=== PATIENT | male | born 1990 | race African-American/Black ===

== ENCOUNTER 2016-09-05 18:00 | Emergency (ER) | payer OTHER ==
[2016-09-05] MEDS ORDERED: ONDANSETRON 4 MG/2 ML VIAL IVP STA (18:19)
[2016-09-05] MEDS ORDERED: SODIUM CHLORIDE 0.9% 1,000 ML IV ONE (18:19)
[2016-09-05] MEDS ORDERED: ACETAMINOPHEN 1,000 MG/100 ML 100 ML IV STA (18:19)
[2016-09-05] MEDS ORDERED: ACETAMINOPHEN 1,000 MG/100 ML 100 ML IV ONE (18:29)
[2016-09-05] MEDS ORDERED: ONDANSETRON 4 MG/2 ML VIAL ONE (18:35)
[2016-09-05] MEDS ORDERED: LACTATED RINGERS 1,000 ML IV STA (19:33)
[2016-09-05] MEDS ORDERED: cefTRIAXone 2 GM in SODIUM CHLORIDE 0.9% MINIBAG 100 ML IV STA (20:16)
[2016-09-05] MEDS ORDERED: HYDROcod/ACET 5/325 Prepack 6 PO STA (20:17)
[2016-09-05] MEDS ORDERED: ONDANSETRON ODT 4 MG Prepack 2 TL STA (20:17)
[2016-09-05] MEDS ORDERED: cefTRIAXone 2 GM VIAL ONE (20:23)
[2016-09-05] MEDS ORDERED: HYDROcod/ACET 5/325 Prepack 6 PO ONE (20:33)
[2016-09-05] MEDS ORDERED: ONDANSETRON ODT 4 MG Prepack 2 TL ONE (20:33)
== END 2016-09-05 21:37 | disposition home or self-care (01) ==
DX: R05 Cough (principal); R50.9 Fever, unspecified; Z79.899 Other long term (current) drug therapy
CPT/HCPCS: 36415; 71020; 80053; 83605; 83690; 85025; 86308; 87040; 87070; 87275; 87276; 87430; 96361; 96365; 96367; 96375; 99284; J0131

== ENCOUNTER 2018-01-15 20:21 | Emergency (ER) | payer OTHER ==
--- NOTE | 2018-01-15 21:00 | XRAY Report ---
Procedure Date: 01/15/2018 Accession Number: [id number] / [id number] Procedure: XR - Chest 2 View X-Ray CPT Code: 51737 FULL RESULT: EXAM: CHEST RADIOGRAPHY EXAM DATE: 01/15/2018 08:54 PM. CLINICAL HISTORY: COUGH, SHORT OF BREATH. COMPARISON: Chest radiograph 09/05/2016. TECHNIQUE: 2 views. FINDINGS: Lungs/Pleura: No focal opacities evident. No pleural effusion. No pneumothorax. Normal volumes. Mediastinum: Heart and mediastinal contours are unremarkable. Other: None. IMPRESSION: No acute cardiopulmonary abnormality. [facility]
[2018-01-15] MEDS ORDERED: ALBUTEROL NEB 2.5 MG/3 ML INH STA (21:23)
[2018-01-15] MEDS ORDERED: predniSONE 20 MG TABLET PO STA (21:23)
--- NOTE | 2018-01-15 22:26 | ED Physician Documentation ---
PD HPI DYSPNEA - Stated complaint Stated Complaint: SOA/WEAZING/COUGH - Chief complaint Chief Complaint: Resp - History obtained from History obtained from: Patient - History of Present Illness Timing - onset: How many weeks ago Timing - onset during: Rest Timing - details: Gradual onset, Still present Worsened by: Exertion Similar symptoms before: No diagnosis Recently seen: Not recently seen - Additional information Additional information: Patient is an 27 year male with a distant history of asthma who is presenting to the emergency department for shortness of breath. Patient states that he went to see his pmd and he was working to breath so he was sent to the ER for evaluation. Review of Systems Constitutional: denies: Fever, Chills Respiratory: reports: Dyspnea, Wheezing PD PAST MEDICAL HISTORY - Past Medical History Past Medical History: Yes Cardiovascular: None Respiratory: Asthma Endocrine/Autoimmune: None GI: GERD, Other : None HEENT: None Psych: Depression Musculoskeletal: Other Derm: None Other Past Medical History: childhood asthma - Past Surgical History Past Surgical History: Yes General: Colonoscopy, EGD Ortho: Other - Present Medications Home Medications: Ambulatory Orders Medication Instructions Recorded Confirmed Omeprazole [PriLOSEC] 20 mg PO TID 05/01/17 05/11/17 buPROPion [Wellbutrin Sr] 100 mg PO DAILY 05/01/17 05/11/17 Albuterol Sulfate [Proventil Hfa 1 - 2 puffs INH Q4H PRN #1 inhaler 01/15/18 Inhaler] predniSONE [Prednisone] 40 mg PO DAILY 5 Days tablet 01/15/18 - Allergies Allergies/Adverse Reactions: Allergies Allergy/AdvReac Type Severity Reaction Status Date / Time No Known Drug Allergies Allergy Verified 01/15/18 20:36 - Social History Does the pt smoke?: Yes Smoking Status: Current every day smoker Does the pt drink ETOH?: Yes Does the pt have substance abuse?: No - Immunizations Immunizations are current?: Yes PD ED PE NORMAL - General General: Alert and oriented X 3, No acute distress - HEENT HEENT: Atraumatic - Neck Neck: Supple, no meningeal sign - Cardiac Cardiac: RRR, No murmur - Respiratory Respiratory: No respiratory distress - Abdomen Abdomen: Non distended - Derm Derm: Normal color, Warm and dry - Extremities Extremities: No deformity - Neuro Neuro: Alert and oriented X 3, No motor deficit, Normal speech Eye Opening: Spontaneous Results - Vitals Vitals: Vital Signs - 24 hr 01/15/18 20:33 Temperature 37.2 C Heart Rate 96 Respiratory 24 Rate Blood Pressure 124/94 H O2 Saturation 98 Oxygen O2 Source Room air - Rads (name of study) chest x-ray Radiology: Final report received (no acute abnormality) PD MEDICAL DECISION MAKING - ED course Complexity details: reviewed old records, reviewed results, re-evaluated patient , considered differential, d/w patient ED course: Patient was seen and examined at bedside. imaging had been performed. when patient returned the results were reviewed. there was no acute abnormalities. patient was treated with prednisone and breathing treatments were ordered. While waiting for the treatments patient stated that he would rather leave and ollow up with his doctor. patient was well appearing, and not hypoxic. patient required no further inpatient work up and was stable for discharge with outpatient follow up. - Sepsis Event Vital Signs: Vital Signs - 24 hr 01/15/18 20:33 Temperature 37.2 C Heart Rate 96 Respiratory 24 Rate Blood Pressure 124/94 H O2 Saturation 98 Oxygen O2 Source Room air Departure - Departure Disposition: 01 Home, Self Care Clinical Impression: Bronchitis Condition: Good Instructions: ED Bronchitis Asthmatic Follow-Up: PRAVEEN HARPER MD [Primary Care Provider] - Prescriptions: Albuterol Sulfate [Proventil Hfa Inhaler] 1 - 2 puffs INH Q4H PRN #1 inhaler PRN Reason: Shortness Of Air/Wheezing predniSONE [Prednisone] 40 mg PO DAILY 5 Days tablet Comments: Your symptoms today are likely being caused by by bronchitis. you will be on a short dose of steriods and are being prescribed an inhaler. you should follow up with doctor this week for further evaluation and care. You may return to the emergency department at any time for new worsening or uncontrollable symptoms.
[2018-01-15 22:59] VITALS: BP 158/95
== END 2018-01-15 23:32 | disposition home or self-care (01) ==
LOC: ED 20:21
DX: J40 Bronchitis, not specified as acute or chronic (principal); F17.200 Nicotine dependence, unspecified, uncomplicated
CPT/HCPCS: 71046; 94640; 94664; 99283; J7512

== ENCOUNTER 2018-01-23 08:54 | Outpatient (CLI) | payer OTHER ==
--- NOTE | 2018-01-24 10:33 | Nuclear Medicine Report ---
Procedure Date: 01/23/2018 Accession Number: [id number] / [id number] Procedure: NM - Gastric Empty Small Bowel CPT Code: FULL RESULT: EXAM: GASTRIC EMPTYING STUDY EXAM DATE: 01/23/2018 02:53 PM. CLINICAL HISTORY: NAUSEA AND VOMITING,ABDOMINAL PAIN PERIUMBILICAL. COMPARISON: None. TECHNIQUE: A standard meal was radiolabeled with 1 mCi Tc-99m sulfur colloid according to protocol. Following the p.o. administration of this meal, the patient underwent multiple static images over the abdomen from the anterior and posterior NARDA projections, at approximately 0, 1, 2, and 4 hours following the ingestion of the meal. Region of interest analysis was employed, and percent emptied/percent remaining of the meal was calculated using both the geometric mean and decay corrections. FINDINGS: Calculations demonstrate: TIME (hours) Percent remaining. Normal values for percent remaining. 1 hour: 18% (30-90%) 2 hours: 7% (0-60%) 4 hours: 2% (0-10%) IMPRESSION: Findings suggest abnormally rapid gastric emptying. [facility]
== END 2018-01-23 08:55 | disposition home or self-care (01) ==
LOC: DI 08:54
PROVIDERS: ATTEND Internal Medicine
DX: R11.2 Nausea with vomiting, unspecified (principal); R10.33 Periumbilical pain; R19.7 Diarrhea, unspecified
CPT/HCPCS: 78265

== ENCOUNTER 2018-04-06 20:25 | Outpatient (CLI) | payer OTHER | END 2018-04-06 20:26 | disposition critical access hospital (66) | LOC: EMS 20:25 | PROVIDERS: ATTEND Surgery | DX: T50.992A Poisoning by other drugs, medicaments and biological substances, intentional self-harm, initial encounter (principal); R53.83 Other fatigue | CPT/HCPCS: A0425; A0427 ==

== ENCOUNTER 2018-04-06 20:36 | Emergency (ER) | payer OTHER ==
[2018-04-06] MEDS ORDERED: SODIUM CHLORIDE 0.9% 1,000 ML IV ONE (20:56)
[2018-04-06 21:09] LABS: BASOPHILS # (AUTO) 0.1 10^3/uL (0.0-0.1); BASOPHILS % (AUTO) 0.9 %; EOSINOPHILS # (AUTO) 0.2 10^3/uL (0.0-0.7); EOSINOPHILS % (AUTO) 2.5 %; HGB - HEMOGLOBIN 15.2 g/dL (14.0-18.0); LYMPHOCYTES # (AUTO) 3.3 10^3/uL (1.5-3.5); LYMPHOCYTES % (AUTO) 40.2 %; MEAN CORPUSCULAR HEMOGLOBIN 27.3 pg (27.0-31.0); MEAN CORPUSCULAR HGB CONC 33.7 g/dL (32.0-36.0); MEAN CORPUSCULAR VOLUME 80.9 fL (80.0-94.0); MEAN PLATELET VOLUME 7.1 fL (7.4-11.4); MONOCYTES # (AUTO) 0.6 10^3/uL (0.0-1.0); MONOCYTES % (AUTO) 7.8 %; NEUTROPHILS % (AUTO) 48.6 %; PLT - PLATELET COUNT 353 10^3/uL (130-450); RED BLOOD COUNT 5.56 10^6/uL (4.70-6.10); WHITE BLOOD COUNT 8.2 x10^3/uL (4.8-10.8)
--- NOTE | 2018-04-06 21:13 | ED Physician Documentation ---
PD HPI OVERDOSE - Stated complaint Stated Complaint: OD - Chief complaint Chief Complaint: MHE - History obtained from History obtained from: Patient, EMS - History of Present Illness Timing - onset: Enter time (19:30) Subtance(s) ingested: Multiple Associated symptoms: Altered mental status Contributing factors: Depresssed, Suicidal Pain level now: 0 Recently seen: Not recently seen - Additional information Additional information: approximately 7:30 PM, patient intentionally overdosed on several of his prescribed medications (buspar, ativan, trazadone, zofran, valium). He tells me he did this because "I tried to punch my ticket"; when I ask him what he means by this, he says he was trying to kill himself. After taking these medications, he told his grandmother and she called 911. Review of Systems Eyes: denies: Loss of vision, Decreased vision Cardiac: reports: Reviewed and negative Respiratory: reports: Reviewed and negative GI: reports: Reviewed and negative : denies: Incontinent Neurologic: reports: Altered mental status. denies: Headache Psychiatric: reports: Depressed, Suicidal. denies: Hallucinations PD PAST MEDICAL HISTORY - Past Medical History Past Medical History: Yes Cardiovascular: None Respiratory: Asthma Endocrine/Autoimmune: None GI: GERD, Other : None HEENT: None Psych: Depression, Anxiety, Panic attacks Musculoskeletal: Other Derm: None Other Past Medical History: Perssisive-Depressive Disorder; Personality Disoder - Past Surgical History Past Surgical History: Yes General: Colonoscopy, EGD Ortho: Other - Present Medications Home Medications: Ambulatory Orders Medication Instructions Recorded Confirmed Omeprazole [PriLOSEC] 20 mg PO TID 05/01/17 05/11/17 buPROPion [Wellbutrin Sr] 100 mg PO DAILY 05/01/17 05/11/17 Albuterol Sulfate [Proventil Hfa 1 - 2 puffs INH Q4H PRN #1 inhaler 01/15/18 Inhaler] predniSONE [Prednisone] 40 mg PO DAILY 5 Days tablet 01/15/18 - Allergies Allergies/Adverse Reactions: Allergies Allergy/AdvReac Type Severity Reaction Status Date / Time No Known Drug Allergies Allergy Verified 01/15/18 20:36 - Social History Does the pt smoke?: Yes Smoking Status: Current every day smoker Does the pt drink ETOH?: Yes Does the pt have substance abuse?: No - Immunizations Immunizations are current?: Yes - POLST Patient has POLST: No PD ED PE NORMAL - Vitals Vital signs reviewed: Yes - General General: No acute distress, Well developed/nourished, Other (drowsy, falls asleep quickly / only awakens briefly and only with both verbal and tactile stimuli simultaneously. His answers are intelligible and appropriate. He is cooperative and polite.) - HEENT HEENT: PERRL, EOMI, Moist mucous membranes - Neck Neck: Supple, no meningeal sign - Cardiac Cardiac: RRR, No murmur - Respiratory Respiratory: No respiratory distress, Clear bilaterally - Abdomen Abdomen: Normal bowel sounds, Soft, Non tender - Derm Derm: Normal color, Warm and dry - Neuro Eye Opening: To Voice (with tactile (but does not require painful stimulus)) Motor: Obeys Commands Verbal: Oriented GCS Score: 14 Results - Vitals Vitals: Vital Signs - 24 hr 04/06/18 04/06/18 04/06/18 20:37 21:40 23:06 Temperature 36.1 C L 36.5 C 36.4 C L Heart Rate 85 66 64 Respiratory 15 12 12 Rate Blood Pressure 132/83 H 103/58 L 104/78 O2 Saturation 100 98 96 04/07/18 04/07/18 01:00 07:44 Temperature 36.3 C L Heart Rate 75 67 Respiratory 14 16 Rate Blood Pressure 110/80 123/76 O2 Saturation 96 100 Oxygen O2 Source Room air - EKG (time done) No standard instances Rate: Rate (enter#) (68) Rhythm: NSR [place]: Normal Intervals: Normal [place] QRS: Normal Ischemia: ST elevation c/w repol - Labs Labs: Laboratory Tests 04/06/18 04/06/18 04/07/18 21:00 21:00 07:35 WBC 8.2 RBC 5.56 Hgb 15.2 Hct 45.0 MCV 80.9 MCH 27.3 MCHC 33.7 RDW 15.0 Plt Count 353 MPV 7.1 L Neut # (Auto) 4.0 Lymph # (Auto) 3.3 [place] # (Auto) 0.6 Eos # (Auto) 0.2 Baso # (Auto) 0.1 Absolute Nucleated RBC 0.01 Nucleated RBC % 0.1 Sodium 136 Potassium 3.6 Chloride 105 Carbon Dioxide 21 Anion Gap 10.0 BUN 11 Creatinine 1.1 Estimated GFR (MDRD) 98 Glucose 92 Calcium 8.8 Total Bilirubin 2.2 H AST 24 ALT 27 Alkaline Phosphatase 78 Total Protein 7.4 Albumin 3.9 Globulin 3.5 Albumin/Globulin Ratio 1.1 Lipase 33 Urine Color YELLOW Urine Clarity CLEAR Urine pH 6.0 Ur Specific [place] 1.010 Urine Protein NEGATIVE Urine Glucose (UA) NEGATIVE Urine Ketones NEGATIVE Urine Occult Blood NEGATIVE Urine Nitrite NEGATIVE Urine Bilirubin NEGATIVE Urine Urobilinogen 0.2 (NORMAL) Ur Leukocyte Esterase NEGATIVE Ur Microscopic Review NOT INDICATED Urine Culture Comments NOT INDICATED Salicylates < 6.0 Acetaminophen < 10 L Ethyl Alcohol < 5.0 PD MEDICAL DECISION MAKING - ED course Complexity details: reviewed results, re-evaluated patient, considered differential, d/w patient ED course: Patient kept in ED overnight awaiting improved mental status and for observation for potential side effects of overdose. Signed out to oncoming ED physician (Dr. Recinos) at the end of my shift (7 AM) pending disposition. - Sepsis Event Vital Signs: Vital Signs - 24 hr 04/06/18 04/06/18 04/06/18 20:37 21:40 23:06 Temperature 36.1 C L 36.5 C 36.4 C L Heart Rate 85 66 64 Respiratory 15 12 12 Rate Blood Pressure 132/83 H 103/58 L 104/78 O2 Saturation 100 98 96 04/07/18 04/07/18 01:00 07:44 Temperature 36.3 C L Heart Rate 75 67 Respiratory 14 16 Rate Blood Pressure 110/80 123/76 O2 Saturation 96 100 Oxygen O2 Source Room air Departure - Departure Disposition: 65 Psych Hosp/Unit DC/Xfer Clinical Impression: Medication overdose Qualifiers: Encounter type: initial encounter Injury intent: intentional self-harm Qualified Code(s): T50.902A - Poisoning by unspecified drugs, medicaments and biological substances, intentional self-harm, initial encounter
[2018-04-06 21:21] LABS: ACETAMINOPHEN < 10 ug/mL (10-30); ALBUMIN 3.9 g/dL (3.2-5.5); ALBUMIN/GLOBULIN RATIO 1.1 (1.0-2.2); ALKALINE PHOSPHATASE 78 IU/L (42-121); ALT ALANINE AMINOTRANSFERASE 27 IU/L (10-60); AST ASPARTATE AMINOTRANSFERASE 24 IU/L (10-42); BILIRUBIN,TOTAL 2.2 mg/dL (0.2-1.0); BUN - BLOOD UREA NITROGEN 11 mg/dL (6-20); CALCIUM 8.8 mg/dL (8.5-10.3); CARBON DIOXIDE - CO2 21 mmol/L (21-32); CHLORIDE 105 mmol/L (101-111); CREATININE 1.1 mg/dL (0.6-1.2); GFR - MDRD 98 (>89); GLUCOSE 92 mg/dL (70-100); LIPASE 33 U/L (22-51); SALICYLATE < 6.0 mg/dL; SODIUM 136 mmol/L (135-145); TOTAL PROTEIN 7.4 g/dL (6.7-8.2)
[2018-04-07 07:46] LABS: BILIRUBIN,URINE NEGATIVE (NEGATIVE); GLUCOSE, URINE (UA) NEGATIVE (NEGATIVE); KETONES,URINE (UA) NEGATIVE (NEGATIVE); LEUKOCYTE ESTERASE, URINE NEGATIVE (NEGATIVE); NITRITE,URINE NEGATIVE (NEGATIVE); OCCULT BLOOD,URINE NEGATIVE (NEGATIVE); PROTEIN,URINE NEGATIVE (NEGATIVE); UROBILINOGEN,URINE 0.2 (NORMAL) E.U./dL (NORMAL)
[2018-04-07 07:48] LABS: CLARITY,URINE CLEAR (CLEAR)
--- NOTE | 2018-04-07 07:54 | ED Physician Documentation ---
History of Present Illness - Stated complaint Stated Complaint: OD - Chief complaint Chief Complaint: MHE PD PAST MEDICAL HISTORY - Past Medical History Past Medical History: Yes Cardiovascular: None Respiratory: Asthma Endocrine/Autoimmune: None GI: GERD, Other : None HEENT: None Psych: Depression, Anxiety, Panic attacks Musculoskeletal: Other Derm: None Other Past Medical History: Perssisive-Depressive Disorder; Personality Disoder - Past Surgical History Past Surgical History: Yes General: Colonoscopy, EGD Ortho: Other - Present Medications Home Medications: Ambulatory Orders Medication Instructions Recorded Confirmed Omeprazole [PriLOSEC] 20 mg PO TID 05/01/17 05/11/17 buPROPion [Wellbutrin Sr] 100 mg PO DAILY 05/01/17 05/11/17 Albuterol Sulfate [Proventil Hfa 1 - 2 puffs INH Q4H PRN #1 inhaler 01/15/18 Inhaler] predniSONE [Prednisone] 40 mg PO DAILY 5 Days tablet 01/15/18 - Allergies Allergies/Adverse Reactions: Allergies Allergy/AdvReac Type Severity Reaction Status Date / Time No Known Drug Allergies Allergy Verified 01/15/18 20:36 - Social History Does the pt smoke?: Yes Smoking Status: Current every day smoker Does the pt drink ETOH?: Yes Does the pt have substance abuse?: No - Immunizations Immunizations are current?: Yes - POLST Patient has POLST: No Results - Vitals Vitals: Vital Signs - 24 hr 04/06/18 04/06/18 04/06/18 20:37 21:40 23:06 Temperature 36.1 C L 36.5 C 36.4 C L Heart Rate 85 66 64 Respiratory 15 12 12 Rate Blood Pressure 132/83 H 103/58 L 104/78 O2 Saturation 100 98 96 04/07/18 04/07/18 04/07/18 01:00 07:44 10:05 Temperature 36.3 C L Heart Rate 75 67 62 Respiratory 14 16 11 L Rate Blood Pressure 110/80 123/76 99/54 L O2 Saturation 96 100 96 Oxygen O2 Source Room air - Labs Labs: Laboratory Tests 04/06/18 04/06/18 04/07/18 21:00 21:00 07:35 WBC 8.2 RBC 5.56 Hgb 15.2 Hct 45.0 MCV 80.9 MCH 27.3 MCHC 33.7 RDW 15.0 Plt Count 353 MPV 7.1 L Neut # (Auto) 4.0 Lymph # (Auto) 3.3 [place] # (Auto) 0.6 Eos # (Auto) 0.2 Baso # (Auto) 0.1 Absolute Nucleated RBC 0.01 Nucleated RBC % 0.1 Sodium 136 Potassium 3.6 Chloride 105 Carbon Dioxide 21 Anion Gap 10.0 BUN 11 Creatinine 1.1 Estimated GFR (MDRD) 98 Glucose 92 Calcium 8.8 Total Bilirubin 2.2 H AST 24 ALT 27 Alkaline Phosphatase 78 Total Protein 7.4 Albumin 3.9 Globulin 3.5 Albumin/Globulin Ratio 1.1 Lipase 33 Urine Color YELLOW Urine Clarity CLEAR Urine pH 6.0 Ur Specific [place] 1.010 Urine Protein NEGATIVE Urine Glucose (UA) NEGATIVE Urine Ketones NEGATIVE Urine Occult Blood NEGATIVE Urine Nitrite NEGATIVE Urine Bilirubin NEGATIVE Urine Urobilinogen 0.2 (NORMAL) Ur Leukocyte Esterase NEGATIVE Ur Microscopic Review NOT INDICATED Urine Culture Comments NOT INDICATED Salicylates < 6.0 Urine Opiates Screen Ur Oxycodone Screen Urine Methadone Screen Ur Propoxyphene Screen Acetaminophen < 10 L Ur Barbiturates Screen Ur Tricyclics Screen Ur Phencyclidine Scrn Ur Amphetamine Screen U Methamphetamines Scrn U Benzodiazepines Scrn Urine Cocaine Screen U Cannabinoids Screen Ethyl Alcohol < 5.0 04/07/18 07:35 WBC RBC Hgb Hct MCV MCH MCHC RDW Plt Count MPV Neut # (Auto) Lymph # (Auto) [place] # (Auto) Eos # (Auto) Baso # (Auto) Absolute Nucleated RBC Nucleated RBC % Sodium Potassium Chloride Carbon Dioxide Anion Gap BUN Creatinine Estimated GFR (MDRD) Glucose Calcium Total Bilirubin AST ALT Alkaline Phosphatase Total Protein Albumin Globulin Albumin/Globulin Ratio Lipase Urine Color Urine Clarity Urine pH Ur Specific [place] Urine Protein Urine Glucose (UA) Urine Ketones Urine Occult Blood Urine Nitrite Urine Bilirubin Urine Urobilinogen Ur Leukocyte Esterase Ur Microscopic Review Urine Culture Comments Salicylates Urine Opiates Screen NEGATIVE Ur Oxycodone Screen NEGATIVE Urine Methadone Screen NEGATIVE Ur Propoxyphene Screen NEGATIVE Acetaminophen Ur Barbiturates Screen NEGATIVE Ur Tricyclics Screen NEGATIVE Ur Phencyclidine Scrn NEGATIVE Ur Amphetamine Screen NEGATIVE U Methamphetamines Scrn NEGATIVE U Benzodiazepines Scrn POSITIVE H Urine Cocaine Screen NEGATIVE U Cannabinoids Screen NEGATIVE Ethyl Alcohol PD MEDICAL DECISION MAKING - ED course ED course: assumed care 7 AM 28 y/o AD [place] male intentional OD with intent to kill self last night he called his grandma afterwards and she called 911 OD was ativan valium trazodone buspar and zofran (see NN) pt has been observed on tele > 10 hr s QRS QT abn he is now awake ambulatory denies fall injury denies recent illness such as fever cough NVD will need in pt mental health - AD - will call [facility] pt gives me permission to call his command he is voluntary at this time ROS Neg fever cough CP SOA abd pain diarrhea Pos NV after OD and suicidal intent Exam VS noted awake alert head atraumatic PERRL slight dysconjugate gaze but pt states that is baseline spine NT RRR CTAB alert cooperative no motor deficit states suicidal discussed care with poison control - no further rec called [facility] center at 0810 - Sepsis Event Vital Signs: Vital Signs - 24 hr 04/06/18 04/06/18 04/06/18 20:37 21:40 23:06 Temperature 36.1 C L 36.5 C 36.4 C L Heart Rate 85 66 64 Respiratory 15 12 12 Rate Blood Pressure 132/83 H 103/58 L 104/78 O2 Saturation 100 98 96 04/07/18 04/07/18 04/07/18 01:00 07:44 10:05 Temperature 36.3 C L Heart Rate 75 67 62 Respiratory 14 16 11 L Rate Blood Pressure 110/80 123/76 99/54 L O2 Saturation 96 100 96 Oxygen O2 Source Room air Departure - Departure Disposition: 65 Psych Hosp/Unit DC/Xfer Clinical Impression: Medication overdose Qualifiers: Encounter type: initial encounter Injury intent: intentional self-harm Qualified Code(s): T50.902A - Poisoning by unspecified drugs, medicaments and biological substances, intentional self-harm, initial encounter
[2018-04-07 08:24] LABS: MUDS CUTOFF CONCENTRATIONS CUTOFF CONC BELOW:
[2018-04-07 08:34] LABS: AMPHETAMINE SCREEN,URINE NEGATIVE (NEGATIVE); BENZODIAZEPINES SCREEN, URINE POSITIVE (NEGATIVE); COCAINE SCREEN URINE NEGATIVE (NEGATIVE); METHADONE SCREEN, URINE NEGATIVE (NEGATIVE); METHAMPHETAMINES SCREEN, URINE NEGATIVE (NEGATIVE); OPIATE SCREEN, URINE NEGATIVE (NEGATIVE); OXYCODONE SCREEN, URINE NEGATIVE (NEGATIVE); PROPOXYPHENE SCREEN, URINE NEGATIVE (NEGATIVE); TRICYCLIC ANTIDEPRESSANT,URINE NEGATIVE (NEGATIVE)
[2018-04-07 11:28] VITALS: BP 120/78
== END 2018-04-07 11:10 ==
LOC: EDUNIT# → ED 20:36
DX: T43.212A Poisoning by selective serotonin and norepinephrine reuptake inhibitors, intentional self-harm, initial encounter (principal); T43.592A Poisoning by other antipsychotics and neuroleptics, intentional self-harm, initial encounter; T45.0X2A Poisoning by antiallergic and antiemetic drugs, intentional self-harm, initial encounter; F17.200 Nicotine dependence, unspecified, uncomplicated
CPT/HCPCS: 36415; 80053; 80306; 80307; 80320; 80329; 81001; 81003; 83690; 85025; 87086; 93005; 96360; 99284

== ENCOUNTER 2018-05-06 08:03 | Outpatient (CLI) | payer OTHER ==
--- NOTE | 2018-05-06 11:02 | MRI Report ---
Reason: PAIN IN RIGHT KNEE Procedure Date: 05/06/2018 Accession Number: [id number] / [id number] Procedure: MRI - Knee RT W/O CPT Code: FULL RESULT: EXAM: RIGHT KNEE MRI WITHOUT CONTRAST EXAM DATE: 05/06/2018 08:38 AM. CLINICAL HISTORY: Pain in right knee. COMPARISON: None. TECHNIQUE: Multiplanar, multisequence T1-weighted and fluid-sensitive sequences of the knee without contrast. Other: None. FINDINGS: Bones: No fractures or subluxations. No marrow edema. No bone lesions. 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 The remainder of the hyaline cartilage appears normal. Medial Meniscus: The medial meniscus is intact. Lateral Meniscus: The lateral meniscus is intact. Cruciate Ligaments: The anterior and posterior cruciate ligaments are intact. Collateral Ligaments: The medial collateral and lateral collateral ligamentous structures are intact. Tendons: The quadriceps, patellar, semimembranosus, and popliteus tendons are unremarkable. Musculature: No edema or fatty atrophy. Other: No effusion. No popliteal cyst. No loose bodies. The medial and lateral retinacula are intact. The subcutaneous tissues and fat pads are unremarkable. IMPRESSION: 1. Minimal surface fissuring of the hyaline cartilage of the patella. 2. No other significant abnormality. [facility] MUSCULOSKELETAL RADIOLOGY SECTION
== END 2018-05-06 08:04 | disposition home or self-care (01) ==
LOC: DI 08:03
PROVIDERS: ATTEND Internal Medicine
DX: M25.561 Pain in right knee (principal)

== ENCOUNTER 2018-07-24 10:10 | Outpatient (CLI) | payer SELFPAY | END 2018-07-24 10:11 | disposition EMS.NT | LOC: EMS 10:10 | PROVIDERS: ATTEND Surgery | DX: F41.9 Anxiety disorder, unspecified (principal) ==

== ENCOUNTER 2018-07-24 15:48 | Emergency (ER) | payer SELFPAY ==
[2018-07-24 16:56] LABS: BASOPHILS # (AUTO) 0.1 10^3/uL (0.0-0.1); BASOPHILS % (AUTO) 0.3 %; HGB - HEMOGLOBIN 16.8 g/dL (14.0-18.0); LYMPHOCYTES # (AUTO) 1.7 10^3/uL (1.5-3.5); LYMPHOCYTES % (AUTO) 10.6 %; MEAN CORPUSCULAR HGB CONC 32.9 g/dL (32.0-36.0); MEAN CORPUSCULAR VOLUME 78.9 fL (80.0-94.0); MEAN PLATELET VOLUME 7.9 fL (7.4-11.4); MONOCYTES # (AUTO) 0.8 10^3/uL (0.0-1.0); MONOCYTES % (AUTO) 4.9 %; NEUTROPHILS # (AUTO) 13.5 10^3/uL (1.5-6.6); NEUTROPHILS % (AUTO) 84.2 %; PLT - PLATELET COUNT 430 10^3/uL (130-450); RED BLOOD COUNT 6.47 10^6/uL (4.70-6.10); RED CELL DISTRIBUTION WIDTH 14.8 % (12.0-15.0); WHITE BLOOD COUNT 16.1 x10^3/uL (4.8-10.8)
[2018-07-24 17:06] LABS: ALBUMIN 5.2 g/dL (3.2-5.5); ALBUMIN/GLOBULIN RATIO 1.4 (1.0-2.2); BILIRUBIN,TOTAL 2.6 mg/dL (0.2-1.0); CALCIUM 10.2 mg/dL (8.5-10.3); CREATININE 1.3 mg/dL (0.6-1.2)
[2018-07-24] MEDS ORDERED: SODIUM CHLORIDE 0.9% 1,000 ML IV ONE ×2 (18:05→18:53)
--- NOTE | 2018-07-24 18:33 | ED Physician Documentation ---
PD HPI NVD - Stated complaint Stated Complaint: VOMITING - Chief complaint Chief Complaint: Abd Pain - History obtained from History obtained from: Patient, Family (spouse) - History of Present Illness Timing - onset: Other Timing - duration: Weeks (4) Timing - details: Gradual onset, Waxing and waning Associated symptoms: Abdominal pain. No: Fever Contributing factors: No: Sick contact Improved by: Eating Similar symptoms before: Has not had sx before Recently seen: Not recently seen Review of Systems Constitutional: denies: Fever, Chills Eyes: denies: Loss of vision Nose: denies: Rhinorrhea / runny nose, Congestion Throat: denies: Sore throat Cardiac: denies: Chest pain / pressure PD PAST MEDICAL HISTORY - Past Medical History Cardiovascular: None Respiratory: Asthma Endocrine/Autoimmune: None GI: GERD, Other : None HEENT: None Psych: Depression, Anxiety, Panic attacks Musculoskeletal: Other Derm: None - Past Surgical History Past Surgical History: Yes General: Colonoscopy, EGD Ortho: Other - Present Medications Home Medications: Ambulatory Orders Medication Instructions Recorded Confirmed Omeprazole [PriLOSEC] 20 mg PO TID 05/01/17 07/24/18 Albuterol Sulfate [Proventil Hfa 1 - 2 puffs INH Q4H PRN #1 inhaler 01/15/18 07/24/18 Inhaler] DULoxetine [Cymbalta] 30 mg PO DAILY 07/24/18 07/24/18 Diphenoxylate/Atropine [Lomotil] 1 each PO QID PRN #12 tablet 07/24/18 Ondansetron Odt [Zofran Odt] 4 mg PO PRN PRN 07/24/18 07/24/18 Ondansetron Odt [Zofran] 4 mg TL Q6H PRN #10 tablet 07/24/18 busPIRone [Buspar] 30 mg PO DAILY 07/24/18 07/24/18 traZODone [Desyrel] 50 mg PO DAILY PM 07/24/18 07/24/18 - Allergies Allergies/Adverse Reactions: Allergies Allergy/AdvReac Type Severity Reaction Status Date / Time No Known Drug Allergies Allergy Verified 07/24/18 16:36 - Social History Does the pt smoke?: Yes Smoking Status: Current every day smoker Does the pt drink ETOH?: Yes Does the pt have substance abuse?: No - Immunizations Immunizations are current?: Yes - POLST Patient has POLST: No PD ED PE NORMAL - Vitals Vital signs reviewed: Yes - General General: Alert and oriented X 3, No acute distress, Well developed/nourished - HEENT HEENT: Ears normal, Pharynx benign - Neck Neck: Supple, no meningeal sign, No adenopathy - Cardiac Cardiac: RRR, No murmur - Respiratory Respiratory: No respiratory distress, Clear bilaterally - Abdomen Abdomen: Normal bowel sounds, Soft, Non tender, Non distended - Male Male : Deferred - Rectal Rectal: Deferred - Back Back: No CVA TTP, No spinal TTP - Derm Derm: Normal color, Warm and dry - Extremities Extremities: No deformity, No tenderness to palpate, Normal ROM s pain - Neuro Neuro: Alert and oriented X 3, No motor deficit, Normal speech Results - Vitals Vitals: Oxygen O2 Source Room air - Labs Labs: Laboratory Tests 07/24/18 07/24/18 07/24/18 16:49 16:49 20:20 WBC 16.1 H RBC 6.47 H Hgb 16.8 Hct 51.1 MCV 78.9 L MCH 26.0 L MCHC 32.9 RDW 14.8 Plt Count 430 MPV 7.9 Neut # (Auto) 13.5 H Lymph # (Auto) 1.7 [place] # (Auto) 0.8 Eos # (Auto) 0.0 Baso # (Auto) 0.1 Absolute Nucleated RBC 0.01 Nucleated RBC % 0.1 Sodium 134 L Potassium 3.7 Chloride 102 Carbon Dioxide 19 L Anion Gap 13.0 BUN 13 Creatinine 1.3 H Estimated GFR (MDRD) 81 L Glucose 117 H Calcium 10.2 Total Bilirubin 2.6 H AST 38 ALT 35 Alkaline Phosphatase 77 Total Protein 9.0 H Albumin 5.2 Globulin 3.8 Albumin/Globulin Ratio 1.4 Lipase 45 Urine Color YELLOW Urine Clarity CLEAR Urine pH >=9.0 H Ur Specific [place] 1.010 Urine Protein NEGATIVE Urine Glucose (UA) NEGATIVE Urine Ketones 15 H Urine Occult Blood NEGATIVE Urine Nitrite NEGATIVE Urine Bilirubin NEGATIVE Urine Urobilinogen 0.2 (NORMAL) Ur Leukocyte Esterase NEGATIVE Ur Microscopic Review NOT INDICATED Urine Culture Comments NOT INDICATED PD MEDICAL DECISION MAKING - ED course Complexity details: reviewed results, considered differential, d/w patient ED course: He is given IV fluids. No signs of infectious. Departure - Departure Disposition: 01 Home, Self Care Clinical Impression: Nausea vomiting and diarrhea Abdominal pain Qualifiers: Abdominal location: generalized Qualified Code(s): R10.84 - Generalized abdominal pain Condition: Stable Record reviewed to determine appropriate education?: Yes Instructions: ED Abdominal Pain Unkn Cause, ED Nausea Vomiting Prescriptions: Diphenoxylate/Atropine [Lomotil] 1 each PO QID PRN #12 tablet PRN Reason: Diarrhea Ondansetron Odt [Zofran] 4 mg TL Q6H PRN #10 tablet PRN Reason: Nausea / Vomiting Comments: Small frequent fluids. Rest for a day or 2. The skin and chemistry panel are normal. I presume this may be a viral stomach flu or such and should last for a day or 2 and then improve. Use ondansetron if needed for nausea and Lomotil for diarrhea. Tylenol or ibuprofen if needed for pains. Recheck if not improved over the next few days. Discharge Date/Time: 07/24/18 21:21
[2018-07-24] MEDS ORDERED: ONDANSETRON 4 MG/2 ML VIAL IVP STA (18:53)
[2018-07-24] MEDS ORDERED: KETOROLAC 30 MG/ML VIAL IVP STA (18:54)
[2018-07-24] MEDS ORDERED: HYDROmorphone 2 MG/ML VIAL IVP STA (18:54)
[2018-07-24] MEDS ORDERED: METOCLOPRAMIDE 10 MG/2 ML VIAL IVP STA (18:56)
[2018-07-24] MEDS ORDERED: IOVERSOL 320 100 ML VIAL IVP ONE ×2 (19:02→20:04)
--- NOTE | 2018-07-24 20:10 | CT Report ---
Reason: abd pain and vomiting Procedure Date: 07/24/2018 Accession Number: [id number] / [id number] Procedure: CT - Abdomen/Pelvis W/ CPT Code: FULL RESULT: EXAM: CT ABDOMEN AND PELVIS EXAM DATE: 07/24/2018 07:25 PM. CLINICAL HISTORY: Abdomen pain and vomiting. COMPARISONS: None. TECHNIQUE: Routine helical CT imaging was performed through the abdomen and pelvis. IV contrast: 90 ML OPTIRAY 320. Enteric contrast: No. Reconstructions: Coronal and sagittal. In accordance with CT protocol optimization, one or more of the following dose reduction techniques were utilized for this exam: automated exposure control, adjustment of mA and/or KV based on patient size, or use of iterative reconstructive technique. FINDINGS: Lung Bases: Unremarkable. Liver: Normal. No masses. Gallbladder/Bile Ducts: Unremarkable. Spleen: Normal. Pancreas: Normal. Adrenal Glands: Normal. Kidneys: Normal. No masses or hydronephrosis. Peritoneal Cavity/Bowel: Normal. No free fluid, free air or adenopathy. No masses or acute inflammatory process. The appendix is well visualized and normal. Pelvic Organs: Normal. The bladder and visualized pelvic organs are within normal limits. Vasculature: No aneurysms or other significant abnormality. Bones: No significant abnormality. Other: None. IMPRESSION: Normal abdomen and pelvis CT. RADIA
[2018-07-24 20:26] LABS: BILIRUBIN,URINE NEGATIVE (NEGATIVE); GLUCOSE, URINE (UA) NEGATIVE (NEGATIVE); KETONES,URINE (UA) 15 mg/dL (NEGATIVE); LEUKOCYTE ESTERASE, URINE NEGATIVE (NEGATIVE); NITRITE,URINE NEGATIVE (NEGATIVE); OCCULT BLOOD,URINE NEGATIVE (NEGATIVE); PH,URINE >=9.0 PH (5.0-7.5); PROTEIN,URINE NEGATIVE (NEGATIVE); UROBILINOGEN,URINE 0.2 (NORMAL) E.U./dL (NORMAL)
[2018-07-24 20:30] LABS: CLARITY,URINE CLEAR (CLEAR)
[2018-07-24] MEDS ORDERED: ONDANSETRON ODT 4 MG Prepack 2 TL PRN (20:51)
[2018-07-24] MEDS ORDERED: DIPHENOX/ATROPINE 2.5/0.025 MG TABLET PO STA (20:51)
[2018-07-24 20:59] VITALS: BP 134/65
== END 2018-07-24 21:21 | disposition home or self-care (01) ==
LOC: ED 15:48
DX: R11.2 Nausea with vomiting, unspecified (principal); R19.7 Diarrhea, unspecified; R10.84 Generalized abdominal pain; F17.200 Nicotine dependence, unspecified, uncomplicated
CPT/HCPCS: 36415; 74177; 80053; 81003; 83690; 85025; 96361; 96374; 96375; 99283; A9270; J1170; J2765; Q9967; 81001; 87086

== ENCOUNTER 2018-07-28 10:13 | Emergency (ER) | payer SELFPAY ==
--- NOTE | 2018-07-28 11:27 | ED Physician Documentation ---
PD HPI NVD - Stated complaint Stated Complaint: N/V/D - Chief complaint Chief Complaint: Abd Pain - History obtained from History obtained from: Patient - History of Present Illness Timing - onset: How many days ago (about a week with worse the past few days.) Timing - duration: Weeks (1) Timing - details: Abrupt onset, Still present, Waxing and waning Associated symptoms: Abdominal pain, Loss of appetite. No: Fever, Hematemesis, Melena, Near syncope / syncope Contributing factors: No: Sick contact, Bad food Improved by: No: Vomiting Worsened by: Eating Recently seen: Emergency Dept, Admitted (was at our ED last week with similar and thought to be viral GE, without history of this. Then was at [facility] - with similar and admitted with CT scan and labs, meds until improved. Hisotry of anxiety and depression and also reported occasional cannibis use. Presumed stress or cannibis related hyperememsis (though utox negative). No other cause found. Elevated bilirubin incidental. Discharged yesterday evening but did not get to pharmacy to get Rx filled for antiemetics and antispasmodics. Symptoms back again today.) Review of Systems Constitutional: denies: Fever, Chills, Myalgias Nose: denies: Rhinorrhea / runny nose, Congestion Throat: denies: Sore throat Cardiac: denies: Chest pain / pressure Respiratory: denies: Cough GI: reports: Abdominal Pain, Nausea, Vomiting, Diarrhea (soft to watery). denies: Constipation, Hematemesis, Bloody / black stool : denies: Dysuria, Frequency PD PAST MEDICAL HISTORY - Past Medical History Past Medical History: Yes Cardiovascular: None Respiratory: Asthma Neuro: None Endocrine/Autoimmune: None GI: GERD, Other : None HEENT: None Psych: Depression, Anxiety, Panic attacks Musculoskeletal: Other Derm: None - Past Surgical History Past Surgical History: Yes General: Colonoscopy, EGD Ortho: Shoulder arthroplasty, Other - Present Medications Home Medications: Ambulatory Orders Medication Instructions Recorded Confirmed Omeprazole [PriLOSEC] 20 mg PO TID 05/01/17 07/28/18 Albuterol Sulfate [Proventil Hfa 1 - 2 puffs INH Q4H PRN #1 inhaler 01/15/18 07/24/18 Inhaler] DULoxetine [Cymbalta] 30 mg PO DAILY 07/24/18 07/28/18 Diphenoxylate/Atropine [Lomotil] 1 each PO QID PRN #12 tablet 07/24/18 07/28/18 Ondansetron Odt [Zofran Odt] 4 mg PO PRN PRN 07/24/18 07/28/18 Ondansetron Odt [Zofran] 4 mg TL Q6H PRN #10 tablet 07/24/18 07/28/18 busPIRone [Buspar] 30 mg PO DAILY 07/24/18 07/28/18 traZODone [Desyrel] 50 mg PO DAILY PM 07/24/18 07/28/18 - Allergies Allergies/Adverse Reactions: Allergies Allergy/AdvReac Type Severity Reaction Status Date / Time No Known Drug Allergies Allergy Verified 07/28/18 10:20 - Social History Does the pt smoke?: Yes Smoking Status: Current every day smoker Does the pt drink ETOH?: Yes ETOH Use: Beer Does the pt have substance abuse?: No Substance Use and Type: Marijuana - Immunizations Immunizations are current?: Yes - POLST Patient has POLST: No PD ED PE NORMAL - Vitals Vital signs reviewed: Yes - General General: Alert and oriented X 3, Well developed/nourished, Other (appears uncomfortable with knees drawn up. ) - HEENT HEENT: Moist mucous membranes, Pharynx benign - Neck Neck: Supple, no meningeal sign, No adenopathy - Cardiac Cardiac: RRR, No murmur - Respiratory Respiratory: Clear bilaterally - Abdomen Abdomen: Normal bowel sounds, Soft, Non distended, No organomegaly, Other (tender diffusely, mostly epigastric, with guarding. ) - Male Male : Deferred - Rectal Rectal: Deferred - Back Back: No CVA TTP - Derm Derm: Normal color - Neuro Neuro: Alert and oriented X 3, No motor deficit, Normal speech Results - Vitals Vitals: Vital Signs - 24 hr 07/28/18 07/28/18 07/28/18 10:16 13:41 15:38 Temperature 36.5 C Heart Rate 71 45 L 53 L Respiratory 22 16 16 Rate Blood Pressure 141/108 H 132/71 H 120/75 O2 Saturation 100 96 98 Oxygen O2 Source Room air - Labs Labs: Laboratory Tests 07/28/18 07/28/18 07/28/18 11:47 11:47 13:30 WBC 16.5 H RBC 5.94 Hgb 15.8 Hct 46.3 MCV 78.0 L MCH 26.5 L MCHC 34.0 RDW 14.4 Plt Count 371 MPV 8.4 Neut # (Auto) 14.3 H Lymph # (Auto) 1.5 [place] # (Auto) 0.6 Eos # (Auto) 0.1 Baso # (Auto) 0.0 Absolute Nucleated RBC 0.01 Nucleated RBC % 0.0 Sodium 138 Potassium 3.2 L Chloride 103 Carbon Dioxide 21 Anion Gap 14.0 H BUN 10 Creatinine 1.3 H Estimated GFR (MDRD) 81 L Glucose 104 H Calcium 9.9 Total Bilirubin 1.7 H AST 34 ALT 26 Alkaline Phosphatase 65 Total Protein 8.1 Albumin 4.6 Globulin 3.5 Albumin/Globulin Ratio 1.3 Lipase 48 Urine Color YELLOW Urine Clarity CLEAR Urine pH 8.5 H Ur Specific [place] 1.010 Urine Protein NEGATIVE Urine Glucose (UA) NEGATIVE Urine Ketones NEGATIVE Urine Occult Blood NEGATIVE Urine Nitrite NEGATIVE Urine Bilirubin NEGATIVE Urine Urobilinogen 0.2 (NORMAL) Ur Leukocyte Esterase NEGATIVE Ur Microscopic Review NOT INDICATED Urine Culture Comments NOT INDICATED Urine Opiates Screen NEGATIVE Ur Oxycodone Screen NEGATIVE Urine Methadone Screen NEGATIVE Ur Propoxyphene Screen NEGATIVE Ur Barbiturates Screen NEGATIVE Ur Tricyclics Screen NEGATIVE Ur Phencyclidine Scrn NEGATIVE Ur Amphetamine Screen NEGATIVE U Methamphetamines Scrn NEGATIVE U Benzodiazepines Scrn NEGATIVE Urine Cocaine Screen NEGATIVE U Cannabinoids Screen NEGATIVE PD MEDICAL DECISION MAKING - ED course Complexity details: reviewed old records (prior ED visit here and the discharge summary from [facility]), reviewed results (labs not significantly off. WBC elevated but I did not feel a third CT in a week would be productive. Presume gastritis. He has several Rx from [place] that he can fill.), considered differential (had been here last week for similar and then was at for 3 days with episode, and we got d/c summary from them. Had CT scan and labs. Dx with likely stress/anxiety induced symptoms. history of some cannibis use so ? hyperemesis from that, though his urine tox was negative. had elevated bilirubin on their labs. Else negative. Improved over 2-3 days. He was discharged yesterday, but had not gotten Rx filled as yet, so did not have antiemetic or antispasmodic to use at home. Symptoms back again today. ), d/w patient Departure - Departure Disposition: 01 Home, Self Care Clinical Impression: Nausea vomiting and diarrhea Condition: Stable Record reviewed to determine appropriate education?: Yes Instructions: ED Diet Vomiting Diarrhea Follow-Up: [facility] [address] [Provider Group] Comments: With the prescription from us from the other day along with the prescriptions available written by the , you should have medicines available for nausea, diarrhea, anxiety and then to start on medicines for your anxiety and PTSD. Try those medicines along with small frequent fluids and bland food and see how you do. Return as needed. Discharge Date/Time: 07/28/18 16:08
[2018-07-28] MEDS ORDERED: KETOROLAC 15 MG/ML VIAL IVP STA (11:46)
[2018-07-28] MEDS ORDERED: HALOPERIDOL 5 MG/ML VIAL IVP ONE (11:46)
[2018-07-28] MEDS ORDERED: ONDANSETRON 4 MG/2 ML VIAL IVP STA (11:46)
[2018-07-28] MEDS ORDERED: SODIUM CHLORIDE 0.9% 1,000 ML IV ONE ×2 (11:46→14:08)
[2018-07-28] MEDS ORDERED: HYDROmorphone 2 MG/ML VIAL IVP STA (11:46)
[2018-07-28 12:51] LABS: BASOPHILS % (AUTO) 0.3 %; EOSINOPHILS # (AUTO) 0.1 10^3/uL (0.0-0.7); EOSINOPHILS % (AUTO) 0.3 %; HGB - HEMOGLOBIN 15.8 g/dL (14.0-18.0); LYMPHOCYTES # (AUTO) 1.5 10^3/uL (1.5-3.5); LYMPHOCYTES % (AUTO) 9.1 %; MEAN CORPUSCULAR HEMOGLOBIN 26.5 pg (27.0-31.0); MEAN PLATELET VOLUME 8.4 fL (7.4-11.4); MONOCYTES # (AUTO) 0.6 10^3/uL (0.0-1.0); MONOCYTES % (AUTO) 3.5 %; NEUTROPHILS # (AUTO) 14.3 10^3/uL (1.5-6.6); NEUTROPHILS % (AUTO) 86.8 %; PLT - PLATELET COUNT 371 10^3/uL (130-450); RED BLOOD COUNT 5.94 10^6/uL (4.70-6.10); RED CELL DISTRIBUTION WIDTH 14.4 % (12.0-15.0); WHITE BLOOD COUNT 16.5 x10^3/uL (4.8-10.8)
[2018-07-28 13:05] LABS: ALBUMIN 4.6 g/dL (3.2-5.5); ALBUMIN/GLOBULIN RATIO 1.3 (1.0-2.2); BILIRUBIN,TOTAL 1.7 mg/dL (0.2-1.0); CALCIUM 9.9 mg/dL (8.5-10.3); CREATININE 1.3 mg/dL (0.6-1.2); TOTAL PROTEIN 8.1 g/dL (6.7-8.2)
[2018-07-28 13:45] LABS: MUDS CUTOFF CONCENTRATIONS CUTOFF CONC BELOW:
[2018-07-28 13:48] LABS: BILIRUBIN,URINE NEGATIVE (NEGATIVE); GLUCOSE, URINE (UA) NEGATIVE (NEGATIVE); KETONES,URINE (UA) NEGATIVE (NEGATIVE); LEUKOCYTE ESTERASE, URINE NEGATIVE (NEGATIVE); NITRITE,URINE NEGATIVE (NEGATIVE); OCCULT BLOOD,URINE NEGATIVE (NEGATIVE); PH,URINE 8.5 PH (5.0-7.5); PROTEIN,URINE NEGATIVE (NEGATIVE); UROBILINOGEN,URINE 0.2 (NORMAL) E.U./dL (NORMAL)
[2018-07-28 13:50] LABS: CLARITY,URINE CLEAR (CLEAR)
[2018-07-28 14:00] LABS: AMPHETAMINE SCREEN,URINE NEGATIVE (NEGATIVE); BENZODIAZEPINES SCREEN, URINE NEGATIVE (NEGATIVE); COCAINE SCREEN URINE NEGATIVE (NEGATIVE); METHADONE SCREEN, URINE NEGATIVE (NEGATIVE); METHAMPHETAMINES SCREEN, URINE NEGATIVE (NEGATIVE); OPIATE SCREEN, URINE NEGATIVE (NEGATIVE); OXYCODONE SCREEN, URINE NEGATIVE (NEGATIVE); PROPOXYPHENE SCREEN, URINE NEGATIVE (NEGATIVE); TRICYCLIC ANTIDEPRESSANT,URINE NEGATIVE (NEGATIVE)
[2018-07-28] MEDS ORDERED: LORazepam 2 MG/ML VIAL IVP STA (14:34)
[2018-07-28 15:39] VITALS: BP 120/75
== END 2018-07-28 16:08 | disposition home or self-care (01) ==
LOC: ED 10:13
DX: R11.2 Nausea with vomiting, unspecified (principal); R19.7 Diarrhea, unspecified; R10.13 Epigastric pain; F12.90 Cannabis use, unspecified, uncomplicated; F17.200 Nicotine dependence, unspecified, uncomplicated
CPT/HCPCS: 36415; 80053; 80306; 81003; 83690; 85025; 96361; 96374; 96375; 99283; 99284; J1170; J2060; 81001; 87086

== ENCOUNTER 2018-07-31 12:38 | Emergency (ER) | payer SELFPAY ==
[2018-07-31 14:04] LABS: BASOPHILS # (AUTO) 0.3 10^3/uL (0.0-0.1); BASOPHILS % (AUTO) 1.9 %; EOSINOPHILS # (AUTO) 0.1 10^3/uL (0.0-0.7); EOSINOPHILS % (AUTO) 0.5 %; HGB - HEMOGLOBIN 17.2 g/dL (14.0-18.0); LYMPHOCYTES # (AUTO) 1.9 10^3/uL (1.5-3.5); LYMPHOCYTES % (AUTO) 10.4 %; MEAN CORPUSCULAR HEMOGLOBIN 26.6 pg (27.0-31.0); MEAN CORPUSCULAR HGB CONC 34.2 g/dL (32.0-36.0); MEAN CORPUSCULAR VOLUME 77.7 fL (80.0-94.0); MEAN PLATELET VOLUME 7.9 fL (7.4-11.4); MONOCYTES # (AUTO) 0.7 10^3/uL (0.0-1.0); MONOCYTES % (AUTO) 3.8 %; NEUTROPHILS # (AUTO) 15.2 10^3/uL (1.5-6.6); NEUTROPHILS % (AUTO) 83.4 %; PLT - PLATELET COUNT 377 10^3/uL (130-450); RED BLOOD COUNT 6.49 10^6/uL (4.70-6.10); RED CELL DISTRIBUTION WIDTH 15.3 % (12.0-15.0); WHITE BLOOD COUNT 18.2 x10^3/uL (4.8-10.8)
[2018-07-31] MEDS ORDERED: HYDROmorphone 1 MG/ML CARPUJECT IVP STA (14:04)
[2018-07-31] MEDS ORDERED: HALOPERIDOL 5 MG/ML VIAL IVP ONE (14:04)
--- NOTE | 2018-07-31 14:06 | ED Physician Documentation ---
PD HPI ABD PAIN - Stated complaint Stated Complaint: NAUSEA/VOMITING - Chief complaint Chief Complaint: Abd Pain - History obtained from History obtained from: Patient - History of Present Illness Timing - onset: Other (This is a 28-year-old gentleman who has been having trouble with upper abdominal pain recently. He relates that he had been having long-standing issues with upper abdominal pain and had an upper GI/EGD done at [facility]. He was diagnosed with eosinophilic esophagitis and gastritis. He was on steroids but they were ineffective. This month the pain has been a lot worse and he has been to the emergency department several times. Twice here in 1 to [facility]. He has had 2 CAT scans that were reportedly normal. At this point he is unable to keep down the medications. His anxiety is really getting to him to. When asked him which is worse right now the pain or the anxiety he vacillates.) Review of Systems Constitutional: reports: Sweats. denies: Fever, Chills Cardiac: denies: Chest pain / pressure, Palpitations Respiratory: denies: Dyspnea, Cough GI: reports: Abdominal Pain, Nausea, Vomiting. denies: Constipation, Diarrhea PD PAST MEDICAL HISTORY - Past Medical History Cardiovascular: None Respiratory: Asthma Neuro: None Endocrine/Autoimmune: None GI: GERD, Other : None HEENT: None Psych: Depression, Anxiety, Panic attacks Musculoskeletal: Other Derm: None - Past Surgical History Past Surgical History: Yes General: Colonoscopy, EGD Ortho: Shoulder arthroplasty, Other - Present Medications Home Medications: Ambulatory Orders Medication Instructions Recorded Confirmed Omeprazole [PriLOSEC] 20 mg PO TID 05/01/17 07/28/18 Albuterol Sulfate [Proventil Hfa 1 - 2 puffs INH Q4H PRN #1 inhaler 01/15/18 07/24/18 Inhaler] DULoxetine [Cymbalta] 30 mg PO DAILY 07/24/18 07/28/18 Diphenoxylate/Atropine [Lomotil] 1 each PO QID PRN #12 tablet 07/24/18 07/28/18 Ondansetron Odt [Zofran Odt] 4 mg PO PRN PRN 07/24/18 07/28/18 Ondansetron Odt [Zofran] 4 mg TL Q6H PRN #10 tablet 07/24/18 07/28/18 busPIRone [Buspar] 30 mg PO DAILY 07/24/18 07/28/18 traZODone [Desyrel] 50 mg PO DAILY PM 07/24/18 07/28/18 Hydrocodone/Acetaminophen 1 - 2 each PO Q6H PRN #14 tablet 07/31/18 [Hydrocodon-Acetaminophen 5-325] Ondansetron Odt [Zofran] 4 mg TL Q6H PRN #10 tablet 07/31/18 Sucralfate [Carafate] 1 gm PO ACHS #60 tablet 07/31/18 clonazePAM [Clonazepam] 1 - 2 tab PO Q4H PRN #15 tab.rapdis 07/31/18 - Allergies Allergies/Adverse Reactions: Allergies Allergy/AdvReac Type Severity Reaction Status Date / Time No Known Drug Allergies Allergy Verified 07/28/18 10:20 - Social History Does the pt smoke?: Yes Smoking Status: Current every day smoker Does the pt drink ETOH?: Yes Does the pt have substance abuse?: Yes Substance Use and Type: Marijuana - Immunizations Immunizations are current?: Yes - POLST Patient has POLST: No PD ED PE NORMAL - Vitals Vital signs reviewed: Yes - General General: Alert and oriented X 3, Other (Retching, uncomfortable) - HEENT HEENT: PERRL, EOMI - Neck Neck: Supple, no meningeal sign, No bony TTP - Cardiac Cardiac: RRR, No murmur - Respiratory Respiratory: No respiratory distress, Clear bilaterally - Abdomen Abdomen: Other (Diffusely tender on initial evaluation, he is resistant to examination so hard to do a full exam initially, will recheck after some medications.) - Back Back: No CVA TTP, No spinal TTP - Derm Derm: Normal color, Warm and dry - Extremities Extremities: No edema, No calf tenderness / cord - Neuro Neuro: Alert and oriented X 3, Normal speech - Psych Psych: Normal mood, Normal affect Results - Vitals Vitals: Vital Signs - 24 hr 07/31/18 07/31/18 07/31/18 13:12 14:01 14:14 Temperature 36.4 C L Heart Rate 70 84 90 Respiratory 22 20 20 Rate Blood Pressure 129/83 H 159/110 H 153/100 H O2 Saturation 100 100 100 Oxygen O2 Source Room air - Labs Labs: Laboratory Tests 07/31/18 07/31/18 13:45 13:45 WBC 18.2 H RBC 6.49 H Hgb 17.2 Hct 50.4 MCV 77.7 L MCH 26.6 L MCHC 34.2 RDW 15.3 H Plt Count 377 MPV 7.9 Neut # (Auto) 15.2 H Lymph # (Auto) 1.9 [place] # (Auto) 0.7 Eos # (Auto) 0.1 Baso # (Auto) 0.3 H Absolute Nucleated RBC 0.01 Nucleated RBC % 0.1 Manual Slide Review Indicated Platelet Estimate NORMAL (130-450,000) Platelet Morphology NORMAL APPEARANCE RBC Morph Micro Appear NORMAL APPEARANCE Sodium 136 Potassium 3.6 Chloride 103 Carbon Dioxide 21 Anion Gap 12.0 BUN 10 Creatinine 1.2 Estimated GFR (MDRD) 89 Glucose 102 H Calcium 10.4 H Total Bilirubin 1.6 H AST 26 ALT 28 Alkaline Phosphatase 64 Total Protein 8.9 H Albumin 5.1 Globulin 3.8 Albumin/Globulin Ratio 1.3 Lipase 50 PD MEDICAL DECISION MAKING - ED course ED course: This is a 28-year-old gentleman with recurrent upper abdominal pain, previously diagnosed as eosinophilic Esophagitis, who found no relief in steroids who presents with a flare of same and responded well to medications here and was nontender on recheck prior to discharge. Departure - Departure Disposition: 01 Home, Self Care Clinical Impression: Abdominal pain Qualifiers: Abdominal location: epigastric Qualified Code(s): R10.13 - Epigastric pain Condition: Good Record reviewed to determine appropriate education?: Yes Instructions: ED PUD Vs Gastritis Prescriptions: clonazePAM [Clonazepam] 1 - 2 tab PO Q4H PRN #15 tab.rapdis PRN Reason: Anxiety Hydrocodone/Acetaminophen [Hydrocodon-Acetaminophen 5-325] 1 - 2 each PO Q6H PRN #14 tablet PRN Reason: pain Ondansetron Odt [Zofran] 4 mg TL Q6H PRN #10 tablet PRN Reason: Nausea / Vomiting Sucralfate [Carafate] 1 gm PO ACHS #60 tablet Comments: As discussed, your pain seems likely a combination of gastritis and esophagitis that gets out of control with your anxiety. I am prescribing a melt in your m outh anxiety medication, the clonazepam which should help with your anxiety is severe. Also other medications to help with your pain and nausea. Remember that the Carafate/sucralfate should not be taken within an hour of other medications.
[2018-07-31 14:09] LABS: ALBUMIN 5.1 g/dL (3.2-5.5); ALBUMIN/GLOBULIN RATIO 1.3 (1.0-2.2); BILIRUBIN,TOTAL 1.6 mg/dL (0.2-1.0); CALCIUM 10.4 mg/dL (8.5-10.3); CREATININE 1.2 mg/dL (0.6-1.2); TOTAL PROTEIN 8.9 g/dL (6.7-8.2)
[2018-07-31 14:35] LABS: PLATELET ESTIMATE, MANUAL NORMAL (130-450,000) (NORMAL); PLATELET MORPHOLOGY NORMAL APPEARANCE (NORMAL); RBC MORPHOLOGY (MULTIPLE) NORMAL APPEARANCE (NORMAL)
[2018-07-31 15:42] VITALS: BP 112/75
== END 2018-07-31 15:46 | disposition home or self-care (01) ==
LOC: ED 12:38
DX: K20.0 Eosinophilic esophagitis (principal); Z87.19 Personal history of other diseases of the digestive system; F41.9 Anxiety disorder, unspecified; F17.200 Nicotine dependence, unspecified, uncomplicated
CPT/HCPCS: 36415; 80053; 83690; 85025; 96374; 96375; 99283; J1170

== ENCOUNTER 2018-08-15 19:29 | Outpatient (CLI) | payer OTHER | END 2018-08-15 19:30 | disposition home or self-care (01) | LOC: SC 19:29 | PROVIDERS: ATTEND Internal Medicine Pulmonary Disease | DX: R00.1 Bradycardia, unspecified (principal) | CPT/HCPCS: 95810 ==

== ENCOUNTER 2018-08-27 12:37 | Outpatient (CLI) | payer OTHER | END 2018-08-27 12:38 | disposition home or self-care (01) | LOC: SC 12:37 | PROVIDERS: ATTEND Nurse Practitioner Family | DX: R00.1 Bradycardia, unspecified (principal); G47.10 Hypersomnia, unspecified; R53.83 Other fatigue | CPT/HCPCS: 99212; 99213 ==

== ENCOUNTER 2018-09-05 10:47 | Emergency (ER) | payer OTHER ==
[2018-09-05] MEDS ORDERED: HYDROmorphone 1 MG/ML CARPUJECT IVP STA (12:12)
[2018-09-05] MEDS ORDERED: HALOPERIDOL 5 MG/ML VIAL IVP ONE (12:12)
[2018-09-05] MEDS ORDERED: SODIUM CHLORIDE 0.9% 1,000 ML IV ONE (12:12)
[2018-09-05 12:13] LABS: BASOPHILS # (AUTO) 0.1 10^3/uL (0.0-0.1); BASOPHILS % (AUTO) 0.5 %; EOSINOPHILS # (AUTO) 0.1 10^3/uL (0.0-0.7); EOSINOPHILS % (AUTO) 0.5 %; HGB - HEMOGLOBIN 16.2 g/dL (14.0-18.0); LYMPHOCYTES % (AUTO) 13.5 %; MEAN CORPUSCULAR HEMOGLOBIN 26.9 pg (27.0-31.0); MEAN CORPUSCULAR HGB CONC 34.3 g/dL (32.0-36.0); MEAN CORPUSCULAR VOLUME 78.3 fL (80.0-94.0); MEAN PLATELET VOLUME 7.6 fL (7.4-11.4); MONOCYTES # (AUTO) 0.6 10^3/uL (0.0-1.0); NEUTROPHILS % (AUTO) 81.5 %; PLT - PLATELET COUNT 360 10^3/uL (130-450); RED BLOOD COUNT 6.03 10^6/uL (4.70-6.10); RED CELL DISTRIBUTION WIDTH 14.8 % (12.0-15.0); WHITE BLOOD COUNT 14.8 x10^3/uL (4.8-10.8)
[2018-09-05 12:25] LABS: ALBUMIN 4.6 g/dL (3.2-5.5); ALBUMIN/GLOBULIN RATIO 1.2 (1.0-2.2); BILIRUBIN,TOTAL 2.5 mg/dL (0.2-1.0); CALCIUM 9.8 mg/dL (8.5-10.3); CREATININE 1.1 mg/dL (0.6-1.2); TOTAL PROTEIN 8.3 g/dL (6.7-8.2)
--- NOTE | 2018-09-05 12:28 | ED Physician Documentation ---
PD HPI ABD PAIN - Stated complaint Stated Complaint: STOMACH PAIN - Chief complaint Chief Complaint: Abd Pain - History obtained from History obtained from: Patient - History of Present Illness Timing - onset: Today (28-year-old gentleman with history of cyclic vomiting and eosinophilic esophagitis presents with an exacerbation of upper abdominal pain with vomiting that started today. He had a Phenergan suppository at home and he stopped vomiting but he still nauseous and has a lot of pain. The pain is very similar to prior episodes of same.) Review of Systems Constitutional: reports: Reviewed and negative Throat: reports: Reviewed and negative Cardiac: reports: Reviewed and negative Respiratory: reports: Reviewed and negative PD PAST MEDICAL HISTORY - Past Medical History Cardiovascular: None Respiratory: Asthma Neuro: None Endocrine/Autoimmune: None GI: GERD, Other : None HEENT: None Psych: Depression, Anxiety, Panic attacks Musculoskeletal: Other Derm: None - Past Surgical History Past Surgical History: Yes General: Colonoscopy, EGD Ortho: Shoulder arthroplasty, Other - Present Medications Home Medications: Ambulatory Orders Medication Instructions Recorded Confirmed Omeprazole [PriLOSEC] 20 mg PO TID 05/01/17 07/28/18 Albuterol Sulfate [Proventil Hfa 1 - 2 puffs INH Q4H PRN #1 inhaler 01/15/18 07/24/18 Inhaler] DULoxetine [Cymbalta] 30 mg PO DAILY 07/24/18 07/28/18 Diphenoxylate/Atropine [Lomotil] 1 each PO QID PRN #12 tablet 07/24/18 07/28/18 Ondansetron Odt [Zofran Odt] 4 mg PO PRN PRN 07/24/18 07/28/18 Ondansetron Odt [Zofran] 4 mg TL Q6H PRN #10 tablet 07/24/18 07/28/18 busPIRone [Buspar] 30 mg PO DAILY 07/24/18 07/28/18 traZODone [Desyrel] 50 mg PO DAILY PM 07/24/18 07/28/18 Hydrocodone/Acetaminophen 1 - 2 each PO Q6H PRN #14 tablet 07/31/18 [Hydrocodon-Acetaminophen 5-325] Ondansetron Odt [Zofran] 4 mg TL Q6H PRN #10 tablet 07/31/18 Sucralfate [Carafate] 1 gm PO ACHS #60 tablet 07/31/18 clonazePAM [Clonazepam] 1 - 2 tab PO Q4H PRN #15 tab.rapdis 07/31/18 Hydrocodone/Acetaminophen 1 - 2 each PO Q6H PRN #14 tablet 09/05/18 [Hydrocodon-Acetaminophen 5-325] Ondansetron Odt [Zofran] 4 mg TL Q6H PRN #10 tablet 09/05/18 clonazePAM [Clonazepam] 1 tab PO Q8HR PRN #15 tab.rapdis 09/05/18 - Allergies Allergies/Adverse Reactions: Allergies Allergy/AdvReac Type Severity Reaction Status Date / Time No Known Drug Allergies Allergy Verified 09/05/18 10:55 - Social History Does the pt smoke?: Yes Smoking Status: Current every day smoker Does the pt drink ETOH?: Yes Does the pt have substance abuse?: Yes - Immunizations Immunizations are current?: Yes - POLST Patient has POLST: No PD ED PE NORMAL - Vitals Vital signs reviewed: Yes - General General: Alert and oriented X 3, Other (He is uncomfortable and retching) - Abdomen Abdomen: Normal bowel sounds, Soft, Non tender - Derm Derm: Normal color, Warm and dry, No rash - Neuro Neuro: Alert and oriented X 3, Normal speech Results - Vitals Vitals: Vital Signs - 24 hr 09/05/18 09/05/18 10:53 11:28 Temperature 37.0 C Heart Rate 94 Respiratory 18 18 Rate Blood Pressure 137/97 H O2 Saturation 98 Oxygen O2 Source Room air - Labs Labs: Laboratory Tests 09/05/18 09/05/18 12:05 12:05 WBC 14.8 H RBC 6.03 Hgb 16.2 Hct 47.2 MCV 78.3 L MCH 26.9 L MCHC 34.3 RDW 14.8 Plt Count 360 MPV 7.6 Neut # (Auto) 12.0 H Lymph # (Auto) 2.0 [place] # (Auto) 0.6 Eos # (Auto) 0.1 Baso # (Auto) 0.1 Absolute Nucleated RBC 0.04 Nucleated RBC % 0.3 Sodium 136 Potassium 3.7 Chloride 100 L Carbon Dioxide 23 Anion Gap 13.0 BUN 13 Creatinine 1.1 Estimated GFR (MDRD) 98 Glucose 108 H Calcium 9.8 Total Bilirubin 2.5 H AST 28 ALT 27 Alkaline Phosphatase 66 Total Protein 8.3 H Albumin 4.6 Globulin 3.7 Albumin/Globulin Ratio 1.2 Lipase 62 H PD MEDICAL DECISION MAKING - ED course ED course: 28-year-old gentleman with history of cyclic vomiting syndrome and eosinophilic esophagitis presents with an apparent exacerbation of same with benign examination. Note last 2 drug screens were negative for cannabis. He was treated with 1 mg of Dilaudid and 2.5 mg of Haldol with excellent relief of his symptoms. Departure - Departure Disposition: 01 Home, Self Care Clinical Impression: Abdominal pain Condition: Good Instructions: ED Abdominal Pain Unkn Cause Male Prescriptions: clonazePAM [Clonazepam] 1 tab PO Q8HR PRN #15 tab.rapdis PRN Reason: Anxiety Hydrocodone/Acetaminophen [Hydrocodon-Acetaminophen 5-325] 1 - 2 each PO Q6H PRN #14 tablet PRN Reason: pain Ondansetron Odt [Zofran] 4 mg TL Q6H PRN #10 tablet PRN Reason: Nausea / Vomiting Comments: Call your doctor to arrange a follow-up appointment, make the next available appointment. In the interim, return anytime if worse or if new symptoms develop. Do not drink or drive while taking narcotic pain medication. Note that many narcotic pain relievers also contain Tylenol/acetaminophen. Please ensure that your total dose of acetaminophen from all sources does not exceed 3 g (3000 mg) per day. You may get constipated while on this medication. Take a stool softener such as Colace twice a day while you are on it. Also add an [id number] laxative such as senna or MiraLAX on any day that you do not have a bowel movement. If you received a narcotic pain medication or sedative while in the emergency department, do not drive for the next 24 hours. Your blood pressure was elevated today on check into the emergency department. This does not mean that you have hypertension, it is a common phenomenon to come to the emergency department and have elevated blood pressure. I recommend that you see your primary care physician within the week to have it rechecked when you are feeling better.
[2018-09-05 14:08] VITALS: BP 127/80
== END 2018-09-05 14:18 | disposition home or self-care (01) ==
LOC: ED 10:47
DX: R10.10 Upper abdominal pain, unspecified (principal); R03.0 Elevated blood-pressure reading, without diagnosis of hypertension; F17.200 Nicotine dependence, unspecified, uncomplicated
CPT/HCPCS: 36415; 80053; 83690; 85025; 96361; 96374; 96375; 99283; J1170

== ENCOUNTER 2018-09-09 09:43 | Emergency (ER) | payer OTHER ==
[2018-09-09 10:15] LABS: BASOPHILS # (AUTO) 0.1 10^3/uL (0.0-0.1); BASOPHILS % (AUTO) 0.8 %; EOSINOPHILS # (AUTO) 0.1 10^3/uL (0.0-0.7); EOSINOPHILS % (AUTO) 1.9 %; LYMPHOCYTES # (AUTO) 2.2 10^3/uL (1.5-3.5); LYMPHOCYTES % (AUTO) 33.2 %; MEAN CORPUSCULAR HEMOGLOBIN 26.9 pg (27.0-31.0); MEAN CORPUSCULAR HGB CONC 34.2 g/dL (32.0-36.0); MEAN CORPUSCULAR VOLUME 78.8 fL (80.0-94.0); MEAN PLATELET VOLUME 7.7 fL (7.4-11.4); MONOCYTES # (AUTO) 0.5 10^3/uL (0.0-1.0); MONOCYTES % (AUTO) 8.4 %; NEUTROPHILS # (AUTO) 3.6 10^3/uL (1.5-6.6); NEUTROPHILS % (AUTO) 55.7 %; PLT - PLATELET COUNT 354 10^3/uL (130-450); RED BLOOD COUNT 5.93 10^6/uL (4.70-6.10); RED CELL DISTRIBUTION WIDTH 14.3 % (12.0-15.0); WHITE BLOOD COUNT 6.5 x10^3/uL (4.8-10.8)
[2018-09-09 10:25] LABS: ALBUMIN 4.8 g/dL (3.2-5.5); ALBUMIN/GLOBULIN RATIO 1.4 (1.0-2.2); BILIRUBIN,TOTAL 2.7 mg/dL (0.2-1.0); CREATININE 1.2 mg/dL (0.6-1.2); TOTAL PROTEIN 8.3 g/dL (6.7-8.2)
--- NOTE | 2018-09-09 11:29 | ED Physician Documentation ---
PD HPI NVD - Stated complaint Stated Complaint: VOMITING - Chief complaint Chief Complaint: Abd Pain - History obtained from History obtained from: Patient - History of Present Illness Timing - onset: Today Timing - duration: Hours Timing - details: Abrupt onset, Still present Associated symptoms: Abdominal pain. No: Fever, Near syncope / syncope Contributing factors: No: Sick contact, Bad food Improved by: Vomiting Worsened by: Eating Similar symptoms before: Diagnosis (eosinophilic esophagitis, and cyclic vomiting.) Review of Systems Constitutional: denies: Fever, Chills Nose: denies: Rhinorrhea / runny nose, Congestion Throat: denies: Sore throat Cardiac: denies: Chest pain / pressure Respiratory: denies: Cough GI: reports: Abdominal Pain (upper abd), Nausea, Vomiting. denies: Diarrhea : denies: Dysuria Musculoskeletal: denies: Neck pain, Back pain PD PAST MEDICAL HISTORY - Past Medical History Past Medical History: Yes Cardiovascular: None Respiratory: Asthma Neuro: None Endocrine/Autoimmune: None GI: GERD, Other : None HEENT: None Psych: Depression, Anxiety, Panic attacks Musculoskeletal: Other Derm: None - Past Surgical History Past Surgical History: Yes General: Colonoscopy, EGD Ortho: Shoulder arthroplasty, Other - Present Medications Home Medications: Ambulatory Orders Medication Instructions Recorded Confirmed Omeprazole [PriLOSEC] 20 mg PO TID 05/01/17 07/28/18 Albuterol Sulfate [Proventil Hfa 1 - 2 puffs INH Q4H PRN #1 inhaler 01/15/18 07/24/18 Inhaler] DULoxetine [Cymbalta] 30 mg PO DAILY 07/24/18 07/28/18 Diphenoxylate/Atropine [Lomotil] 1 each PO QID PRN #12 tablet 07/24/18 07/28/18 Ondansetron Odt [Zofran Odt] 4 mg PO PRN PRN 07/24/18 07/28/18 Ondansetron Odt [Zofran] 4 mg TL Q6H PRN #10 tablet 07/24/18 07/28/18 busPIRone [Buspar] 30 mg PO DAILY 07/24/18 07/28/18 traZODone [Desyrel] 50 mg PO DAILY PM 07/24/18 07/28/18 Hydrocodone/Acetaminophen 1 - 2 each PO Q6H PRN #14 tablet 07/31/18 [Hydrocodon-Acetaminophen 5-325] Ondansetron Odt [Zofran] 4 mg TL Q6H PRN #10 tablet 07/31/18 Sucralfate [Carafate] 1 gm PO ACHS #60 tablet 07/31/18 clonazePAM [Clonazepam] 1 - 2 tab PO Q4H PRN #15 tab.rapdis 07/31/18 Hydrocodone/Acetaminophen 1 - 2 each PO Q6H PRN #14 tablet 09/05/18 [Hydrocodon-Acetaminophen 5-325] Ondansetron Odt [Zofran] 4 mg TL Q6H PRN #10 tablet 09/05/18 clonazePAM [Clonazepam] 1 tab PO Q8HR PRN #15 tab.rapdis 09/05/18 Nortriptyline HCl 10 mg PO QPM #30 capsule 09/09/18 Promethazine Supp [Phenergan Supp] 25 mg [place] Q6H PRN #10 supp 09/09/18 - Allergies Allergies/Adverse Reactions: Allergies Allergy/AdvReac Type Severity Reaction Status Date / Time No Known Drug Allergies Allergy Verified 09/09/18 09:51 - Social History Does the pt smoke?: Yes Smoking Status: Current every day smoker Does the pt drink ETOH?: Yes Does the pt have substance abuse?: Yes - Immunizations Immunizations are current?: Yes - POLST Patient has POLST: No PD ED PE NORMAL - Vitals Vital signs reviewed: Yes - General General: Alert and oriented X 3, Well developed/nourished, Other (in marked pain upper abd, feeling intense nausea. Dry heaving. ) - HEENT HEENT: Pharynx benign - Neck Neck: Supple, no meningeal sign, No adenopathy - Cardiac Cardiac: RRR, No murmur - Respiratory Respiratory: Clear bilaterally - Abdomen Abdomen: Non distended, No organomegaly, Other (increased bowel sounds, tender with guarding in upper abd. ) - Male Male : Deferred - Rectal Rectal: Deferred - Back Back: No CVA TTP - Derm Derm: Normal color - Extremities Extremities: No tenderness to palpate, Normal ROM s pain - Neuro Neuro: Alert and oriented X 3, No motor deficit, Normal speech Results - Vitals Vitals: Vital Signs - 24 hr 09/09/18 09/09/18 09:48 12:34 Temperature 37.0 C 36.6 C Heart Rate 93 78 Respiratory 22 12 Rate Blood Pressure 152/126 H 119/63 O2 Saturation 100 94 Oxygen O2 Source Room air - Labs Labs: Laboratory Tests 09/09/18 09/09/18 10:00 10:00 WBC 6.5 RBC 5.93 Hgb 16.0 Hct 46.7 MCV 78.8 L MCH 26.9 L MCHC 34.2 RDW 14.3 Plt Count 354 MPV 7.7 Neut # (Auto) 3.6 Lymph # (Auto) 2.2 [place] # (Auto) 0.5 Eos # (Auto) 0.1 Baso # (Auto) 0.1 Absolute Nucleated RBC 0.01 Nucleated RBC % 0.1 Sodium 137 Potassium 3.7 Chloride 100 L Carbon Dioxide 25 Anion Gap 12.0 BUN 12 Creatinine 1.2 Estimated GFR (MDRD) 89 Glucose 106 H Calcium 9.9 Total Bilirubin 2.7 H AST 27 ALT 28 Alkaline Phosphatase 64 Total Protein 8.3 H Albumin 4.8 Globulin 3.5 Albumin/Globulin Ratio 1.4 Lipase 41 PD MEDICAL DECISION MAKING - ED course Complexity details: reviewed old records, re-evaluated patient (improved well with IV Haldol, Dilaudid and Ativan. ), considered differential Departure - Departure Disposition: 01 Home, Self Care Clinical Impression: Eosinophilic esophagitis Nausea and vomiting Qualifiers: Vomiting type: unspecified Vomiting Intractability: intractable Qualified Code(s): R11.2 - Nausea with vomiting, unspecified Cyclical vomiting Qualifiers: Vomiting Intractability: intractable Nausea presence: with nausea Qualified Code(s): G43.A1 - Cyclical vomiting, intractable Condition: Stable Record reviewed to determine appropriate education?: Yes Instructions: ED Nausea Vomiting Prescriptions: Nortriptyline HCl 10 mg PO QPM #30 capsule Promethazine Supp [Phenergan Supp] 25 mg [place] Q6H PRN #10 supp PRN Reason: Nausea / Vomiting Comments: Liquids only today and progress diet as able tomorrow. Avoid any obvious food triggers for your esophagitis. Continue usual medications. Phenergan suppository if needed for the vomiting. Discharge Date/Time: 09/09/18 14:51
[2018-09-09] MEDS ORDERED: SODIUM CHLORIDE 0.9% 1,000 ML IV ONE (11:30)
[2018-09-09] MEDS ORDERED: HALOPERIDOL 5 MG/ML VIAL IVP ONE (11:50)
[2018-09-09] MEDS ORDERED: DEXAMETHASONE 10 MG/ML VIAL IVP STA (11:50)
[2018-09-09] MEDS ORDERED: HYDROmorphone 2 MG/ML VIAL IVP STA (11:50)
[2018-09-09] MEDS ORDERED: LORazepam 2 MG/ML VIAL IVP STA (11:51)
[2018-09-09 12:35] VITALS: BP 119/63
[2018-09-09 12:59] LABS: CALCIUM 9.9 mg/dL (8.5-10.3)
== END 2018-09-09 14:51 | disposition home or self-care (01) ==
LOC: ED 09:43
DX: K20.0 Eosinophilic esophagitis (principal); G43.A1 Cyclical vomiting, in migraine, intractable; F17.200 Nicotine dependence, unspecified, uncomplicated
CPT/HCPCS: 36415; 80053; 83690; 85025; 96361; 96374; 96375; 99283; J1170; J2060; 81001; 81003; 87086

== ENCOUNTER 2018-09-15 09:29 | Emergency (ER) | payer OTHER ==
--- NOTE | 2018-09-15 11:55 | ED Physician Documentation ---
PD HPI NVD - Stated complaint Stated Complaint: VOMITING/STOMACH PAIN - Chief complaint Chief Complaint: Abd Pain - History obtained from History obtained from: Patient - History of Present Illness Timing - onset: Today Timing - duration: Hours Timing - details: Abrupt onset, Still present Associated symptoms: Abdominal pain (generalized but mostly upper.). No: Fever Contributing factors: No: Sick contact, Bad food Similar symptoms before: Diagnosis (cyclic vomiting, eosinophilic esophagitis) Recently seen: Emergency Dept Review of Systems Constitutional: denies: Fever Nose: denies: Rhinorrhea / runny nose, Congestion Throat: denies: Sore throat Respiratory: denies: Cough GI: reports: Abdominal Pain, Nausea, Vomiting. denies: Abdominal Swelling, Diarrhea : denies: Dysuria, Frequency Neurologic: reports: Generalized weakness. denies: Near syncope, Syncope, Altered mental status PD PAST MEDICAL HISTORY - Past Medical History Cardiovascular: None Respiratory: Asthma Neuro: None Endocrine/Autoimmune: None GI: GERD, Other : None HEENT: None Psych: Depression, Anxiety, Panic attacks Musculoskeletal: Other Derm: None - Past Surgical History Past Surgical History: Yes General: Colonoscopy, EGD Ortho: Shoulder arthroplasty, Other - Present Medications Home Medications: Ambulatory Orders Medication Instructions Recorded Confirmed Omeprazole [PriLOSEC] 20 mg PO TID 05/01/17 07/28/18 Albuterol Sulfate [Proventil Hfa 1 - 2 puffs INH Q4H PRN #1 inhaler 01/15/18 07/24/18 Inhaler] DULoxetine [Cymbalta] 30 mg PO DAILY 07/24/18 07/28/18 Diphenoxylate/Atropine [Lomotil] 1 each PO QID PRN #12 tablet 07/24/18 07/28/18 Ondansetron Odt [Zofran Odt] 4 mg PO PRN PRN 07/24/18 07/28/18 Ondansetron Odt [Zofran] 4 mg TL Q6H PRN #10 tablet 07/24/18 07/28/18 busPIRone [Buspar] 30 mg PO DAILY 07/24/18 07/28/18 traZODone [Desyrel] 50 mg PO DAILY PM 07/24/18 07/28/18 Hydrocodone/Acetaminophen 1 - 2 each PO Q6H PRN #14 tablet 07/31/18 [Hydrocodon-Acetaminophen 5-325] Ondansetron Odt [Zofran] 4 mg TL Q6H PRN #10 tablet 07/31/18 Sucralfate [Carafate] 1 gm PO ACHS #60 tablet 07/31/18 clonazePAM [Clonazepam] 1 - 2 tab PO Q4H PRN #15 tab.rapdis 07/31/18 Hydrocodone/Acetaminophen 1 - 2 each PO Q6H PRN #14 tablet 09/05/18 [Hydrocodon-Acetaminophen 5-325] Ondansetron Odt [Zofran] 4 mg TL Q6H PRN #10 tablet 09/05/18 clonazePAM [Clonazepam] 1 tab PO Q8HR PRN #15 tab.rapdis 09/05/18 Nortriptyline HCl 10 mg PO QPM #30 capsule 09/09/18 Promethazine Supp [Phenergan Supp] 25 mg AR Q6H PRN #10 supp 09/09/18 Famotidine 20 mg PO DAILY #30 tablet 09/15/18 - Allergies Allergies/Adverse Reactions: Allergies Allergy/AdvReac Type Severity Reaction Status Date / Time No Known Drug Allergies Allergy Verified 09/15/18 10:06 - Social History Does the pt smoke?: Yes Smoking Status: Current every day smoker Does the pt drink ETOH?: Yes Does the pt have substance abuse?: Yes - Immunizations Immunizations are current?: Yes - POLST Patient has POLST: No PD ED PE NORMAL - Vitals Vital signs reviewed: Yes - General General: Alert and oriented X 3, No acute distress, Well developed/nourished - HEENT HEENT: PERRL (nonicteric), Ears normal, Pharynx benign - Neck Neck: Supple, no meningeal sign, No adenopathy - Cardiac Cardiac: RRR, No murmur - Respiratory Respiratory: Clear bilaterally - Abdomen Abdomen: Normal bowel sounds (increased), Non distended, No organomegaly, Other (firm and diffusely tender, more upper abd. ) Results - Vitals Vitals: Oxygen O2 Source Room air - Labs Labs: Laboratory Tests 09/15/18 09/15/18 11:22 11:22 WBC 17.1 H RBC 6.40 H Hgb 17.1 Hct 50.3 MCV 78.6 L MCH 26.8 L MCHC 34.0 RDW 14.6 Plt Count 408 MPV 8.2 Neut # (Auto) 14.0 H Lymph # (Auto) 2.1 [place] # (Auto) 0.8 Eos # (Auto) 0.1 Baso # (Auto) 0.1 Absolute Nucleated RBC 0.01 Nucleated RBC % 0.1 Sodium 136 Potassium 3.7 Chloride 97 L Carbon Dioxide 21 Anion Gap 18.0 H BUN 17 Creatinine 1.3 H Estimated GFR (MDRD) 81 L Glucose 110 H Calcium 10.5 H Total Bilirubin 2.1 H AST 31 ALT 27 Alkaline Phosphatase 67 Total Protein 8.9 H Albumin 5.3 Globulin 3.6 Albumin/Globulin Ratio 1.5 Lipase 91 H PD MEDICAL DECISION MAKING - ED course Complexity details: re-evaluated patient (improved with IV meds. Taking oral meds okay. ), considered differential, d/w patient Departure - Departure Disposition: 01 Home, Self Care Clinical Impression: Eosinophilic esophagitis Cyclical vomiting Qualifiers: Vomiting Intractability: intractable Nausea presence: with nausea Qualified Cod e(s): G43.A1 - Cyclical vomiting, intractable Nausea and vomiting Qualifiers: Vomiting type: unspecified Vomiting Intractability: intractable Qualified Code(s): R11.2 - Nausea with vomiting, unspecified Condition: Stable Record reviewed to determine appropriate education?: Yes Instructions: ED Nausea Vomiting Follow-Up: Di Kang MD [Primary Care Provider] - Prescriptions: Famotidine 20 mg PO DAILY #30 tablet Comments: Continue usual medications including the sucralfate before bedtime. Add famotidine acid reducing antihistamine daily for a month. Follow-up with your primary care provider and or air cargo agent regarding other potential treatments but I am not sure what else to add at this time. Discharge Date/Time: 09/15/18 13:32
[2018-09-15 11:56] LABS: BASOPHILS # (AUTO) 0.1 10^3/uL (0.0-0.1); BASOPHILS % (AUTO) 0.3 %; EOSINOPHILS # (AUTO) 0.1 10^3/uL (0.0-0.7); EOSINOPHILS % (AUTO) 0.5 %; HGB - HEMOGLOBIN 17.1 g/dL (14.0-18.0); LYMPHOCYTES # (AUTO) 2.1 10^3/uL (1.5-3.5); LYMPHOCYTES % (AUTO) 12.2 %; MEAN CORPUSCULAR HEMOGLOBIN 26.8 pg (27.0-31.0); MEAN CORPUSCULAR VOLUME 78.6 fL (80.0-94.0); MEAN PLATELET VOLUME 8.2 fL (7.4-11.4); MONOCYTES # (AUTO) 0.8 10^3/uL (0.0-1.0); MONOCYTES % (AUTO) 4.9 %; NEUTROPHILS % (AUTO) 82.1 %; PLT - PLATELET COUNT 408 10^3/uL (130-450); RED CELL DISTRIBUTION WIDTH 14.6 % (12.0-15.0); WHITE BLOOD COUNT 17.1 x10^3/uL (4.8-10.8)
[2018-09-15] MEDS ORDERED: SODIUM CHLORIDE 0.9% 1,000 ML IV ONE ×2 (12:00→12:02)
[2018-09-15] MEDS ORDERED: HALOPERIDOL 5 MG/ML VIAL IVP ONE (12:01)
[2018-09-15] MEDS ORDERED: HYDROmorphone 2 MG/ML VIAL IVP STA (12:01)
[2018-09-15] MEDS ORDERED: LORazepam 2 MG/ML VIAL IVP STA (12:01)
[2018-09-15 12:15] LABS: ALBUMIN 5.3 g/dL (3.2-5.5); ALBUMIN/GLOBULIN RATIO 1.5 (1.0-2.2); BILIRUBIN,TOTAL 2.1 mg/dL (0.2-1.0); CALCIUM 10.5 mg/dL (8.5-10.3); CREATININE 1.3 mg/dL (0.6-1.2); TOTAL PROTEIN 8.9 g/dL (6.7-8.2)
[2018-09-15] MEDS ORDERED: FAMOTIDINE 20 MG/2 ML VIAL IVP STA (13:17)
[2018-09-15 13:32] VITALS: BP 137/89
== END 2018-09-15 13:32 | disposition home or self-care (01) ==
LOC: ED 09:29
DX: K20.0 Eosinophilic esophagitis (principal); G43.A1 Cyclical vomiting, in migraine, intractable; F17.200 Nicotine dependence, unspecified, uncomplicated
CPT/HCPCS: 36415; 80053; 83690; 85025; 96361; 96374; 96375; 99283; J1170; J2060

== ENCOUNTER 2018-10-16 08:20 | Emergency (ER) | payer OTHER ==
[2018-10-16] MEDS ORDERED: SODIUM CHLORIDE 0.9% 1,000 ML IV ONE (08:33)
[2018-10-16] MEDS ORDERED: HYDROmorphone 1 MG/ML CARPUJECT IVP STA (08:40)
[2018-10-16] MEDS ORDERED: HALOPERIDOL 5 MG/ML VIAL IVP ONE (08:40)
--- NOTE | 2018-10-16 08:43 | ED Physician Documentation ---
PD HPI NVD - Stated complaint Stated Complaint: VOMITING - Chief complaint Chief Complaint: Abd Pain - History obtained from History obtained from: Patient - History of Present Illness Timing - onset: Today Timing - duration: Days (1) Timing - details: Gradual onset Pain level max: 8 Pain level now: 8 Associated symptoms: Abdominal pain. No: Fever Contributing factors: No: Sick contact, Bad food, Travel, Recent antibiotics, Alcohol use, Anticoagulated, Diabetes Improved by: Vomiting Worsened by: Eating Similar symptoms before: Diagnosis (cyclical vomiting syndrome and eosinophilic esophagitis) Recently seen: Emergency Dept (several times for same. States out of his medications.) Review of Systems Ten Systems: 10 systems reviewed and negative Constitutional: denies: Fever, Chills Respiratory: denies: Cough GI: reports: Nausea, Vomiting. denies: Abdominal Pain, Diarrhea Skin: denies: Rash Musculoskeletal: denies: Neck pain, Back pain Neurologic: denies: Headache PD PAST MEDICAL HISTORY - Past Medical History Cardiovascular: None Respiratory: Asthma Neuro: None Endocrine/Autoimmune: None GI: GERD, Other : None HEENT: None Psych: Depression, Anxiety, Panic attacks Musculoskeletal: Other Derm: None - Past Surgical History Past Surgical History: Yes General: Colonoscopy, EGD Ortho: Shoulder arthroplasty, Other - Present Medications Home Medications: Ambulatory Orders Medication Instructions Recorded Confirmed Omeprazole [PriLOSEC] 20 mg PO TID 05/01/17 07/28/18 Albuterol Sulfate [Proventil Hfa 1 - 2 puffs INH Q4H PRN #1 inhaler 01/15/18 07/24/18 Inhaler] DULoxetine [Cymbalta] 30 mg PO DAILY 07/24/18 07/28/18 Diphenoxylate/Atropine [Lomotil] 1 each PO QID PRN #12 tablet 07/24/18 07/28/18 Ondansetron Odt [Zofran Odt] 4 mg PO PRN PRN 07/24/18 07/28/18 Ondansetron Odt [Zofran] 4 mg TL Q6H PRN #10 tablet 07/24/18 07/28/18 busPIRone [Buspar] 30 mg PO DAILY 07/24/18 07/28/18 traZODone [Desyrel] 50 mg PO DAILY PM 07/24/18 07/28/18 Hydrocodone/Acetaminophen 1 - 2 each PO Q6H PRN #14 tablet 07/31/18 [Hydrocodon-Acetaminophen 5-325] Ondansetron Odt [Zofran] 4 mg TL Q6H PRN #10 tablet 07/31/18 Sucralfate [Carafate] 1 gm PO ACHS #60 tablet 07/31/18 clonazePAM [Clonazepam] 1 - 2 tab PO Q4H PRN #15 tab.rapdis 07/31/18 Hydrocodone/Acetaminophen 1 - 2 each PO Q6H PRN #14 tablet 09/05/18 [Hydrocodon-Acetaminophen 5-325] Nortriptyline HCl 10 mg PO QPM #30 capsule 09/09/18 Famotidine 20 mg PO DAILY #30 tablet 09/15/18 Hydrocodone/Acetaminophen 1 - 2 each PO Q6H PRN #10 tablet 10/16/18 [Hydrocodon-Acetaminophen 5-325] Ondansetron Odt [Zofran Odt] 4 mg TL Q6H PRN #10 tablet 10/16/18 Promethazine Supp [Phenergan Supp] 25 mg [place] Q6H PRN #10 supp 10/16/18 clonazePAM [Clonazepam] 1 tab PO Q8HR PRN #15 tab.rapdis 10/16/18 - Allergies Allergies/Adverse Reactions: Allergies Allergy/AdvReac Type Severity Reaction Status Date / Time No Known Drug Allergies Allergy Verified 09/15/18 10:06 - Social History Does the pt smoke?: Yes Smoking Status: Current every day smoker Does the pt drink ETOH?: Yes Does the pt have substance abuse?: Yes - Immunizations Immunizations are current?: Yes - POLST Patient has POLST: No PD ED PE NORMAL - Vitals Vital signs reviewed: Yes - General General: Alert and oriented X 3, No acute distress, Well developed/nourished - HEENT HEENT: PERRL, Moist mucous membranes - Neck Neck: Supple, no meningeal sign - Cardiac Cardiac: RRR, Strong equal pulses - Respiratory Respiratory: No respiratory distress, Clear bilaterally - Abdomen Abdomen: Soft, Non tender, Non distended - Derm Derm: Warm and dry - Extremities Extremities: No edema - Neuro Neuro: Alert and oriented X 3 - Psych Psych: Normal mood, Normal affect Results - Vitals Vitals: Vital Signs - 24 hr 10/16/18 10/16/18 08:25 09:37 Temperature 36.1 C L Heart Rate 100 88 Respiratory 16 12 Rate Blood Pressure 138/96 H 134/90 H O2 Saturation 98 99 Oxygen O2 Source Room air - Labs Labs: Laboratory Tests 10/16/18 10/16/18 08:40 08:40 WBC 10.4 RBC 6.13 H Hgb 15.9 Hct 47.9 MCV 78.1 L MCH 25.9 L MCHC 33.2 RDW 14.6 Plt Count 507 H MPV 7.1 L Neut # (Auto) 5.0 Lymph # (Auto) 4.3 H Ellis # (Auto) 0.8 Eos # (Auto) 0.2 Baso # (Auto) 0.1 Absolute Nucleated RBC 0.02 Nucleated RBC % 0.2 Sodium 136 Potassium 4.0 Chloride 100 L Carbon Dioxide 24 Anion Gap 12.0 BUN 13 Creatinine 1.2 Estimated GFR (MDRD) 89 Glucose 102 H Calcium 9.5 Total Bilirubin 1.2 H AST 29 ALT 32 Alkaline Phosphatase 70 Total Protein 8.2 Albumin 4.5 Globulin 3.7 Albumin/Globulin Ratio 1.2 Lipase 95 H PD MEDICAL DECISION MAKING - ED course Complexity details: reviewed results, re-evaluated patient, considered differential, d/w patient ED course: 28-year-old male with cyclical vomiting syndrome and Eosinophilic esophagitis. He is out of his medications. Given Dilaudid and Haldol here along with IV fluids. Feels better. Will refill his medications and have him follow-up with his doctor for further refills. Patient is well-appearing, nontoxic. Afebrile. Abdomen is soft, nontender nondistended on serial exam. Patient counseled regarding signs and symptoms for which I believe and urgent re-evaluation would be necessary. Patient with good understanding of and agreement to plan and is comfortable going home at this time This document was made in part using voice recognition software. While efforts are made to proofread this document, sound alike and grammatical errors may occur. Departure - Departure Disposition: 01 Home, Self Care Clinical Impression: Eosinophilic esophagitis Cyclical vomiting Qualifiers: Vomiting Intractability: non-intractable Nausea presence: with nausea Qualified Code(s): G43.A0 - Cyclical vomiting, not intractable Condition: Good Instructions: ED Abdominal Pain Unkn Cause Follow-Up: Di Kang MD [Primary Care Provider] - Within 1 week Prescriptions: clonazePAM [Clonazepam] 1 tab PO Q8HR PRN #15 tab.rapdis PRN Reason: Anxiety Hydrocodone/Acetaminophen [Hydrocodon-Acetaminophen 5-325] 1 - 2 each PO Q6H PRN #10 tablet PRN Reason: pain Ondansetron Odt [Zofran Odt] 4 mg TL Q6H PRN #10 tablet PRN Reason: Nausea / Vomiting Promethazine Supp [Phenergan Supp] 25 mg [place] Q6H PRN #10 supp PRN Reason: Nausea / Vomiting Comments: You need to call Dr. Jaimes office today for a sooner appointment than December. Return if you worsen. Do not drink alcohol or drive while on narcotic pain medicine. Note that many narcotic pain relievers also contain tylenol/acetaminophen. Please ensure that your total dose of acetaminophen from all sources does not exceed 3 grams (3000mg) per day. You may constipated on this medication, take a stool softener such as "Colace" twice a day while you are on it. Also recommend a [id number] laxative such as senna or MiraLAX any day that you do not have a bowel movement. If you received narcotic pain medication in the emergency department, do not drive or operate machinery for the next 24 hours. Discharge Date/Time: 10/16/18 09:41
[2018-10-16 08:46] LABS: BASOPHILS # (AUTO) 0.1 10^3/uL (0.0-0.1); BASOPHILS % (AUTO) 0.7 %; EOSINOPHILS # (AUTO) 0.2 10^3/uL (0.0-0.7); EOSINOPHILS % (AUTO) 1.7 %; HGB - HEMOGLOBIN 15.9 g/dL (14.0-18.0); LYMPHOCYTES # (AUTO) 4.3 10^3/uL (1.5-3.5); LYMPHOCYTES % (AUTO) 41.7 %; MEAN CORPUSCULAR HEMOGLOBIN 25.9 pg (27.0-31.0); MEAN CORPUSCULAR HGB CONC 33.2 g/dL (32.0-36.0); MEAN CORPUSCULAR VOLUME 78.1 fL (80.0-94.0); MEAN PLATELET VOLUME 7.1 fL (7.4-11.4); MONOCYTES # (AUTO) 0.8 10^3/uL (0.0-1.0); MONOCYTES % (AUTO) 7.2 %; NEUTROPHILS % (AUTO) 48.7 %; PLT - PLATELET COUNT 507 10^3/uL (130-450); RED BLOOD COUNT 6.13 10^6/uL (4.70-6.10); RED CELL DISTRIBUTION WIDTH 14.6 % (12.0-15.0); WHITE BLOOD COUNT 10.4 x10^3/uL (4.8-10.8)
[2018-10-16 08:59] LABS: ALBUMIN 4.5 g/dL (3.2-5.5); ALBUMIN/GLOBULIN RATIO 1.2 (1.0-2.2); BILIRUBIN,TOTAL 1.2 mg/dL (0.2-1.0); CALCIUM 9.5 mg/dL (8.5-10.3); CREATININE 1.2 mg/dL (0.6-1.2); TOTAL PROTEIN 8.2 g/dL (6.7-8.2)
[2018-10-16 09:38] VITALS: BP 134/90
== END 2018-10-16 09:41 | disposition home or self-care (01) ==
LOC: ED 08:20
DX: K20.0 Eosinophilic esophagitis (principal); G43.A0 Cyclical vomiting, in migraine, not intractable; F17.200 Nicotine dependence, unspecified, uncomplicated
CPT/HCPCS: 36415; 80053; 83690; 85025; 96374; 99283; J1170

== ENCOUNTER 2018-12-20 14:04 | Emergency (ER) | payer OTHER ==
[2018-12-20 15:17] LABS: BASOPHILS % (AUTO) 0.1 %; HGB - HEMOGLOBIN 15.9 g/dL (14.0-18.0); LYMPHOCYTES # (AUTO) 0.9 10^3/uL (1.5-3.5); LYMPHOCYTES % (AUTO) 5.2 %; MEAN CORPUSCULAR HEMOGLOBIN 26.4 pg (27.0-31.0); MEAN CORPUSCULAR HGB CONC 33.2 g/dL (32.0-36.0); MEAN CORPUSCULAR VOLUME 79.5 fL (80.0-94.0); MEAN PLATELET VOLUME 7.5 fL (7.4-11.4); MONOCYTES # (AUTO) 0.3 10^3/uL (0.0-1.0); MONOCYTES % (AUTO) 1.5 %; NEUTROPHILS # (AUTO) 16.2 10^3/uL (1.5-6.6); NEUTROPHILS % (AUTO) 93.2 %; PLT - PLATELET COUNT 414 10^3/uL (130-450); RED BLOOD COUNT 6.03 10^6/uL (4.70-6.10); RED CELL DISTRIBUTION WIDTH 14.8 % (12.0-15.0); WHITE BLOOD COUNT 17.4 x10^3/uL (4.8-10.8)
[2018-12-20 15:23] LABS: ALBUMIN 4.8 g/dL (3.2-5.5); ALBUMIN/GLOBULIN RATIO 1.2 (1.0-2.2); BILIRUBIN,TOTAL 2.2 mg/dL (0.2-1.0); CALCIUM 10.1 mg/dL (8.5-10.3); TOTAL PROTEIN 8.7 g/dL (6.7-8.2)
[2018-12-20] MEDS ORDERED: HYDROmorphone 1 MG/ML CARPUJECT IVP STA (15:59)
[2018-12-20] MEDS ORDERED: SODIUM CHLORIDE 0.9% 1,000 ML IV ONE (15:59)
--- NOTE | 2018-12-20 16:04 | ED Physician Documentation ---
PD HPI ABD PAIN - Stated complaint Stated Complaint: VOMITING - Chief complaint Chief Complaint: Abd Pain - History obtained from History obtained from: Patient - History of Present Illness Timing - onset: Today Timing - duration: Days (1) Timing - details: Abrupt onset Pain level max: 8 Pain level now: 8 Quality: Aching, Pain Location: All over / everywhere Radiation: Other (non-radiating) Improved by: Vomiting Worsened by: Eating Associated symptoms: Nausea, Vomiting. No: Diarrhea, Constipation Similar symptoms before: Diagnosis (cyclical vomiting syndrome and eosinophilic esophagitis) Recently seen: Emergency Dept (2 months ago for same.) - Additional information Additional information: Patient states that this feels like his normal episodes. He does use marijuana daily Review of Systems Constitutional: denies: Fever, Chills Respiratory: denies: Cough GI: reports: Abdominal Pain (crampy, diffuse). denies: Constipation, Diarrhea Skin: denies: Rash Musculoskeletal: denies: Neck pain, Back pain Neurologic: denies: Headache PD PAST MEDICAL HISTORY - Past Medical History Past Medical History: Yes Cardiovascular: None Respiratory: Asthma Neuro: None Endocrine/Autoimmune: None GI: GERD, Other : None HEENT: None Psych: Depression, Anxiety, Panic attacks Musculoskeletal: Other Derm: None - Past Surgical History Past Surgical History: Yes General: Colonoscopy, EGD Ortho: Shoulder arthroplasty, Other - Present Medications Home Medications: Ambulatory Orders Medication Instructions Recorded Confirmed Omeprazole [PriLOSEC] 20 mg PO TID 05/01/17 07/28/18 Albuterol Sulfate [Proventil Hfa 1 - 2 puffs INH Q4H PRN #1 inhaler 01/15/18 07/24/18 Inhaler] DULoxetine [Cymbalta] 30 mg PO DAILY 07/24/18 07/28/18 Diphenoxylate/Atropine [Lomotil] 1 each PO QID PRN #12 tablet 07/24/18 07/28/18 Ondansetron Odt [Zofran Odt] 4 mg PO PRN PRN 07/24/18 07/28/18 Ondansetron Odt [Zofran] 4 mg TL Q6H PRN #10 tablet 07/24/18 07/28/18 busPIRone [Buspar] 30 mg PO DAILY 07/24/18 07/28/18 traZODone [Desyrel] 50 mg PO DAILY PM 07/24/18 07/28/18 Hydrocodone/Acetaminophen 1 - 2 each PO Q6H PRN #14 tablet 07/31/18 [Hydrocodon-Acetaminophen 5-325] Ondansetron Odt [Zofran] 4 mg TL Q6H PRN #10 tablet 07/31/18 Sucralfate [Carafate] 1 gm PO ACHS #60 tablet 07/31/18 clonazePAM [Clonazepam] 1 - 2 tab PO Q4H PRN #15 tab.rapdis 07/31/18 Hydrocodone/Acetaminophen 1 - 2 each PO Q6H PRN #14 tablet 09/05/18 [Hydrocodon-Acetaminophen 5-325] Nortriptyline HCl 10 mg PO QPM #30 capsule 09/09/18 Famotidine 20 mg PO DAILY #30 tablet 09/15/18 Hydrocodone/Acetaminophen 1 - 2 each PO Q6H PRN #10 tablet 10/16/18 [Hydrocodon-Acetaminophen 5-325] Ondansetron Odt [Zofran Odt] 4 mg TL Q6H PRN #10 tablet 10/16/18 Promethazine Supp [Phenergan Supp] 25 mg [place] Q6H PRN #10 supp 10/16/18 clonazePAM [Clonazepam] 1 tab PO Q8HR PRN #15 tab.rapdis 10/16/18 - Allergies Allergies/Adverse Reactions: Allergies Allergy/AdvReac Type Severity Reaction Status Date / Time No Known Drug Allergies Allergy Verified 09/15/18 10:06 - Social History Does the pt smoke?: Yes Smoking Status: Current every day smoker Does the pt drink ETOH?: Yes Does the pt have substance abuse?: Yes Substance Use and Type: Marijuana - Immunizations Immunizations are current?: Yes - POLST Patient has POLST: No PD ED PE NORMAL - Vitals Vital signs reviewed: Yes - General General: Alert and oriented X 3, No acute distress, Well developed/nourished - HEENT HEENT: PERRL, Moist mucous membranes - Neck Neck: Supple, no meningeal sign - Cardiac Cardiac: RRR, Strong equal pulses - Respiratory Respiratory: No respiratory distress, Clear bilaterally - Abdomen Abdomen: Soft, Non tender, Non distended - Derm Derm: Warm and dry - Extremities Extremities: No edema - Neuro Neuro: Alert and oriented X 3 - Psych Psych: Normal mood, Normal affect Results - Vitals Vitals: Vital Signs - 24 hr 12/20/18 12/20/18 14:17 17:31 Temperature 36.2 C L 36.8 C Heart Rate 80 79 Respiratory 18 12 Rate Blood Pressure 141/87 H 144/91 H O2 Saturation 100 99 Oxygen O2 Source Room air - Labs Labs: Laboratory Tests 12/20/18 12/20/18 15:03 15:03 WBC 17.4 H RBC 6.03 Hgb 15.9 Hct 48.0 MCV 79.5 L MCH 26.4 L MCHC 33.2 RDW 14.8 Plt Count 414 MPV 7.5 Neut # (Auto) 16.2 H Lymph # (Auto) 0.9 L [place] # (Auto) 0.3 Eos # (Auto) 0.0 Baso # (Auto) 0.0 Absolute Nucleated RBC 0.00 Nucleated RBC % 0.0 Sodium 136 Potassium 3.9 Chloride 99 L Carbon Dioxide 23 Anion Gap 14.0 H BUN 10 Creatinine 1.0 Estimated GFR (MDRD) 109 Glucose 120 H Calcium 10.1 Total Bilirubin 2.2 H AST 24 ALT 28 Alkaline Phosphatase 66 Total Protein 8.7 H Albumin 4.8 Globulin 3.9 Albumin/Globulin Ratio 1.2 Lipase 28 PD MEDICAL DECISION MAKING - ED course Complexity details: reviewed old records, reviewed results, re-evaluated patient, considered differential, d/w patient ED course: Symptoms resolved with a dose of Haldol and Dilaudid. Feels much better. Tolerating p.o. without difficulty. Has his medications at home. Encouraged to stop using cannabis. Patient counseled regarding signs and symptoms for which I believe and urgent re-evaluation would be necessary. Patient with good understanding of and agreement to plan and is comfortable going home at this time This document was made in part using voice recognition software. While efforts are made to proofread this document, sound alike and grammatical errors may occur. Departure - Departure Disposition: 01 Home, Self Care Clinical Impression: Eosinophilic esophagitis, Cannabinoid hyperemesis syndrome Cyclical vomiting Qualifiers: Vomiting Intractability: intractable Nausea presence: with nausea Qualified Code(s): G43.A1 - Cyclical vomiting, intractable Instructions: ED Nausea Vomiting Follow-Up: Di Kang MD [Primary Care Provider] - Within 1 week Comments: Continue your medications at home. Return if you worsen. Warm showers may help the symptoms when they occur. This may be related to your marijuana use as well. Discharge Date/Time: 12/20/18 17:35
[2018-12-20] MEDS ORDERED: HALOPERIDOL 5 MG/ML VIAL IVP STA (16:22)
[2018-12-20 17:33] VITALS: BP 144/91
== END 2018-12-20 17:35 | disposition home or self-care (01) ==
LOC: ED 14:04
DX: T40.7X1A Poisoning by cannabis (derivatives), accidental (unintentional), initial encounter (principal); G43.A1 Cyclical vomiting, in migraine, intractable; F12.188 Cannabis abuse with other cannabis-induced disorder; K20.0 Eosinophilic esophagitis; F17.200 Nicotine dependence, unspecified, uncomplicated
CPT/HCPCS: 36415; 80053; 83690; 85025; 96361; 96374; 96375; 99283; 99284; J1170

== ENCOUNTER 2019-02-16 07:17 | Emergency (ER) | payer OTHER ==
[2019-02-16] MEDS ORDERED: KETOROLAC 30 MG/ML VIAL IVP STA ×2 (07:53→14:55)
--- NOTE | 2019-02-16 07:55 | ED Physician Documentation ---
PD HPI CHEST PAIN - Stated complaint Stated Complaint: PX UNDER RT RIB/DIFFICULTY BREATHING - Chief complaint Chief Complaint: Resp - History obtained from History obtained from: Patient - History of Present Illness Timing - onset: How many days ago (3) Timing - onset during: Rest Timing - duration: Days (3) Timing - details: Abrupt onset, Still present Quality: Sharp, Pain Location: Right chest Radiation: Neck, Back Improved by: Rest Worsened by: Inspiration, Movement, Palpation, Position Associated symptoms: Shortness of air. No: Diaphoresis, Nausea, Vomiting, Feeling faint / dizzy, General Weakness, Palpitations, Cough Similar symptoms before: Has not had sx before Recently seen: Not recently seen - Additional information Additional information: 28 y/o thin, 6 foot 3 inch male has developed pain in his right chest with inspiration. This started about 3 days ago while he was sitting on the couch watching television. He has pain with every breath and he has been able to eat without change in his pain. He felt the pain was somewhat better yesterday and this morning just as bad as it was initially. He has never had pneumothorax previously he has had DVT previously. Review of Systems Constitutional: denies: Fever, Chills, Myalgias Eyes: denies: Decreased vision Ears: denies: Ear pain Nose: denies: Rhinorrhea / runny nose, Congestion Throat: denies: Sore throat Cardiac: reports: Chest pain / pressure, Calf pain. denies: Palpitations, Pedal edema Respiratory: reports: Dyspnea. denies: Cough, Wheezing GI: denies: Abdominal Pain, Nausea, Vomiting : denies: Dysuria, Frequency PD PAST MEDICAL HISTORY - Past Medical History Cardiovascular: None Respiratory: Asthma Neuro: None Endocrine/Autoimmune: None GI: GERD, Other : None HEENT: None Psych: Depression, Anxiety, Panic attacks Musculoskeletal: Other Derm: None - Past Surgical History Past Surgical History: Yes General: Colonoscopy, EGD Ortho: Shoulder arthroplasty, Other - Present Medications Home Medications: Ambulatory Orders Medication Instructions Recorded Confirmed Omeprazole [PriLOSEC] 20 mg PO TID 05/01/17 07/28/18 Albuterol Sulfate [Proventil Hfa 1 - 2 puffs INH Q4H PRN #1 inhaler 01/15/18 07/24/18 Inhaler] Ondansetron Odt [Zofran Odt] 4 mg PO PRN PRN 01/16/19 01/20/19 Ondansetron Odt [Zofran] 4 mg TL Q6H PRN #10 tablet 07/24/18 07/28/18 RX: traZODone [Desyrel] 50 mg PO DAILY PM 07/24/18 07/28/18 busPIRone [Buspar] 30 mg PO DAILY 07/24/18 07/28/18 Ondansetron Odt [Zofran] 4 mg TL Q6H PRN #10 tablet 07/31/18 RX: Nortriptyline HCl 10 mg PO QPM #30 capsule 09/09/18 RX: Famotidine 20 mg PO DAILY #30 tablet 09/15/18 RX: clonazePAM [Clonazepam] 1 tab PO Q8HR PRN #15 tab.rapdis 10/16/18 Hydrocodone/Acetaminophen 1 - 2 each PO Q6H PRN #14 tablet 02/16/19 [Hydrocodon-Acetaminophen 5-325] Rivaroxaban [Xarelto] 15 mg PO BID #42 tablet 02/16/19 - Allergies Allergies/Adverse Reactions: Allergies Allergy/AdvReac Type Severity Reaction Status Date / Time No Known Drug Allergies Allergy Verified 02/16/19 07:29 - Social History Does the pt smoke?: Yes Smoking Status: Current every day smoker Does the pt drink ETOH?: Yes Does the pt have substance abuse?: Yes - Immunizations Immunizations are current?: Yes - POLST Patient has POLST: No PD ED PE NORMAL - Vitals Vital signs reviewed: Yes (normal ) - General General: Alert and oriented X 3, Well developed/nourished, Other (splinting with each breath and sitting upright ) - HEENT HEENT: Atraumatic, PERRL, EOMI - Neck Neck: Supple, no meningeal sign, No bony TTP - Cardiac Cardiac: RRR, No murmur - Respiratory Respiratory: No respiratory distress, Other (diminished breath sounds bilaterally worse on the right. ) - Abdomen Abdomen: Soft, Non tender - Back Back: No CVA TTP, No spinal TTP - Derm Derm: Normal color, Warm and dry, No rash - Extremities Extremities: No deformity, No edema - Neuro Neuro: Alert and oriented X 3, psychology intern 2-12 intact, No motor deficit, No sensory deficit, Normal speech Eye Opening: Spontaneous Motor: Obeys Commands Verbal: Oriented GCS Score: 15 - Psych Psych: Normal mood Results - Vitals Vitals: Vital Signs - 24 hr 02/16/19 02/16/19 02/16/19 07:26 10:02 12:06 Temperature 36.8 C Heart Rate 87 65 63 Respiratory 14 16 19 Rate Blood Pressure 119/68 148/92 H 139/92 H O2 Saturation 96 98 99 02/16/19 02/16/19 14:27 16:21 Temperature Heart Rate 85 59 L Respiratory 18 18 Rate Blood Pressure 129/85 H 133/87 H O2 Saturation 97 100 Oxygen O2 Source Room air - Rads (name of study) R IJ Radiology: Prelim report reviewed (Impression no evidence for right internal jugular vein thrombosis.), EMP read indepedently, See rad report duplex LLE Radiology: Prelim report reviewed (Impression: No evidence for deep venous thrombosis in the left lower extremity.), EMP read indepedently, See rad report chest Radiology: Prelim report reviewed (Impression: New lateral bibasilar right greater than left small pulmonary opacities could represent consolidation or atelectasis. Attention on follow-up recommended.), EMP read indepedently, See rad report Chest CTA Radiology: Prelim report reviewed (Impression: 1. Multifocal acute pulmonary emboli in segmental and subsegmental pulmonary arteries to bilateral lower lobes. Possible embolus in the sub-submental artery in the right upper lobe. 2 No evidence for right heart strain. However, moderate-sized pulmonary infarct present in the lateral basilar segment of the right lower lobe and possibly small pulmonary infarct in the posterior segment of the right upper lobe. 3 Small reactive right pleural effusion. 4 Distention of the right internal jugu lar vein with peripheral contrast opacification. Although potentially representing contrast admixture artifact, given the presence of pulmonary emboli, thrombus cannot be entirely excluded. Recommend further evaluation with duplex ultrasound.), EMP read indepedently, See rad report Procedures - Bedside sono Bedside sono by EMP: With use of bedside ultrasound the chest wall is imaged there is lung sliding posteriorly and there is not lung sliding anteriorly in the lower lung field. Exam concerning for pneumothorax. PD MEDICAL DECISION MAKING - ED course Complexity details: reviewed results, re-evaluated patient, considered differential, d/w patient ED course: 28-year-old male presents to the emergency department with acute pleuritic chest pain. He appears uncomfortable when he arrives and is breathing very shallowly especially on the right side where he has his pain. On my initial evaluation I was concerned about the possibility of pneumothorax a chest x-ray is obtained I reviewed the films personally and thought there was evidence of pneumothorax. I consulted the surgeon. the radiologist read the report as bibasilar infiltrate and after review of the films with radiologist CTA was obtained demonstrating the pulmonary infarct. The patient was administered Xarelto and had been given Toradol on arrival. The Toradol helped a lot with the patient's pain he felt very comfortable being able to breathe again. Patient was grateful for treatment. He has had prior DVT and has been on Xarelto previously. Today he did not have DVT on evaluation. He did have symptoms of left calf pain prior to the onset of his symptoms and I suspect he did have DVT at that time and that DVT is now migrated into his chest. He will have follow-up with Dr. Kang for continued use of the Xarelto. At this time he is prescribed 15 mg twice daily. During the entire stay of the patient's ER visit his vital signs remained stable. Departure - Departure Disposition: 01 Home, Self Care Clinical Impression: Pulmonary embolism and infarction Condition: Stable Instructions: Embolism Pulmonary Follow-Up: Di Kang MD [Primary Care Provider] - Prescriptions: Hydrocodone/Acetaminophen [Hydrocodon-Acetaminophen 5-325] 1 - 2 each PO Q6H PRN #14 tablet PRN Reason: pain Rivaroxaban [Xarelto] 15 mg PO BID #42 tablet Discharge Date/Time: 02/16/19 16:30
--- NOTE | 2019-02-16 08:58 | XRAY Report ---
Reason: ? R sided pneumo Procedure Date: 02/16/2019 Accession Number: [id number] / [id number] Procedure: XR - Chest 2 View X-Ray CPT Code: 57876 FULL RESULT: EXAM: CHEST RADIOGRAPHY EXAM DATE: 02/16/2019 08:39 AM. CLINICAL HISTORY: Right chest pain. COMPARISON: CHEST 2 VIEW 01/15/2018 8:45 PM. TECHNIQUE: 2 views. FINDINGS: Lungs/Pleura: Lung volumes have diminished. New ill-defined ground glass opacities have developed in the lateral right base and to a lesser degree lateral left base, potentially consolidation. The remainder of the lungs are clear. No edema or pneumothorax. Mediastinum: Heart and mediastinal contours are unremarkable. Other: None. IMPRESSION: New lateral bibasilar right greater than left small pulmonary opacities could represent consolidation or atelectasis. Attention on follow-up recommended. RADIA
[2019-02-16] MEDS ORDERED: MIDAZOLAM 2 MG/2 ML VIAL IVP STA (09:18)
--- NOTE | 2019-02-16 09:18 | HISTORY & PHYSICAL EXAMINATION ---
Chief Complaint - Chief Complaint Chief Complaint: Chest pain History of Present Illness - Admitted From Admitted From:: Emergency Department - History Obtained From Records Reviewed: Previous admissions History obtained from: Patient and other providers Exam Limitations: None - History of Present Illness HPI Comment/Other: Very pleasant 28 year old gentleman presented to the ED by private vehicle this AM complaining of right chest pain. He reports he has pain with every breath. This started about 3 days ago while sitting and watching televisions. He thought it was better yesterday but he had difficulty sleeping last night and was uncomfortable this morning and so he presented to the ED. He was seen here by Dr. Merino and found to have a moderate to large right pneumothorax. I have been called for management of this issue. History - Past Medical History Cardiovascular: reports: None Respiratory: reports: Asthma Neuro: reports: None Endocrine/Autoimmune: reports: None GI: reports: GERD, Other : reports: None HEENT: reports: None Psych: reports: Depression, Anxiety, Panic attacks Musculoskeletal: reports: Other Derm: reports: None MRSA Hx?: No - Past Surgical History General: reports: Colonoscopy, EGD Ortho: reports: Shoulder arthroplasty, Other - POLST Patient has POLST: No Meds/Allgy - Home Medications Home Medications: Ambulatory Orders Medication Instructions Recorded Confirmed Omeprazole [PriLOSEC] 20 mg PO TID 05/01/17 07/28/18 Albuterol Sulfate [Proventil Hfa 1 - 2 puffs INH Q4H PRN #1 inhaler 01/15/18 07/24/18 Inhaler] Ondansetron Odt [Zofran Odt] 4 mg PO PRN PRN 07/24/18 07/28/18 Ondansetron Odt [Zofran] 4 mg TL Q6H PRN #10 tablet 07/24/18 07/28/18 busPIRone [Buspar] 30 mg PO DAILY 07/24/18 07/28/18 traZODone [Desyrel] 50 mg PO DAILY PM 07/24/18 07/28/18 Ondansetron Odt [Zofran] 4 mg TL Q6H PRN #10 tablet 07/31/18 Nortriptyline HCl 10 mg PO QPM #30 capsule 09/09/18 Famotidine 20 mg PO DAILY #30 tablet 09/15/18 clonazePAM [Clonazepam] 1 tab PO Q8HR PRN #15 tab.rapdis 10/16/18 - Allergies Allergies/Adverse Reactions: Allergies Allergy/AdvReac Type Severity Reaction Status Date / Time No Known Drug Allergies Allergy Verified 02/16/19 07:29 Review of Systems - Respiratory Respiratory: reports: Pleuritic pain, Other (Pain with inspiration) - Psychiatric Psychiatric: reports: Anxiety (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) Exam - Vital Signs Reviewed Vital Signs: Yes Vital Signs: Vital Signs x48h Temp Pulse Resp BP Pulse Ox 02/16/19 07:26 36.8 C 87 14 119/68 96 - Physical Exam General Appearance: positive: No acute distress, Alert Eyes Bilateral: positive: Normal inspection, PERRL, EOMI ENT: positive: ENT inspection nml, Pharynx nml, No signs of dehydration Neck: positive: Nml inspection, Thyroid nml, No JVD, Trachea midline, Thyromegaly Respiratory: positive: Chest non-tender, No respiratory distress, Other (Decreased breath sounds on the right) Cardiovascular: positive: Regular rate & rhythm, No murmur, No gallop Peripheral Pulses: positive: 2+ Abdomen: positive: Non-tender, No organomegaly, Nml bowel sounds, No distention Back: positive: Nml inspection Skin: positive: Color nml, No rash, Warm, Dry Extremities: positive: Non-tender Neurologic/Psychiatric: positive: Oriented x3, CN's nml (2-12) Conclusion/Plan - Lab Results Lab results reviewed: Yes - Diagnostic Imaging Results Diagnostic Imaging Results: positive: Prelim report reviewed, Final report reviewed, Discussed with radiologist
[2019-02-16] MEDS ORDERED: fentaNYL 100 MCG/2 ML VIAL IVP STA (09:19)
[2019-02-16] MEDS ORDERED: LIDOCAINE MPF 2%-EPI 1:200000 20 ML VIAL ONE (09:38)
[2019-02-16] MEDS ORDERED: IOVERSOL 320 100 ML VIAL IVP ONE ×2 (09:45→10:05)
[2019-02-16] MEDS ORDERED: cefTRIAXone 1 GM in SODIUM CHLORIDE 0.9% MINIBAG 100 ML IV STA (10:18)
--- NOTE | 2019-02-16 10:37 | CT Report ---
Reason: R pleuritic chest pain Procedure Date: 02/16/2019 Accession Number: [id number] / [id number] Procedure: CT - ANGIO CHEST W/WO CPT Code: FULL RESULT: EXAM: CT ANGIOGRAM CHEST EXAM DATE: 02/16/2019 10:01 AM. CLINICAL HISTORY: R pleuritic chest pain. COMPARISON: Chest radiograph from 02/16/2019. TECHNIQUE: Routine helical imaging was performed through the chest in the pulmonary arterial phase. IV Contrast: 80 cc Optiray 320. Reconstructions: Coronal 3-D MIP reconstructions.Sagittal and coronal. In accordance with CT protocol optimization, one or more of the following dose reduction techniques were utilized for this exam: automated exposure control, adjustment of mA and/or KV based on patient size, or use of iterative reconstructive technique. FINDINGS: Pulmonary Arteries: Diagnostic quality: Adequate through the segmental arteries and some of the subsegmental. There are acute pulmonary emboli in segmental and segmental pulmonary arteries to the lateral basilar segment of the right lower lobe (series 4, images 88-93). Additional emboli are demonstrated in distal segment and subsegmental arteries to the posterior basal segment of the left lower lobe (series 4, images 94-98). There may also be emboli in subsegmental branches to the apical and posterior segments of the right upper lobe (series 4, image 49) and posterior medial basilar segments of the right lower lobe (series 4, images 105-106). RV/LV is within normal limits. There is no interventricular septal bowing. Lungs/Pleura: There is a wedge-shaped area of consolidation in the lateral basal segment of the right lower lobe (series 5, image 102), compatible with pulmonary infarct. A small area of wedge-shaped opacity in the posterior segment of the right upper lobe (series 5, image 41) may also represent infarct. Linear bilateral lower lobe opacities are present, most compatible with atelectasis. A small right pleural effusion is present. Mediastinum: Heart size is within normal limits. There is no pericardial effusion. There are mild prominent right hilar nodes, such as a 14 x 9 mm right inferior hilar node (series 4, image 79). These may be reactive. No mediastinal or left hilar adenopathy. Anterior mediastinal soft tissue is most compatible with thymus. Thoracic aorta is normal in caliber. Upper Abdomen: Unremarkable. Other: The right internal jugular vein appears distended. There is contrast around the periphery of the vein with central hypoattenuation (series 4, image 15). No suspicious osseous lesion. IMPRESSION: 1. Multifocal acute pulmonary emboli in segmental and subsegmental pulmonary arteries to bilateral lower lobes. Possible embolus in a subsegmental artery in the right upper lobe. 2. No evidence for right heart strain. However, moderate sized pulmonary infarct present in the lateral basilar segment of the right lower lobe and possible small pulmonary infarct in the posterior segment of the right upper lobe. 3. Small reactive right pleural effusion. 4. Distention of the right internal jugular vein with peripheral contrast opacification. Although potentially representing contrast admixture artifact, given the presence of pulmonary emboli, thrombus cannot be entirely excluded. Recommend further evaluation with duplex ultrasound. RADHAA The call report notification system was initiated by Dr. Brendon Zavala at 10:31 AM on 02/16/2019. The above call report findings were discussed with Dr. Yimi Merino by Dr. Brendon Zavala at 10:35 AM on 02/16/2019.
[2019-02-16] MEDS ORDERED: RIVAROXABAN 15 MG TABLET PO STA (10:48)
[2019-02-16] MEDS ORDERED: KETOROLAC 30 MG/ML VIAL ONE (15:05)
--- NOTE | 2019-02-16 15:56 | Ultrasound Report ---
Reason: Right IJ evaluate for clot PE present Procedure Date: 02/16/2019 Accession Number: [id number] / [id number] Procedure: US - Duplex Venous Limited CPT Code: FULL RESULT: EXAM: LIMITED RIGHT UPPER EXTREMITY VENOUS ULTRASOUND EXAM DATE: 02/16/2019 03:05 PM. CLINICAL HISTORY: Right IJ evaluate for clot. PE present. COMPARISON: None. TECHNIQUE: Real-time sonographic vascular imaging was performed by the transitional care liaison through the right internal jugular vein utilizing both color-flow and Doppler spectral analysis. Multiple patient services representative static images were saved for review. FINDINGS IMPRESSION: No evidence for right internal jugular vein thrombosis. RADIA
--- NOTE | 2019-02-16 15:59 | Ultrasound Report ---
Reason: left calf pain PE Procedure Date: 02/16/2019 Accession Number: [id number] / [id number] Procedure: US - Duplex Ext Veins Left CPT Code: FULL RESULT: EXAM: LEFT LOWER EXTREMITY VENOUS ULTRASOUND EXAM DATE: 02/16/2019 03:11 PM. CLINICAL HISTORY: Left calf pain. PE. COMPARISON: None. TECHNIQUE: Real-time sonographic vascular imaging was performed by the clerk travel reservations through the lower extremity utilizing both color-flow and Doppler spectral analysis. Multiple sales representative groceries static images were saved for review. FINDINGS: Common Femoral Vein (CFV): Normal. CFV-GSV Junction: Normal. Profunda Femoral Vein (PFV): Normal. Femoral Vein (FV) Prox: Normal. Femoral Vein (FV) Mid: Normal. Femoral Vein (FV) Dist: Normal. Popliteal Vein: Normal. Posterior Tibial Veins: Normal. Peroneal Veins: Normal. Other: None. IMPRESSION: No evidence for deep venous thrombosis in the left lower extremity. RADIA
[2019-02-16 16:22] VITALS: BP 133/87
== END 2019-02-16 16:30 | disposition home or self-care (01) ==
LOC: ED 07:17
DX: I26.99 Other pulmonary embolism without acute cor pulmonale (principal); J90 Pleural effusion, not elsewhere classified; F17.200 Nicotine dependence, unspecified, uncomplicated; Z86.718 Personal history of other venous thrombosis and embolism
CPT/HCPCS: 71046; 71275; 93971; 96374; 96376; 99284; A9270; Q9967

== ENCOUNTER 2019-08-24 08:57 | Emergency (ER) | payer MEDICAID, OTHER ==
[2019-08-24] MEDS ORDERED: HALOPERIDOL 5 MG/ML VIAL IVP ONE (09:42)
[2019-08-24] MEDS ORDERED: SODIUM CHLORIDE 0.9% 1,000 ML IV ONE (09:42)
[2019-08-24] MEDS ORDERED: ONDANSETRON 4 MG/2 ML VIAL IVP STA (09:42)
--- NOTE | 2019-08-24 09:45 | ED Physician Documentation ---
PD HPI NVD - Stated complaint Stated Complaint: VOMITING/ABD PX - Chief complaint Chief Complaint: Abd Pain - History obtained from History obtained from: Patient, Family - History of Present Illness Timing - onset: Last night Timing - duration: Hours Timing - details: Gradual onset, Still present Associated symptoms: Abdominal pain Contributing factors: Other (canabis use) Improved by: Vomiting Worsened by: Eating Similar symptoms before: Diagnosis (cyclical vomiting) Recently seen: Clinic - Additonal information Additional information: 29-year-old male with a history of pulmonary embolism who is on Coumadin has developed acute nausea and vomiting with abdominal pain. He has had similar symptoms before with cyclical vomiting associated with cannabis use. He has been recently in to see the oncologist about his PE and he continues to have elevated d-dimer has had inconsistent anticoagulation and is not able to take Xarelto secondary to insurance. Review of Systems Constitutional: denies: Fever Eyes: denies: Decreased vision Ears: denies: Ear pain Nose: denies: Rhinorrhea / runny nose, Congestion Throat: denies: Sore throat Cardiac: denies: Chest pain / pressure, Palpitations Respiratory: denies: Dyspnea, Cough GI: reports: Abdominal Pain, Nausea, Vomiting : denies: Dysuria, Frequency PD PAST MEDICAL HISTORY - Past Medical History Past Medical History: Yes Cardiovascular: Pulmonary embolism Respiratory: Asthma Neuro: None Endocrine/Autoimmune: None GI: GERD, Other : None HEENT: None Psych: Depression, Anxiety, Panic attacks Musculoskeletal: Other Derm: None Other Past Medical History: cyclic vomiting syndrome. eosinophilic esophagitis - Past Surgical History Past Surgical History: Yes General: Colonoscopy, EGD Ortho: Shoulder arthroplasty, Other - Present Medications Home Medications: Ambulatory Orders Medication Instructions Recorded Confirmed Omeprazole [PriLOSEC] 20 mg PO TID 05/01/17 08/11/19 Albuterol Sulfate [Proventil Hfa 1 - 2 puffs INH Q4H PRN #1 inhaler 01/15/18 08/11/19 Inhaler] Ondansetron Odt [Zofran Odt] 4 mg PO PRN PRN 07/24/18 08/24/19 busPIRone [Buspar] 30 mg PO DAILY 07/24/18 08/24/19 traZODone [Desyrel] 50 mg PO DAILY PM 07/24/18 08/11/19 Nortriptyline HCl 10 mg PO QPM #30 capsule 09/09/18 08/24/19 Famotidine 20 mg PO DAILY #30 tablet 09/15/18 08/11/19 clonazePAM [Clonazepam] 1 tab PO Q8HR PRN #15 tab.rapdis 10/16/18 08/24/19 Warfarin [Coumadin] 5 mg PO PRN PRN 05/19/19 08/24/19 Ondansetron Odt [Zofran] 4 mg TL Q6H PRN #10 tablet 08/24/19 - Allergies Allergies/Adverse Reactions: Allergies Allergy/AdvReac Type Severity Reaction Status Date / Time No Known Drug Allergies Allergy Verified 08/24/19 09:06 - Social History Does the pt smoke?: Yes Smoking Status: Current every day smoker Does the pt drink ETOH?: Yes Does the pt have substance abuse?: Yes Substance Use and Type: Marijuana - Immunizations Immunizations are current?: Yes Immunizations: TDAP >10years/unknown - POLST Patient has POLST: No PD ED PE NORMAL - Vitals Vital signs reviewed: Yes (hypertensive ) - General General: Alert and oriented X 3, Well developed/nourished, Other (appears uncomfortable ) - HEENT HEENT: Atraumatic, PERRL, EOMI - Neck Neck: Supple, no meningeal sign, No bony TTP - Cardiac Cardiac: RRR, No murmur - Respiratory Respiratory: No respiratory distress, Clear bilaterally - Abdomen Abdomen: Normal bowel sounds, Soft, Non distended, No organomegaly, Other (mild general tenderness) - Back Back: No CVA TTP, No spinal TTP - Derm Derm: Normal color, Warm and dry, No rash - Extremities Extremities: No deformity, Normal ROM s pain, No edema, No calf tenderness / cord - Neuro Neuro: Alert and oriented X 3, strickler attendant 2-12 intact, No motor deficit, No sensory deficit, Normal speech Eye Opening: Spontaneous Motor: Obeys Commands Verbal: Oriented GCS Score: 15 - Psych Psych: Other (mood is anxious) Results - Vitals Vitals: Vital Signs - 24 hr 08/24/19 08/24/19 09:02 11:16 Temperature 36.9 C 37.4 C Heart Rate 79 69 Respiratory 20 16 Rate Blood Pressure 154/101 H 128/79 O2 Saturation 100 97 Oxygen O2 Source Room air - Labs Labs: Laboratory Tests 08/24/19 08/24/19 08/24/19 09:36 09:43 09:43 WBC 13.7 H RBC 6.15 H Hgb 16.8 Hct 47.2 MCV 76.7 L MCH 27.3 MCHC 35.6 RDW 13.9 Plt Count 378 MPV 9.6 Neut # (Auto) 10.1 H Lymph # (Auto) 3.3 [place] # (Auto) 0.2 Eos # (Auto) 0.0 Baso # (Auto) 0.1 Absolute Nucleated RBC 0.00 Nucleated RBC % 0.0 PT 24.4 H INR 2.2 H Sodium 140 Potassium 3.9 Chloride 102 Carbon Dioxide 25 Anion Gap 13.0 BUN 7 Creatinine 1.1 Estimated GFR (MDRD) 97 Glucose 121 H Calcium 9.9 Total Bilirubin 0.9 AST 24 ALT 22 Alkaline Phosphatase 78 Total Protein 8.4 H Albumin 4.8 Globulin 3.6 Albumin/Globulin Ratio 1.3 Lipase 54 H PD MEDICAL DECISION MAKING - ED course Complexity details: reviewed results, re-evaluated patient, considered differential, d/w patient, d/w family ED course: 29-year-old male with cannabis induced hyperemesis is administered saline Zofran and Haldol. He has marked improvement and is discharged to home. Departure - Departure Disposition: 01 Home, Self Care Clinical Impression: Cannabinoid hyperemesis syndrome Condition: Stable Instructions: ED Nausea Vomiting Follow-Up: Di Kang MD [Primary Care Provider] - Prescriptions: Ondansetron Odt [Zofran] 4 mg TL Q6H PRN #10 tablet PRN Reason: Nausea / Vomiting
[2019-08-24 09:58] LABS: BASOPHILS # (AUTO) 0.1 10^3/uL (0.0-0.1); BASOPHILS % (AUTO) 0.4 %; EOSINOPHILS % (AUTO) 0.3 %; HGB - HEMOGLOBIN 16.8 g/dL (14.0-18.0); LYMPHOCYTES # (AUTO) 3.3 10^3/uL (1.5-3.5); MEAN CORPUSCULAR HEMOGLOBIN 27.3 pg (27.0-31.0); MEAN CORPUSCULAR HGB CONC 35.6 g/dL (32.0-36.0); MEAN CORPUSCULAR VOLUME 76.7 fL (80.0-94.0); MEAN PLATELET VOLUME 9.6 fL (7.4-11.4); MONOCYTES # (AUTO) 0.2 10^3/uL (0.0-1.0); MONOCYTES % (AUTO) 1.2 %; NEUTROPHILS # (AUTO) 10.1 10^3/uL (1.5-6.6); NEUTROPHILS % (AUTO) 73.7 %; PLT - PLATELET COUNT 378 10^3/uL (130-450); RED BLOOD COUNT 6.15 10^6/uL (4.70-6.10); RED CELL DISTRIBUTION WIDTH 13.9 % (12.0-15.0); WHITE BLOOD COUNT 13.7 x10^3/uL (4.8-10.8)
[2019-08-24 10:04] LABS: INR 2.2 (0.8-1.2); PT - PROTHROMBIN TIME 24.4 secs (9.9-12.6)
[2019-08-24 10:08] LABS: ALBUMIN 4.8 g/dL (3.2-5.5); ALBUMIN/GLOBULIN RATIO 1.3 (1.0-2.2); BILIRUBIN,TOTAL 0.9 mg/dL (0.2-1.0); CALCIUM 9.9 mg/dL (8.5-10.3); CREATININE 1.1 mg/dL (0.6-1.2); TOTAL PROTEIN 8.4 g/dL (6.7-8.2)
[2019-08-24 12:02] VITALS: BP 147/94
== END 2019-08-24 12:01 | disposition home or self-care (01) ==
LOC: ED 08:57
DX: T40.7X1A Poisoning by cannabis (derivatives), accidental (unintentional), initial encounter (principal); F17.200 Nicotine dependence, unspecified, uncomplicated
CPT/HCPCS: 36415; 80053; 83690; 85025; 85610; 96374; 99284

== ENCOUNTER 2019-11-23 21:52 | Emergency (ER) | payer MEDICAID ==
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
[2019-11-23 22:15] LABS: BASOPHILS # (AUTO) 0.1 10^3/uL (0.0-0.1); BASOPHILS % (AUTO) 0.6 %; EOSINOPHILS # (AUTO) 0.7 10^3/uL (0.0-0.7); EOSINOPHILS % (AUTO) 5.3 %; LYMPHOCYTES # (AUTO) 4.8 10^3/uL (1.5-3.5); LYMPHOCYTES % (AUTO) 36.1 %; MEAN CORPUSCULAR HGB CONC 34.6 g/dL (32.0-36.0); MEAN PLATELET VOLUME 8.5 fL (7.4-11.4); MONOCYTES % (AUTO) 7.6 %; NEUTROPHILS # (AUTO) 6.7 10^3/uL (1.5-6.6); PLT - PLATELET COUNT 423 10^3/uL (130-450); RED BLOOD COUNT 5.55 10^6/uL (4.70-6.10); RED CELL DISTRIBUTION WIDTH 14.3 % (12.0-15.0); WHITE BLOOD COUNT 13.3 x10^3/uL (4.8-10.8)
[2019-11-23 22:27] LABS: ACETAMINOPHEN 17 ug/mL (10-30); ALBUMIN 4.4 g/dL (3.2-5.5); ALBUMIN/GLOBULIN RATIO 1.2 (1.0-2.2); ALKALINE PHOSPHATASE 71 IU/L (42-121); ALT ALANINE AMINOTRANSFERASE 19 IU/L (10-60); AST ASPARTATE AMINOTRANSFERASE 18 IU/L (10-42); BUN - BLOOD UREA NITROGEN 15 mg/dL (6-20); CALCIUM 9.6 mg/dL (8.5-10.3); CARBON DIOXIDE - CO2 32 mmol/L (21-32); CHLORIDE 99 mmol/L (101-111); CREATININE 1.2 mg/dL (0.6-1.2); GLUCOSE 85 mg/dL (70-100); LIPASE 34 U/L (22-51); SALICYLATE < 6.0 mg/dL; SODIUM 137 mmol/L (135-145); TOTAL PROTEIN 8.2 g/dL (6.7-8.2)
[2019-11-24 00:17] LABS: MUDS CUTOFF CONCENTRATIONS CUTOFF CONC BELOW:
[2019-11-24 00:23] LABS: BILIRUBIN,URINE NEGATIVE (NEGATIVE); GLUCOSE, URINE (UA) NEGATIVE (NEGATIVE); KETONES,URINE (UA) TRACE mg/dL (NEGATIVE); LEUKOCYTE ESTERASE, URINE NEGATIVE (NEGATIVE); NITRITE,URINE NEGATIVE (NEGATIVE); OCCULT BLOOD,URINE NEGATIVE (NEGATIVE); PROTEIN,URINE NEGATIVE (NEGATIVE); UROBILINOGEN,URINE 0.2 (NORMAL) E.U./dL (NORMAL)
[2019-11-24 00:26] LABS: CLARITY,URINE CLEAR (CLEAR)
[2019-11-24 00:34] LABS: AMPHETAMINE SCREEN,URINE NEGATIVE (NEGATIVE); BENZODIAZEPINES SCREEN, URINE NEGATIVE (NEGATIVE); COCAINE SCREEN URINE POSITIVE (NEGATIVE); METHADONE SCREEN, URINE NEGATIVE (NEGATIVE); METHAMPHETAMINES SCREEN, URINE NEGATIVE (NEGATIVE); OPIATE SCREEN, URINE NEGATIVE (NEGATIVE); OXYCODONE SCREEN, URINE NEGATIVE (NEGATIVE); PROPOXYPHENE SCREEN, URINE NEGATIVE (NEGATIVE); TRICYCLIC ANTIDEPRESSANT,URINE POSITIVE (NEGATIVE)
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
[2019-11-24] MEDS: OLANZapine ODT 5 MG TABLET TL PRN ×2 (11:17→15:57)
[2019-11-24 17:25] VITALS: BP 128/66
== END 2019-11-24 17:24 | disposition home or self-care (01) ==
LOC: ED 21:52
DX: R45.851 Suicidal ideations (principal); F29 Unspecified psychosis not due to a substance or known physiological condition; F39 Unspecified mood [affective] disorder; F33.9 Major depressive disorder, recurrent, unspecified; F17.200 Nicotine dependence, unspecified, uncomplicated
CPT/HCPCS: 36415; 80053; 80306; 80307; 80320; 80329; 81003; 83690; 85025; 99283; A9270; G0425; 81001; 87086

== ENCOUNTER 2019-11-30 17:12 | Outpatient (CLI) | payer MEDICAID | END 2019-11-30 23:59 | disposition EMS.NT | LOC: EMS 17:12 | PROVIDERS: ATTEND Surgery | DX: Z04.1 Encounter for examination and observation following transport accident (principal) ==

== ENCOUNTER 2019-11-30 18:21 | Emergency (ER) | payer MEDICAID ==
[2019-11-30 18:39] LABS: BASOPHILS # (AUTO) 0.1 10^3/uL (0.0-0.1); BASOPHILS % (AUTO) 0.5 %; EOSINOPHILS # (AUTO) 0.3 10^3/uL (0.0-0.7); EOSINOPHILS % (AUTO) 2.4 %; HGB - HEMOGLOBIN 15.1 g/dL (14.0-18.0); LYMPHOCYTES # (AUTO) 2.8 10^3/uL (1.5-3.5); LYMPHOCYTES % (AUTO) 23.8 %; MEAN CORPUSCULAR HEMOGLOBIN 27.2 pg (27.0-31.0); MEAN CORPUSCULAR HGB CONC 35.3 g/dL (32.0-36.0); MEAN PLATELET VOLUME 8.5 fL (7.4-11.4); MONOCYTES # (AUTO) 0.8 10^3/uL (0.0-1.0); MONOCYTES % (AUTO) 7.1 %; NEUTROPHILS # (AUTO) 7.8 10^3/uL (1.5-6.6); NEUTROPHILS % (AUTO) 65.9 %; PLT - PLATELET COUNT 450 10^3/uL (130-450); RED BLOOD COUNT 5.56 10^6/uL (4.70-6.10); RED CELL DISTRIBUTION WIDTH 14.1 % (12.0-15.0); WHITE BLOOD COUNT 11.8 x10^3/uL (4.8-10.8)
[2019-11-30 18:50] LABS: MUDS CUTOFF CONCENTRATIONS CUTOFF CONC BELOW:
[2019-11-30] MEDS ORDERED: IOVERSOL 320 100 ML VIAL IVP ONE (18:50)
[2019-11-30 18:52] LABS: ACETAMINOPHEN < 10 ug/mL (10-30); ALBUMIN 4.3 g/dL (3.2-5.5); ALBUMIN/GLOBULIN RATIO 1.1 (1.0-2.2); ALKALINE PHOSPHATASE 66 IU/L (42-121); ALT ALANINE AMINOTRANSFERASE 23 IU/L (10-60); AST ASPARTATE AMINOTRANSFERASE 22 IU/L (10-42); BILIRUBIN,TOTAL 0.9 mg/dL (0.2-1.0); BUN - BLOOD UREA NITROGEN 11 mg/dL (6-20); CALCIUM 9.3 mg/dL (8.5-10.3); CARBON DIOXIDE - CO2 26 mmol/L (21-32); CHLORIDE 104 mmol/L (101-111); CREATININE 1.2 mg/dL (0.6-1.2); GLUCOSE 100 mg/dL (70-100); LIPASE 28 U/L (22-51); SALICYLATE < 6.0 mg/dL; SODIUM 138 mmol/L (135-145); TOTAL PROTEIN 8.2 g/dL (6.7-8.2)
[2019-11-30 18:57] LABS: BILIRUBIN,URINE NEGATIVE (NEGATIVE); GLUCOSE, URINE (UA) NEGATIVE (NEGATIVE); KETONES,URINE (UA) NEGATIVE (NEGATIVE); LEUKOCYTE ESTERASE, URINE NEGATIVE (NEGATIVE); NITRITE,URINE NEGATIVE (NEGATIVE); OCCULT BLOOD,URINE NEGATIVE (NEGATIVE); PROTEIN,URINE NEGATIVE (NEGATIVE); UROBILINOGEN,URINE 0.2 (NORMAL) E.U./dL (NORMAL)
[2019-11-30 19:01] LABS: CLARITY,URINE CLEAR (CLEAR)
[2019-11-30 19:10] LABS: COCAINE SCREEN URINE POSITIVE (NEGATIVE)
[2019-11-30 19:11] LABS: AMPHETAMINE SCREEN,URINE NEGATIVE (NEGATIVE); BENZODIAZEPINES SCREEN, URINE NEGATIVE (NEGATIVE); METHADONE SCREEN, URINE NEGATIVE (NEGATIVE); METHAMPHETAMINES SCREEN, URINE NEGATIVE (NEGATIVE); OPIATE SCREEN, URINE NEGATIVE (NEGATIVE); OXYCODONE SCREEN, URINE NEGATIVE (NEGATIVE); PROPOXYPHENE SCREEN, URINE NEGATIVE (NEGATIVE); TRICYCLIC ANTIDEPRESSANT,URINE POSITIVE (NEGATIVE)
--- NOTE | 2019-11-30 19:12 | CT Report ---
Reason: Head trauma, coagulopathy Procedure Date: 11/30/2019 Accession Number: [id number] / [id number] Procedure: CT - HEAD WO CPT Code: Final Report FULL RESULT: EXAM: CT HEAD EXAM DATE: 11/30/2019 06:55 PM. CLINICAL HISTORY: 29-year-old male. Head trauma, coagulopathy. COMPARISON: None. TECHNIQUE: Multiaxial CT images were obtained from the foramen magnum to the vertex. Reformats: Sagittal and coronal. IV contrast: None. In accordance with CT protocol optimization, one or more of the following dose reduction techniques were utilized for this exam: automated exposure control, adjustment of mA and/or KV based on patient size, or use of iterative reconstructive technique. FINDINGS: Parenchyma: No intraparenchymal hemorrhage. No evidence of mass, midline shift, or CT findings of acute infarction. Le-white differentiation is distinct. Extraaxial Spaces: Normal for age. No subdural or epidural collections identified. Ventricles: Normal in size and position. Sinuses and Orbits: Imaged paranasal sinuses, orbits, and mastoids show no significant abnormality. Bones: No evidence of fracture or calvarial defect. Other: None. IMPRESSION: No CT evidence of acute intracranial abnormality, specifically no CT evidence of acute infarct, intracranial hemorrhage, mass effect, midline shift, or hydrocephalus. RADIA
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
--- NOTE | 2019-11-30 19:28 | CT Report ---
Reason: Neck trauma, midline tenderness Procedure Date: 11/30/2019 Accession Number: [id number] / [id number] Procedure: CT - CERVICAL SPINE WO CPT Code: Final Report FULL RESULT: EXAM: CT CERVICAL SPINE WITHOUT CONTRAST DATE: 11/30/2019 07:07 PM. HISTORY: Neck trauma, midline tenderness. COMPARISONS: None. TECHNIQUE: Thin-section axial images were acquired of the cervical spine without contrast. Post-processing: Coronal and sagittal reformats. Other: None. In accordance with CT protocol optimization, one or more of the following dose reduction techniques were utilized for this exam: automated exposure control, adjustment of mA and/or KV based on patient size, or use of iterative reconstructive technique. FINDINGS: Alignment: No scoliosis or spondylolisthesis. Bones: No fracture or bone lesion. Interspace Levels/Facets: Disk space heights are maintained. No significant facet arthropathy. No bony central canal stenosis or neural foraminal narrowing. Other: No paravertebral hematoma or edema is evident. The visualized portions of the lung apices are clear. IMPRESSION: No acute bony abnormality. RADIA
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
--- NOTE | 2019-11-30 19:57 | CT Report ---
Reason: Chest trauma, blunt, high energy Procedure Date: 11/30/2019 Accession Number: [id number] / [id number] Procedure: CT - CHEST W CPT Code: Final Report FULL RESULT: EXAM: CT CHEST EXAM DATE: 11/30/2019 07:07 PM. CLINICAL HISTORY: Chest trauma, blunt, high energy. COMPARISONS: CHEST ANGIO 02/16/2019 9:52 AM. TECHNIQUE: Routine helical CT imaging was performed through the chest. IV contrast: None. Reconstructions: Coronal and sagittal. In accordance with CT protocol optimization, one or more of the following dose reduction techniques were utilized for this exam: automated exposure control, adjustment of mA and/or KV based on patient size, or use of iterative reconstructive technique. FINDINGS: Lungs/Pleura: Mild bibasilar atelectasis No nodules, bronchial thickening, consolidation, or edema. Pulmonary vasculature is normal. No pericardial or pleural effusion. No pneumothorax. Mediastinum: Normal. No adenopathy or masses. The heart and great vessels are normal. Bones: Unremarkable. Visualized Abdomen: Unremarkable. Other: None. IMPRESSION: No visceral organ injury RADIA
[2019-12-01] MEDS ORDERED: NORTRIPTYLINE 10 MG CAPSULE PO STA (02:05)
[2019-12-01] MEDS ORDERED: traZODone 50 MG TABLET PO STA (02:05)
[2019-12-01] MEDS ORDERED: ACETAMINOPHEN 325 MG TABLET PO STA (04:14)
[2019-12-01 04:28] VITALS: BP 123/72
== END 2019-12-01 04:12 ==
LOC: ED 18:21
DX: T14.91XA Suicide attempt, initial encounter (principal); F32.9 Major depressive disorder, single episode, unspecified; Z86.711 Personal history of pulmonary embolism; Z79.01 Long term (current) use of anticoagulants; F17.200 Nicotine dependence, unspecified, uncomplicated
CPT/HCPCS: 36415; 70450; 71260; 72125; 74177; 80053; 80306; 80307; 80320; 80329; 81003; 83690; 84443; 85025; 93005; 99285; A9270; Q9967; 81001; 87086

== ENCOUNTER 2020-01-02 19:51 | Outpatient (CLI) | payer MEDICAID | END 2020-01-02 19:52 | disposition critical access hospital (66) | LOC: EMS 19:51 | PROVIDERS: ATTEND Surgery | DX: F41.9 Anxiety disorder, unspecified (principal) | CPT/HCPCS: A0425; A0429; A0999 ==

== ENCOUNTER 2020-01-02 20:01 | Emergency (ER) | payer MEDICAID ==
--- NOTE | 2020-01-02 22:42 | ED Physician Documentation ---
History of Present Illness - Stated complaint Stated Complaint: HUFFING, ANXIETY - Chief complaint Chief Complaint: Abd Pain - History obtained from History obtained from: Patient - History of Present Illness Timing: Today Pain level now: 0 Improved by: rest, feels better after waiting in ED to be evaluated - Treatment prior to arrival Treatment prior to arrival: ERIN. Patient says "my anxiety got the best of me" today and he huffed several cans of compressed air. He says he has done this in the past when his anxiety feels like it is out of control. He does have anti-anxiety medications (such as clonazepam), but he says that when he gets particularly anxious, he has nausea and vomiting and cannot keep the medication down. He denies SI. He acknowledges that his huffing behavior is dangerous and not an appropriate way to cope with anxiety. He says he feels much better after waiting in ED to be evaluated. Review of Systems Constitutional: reports: Reviewed and negative Eyes: reports: Reviewed and negative Cardiac: reports: Reviewed and negative Respiratory: reports: Reviewed and negative GI: reports: Nausea (resolved), Vomiting (resolved). denies: Abdominal Pain Neurologic: denies: Generalized weakness, Focal weakness, Numbness, Confused, Altered mental status, Headache Psychiatric: reports: Anxiety. denies: Depressed, Suicidal, Homicidal, Hallucinations, Delusions PD PAST MEDICAL HISTORY - Past Medical History Cardiovascular: Pulmonary embolism Respiratory: Asthma Neuro: None Endocrine/Autoimmune: None GI: GERD, Other : None HEENT: None Psych: Depression, Anxiety, Panic attacks Musculoskeletal: Other Derm: None - Past Surgical History Past Surgical History: Yes General: Colonoscopy, EGD Ortho: Shoulder arthroplasty, Other - Present Medications Home Medications: Ambulatory Orders Medication Instructions Recorded Confirmed Omeprazole [PriLOSEC] 20 mg PO DAILY 05/01/17 11/17/19 Albuterol Sulfate [Proventil Hfa 1 - 2 puffs INH Q4H PRN #1 inhaler 01/15/18 11/17/19 Inhaler] Ondansetron Odt [Zofran Odt] 4 mg PO PRN PRN 07/24/18 11/17/19 busPIRone [Buspar] 30 mg PO DAILY 07/24/18 11/17/19 traZODone [Desyrel] 50 mg PO DAILY PM 07/24/18 11/17/19 Nortriptyline HCl 10 mg PO QPM #30 capsule 09/09/18 11/17/19 clonazePAM [Clonazepam] 1 tab PO Q8HR PRN #15 tab.rapdis 10/16/18 11/17/19 Ondansetron Odt [Zofran] 4 mg TL Q6H PRN #10 tablet 08/24/19 11/17/19 Fluvastatin Sodium 40 mg PO DAILY 11/17/19 11/17/19 Rivaroxaban [Xarelto] 20 mg PO DAILY 11/17/19 11/17/19 atenoloL [Atenolol] 25 mg PO DAILY 11/17/19 11/17/19 - Allergies Allergies/Adverse Reactions: Allergies Allergy/AdvReac Type Severity Reaction Status Date / Time No Known Drug Allergies Allergy Verified 11/30/19 18:36 - Social History Does the pt smoke?: Yes Smoking Status: Current every day smoker Does the pt drink ETOH?: Yes Does the pt have substance abuse?: Yes - Immunizations Immunizations are current?: Yes Immunizations: TDAP >10years/unknown - POLST Patient has POLST: No PD ED PE NORMAL - Vitals Vital signs reviewed: Yes - General General: Alert and oriented X 3, No acute distress, Well developed/nourished - HEENT HEENT: PERRL, EOMI, Moist mucous membranes, Other (no nystagmus) - Neck Neck: Supple, no meningeal sign - Cardiac Cardiac: RRR, No murmur - Respiratory Respiratory: No respiratory distress, Clear bilaterally - Neuro Neuro: Alert and oriented X 3 Eye Opening: Spontaneous Motor: Obeys Commands Verbal: Oriented GCS Score: 15 - Psych Psych: Normal mood, Normal affect Results - Vitals Vitals: Vital Signs - 24 hr 01/02/20 01/02/20 01/02/20 20:00 22:13 23:03 Temperature 37.1 C Heart Rate 90 74 77 Respiratory 20 16 17 Rate Blood Pressure 150/94 H 112/103 H O2 Saturation 97 97 100 Oxygen O2 Source Room air PD MEDICAL DECISION MAKING - ED course Complexity details: considered differential, d/w patient ED course: patient is in NAD, polite and conversant. He denies SI and requests d/c home. At this time, there is insufficient information to hold patient against his will. I encouraged him to follow up with his doctor, return if he wants to be reevaluated at any time. Departure - Departure Disposition: 01 Home, Self Care Clinical Impression: Huffing Condition: Good Instructions: ED Drug Abuse General Follow-Up: Di Kang MD [Primary Care Provider] - Discharge Date/Time: 01/02/20 23:18
[2020-01-02 23:09] VITALS: BP 112/103
== END 2020-01-02 23:18 | disposition home or self-care (01) ==
LOC: EDUNIT# → ED 20:01
DX: F41.9 Anxiety disorder, unspecified (principal); F17.200 Nicotine dependence, unspecified, uncomplicated
CPT/HCPCS: 99282; 99283

== ENCOUNTER 2020-01-04 09:12 | Outpatient (CLI) | payer MEDICAID | END 2020-01-04 09:13 | disposition EMS.NT | LOC: EMS 09:12 | PROVIDERS: ATTEND Surgery | DX: R11.2 Nausea with vomiting, unspecified (principal); R10.9 Unspecified abdominal pain ==

== ENCOUNTER 2020-01-05 11:53 | Outpatient (CLI) | payer MEDICAID | END 2020-01-05 11:54 | disposition critical access hospital (66) | LOC: EMS 11:53 | PROVIDERS: ATTEND Surgery | DX: F41.9 Anxiety disorder, unspecified (principal) | CPT/HCPCS: A0425; A0429; A0999 ==

== ENCOUNTER 2020-01-05 12:04 | Emergency (ER) | payer MEDICAID ==
[2020-01-05] MEDS ORDERED: LORazepam 2 MG/ML VIAL IVP STA (13:05)
[2020-01-05] MEDS ORDERED: HALOPERIDOL 5 MG/ML VIAL IVP ONE (13:06)
--- NOTE | 2020-01-05 13:08 | ED Physician Documentation ---
History of Present Illness - Stated complaint Stated Complaint: PANIC ATTACK - Chief complaint Chief Complaint: General - History obtained from History obtained from: Patient - Additonal information Additional information: Patient comes emergency department complaining of having a "panic attack" today. He states that he wakes up every morning feeling anxious and vomits first thing in the morning. He states he has cyclic vomiting syndrome. Patient states that the only thing that helps is doing cocaine and "dusters". This is clarified to be huffing from a pressurized, aerosol dusting can. Patient states that he does have medications for his anxiety but he cannot remember them. He states they do not help anyway. Patient denies any specific trigger for his anxiety. He states that he does feel more anxious when he thinks about feeling nauseated in the morning. Patient states he is in a lot of pain and chest wants to feel better. He denies any other complaints at this time. Patient does admit to doing some cocaine this morning, and admits to using the duster's a few days ago. Review of Systems Ten Systems: 10 systems reviewed and negative Constitutional: reports: Reviewed and negative Eyes: reports: Reviewed and negative Ears: reports: Reviewed and negative Nose: reports: Reviewed and negative Throat: reports: Reviewed and negative Cardiac: reports: Reviewed and negative Respiratory: reports: Reviewed and negative GI: reports: Reviewed and negative : reports: Reviewed and negative Skin: reports: Reviewed and negative Musculoskeletal: reports: Reviewed and negative Neurologic: reports: Reviewed and negative Psychiatric: reports: Anxiety Endocrine: reports: Reviewed and negative Immunocompromised: reports: Reviewed and negative PD PAST MEDICAL HISTORY - Past Medical History Cardiovascular: Pulmonary embolism Respiratory: Asthma Neuro: None Endocrine/Autoimmune: None GI: GERD, Other : None HEENT: None Psych: Depression, Anxiety, Panic attacks Musculoskeletal: Other Derm: None - Past Surgical History Past Surgical History: Yes General: Colonoscopy, EGD Ortho: Shoulder arthroplasty, Other - Present Medications Home Medications: Ambulatory Orders Medication Instructions Recorded Confirmed Omeprazole [PriLOSEC] 20 mg PO DAILY 05/01/17 11/17/19 Albuterol Sulfate [Proventil Hfa 1 - 2 puffs INH Q4H PRN #1 inhaler 01/15/18 11/17/19 Inhaler] Ondansetron Odt [Zofran Odt] 4 mg PO PRN PRN 07/24/18 11/17/19 busPIRone [Buspar] 30 mg PO DAILY 07/24/18 11/17/19 traZODone [Desyrel] 50 mg PO DAILY PM 07/24/18 11/17/19 Nortriptyline HCl 10 mg PO QPM #30 capsule 09/09/18 11/17/19 clonazePAM [Clonazepam] 1 tab PO Q8HR PRN #15 tab.rapdis 10/16/18 11/17/19 Ondansetron Odt [Zofran] 4 mg TL Q6H PRN #10 tablet 08/24/19 11/17/19 Fluvastatin Sodium 40 mg PO DAILY 11/17/19 11/17/19 Rivaroxaban [Xarelto] 20 mg PO DAILY 11/17/19 11/17/19 atenoloL [Atenolol] 25 mg PO DAILY 11/17/19 11/17/19 - Allergies Allergies/Adverse Reactions: Allergies Allergy/AdvReac Type Severity Reaction Status Date / Time No Known Drug Allergies Allergy Verified 01/05/20 12:09 - Social History Does the pt smoke?: Yes Smoking Status: Current every day smoker Does the pt drink ETOH?: Yes Does the pt have substance abuse?: Yes - Immunizations Immunizations are current?: Yes Immunizations: TDAP >10years/unknown - POLST Patient has POLST: No PD ED PE NORMAL - Vitals Vital signs reviewed: Yes - General General: Alert and oriented X 3, Other (Patient is writhing on the bed, hyperventilating and crying) - HEENT HEENT: Atraumatic, PERRL, EOMI, Moist mucous membranes - Neck Neck: Supple, no meningeal sign - Cardiac Cardiac: RRR, No murmur - Respiratory Respiratory: No respiratory distress, Clear bilaterally - Abdomen Abdomen: Soft, Non distended, Other (Diffuse mild tenderness without rebound or guarding.) - Derm Derm: Normal color, Warm and dry, No rash - Extremities Extremities: No deformity, No edema - Neuro Neuro: Alert and oriented X 3, Other (Grossly intact) - Psych Psych: Other (Patient is anxious and tearful. He sobs continuously throughout our conversation.) Results - Vitals Vitals: Vital Signs - 24 hr 01/05/20 01/05/20 01/05/20 12:09 12:23 13:01 Temperature 36.9 C Heart Rate 91 Respiratory 20 26 H Rate Blood Pressure 170/103 H 158/97 H O2 Saturation 99 01/05/20 01/05/20 14:30 15:30 Temperature Heart Rate 73 77 Respiratory 12 11 L Rate Blood Pressure 126/93 H 145/105 H O2 Saturation 98 100 Oxygen O2 Source Room air Oxygen Flow Rate 2 - Labs Labs: Laboratory Tests 01/05/20 01/05/20 13:16 13:16 WBC 9.6 RBC 5.57 Hgb 15.1 Hct 42.3 MCV 75.9 L MCH 27.1 MCHC 35.7 RDW 13.2 Plt Count 450 MPV 9.1 Neut # (Auto) 6.5 Lymph # (Auto) 2.0 [place] # (Auto) 0.7 Eos # (Auto) 0.2 Baso # (Auto) 0.1 Absolute Nucleated RBC 0.00 Nucleated RBC % 0.0 Sodium 138 Potassium 3.0 L Chloride 98 L Carbon Dioxide 24 Anion Gap 16.0 H BUN 12 Creatinine 1.7 H Estimated GFR (MDRD) 59 L Glucose 90 Calcium 9.6 Total Bilirubin 1.5 H AST 26 ALT 17 Alkaline Phosphatase 107 Total Protein 8.7 H Albumin 4.8 Globulin 3.9 Albumin/Globulin Ratio 1.2 Lipase 48 PD MEDICAL DECISION MAKING - ED course Complexity details: reviewed results, re-evaluated patient, considered differential, d/w patient ED course: Patient was treated with IV fluids, Ativan, and Haldol after which the patient was found to be somnolent and no longer anxious. His labs were unremarkable. I discussed with the patient that he needs to talk to his doctor about a better, medically controlled treatment for his anxiety, rather than abusing illicit drugs. Patient is deemed stable for discharge home. We have discussed the usual indications for return. Departure - Departure Disposition: 01 Home, Self Care Clinical Impression: Panic attack Condition: Stable Instructions: ED Panic Attack Comments: Please follow-up with your doctor regarding your panic attacks and chronic nausea and vomiting. Please talk to your doctor about getting help with your drug abuse. Discharge Date/Time: 01/05/20 16:07
[2020-01-05 13:27] LABS: BASOPHILS # (AUTO) 0.1 10^3/uL (0.0-0.1); BASOPHILS % (AUTO) 0.8 %; EOSINOPHILS # (AUTO) 0.2 10^3/uL (0.0-0.7); EOSINOPHILS % (AUTO) 2.3 %; HGB - HEMOGLOBIN 15.1 g/dL (14.0-18.0); LYMPHOCYTES % (AUTO) 21.3 %; MEAN CORPUSCULAR HEMOGLOBIN 27.1 pg (27.0-31.0); MEAN CORPUSCULAR HGB CONC 35.7 g/dL (32.0-36.0); MEAN CORPUSCULAR VOLUME 75.9 fL (80.0-94.0); MEAN PLATELET VOLUME 9.1 fL (7.4-11.4); MONOCYTES # (AUTO) 0.7 10^3/uL (0.0-1.0); MONOCYTES % (AUTO) 7.1 %; NEUTROPHILS # (AUTO) 6.5 10^3/uL (1.5-6.6); NEUTROPHILS % (AUTO) 68.1 %; PLT - PLATELET COUNT 450 10^3/uL (130-450); RED BLOOD COUNT 5.57 10^6/uL (4.70-6.10); RED CELL DISTRIBUTION WIDTH 13.2 % (12.0-15.0); WHITE BLOOD COUNT 9.6 x10^3/uL (4.8-10.8)
[2020-01-05 13:42] LABS: ALBUMIN 4.8 g/dL (3.2-5.5); ALBUMIN/GLOBULIN RATIO 1.2 (1.0-2.2); BILIRUBIN,TOTAL 1.5 mg/dL (0.2-1.0); CALCIUM 9.6 mg/dL (8.5-10.3); CREATININE 1.7 mg/dL (0.6-1.2); TOTAL PROTEIN 8.7 g/dL (6.7-8.2)
[2020-01-05 15:53] VITALS: BP 145/105
== END 2020-01-05 16:07 | disposition home or self-care (01) ==
LOC: EDUNIT# → ED 12:04
DX: F41.0 Panic disorder [episodic paroxysmal anxiety] (principal); R11.2 Nausea with vomiting, unspecified; F14.10 Cocaine abuse, uncomplicated; Z86.711 Personal history of pulmonary embolism; Z79.01 Long term (current) use of anticoagulants; F17.200 Nicotine dependence, unspecified, uncomplicated
CPT/HCPCS: 36415; 80053; 83690; 85025; 96374; 99283; 99284; J2060

== ENCOUNTER 2020-01-08 18:10 | Outpatient (CLI) | payer MEDICAID | END 2020-01-08 18:11 | disposition EMS.NT | LOC: EMS 18:10 | PROVIDERS: ATTEND Surgery | DX: Z03.89 Encounter for observation for other suspected diseases and conditions ruled out (principal) ==

== ENCOUNTER 2020-01-11 22:15 | Outpatient (CLI) | payer MEDICAID | END 2020-01-11 22:16 | disposition critical access hospital (66) | LOC: EMS 22:15 | PROVIDERS: ATTEND Surgery | DX: R11.2 Nausea with vomiting, unspecified (principal); R10.9 Unspecified abdominal pain; R53.83 Other fatigue | CPT/HCPCS: A0425; A0429; A0999 ==

== ENCOUNTER 2020-01-11 22:25 | Emergency (ER) | payer MEDICAID ==
--- NOTE | 2020-01-11 22:34 | ED Physician Documentation ---
History of Present Illness - Stated complaint Stated Complaint: FATIGUE, VOMITING - History obtained from History obtained from: Patient - Additonal information Additional information: Patient presents emergency department complaining of nausea, abdominal pain, and fatigue that started this afternoon. Patient states he is feeling better this morning after doing some "dusters" again, but that now his Abdominal pain has returned. He states the nausea is on and off, and the rate at this very moment, does not seem to be as bad, but that it keeps coming in waves. Patient states that he is very thirsty. He denies any fevers or chills. No symptoms that are different than his usual nausea and abdominal pain. No other complaints at this time. Review of Systems Ten Systems: 10 systems reviewed and negative Constitutional: reports: Reviewed and negative Eyes: reports: Reviewed and negative Ears: reports: Reviewed and negative Nose: reports: Reviewed and negative Throat: reports: Reviewed and negative Cardiac: reports: Reviewed and negative Respiratory: reports: Reviewed and negative GI: reports: Abdominal Pain, Nausea : reports: Reviewed and negative Skin: reports: Reviewed and negative Musculoskeletal: reports: Reviewed and negative Neurologic: reports: Reviewed and negative Psychiatric: reports: Anxiety Endocrine: reports: Reviewed and negative Immunocompromised: reports: Reviewed and negative PD PAST MEDICAL HISTORY - Past Medical History Cardiovascular: Pulmonary embolism Respiratory: Asthma Neuro: None Endocrine/Autoimmune: None GI: GERD, Other : None HEENT: None Psych: Depression, Anxiety, Panic attacks Musculoskeletal: Other Derm: None - Past Surgical History Past Surgical History: Yes General: Colonoscopy, EGD Ortho: Shoulder arthroplasty, Other - Present Medications Home Medications: Ambulatory Orders Medication Instructions Recorded Confirmed Omeprazole [PriLOSEC] 20 mg PO DAILY 05/01/17 11/17/19 Albuterol Sulfate [Proventil Hfa 1 - 2 puffs INH Q4H PRN #1 inhaler 01/15/18 11/17/19 Inhaler] Ondansetron Odt [Zofran Odt] 4 mg PO PRN PRN 07/24/18 11/17/19 busPIRone [Buspar] 30 mg PO DAILY 07/24/18 11/17/19 traZODone [Desyrel] 50 mg PO DAILY PM 07/24/18 11/17/19 Nortriptyline HCl 10 mg PO QPM #30 capsule 09/09/18 11/17/19 clonazePAM [Clonazepam] 1 tab PO Q8HR PRN #15 tab.rapdis 10/16/18 11/17/19 Ondansetron Odt [Zofran] 4 mg TL Q6H PRN #10 tablet 08/24/19 11/17/19 Fluvastatin Sodium 40 mg PO DAILY 11/17/19 11/17/19 Rivaroxaban [Xarelto] 20 mg PO DAILY 11/17/19 11/17/19 atenoloL [Atenolol] 25 mg PO DAILY 11/17/19 11/17/19 - Allergies Allergies/Adverse Reactions: Allergies Allergy/AdvReac Type Severity Reaction Status Date / Time No Known Drug Allergies Allergy Verified 01/12/20 12:58 - Social History Does the pt smoke?: Yes Smoking Status: Current every day smoker Does the pt drink ETOH?: Yes Does the pt have substance abuse?: Yes - Immunizations Immunizations are current?: Yes Immunizations: TDAP >10years/unknown - POLST Patient has POLST: No PD ED PE NORMAL - Vitals Vital signs reviewed: Yes - General General: Alert and oriented X 3, Well developed/nourished, Other (Patient appears mildly anxious.) - HEENT HEENT: Atraumatic, PERRL, EOMI, Moist mucous membranes - Neck Neck: Supple, no meningeal sign - Cardiac Cardiac: RRR, No murmur, Strong equal pulses - Respiratory Respiratory: No respiratory distress, Clear bilaterally - Abdomen Abdomen: Soft, Non distended, Other (Mild diffuse tenderness.) - Back Back: Other (Full range of motion grossly) - Derm Derm: Normal color, Warm and dry, No rash - Extremities Extremities: No deformity, No edema, No calf tenderness / cord - Neuro Neuro: Alert and oriented X 3 - Psych Psych: Normal affect, Other (Mild anxiousness otherwise normal.) Results - Vitals Vitals: Oxygen O2 Source Room air PD MEDICAL DECISION MAKING - ED course Complexity details: reviewed old records, re-evaluated patient, considered differential, d/w patient ED course: PT was treated symptomatically in the ED with Zofran and Haldol, after which he was found to be feeling better. We have discussed the need for follow-up with pt's PCP to discuss pt's desire to have Haldol at home, as well as the usual indications for return. Departure - Departure Disposition: 01 Home, Self Care Clinical Impression: Cyclical vomiting, Anxiety, Panic attack Condition: Stable Instructions: ED Panic Attack, ED Nausea Vomiting Comments: You have been treated in the emergency department on a number of occasions successfully with Haldol. You may talk to your doctor about this and other options to possibly use as an outpatient. We do not prescribe Haldol from the emergency department, as it can have some long-term side effects and it is best for you to discuss the pros and cons with your primary doctor. Please get help with your drug abuse, as well. Discharge Date/Time: 01/12/20 00:01
[2020-01-11] MEDS ORDERED: HALOPERIDOL 5 MG/ML VIAL IM STA (22:37)
[2020-01-11] MEDS ORDERED: ONDANSETRON ODT 4 MG TABLET TL STA (22:37)
[2020-01-11 23:59] VITALS: BP 131/91
== END 2020-01-12 00:01 | disposition home or self-care (01) ==
LOC: EDUNIT# → ED 22:25
DX: R11.15 Cyclical vomiting syndrome unrelated to migraine (principal); R41.9 Unspecified symptoms and signs involving cognitive functions and awareness; F41.0 Panic disorder [episodic paroxysmal anxiety]; F17.200 Nicotine dependence, unspecified, uncomplicated
CPT/HCPCS: 96372; 99283; 99284

== ENCOUNTER 2020-01-12 12:36 | Outpatient (CLI) | payer MEDICAID | END 2020-01-12 12:37 | disposition critical access hospital (66) | LOC: EMS 12:36 | PROVIDERS: ATTEND Surgery | DX: F41.9 Anxiety disorder, unspecified (principal); Z72.89 Other problems related to lifestyle; R10.9 Unspecified abdominal pain; R63.1 Polydipsia | CPT/HCPCS: A0425; A0429; A0999 ==

== ENCOUNTER 2020-01-12 12:47 | Emergency (ER) | payer MEDICAID ==
[2020-01-12] MEDS ORDERED: LORazepam 1 MG TABLET PO STA (13:03)
--- NOTE | 2020-01-12 13:04 | ED Physician Documentation ---
PD HPI MHE - Stated complaint Stated Complaint: MHE - Chief complaint Chief Complaint: MHE - History obtained from History obtained from: Patient - Additional information Additional information: 29-year-old gentleman with chronic anxiety, issues with huffing. Brought in by [facility]'s deputy today for involuntary mental health evaluation because of strange behavior and ongoing intractable drug use. Patient's only complaint is anxiety, chronic abdominal pain, and "that bitch fucking broke up with me." No report of suicidal or homicidal ideation. Review of Systems Ten Systems: 10 systems reviewed and negative Constitutional: reports: Reviewed and negative Cardiac: reports: Reviewed and negative Respiratory: reports: Reviewed and negative PD PAST MEDICAL HISTORY - Past Medical History Cardiovascular: Pulmonary embolism Respiratory: Asthma Neuro: None Endocrine/Autoimmune: None GI: GERD, Other : None HEENT: None Psych: Depression, Anxiety, Panic attacks Musculoskeletal: Other Derm: None - Past Surgical History Past Surgical History: Yes General: Colonoscopy, EGD Ortho: Shoulder arthroplasty, Other - Present Medications Home Medications: Ambulatory Orders Medication Instructions Recorded Confirmed Omeprazole [PriLOSEC] 20 mg PO DAILY 05/01/17 11/17/19 Albuterol Sulfate [Proventil Hfa 1 - 2 puffs INH Q4H PRN #1 inhaler 01/15/18 11/17/19 Inhaler] Ondansetron Odt [Zofran Odt] 4 mg PO PRN PRN 07/24/18 11/17/19 busPIRone [Buspar] 30 mg PO DAILY 07/24/18 11/17/19 traZODone [Desyrel] 50 mg PO DAILY PM 07/24/18 11/17/19 Nortriptyline HCl 10 mg PO QPM #30 capsule 09/09/18 11/17/19 clonazePAM [Clonazepam] 1 tab PO Q8HR PRN #15 tab.rapdis 10/16/18 11/17/19 Ondansetron Odt [Zofran] 4 mg TL Q6H PRN #10 tablet 08/24/19 11/17/19 Fluvastatin Sodium 40 mg PO DAILY 11/17/19 11/17/19 Rivaroxaban [Xarelto] 20 mg PO DAILY 11/17/19 11/17/19 atenoloL [Atenolol] 25 mg PO DAILY 11/17/19 11/17/19 - Allergies Allergies/Adverse Reactions: Allergies Allergy/AdvReac Type Severity Reaction Status Date / Time No Known Drug Allergies Allergy Verified 01/12/20 12:58 - Social History Does the pt smoke?: Yes Smoking Status: Current every day smoker Does the pt drink ETOH?: Yes Does the pt have substance abuse?: Yes - Immunizations Immunizations are current?: Yes Immunizations: TDAP >10years/unknown - POLST Patient has POLST: No PD ED PE NORMAL - Vitals Vital signs reviewed: Yes - General General: Alert and oriented X 3, Other (Anxious gentleman requesting water but otherwise in no distress) - HEENT HEENT: PERRL, EOMI - Neck Neck: Supple, no meningeal sign, No bony TTP - Cardiac Cardiac: RRR, No murmur - Respiratory Respiratory: No respiratory distress, Clear bilaterally - Abdomen Abdomen: Normal bowel sounds, Soft, Non tender - Back Back: No CVA TTP, No spinal TTP - Derm Derm: Normal color, Warm and dry - Extremities Extremities: No edema, No calf tenderness / cord - Neuro Neuro: Alert and oriented X 3, Normal speech Results - Vitals Vitals: Vital Signs - 24 hr 01/12/20 01/12/20 01/12/20 12:58 13:02 21:11 Temperature 36.5 C 36.5 C 36.0 C L Heart Rate 77 77 60 Respiratory 18 18 18 Rate Blood Pressure 152/100 H 152/100 H 141/56 H O2 Saturation 100 100 99 Oxygen O2 Source Room air - Labs Labs: Laboratory Tests 01/12/20 01/12/20 01/12/20 12:55 13:05 13:05 WBC 11.8 H RBC 5.74 Hgb 15.8 Hct 44.0 MCV 76.7 L MCH 27.5 MCHC 35.9 RDW 13.4 Plt Count 462 H MPV 9.5 Neut # (Auto) 7.3 H Lymph # (Auto) 3.2 [place] # (Auto) 0.9 Eos # (Auto) 0.4 Baso # (Auto) 0.1 Absolute Nucleated RBC 0.00 Nucleated RBC % 0.0 Sodium 137 Potassium 3.0 L Chloride 99 L Carbon Dioxide 25 Anion Gap 13.0 BUN 13 Creatinine 1.6 H Estimated GFR (MDRD) 63 L Glucose 110 H Calcium 9.2 Total Bilirubin 1.3 H AST 18 ALT 16 Alkaline Phosphatase 151 H Total Protein 8.3 H Albumin 4.5 Globulin 3.8 Albumin/Globulin Ratio 1.2 Lipase 38 TSH Urine Color YELLOW Urine Clarity SL. CLOUDY Urine pH 6.0 Ur Specific [place] 1.010 Urine Protein NEGATIVE Urine Glucose (UA) NEGATIVE Urine Ketones NEGATIVE Urine Occult Blood NEGATIVE Urine Nitrite NEGATIVE Urine Bilirubin NEGATIVE Urine Urobilinogen 0.2 (NORMAL) Ur Leukocyte Esterase NEGATIVE Urine RBC 0-5 Urine WBC 0-3 Ur Epithelial Cells FEW Transitional Ur Squamous Epith Cells RARE Squamous Urine Bacteria Rare Ur Microscopic Review INDICATED Urine Culture Comments NOT INDICATED Salicylates < 6.0 Urine Opiates Screen NEGATIVE Ur Oxycodone Screen NEGATIVE Urine Methadone Screen NEGATIVE Ur Propoxyphene Screen NEGATIVE Acetaminophen < 10 L Ur Barbiturates Screen NEGATIVE Ur Tricyclics Screen NEGATIVE Ur Phencyclidine Scrn NEGATIVE Ur Amphetamine Screen NEGATIVE U Methamphetamines Scrn NEGATIVE U Benzodiazepines Scrn POSITIVE H Urine Cocaine Screen POSITIVE H U Cannabinoids Screen POSITIVE H Ethyl Alcohol < 5.0 01/12/20 13:05 WBC RBC Hgb Hct MCV MCH MCHC RDW Plt Count MPV Neut # (Auto) Lymph # (Auto) [place] # (Auto) Eos # (Auto) Baso # (Auto) Absolute Nucleated RBC Nucleated RBC % Sodium Potassium Chloride Carbon Dioxide Anion Gap BUN Creatinine Estimated GFR (MDRD) Glucose Calcium Total Bilirubin AST ALT Alkaline Phosphatase Total Protein Albumin Globulin Albumin/Globulin Ratio Lipase TSH 0.54 Urine Color Urine Clarity Urine pH Ur Specific [place] Urine Protein Urine Glucose (UA) Urine Ketones Urine Occult Blood Urine Nitrite Urine Bilirubin Urine Urobilinogen Ur Leukocyte Esterase Urine RBC Urine WBC Ur Epithelial Cells Ur Squamous Epith Cells Urine Bacteria Ur Microscopic Review Urine Culture Comments Salicylates Urine Opiates Screen Ur Oxycodone Screen Urine Methadone Screen Ur Propoxyphene Screen Acetaminophen Ur Barbiturates Screen Ur Tricyclics Screen Ur Phencyclidine Scrn Ur Amphetamine Screen U Methamphetamines Scrn U Benzodiazepines Scrn Urine Cocaine Screen U Cannabinoids Screen Ethyl Alcohol PD MEDICAL DECISION MAKING - ED course ED course: Spoke with Mother in law, Christie Berkowitz, with patient's permission and given update [phone] Seen by the DCR for potential [employer] [facility] and she agreed and arranged for a bed at [facility] in [place]. [place] were completed. Accepting physician is Giancarlo Means nurse practitioner.. Departure - Departure Disposition: 65 Psych Hosp/Unit DC/Xfer Clinical Impression: Anxiety, Huffing Depression Qualifiers: Depression Type: major depressive disorder Major depression recurrence: recurrent Active/Remission status: currently active Major depression episode severity: unspecified Qualified Code(s): F33.9 - Major depressive disorder, recurrent, unspecified Condition: Stable
[2020-01-12 13:09] LABS: MUDS CUTOFF CONCENTRATIONS CUTOFF CONC BELOW:
[2020-01-12 13:13] LABS: BILIRUBIN,URINE NEGATIVE (NEGATIVE); GLUCOSE, URINE (UA) NEGATIVE (NEGATIVE); KETONES,URINE (UA) NEGATIVE (NEGATIVE); LEUKOCYTE ESTERASE, URINE NEGATIVE (NEGATIVE); NITRITE,URINE NEGATIVE (NEGATIVE); OCCULT BLOOD,URINE NEGATIVE (NEGATIVE); PROTEIN,URINE NEGATIVE (NEGATIVE); UROBILINOGEN,URINE 0.2 (NORMAL) E.U./dL (NORMAL)
[2020-01-12 13:24] LABS: CLARITY,URINE SL. CLOUDY (CLEAR)
[2020-01-12 13:28] LABS: AMPHETAMINE SCREEN,URINE NEGATIVE (NEGATIVE); BENZODIAZEPINES SCREEN, URINE POSITIVE (NEGATIVE); COCAINE SCREEN URINE POSITIVE (NEGATIVE); METHADONE SCREEN, URINE NEGATIVE (NEGATIVE); METHAMPHETAMINES SCREEN, URINE NEGATIVE (NEGATIVE); OPIATE SCREEN, URINE NEGATIVE (NEGATIVE); TRICYCLIC ANTIDEPRESSANT,URINE NEGATIVE (NEGATIVE)
[2020-01-12 13:29] LABS: OXYCODONE SCREEN, URINE NEGATIVE (NEGATIVE); PROPOXYPHENE SCREEN, URINE NEGATIVE (NEGATIVE)
[2020-01-12 13:38] LABS: BASOPHILS # (AUTO) 0.1 10^3/uL (0.0-0.1); BASOPHILS % (AUTO) 0.5 %; EOSINOPHILS # (AUTO) 0.4 10^3/uL (0.0-0.7); HGB - HEMOGLOBIN 15.8 g/dL (14.0-18.0); LYMPHOCYTES # (AUTO) 3.2 10^3/uL (1.5-3.5); LYMPHOCYTES % (AUTO) 27.1 %; MEAN CORPUSCULAR HEMOGLOBIN 27.5 pg (27.0-31.0); MEAN CORPUSCULAR HGB CONC 35.9 g/dL (32.0-36.0); MEAN CORPUSCULAR VOLUME 76.7 fL (80.0-94.0); MEAN PLATELET VOLUME 9.5 fL (7.4-11.4); MONOCYTES # (AUTO) 0.9 10^3/uL (0.0-1.0); MONOCYTES % (AUTO) 7.4 %; NEUTROPHILS # (AUTO) 7.3 10^3/uL (1.5-6.6); NEUTROPHILS % (AUTO) 61.7 %; PLT - PLATELET COUNT 462 10^3/uL (130-450); RED BLOOD COUNT 5.74 10^6/uL (4.70-6.10); RED CELL DISTRIBUTION WIDTH 13.4 % (12.0-15.0); WHITE BLOOD COUNT 11.8 x10^3/uL (4.8-10.8)
[2020-01-12 13:44] LABS: RBC,URINE 0-5 /HPF (0-5)
[2020-01-12 13:45] LABS: BACTERIA,URINE Rare /HPF (None Seen); EPITHELIAL CELLS,UR FEW Transitional /HPF (<= Few); SQUAMOUS EPITHELIAL CELL,UR RARE Squamous (<= Few)
[2020-01-12] MEDS ORDERED: ONDANSETRON ODT 4 MG TABLET TL STA (13:46)
[2020-01-12] MEDS ORDERED: HALOPERIDOL 5 MG/ML VIAL IM STA (13:46)
[2020-01-12 13:53] LABS: ACETAMINOPHEN < 10 ug/mL (10-30); ALBUMIN 4.5 g/dL (3.2-5.5); ALBUMIN/GLOBULIN RATIO 1.2 (1.0-2.2); ALKALINE PHOSPHATASE 151 IU/L (42-121); ALT ALANINE AMINOTRANSFERASE 16 IU/L (10-60); AST ASPARTATE AMINOTRANSFERASE 18 IU/L (10-42); BILIRUBIN,TOTAL 1.3 mg/dL (0.2-1.0); BUN - BLOOD UREA NITROGEN 13 mg/dL (6-20); CALCIUM 9.2 mg/dL (8.5-10.3); CARBON DIOXIDE - CO2 25 mmol/L (21-32); CHLORIDE 99 mmol/L (101-111); CREATININE 1.6 mg/dL (0.6-1.2); GLUCOSE 110 mg/dL (70-100); LIPASE 38 U/L (22-51); SALICYLATE < 6.0 mg/dL; SODIUM 137 mmol/L (135-145); TOTAL PROTEIN 8.3 g/dL (6.7-8.2)
[2020-01-12] MEDS ORDERED: POTASSIUM CHLORIDE 20 MEQ TABLET PO STA (14:32)
[2020-01-13] MEDS ORDERED: ONDANSETRON ODT 4 MG TABLET TL STA (06:02)
[2020-01-13] MEDS ORDERED: HALOPERIDOL 5 MG/ML VIAL IM STA (06:15)
[2020-01-13 06:53] VITALS: BP 136/74
== END 2020-01-13 08:41 ==
LOC: EDUNIT# → ED 12:47
DX: F19.20 Other psychoactive substance dependence, uncomplicated (principal); F41.9 Anxiety disorder, unspecified; F33.9 Major depressive disorder, recurrent, unspecified; F17.200 Nicotine dependence, unspecified, uncomplicated
CPT/HCPCS: 36415; 80053; 80306; 80307; 80320; 80329; 81001; 83690; 84443; 85025; 96372; 99283; 99284; 99285; A9270; J8499; Q0162; 81003; 87086

== ENCOUNTER 2020-02-22 21:54 | Outpatient (CLI) | payer MEDICAID | END 2020-02-22 21:55 | disposition critical access hospital (66) | LOC: EMS 21:54 | PROVIDERS: ATTEND Surgery | DX: R07.9 Chest pain, unspecified (principal) | CPT/HCPCS: A0425; A0429; A0999 ==

== ENCOUNTER 2020-02-22 22:05 | Emergency (ER) | payer MEDICAID ==
--- NOTE | 2020-02-22 22:07 | ED Physician Documentation ---
History of Present Illness - Stated complaint Stated Complaint: CP /ANXIETY - History obtained from History obtained from: Patient - Additonal information Additional information: Patient is a 29-year-old male Who presents with vomiting. He reports he is unable to keep anything down and he continues to vomit.He denies any fevers has been admitted to rehab previously for substance abuse. Review of Systems Constitutional: reports: Reviewed and negative Eyes: reports: Reviewed and negative Ears: reports: Reviewed and negative Nose: reports: Reviewed and negative Throat: reports: Reviewed and negative Cardiac: reports: Reviewed and negative Respiratory: reports: Reviewed and negative GI: reports: Nausea, Vomiting : reports: Reviewed and negative Skin: reports: Reviewed and negative Musculoskeletal: reports: Reviewed and negative Neurologic: reports: Reviewed and negative Psychiatric: reports: Reviewed and negative Endocrine: reports: Reviewed and negative Immunocompromised: reports: Reviewed and negative PD PAST MEDICAL HISTORY - Past Medical History Cardiovascular: Pulmonary embolism Respiratory: Asthma Neuro: None Endocrine/Autoimmune: None GI: GERD, Other : None HEENT: None Psych: Depression, Anxiety, Panic attacks Musculoskeletal: Other Derm: None - Past Surgical History Past Surgical History: Yes General: Colonoscopy, EGD Ortho: Shoulder arthroplasty, Other - Present Medications Home Medications: Ambulatory Orders Medication Instructions Recorded Confirmed Omeprazole [PriLOSEC] 20 mg PO DAILY 05/01/17 11/17/19 Albuterol Sulfate [Proventil Hfa 1 - 2 puffs INH Q4H PRN #1 inhaler 01/15/18 0 11/17/19 Inhaler] Ondansetron Odt [Zofran Odt] 4 mg PO PRN PRN 07/24/18 11/17/19 busPIRone [Buspar] 30 mg PO DAILY 07/24/18 11/17/19 traZODone [Desyrel] 50 mg PO DAILY PM 07/24/18 11/17/19 Nortriptyline HCl 10 mg PO QPM #30 capsule 09/09/18 11/17/19 clonazePAM [Clonazepam] 1 tab PO Q8HR PRN #15 tab.rapdis 10/16/18 11/17/19 Ondansetron Odt [Zofran] 4 mg TL Q6H PRN #10 tablet 08/24/19 11/17/19 Fluvastatin Sodium 40 mg PO DAILY 11/17/19 11/17/19 Rivaroxaban [Xarelto] 20 mg PO DAILY 11/17/19 11/17/19 atenoloL [Atenolol] 25 mg PO DAILY 11/17/19 11/17/19 Ondansetron Odt [Zofran] 4 mg TL Q6H PRN #10 tablet 02/05/20 haloperidoL [Haloperidol] 5 mg PO BID #10 tablet 02/05/20 - Allergies Allergies/Adverse Reactions: Allergies Allergy/AdvReac Type Severity Reaction Status Date / Time methylphenidate Allergy Unknown Unknown Verified 02/22/20 22:16 [From Ritalin] - Social History Does the pt smoke?: Yes Smoking Status: Current every day smoker Does the pt drink ETOH?: Yes Does the pt have substance abuse?: Yes - Immunizations Immunizations are current?: Yes Immunizations: TDAP >10years/unknown - POLST Patient has POLST: No PD ED PE NORMAL - Vitals Vital signs reviewed: Yes - General General: Alert and oriented X 3, No acute distress, Well developed/nourished - HEENT HEENT: PERRL - Neck Neck: Supple, no meningeal sign - Cardiac Cardiac: RRR, No murmur - Respiratory Respiratory: Clear bilaterally - Abdomen Abdomen: Normal bowel sounds, Soft, Non tender, Non distended - Derm Derm: Warm and dry - Extremities Extremities: No deformity - Neuro Neuro: Alert and oriented X 3 - Psych Psych: Normal mood, Normal affect Results - Vitals Vitals: Vital Signs - 24 hr 02/22/20 02/22/20 02/23/20 22:12 22:19 00:15 Temperature 37 C 37 C Heart Rate 114 H 81 Respiratory 18 18 15 Rate Blood Pressure 155/94 H 155/94 H 144/103 H O2 Saturation 100 100 96 02/23/20 02/23/20 02/23/20 01:30 02:43 02:49 Temperature Heart Rate 77 90 112 H Respiratory 18 18 17 Rate Blood Pressure 122/82 H 155/105 H 155/105 H O2 Saturation 98 98 95 02/23/20 03:30 Temperature Heart Rate 78 Respiratory 18 Rate Blood Pressure 141/96 H O2 Saturation 98 Oxygen O2 Source Room air - EKG (time done) 00:00 Rate: Other (no stemi) - Labs Labs: Laboratory Tests 02/23/20 02/23/20 03:20 03:36 WBC 16.8 H RBC 5.59 Hgb 15.1 Hct 42.9 MCV 76.7 L MCH 27.0 MCHC 35.2 RDW 14.3 Plt Count 423 MPV 10.0 Neut # (Auto) 11.8 H Lymph # (Auto) 3.4 [place] # (Auto) 1.3 H Eos # (Auto) 0.1 Baso # (Auto) 0.1 Absolute Nucleated RBC 0.00 Nucleated RBC % 0.0 Sodium 135 Potassium 3.8 Chloride 99 L Carbon Dioxide 25 Anion Gap 11.0 BUN 11 Creatinine 1.1 Estimated GFR (MDRD) 97 Glucose 115 H Calcium 9.6 Total Bilirubin 1.5 H AST 25 ALT 20 Alkaline Phosphatase 110 Total Protein 7.9 Albumin 4.6 Globulin 3.3 Albumin/Globulin Ratio 1.4 Lipase 71 H PD MEDICAL DECISION MAKING - ED course Complexity details: reviewed results, re-evaluated patient (04:30 Resting comfortably, tolerated p.o. challenge heart rate less than 80. Labs do show leukocytosis however he is afebrile he has good follow-up with his primary care provider today.), considered differential (substance abuse, withdrawal. cyclic vomiting), d/w patient Departure - Departure Disposition: 01 Home, Self Care Clinical Impression: Vomiting Qualifiers: Vomiting type: unspecified Vomiting Intractability: unspecified Nausea pr esence: with nausea Qualified Code(s): R11.2 - Nausea with vomiting, unspecified Condition: Stable Instructions: ED Nausea Vomiting Follow-Up: Di Kang MD [Primary Care Provider] - 02/23/20 Comments: Please follow-up with your primary care provider today.
[2020-02-22] MEDS ORDERED: HALOPERIDOL 5 MG/ML VIAL IM STA (22:31)
[2020-02-23] MEDS ORDERED: SODIUM CHLORIDE 0.9% 1,000 ML IV STA (02:53)
[2020-02-23] MEDS ORDERED: PROMETHAZINE INJ 25 MG in SODIUM CHLORIDE 0.9% 50 ML IV STA (02:53)
[2020-02-23] MEDS ORDERED: PROMETHAZINE 25 MG/1 ML VIAL ONE (03:02)
[2020-02-23 03:33] LABS: BASOPHILS # (AUTO) 0.1 10^3/uL (0.0-0.1); BASOPHILS % (AUTO) 0.4 %; EOSINOPHILS # (AUTO) 0.1 10^3/uL (0.0-0.7); EOSINOPHILS % (AUTO) 0.5 %; HGB - HEMOGLOBIN 15.1 g/dL (14.0-18.0); LYMPHOCYTES # (AUTO) 3.4 10^3/uL (1.5-3.5); LYMPHOCYTES % (AUTO) 20.5 %; MEAN CORPUSCULAR HGB CONC 35.2 g/dL (32.0-36.0); MEAN CORPUSCULAR VOLUME 76.7 fL (80.0-94.0); MONOCYTES # (AUTO) 1.3 10^3/uL (0.0-1.0); MONOCYTES % (AUTO) 7.9 %; NEUTROPHILS # (AUTO) 11.8 10^3/uL (1.5-6.6); NEUTROPHILS % (AUTO) 70.2 %; PLT - PLATELET COUNT 423 10^3/uL (130-450); RED BLOOD COUNT 5.59 10^6/uL (4.70-6.10); RED CELL DISTRIBUTION WIDTH 14.3 % (12.0-15.0); WHITE BLOOD COUNT 16.8 x10^3/uL (4.8-10.8)
[2020-02-23 03:55] LABS: ALBUMIN 4.6 g/dL (3.2-5.5); ALBUMIN/GLOBULIN RATIO 1.4 (1.0-2.2); BILIRUBIN,TOTAL 1.5 mg/dL (0.2-1.0); CALCIUM 9.6 mg/dL (8.5-10.3); CREATININE 1.1 mg/dL (0.6-1.2); TOTAL PROTEIN 7.9 g/dL (6.7-8.2)
[2020-02-23 05:01] VITALS: BP 152/97
--- NOTE | 2020-02-23 08:46 | XRAY Report ---
PROCEDURE: Chest 1 View X-Ray INDICATIONS: cp TECHNIQUE: One view of the chest was acquired. COMPARISON: CT chest 11/30/2019 FINDINGS: Surgical changes and devices: None. Lungs and pleura: No pleural effusions or pneumothorax. Lungs are clear. Mediastinum: Mediastinal contours appear normal. Heart size is normal. Bones and chest wall: No suspicious bony lesions. Overlying soft tissues appear unremarkable. IMPRESSION: No acute pulmonary process. The above findings are concordant with preliminary report. Reviewed by: Lidia Bunch MD on 02/23/2020 8:44 AM PDT Approved by: Lidia Bunch MD on 02/23/2020 8:44 AM PDT Station ID: [id number]
== END 2020-02-23 05:16 | disposition home or self-care (01) ==
LOC: EDUNIT# → ED 22:05
DX: R11.2 Nausea with vomiting, unspecified (principal); R07.9 Chest pain, unspecified; D72.829 Elevated white blood cell count, unspecified; Z86.711 Personal history of pulmonary embolism; Z79.01 Long term (current) use of anticoagulants; F17.200 Nicotine dependence, unspecified, uncomplicated
CPT/HCPCS: 36415; 71045; 80053; 83690; 85025; 93005; 96365; 99283

== ENCOUNTER 2020-02-24 19:38 | Outpatient (CLI) | payer MEDICAID | END 2020-02-24 19:39 | disposition critical access hospital (66) | LOC: EMS 19:38 | PROVIDERS: ATTEND Surgery | DX: F41.9 Anxiety disorder, unspecified (principal) | CPT/HCPCS: A0425; A0429; A0999 ==

== ENCOUNTER 2020-02-24 19:51 | Emergency (ER) | payer MEDICAID ==
--- NOTE | 2020-02-24 20:07 | ED Physician Documentation ---
History of Present Illness - Stated complaint Stated Complaint: PANICK ATTACK - Chief complaint Chief Complaint: MHE - History obtained from History obtained from: Patient - Additonal information Additional information: 29-year-old male presents to the emergency department via EMS for reported panic attack and anxiety. He reports that he has a longstanding history of anxiety and the BuSpar that he typically takes did not help. Therefore this afternoon he huffed 4 cans of duster. His family at home was concerned that he was getting out of control therefore they summoned 911 and EMS and he was brought here. He was seen in this emergency department last night by my colleague for similar. Patient denies thoughts of self-harm or harm to others at this time. He denies auditory or visual hallucinations. He just wants to feel better. He does report psychiatric hospitalization through the [facility] a number of weeks ago for anxiety. He is not able to tell me the name of the psychiatric medications he is taking Urine tox for similar presentation late January was negative. he denies methamphetamine or alcohol use at this time. He did have an involuntary hospitalization in late January 2020. Pt is scheduled to start intensive outpatient treatment for anxiety through the [facility] tomorrow. he reports to me that he is going ot fly to [facility] to see his Mom who is going to "hold me accountable." Review of Systems Constitutional: denies: Fever, Chills Cardiac: denies: Chest pain / pressure Respiratory: denies: Dyspnea, Cough GI: denies: Abdominal Pain, Nausea, Vomiting : denies: Dysuria, Frequency Skin: denies: Rash Musculoskeletal: denies: Neck pain, Back pain Psychiatric: reports: Anxiety. denies: Depressed, Suicidal, Hallucinations PD PAST MEDICAL HISTORY - Past Medical History Past Medical History: Yes Cardiovascular: Pulmonary embolism Respiratory: Asthma Neuro: None Endocrine/Autoimmune: None GI: GERD, Other : None HEENT: None Psych: Depression, Anxiety, Panic attacks Musculoskeletal: Other Derm: None - Past Surgical History Past Surgical History: Yes General: Colonoscopy, EGD Ortho: Shoulder arthroplasty, Other - Present Medications Home Medications: Ambulatory Orders Medication Instructions Recorded Confirmed Omeprazole [PriLOSEC] 20 mg PO DAILY 05/01/17 11/17/19 Albuterol Sulfate [Proventil Hfa 1 - 2 puffs INH Q4H PRN #1 inhaler 01/15/18 11/17/19 Inhaler] Ondansetron Odt [Zofran Odt] 4 mg PO PRN PRN 07/24/18 11/17/19 busPIRone [Buspar] 30 mg PO DAILY 07/24/18 11/17/19 traZODone [Desyrel] 50 mg PO DAILY PM 07/24/18 11/17/19 Nortriptyline HCl 10 mg PO QPM #30 capsule 09/09/18 11/17/19 clonazePAM [Clonazepam] 1 tab PO Q8HR PRN #15 tab.rapdis 10/16/18 11/17/19 Ondansetron Odt [Zofran] 4 mg TL Q6H PRN #10 tablet 08/24/19 11/17/19 Fluvastatin Sodium 40 mg PO DAILY 11/17/19 11/17/19 Rivaroxaban [Xarelto] 20 mg PO DAILY 11/17/19 11/17/19 atenoloL [Atenolol] 25 mg PO DAILY 11/17/19 11/17/19 Ondansetron Odt [Zofran] 4 mg TL Q6H PRN #10 tablet 02/05/20 haloperidoL [Haloperidol] 5 mg PO BID #10 tablet 02/05/20 LORazepam [Ativan] 1 mg PO BID PRN #10 tablet 02/24/20 - Allergies Allergies/Adverse Reactions: Allergies Allergy/AdvReac Type Severity Reaction Status Date / Time methylphenidate Allergy Unknown Unknown Verified 02/24/20 19:58 [From Ritalin] - Social History Does the pt smoke?: Yes Smoking Status: Current every day smoker Does the pt drink ETOH?: Yes Does the pt have substance abuse?: Yes - Immunizations Immunizations are current?: Yes Immunizations: TDAP >10years/unknown - POLST Patient has POLST: No PD ED PE EXPANDED - General General: Alert, Anxious - HEENT HEENT: Atraumatic, PERRL - Neck Neck: Supple w/out meningeal sx, Adenopathy - Cardiac Cardiac: Tachy, Radial strong equal, Cap refill < 2 sec. No: Murmur Present - Respiratory Respiratory: Clear to ausultation dejan. No: Distress, Labored - Abdomen Abdomen: Normal Bowel sounds. No: Tender to palpation - Derm Derm: Normal color, Warm and dry. No: Pale, Jaundiced - Neuro Neuro: Alert and Oriented X 3, CNII-XII intact - GCS Eye Opening: Spontaneous Motor: Obeys Commands Verbal: Oriented Total: 15 - Psych Psych: Anxious, Manic, Pressured speech. No: Auditory hallucinations, Visual hallucinations Results - Vitals Vitals: Vital Signs - 24 hr 02/24/20 19:56 Temperature 37.6 C H Heart Rate 100 Respiratory 19 Rate Blood Pressure 153/103 H O2 Saturation 97 Oxygen O2 Source Room air - Labs Labs: Laboratory Tests 02/24/20 02/24/20 20:05 20:05 WBC 16.7 H RBC 5.22 Hgb 14.1 Hct 39.1 L MCV 74.9 L MCH 27.0 MCHC 36.1 H RDW 13.4 Plt Count 459 H MPV 9.2 Neut # (Auto) 12.8 H Lymph # (Auto) 2.0 [place] # (Auto) 1.6 H Eos # (Auto) 0.1 Baso # (Auto) 0.1 Absolute Nucleated RBC 0.00 Band Neuts % (Manual) Not Reportable Abnorm Lymph % (Manual) Not Reportable Nucleated RBC % 0.0 Neutrophils # (Manual) Not Reportable Lymphocytes # (Manual) Not Reportable Monocytes # (Manual) Not Reportable Eosinophils # (Manual) Not Reportable Basophils # (Manual) Not Reportable Differential Comment MANUAL=AUTO DIFF Manual Slide Review Indicated Platelet Estimate INCREASED (>450,000) Platelet Morphology NORMAL APPEARANCE RBC Morph Micro Appear NORMAL APPEARANCE Sodium 134 L Potassium 3.6 Chloride 100 L Carbon Dioxide 21 Anion Gap 13.0 BUN 10 Creatinine 1.2 Estimated GFR (MDRD) 88 L Glucose 115 H Calcium 9.1 Total Bilirubin 2.3 H AST 37 ALT 21 Alkaline Phosphatase 100 Total Protein 7.7 Albumin 4.5 Globulin 3.2 Albumin/Globulin Ratio 1.4 Lipase 25 PD MEDICAL DECISION MAKING - ED course Complexity details: reviewed results, re-evaluated patient, d/w patient ED course: 29-year-old male presents to the emergency department with a acute anxiety and panic attack this afternoon. He began huffing dusting canisters in an effort to control his anxiety. He has been seen multiple times for similar recently. He has no suicidal ideation. He is planning to start intensive outpatient treatment through the [facility] tomorrow. It also sounds like he is trying to arrange for inpatient treatment of his anxiety through the [facility] and may be flying to [place] to have this completed. Here in the emergency department he was given 2 mg of Haldol IV as well as 1 liter IVF. Following this he was much more calm. His heart rate had returned to the low 80s and he is no longer hypertensive. he is alert and calm. his speech is not longer rapid or pressured. He does desire to be discharged home and we will arrange for this. His labs are reviewed in full. He does continue to have mild leukocyte elevation but this is not any different than yesterday. we deferred urine tox. pt denies cannabis, etoh use. A urine tox a few weeks ago was essentially negative. Pt was advised to abstain from huffing dusters. We discussed meditative strategies for acute anxiety. I will prescribe a limited number of ativan to he lp with acute anxiety and aid in transportation via airplane if he flies tomorrow Departure - Departure Disposition: 01 Home, Self Care Clinical Impression: Panic attack Condition: Stable Record reviewed to determine appropriate education?: Yes Instructions: ED Panic Attack Prescriptions: LORazepam [Ativan] 1 mg PO BID PRN #10 tablet PRN Reason: Anxiety Comments: Wesley I wish you luck in treatment. I have prescribed you a limited number of Ativan to be used once or twice a day for the next few days as you begin to have anxiety. Do not drive if taking this medication and do not use more frequently than prescribed. Please practice the deep breathing and meditation as we discussed. Return to the ED if you feel unsafe at home or have thoughts of self harm
[2020-02-24 20:31] LABS: BASOPHILS # (AUTO) 0.1 10^3/uL (0.0-0.1); BASOPHILS % (AUTO) 0.4 %; EOSINOPHILS # (AUTO) 0.1 10^3/uL (0.0-0.7); EOSINOPHILS % (AUTO) 0.5 %; HGB - HEMOGLOBIN 14.1 g/dL (14.0-18.0); LYMPHOCYTES % (AUTO) 12.2 %; MEAN CORPUSCULAR HGB CONC 36.1 g/dL (32.0-36.0); MEAN CORPUSCULAR VOLUME 74.9 fL (80.0-94.0); MEAN PLATELET VOLUME 9.2 fL (7.4-11.4); MONOCYTES # (AUTO) 1.6 10^3/uL (0.0-1.0); MONOCYTES % (AUTO) 9.4 %; NEUTROPHILS # (AUTO) 12.8 10^3/uL (1.5-6.6); PLT - PLATELET COUNT 459 10^3/uL (130-450); RED BLOOD COUNT 5.22 10^6/uL (4.70-6.10); RED CELL DISTRIBUTION WIDTH 13.4 % (12.0-15.0); WHITE BLOOD COUNT 16.7 x10^3/uL (4.8-10.8)
[2020-02-24 20:33] LABS: ALBUMIN 4.5 g/dL (3.2-5.5); ALBUMIN/GLOBULIN RATIO 1.4 (1.0-2.2); BILIRUBIN,TOTAL 2.3 mg/dL (0.2-1.0); CALCIUM 9.1 mg/dL (8.5-10.3); CREATININE 1.2 mg/dL (0.6-1.2); TOTAL PROTEIN 7.7 g/dL (6.7-8.2)
[2020-02-24] MEDS: HALOPERIDOL 5 MG/ML VIAL IVP ONE (20:37)
[2020-02-24] MEDS: SODIUM CHLORIDE 0.9% 1,000 ML IV STA (20:37)
[2020-02-24 20:51] LABS: DIFFERENTIAL COMMENT MANUAL=AUTO DIFF; PLATELET ESTIMATE, MANUAL INCREASED (>450,000) (NORMAL); PLATELET MORPHOLOGY NORMAL APPEARANCE (NORMAL); RBC MORPHOLOGY (MULTIPLE) NORMAL APPEARANCE (NORMAL)
[2020-02-24] MEDS: LORazepam 1 MG TABLET PO STA (20:54)
[2020-02-24 22:17] VITALS: BP 128/75
== END 2020-02-24 22:47 | disposition home or self-care (01) ==
LOC: EDBD → EDUNIT# → ED 19:51
DX: F41.0 Panic disorder [episodic paroxysmal anxiety] (principal); F18.90 Inhalant use, unspecified, uncomplicated; Z86.711 Personal history of pulmonary embolism; Z79.01 Long term (current) use of anticoagulants; F17.200 Nicotine dependence, unspecified, uncomplicated
CPT/HCPCS: 36415; 80053; 83690; 85025; 96361; 96374; 99283; 99284; J8499

== ENCOUNTER 2020-03-09 17:44 | Outpatient (CLI) | payer MEDICAID | END 2020-03-09 17:45 | disposition critical access hospital (66) | LOC: EMS 17:44 | PROVIDERS: ATTEND Surgery | DX: F41.9 Anxiety disorder, unspecified (principal) | CPT/HCPCS: A0425; A0429; A0999 ==

== ENCOUNTER 2020-03-09 17:57 | Emergency (ER) | payer MEDICAID ==
--- NOTE | 2020-03-09 18:15 | ED Physician Documentation ---
History of Present Illness - Stated complaint Stated Complaint: AMS - Additonal information Additional information: 30-year-old male presents to the emergency department via EMS with chief complaint of having a panic attack. He does report to me that he has inhaled multiple nitrous canisters this afternoon. He has been seen similarly for this by myself mid February 2020. At that time he was to go to intensive both inpatient and outpatient treatment in [place] but he did not make it there. He states that he is going to try to go to treatment on Sunday. He is alert appears fearful though afraid of being left alone. He denies chest pain or shortness of breath no nausea or vomiting. He does have a blue saliva surrounding his mouth and coating his tongue Review of Systems Constitutional: denies: Fever, Chills Eyes: denies: Loss of vision Cardiac: denies: Chest pain / pressure, Palpitations, Pedal edema, Calf pain Respiratory: denies: Dyspnea, Cough GI: denies: Abdominal Pain, Abdominal Swelling, Nausea, Vomiting : denies: Dysuria Skin: denies: Rash, Lesions Musculoskeletal: denies: Neck pain, Back pain Neurologic: denies: Generalized weakness, Syncope, Seizure Psychiatric: reports: Anxiety, Other (panic attack; appears fearful, crying) PD PAST MEDICAL HISTORY - Past Medical History Cardiovascular: Pulmonary embolism Respiratory: Asthma Neuro: None Endocrine/Autoimmune: None GI: GERD, Other : None HEENT: None Psych: Depression, Anxiety, Panic attacks Musculoskeletal: Other Derm: None - Past Surgical History Past Surgical History: Yes General: Colonoscopy, EGD Ortho: Shoulder arthroplasty, Other - Present Medications Home Medications: Ambulatory Orders Medication Instructions Recorded Confirmed Omeprazole [PriLOSEC] 20 mg PO DAILY 05/01/17 03/09/20 Albuterol Sulfate [Proventil Hfa 1 - 2 puffs INH Q4H PRN #1 inhaler 01/15/18 03/09/20 Inhaler] busPIRone [Buspar] 30 mg PO DAILY 07/24/18 03/09/20 traZODone [Desyrel] 100 mg PO DAILY PM 07/24/18 03/09/20 Rivaroxaban [Xarelto] 20 mg PO DAILY 11/17/19 03/09/20 LORazepam [Ativan] 1 mg PO BID PRN #10 tablet 02/24/20 03/09/20 chlorproMAZINE [Thorazine] 25 mg PO TID 03/09/20 03/09/20 - Allergies Allergies/Adverse Reactions: Allergies Allergy/AdvReac Type Severity Reaction Status Date / Time methylphenidate Allergy Unknown Unknown Verified 03/09/20 18:00 [From Ritalin] - Social History Does the pt smoke?: Yes Smoking Status: Current every day smoker Does the pt drink ETOH?: Yes Does the pt have substance abuse?: Yes - Immunizations Immunizations are current?: Yes Immunizations: TDAP >10years/unknown - POLST Patient has POLST: No PD ED PE EXPANDED - General General: Alert, Anxious - Eyes Eyes: PERRL (2-3 mm bilaterally), Normal accommodation, EOMI - Neck Neck: Supple w/out meningeal sx. No: Adenopathy - Cardiac Cardiac: Tachy, Femoral strong equal, Pedal strong equal, Cap refill < 2 sec - Respiratory Respiratory: Clear to ausultation dejan - Abdomen Abdomen: Normal Bowel sounds. No: Tender to palpation - Derm Derm: Normal color. No: Rash, Petecchiae, Purpura - Extremities Extremities: Normal - Neuro Neuro: Alert and Oriented X 3, Normal motor, CNII-XII intact - GCS Eye Opening: Spontaneous Motor: Obeys Commands Verbal: Oriented Total: 15 - Psych Psych: Tearful, Anxious, Manic, Pressured speech, Flight of ideas Results - Vitals Vitals: Vital Signs - 24 hr 03/09/20 03/09/20 03/09/20 18:00 18:17 18:57 Temperature 36.7 C Heart Rate 95 91 78 Respiratory 22 18 18 Rate Blood Pressure 132/110 H 135/102 H 134/83 H O2 Saturation 94 97 94 Oxygen O2 Source Room air - Labs Labs: Laboratory Tests 03/09/20 03/09/20 18:11 18:11 WBC 13.7 H RBC 5.20 Hgb 14.2 Hct 39.0 L MCV 75.0 L MCH 27.3 MCHC 36.4 H RDW 14.3 Plt Count 493 H MPV 9.0 Neut # (Auto) 9.3 H Lymph # (Auto) 3.4 [place] # (Auto) 0.8 Eos # (Auto) 0.1 Baso # (Auto) 0.1 Absolute Nucleated RBC 0.00 Nucleated RBC % 0.0 Sodium 135 Potassium 3.9 Chloride 97 L Carbon Dioxide 24 Anion Gap 14.0 H BUN 14 Creatinine 1.1 Estimated GFR (MDRD) 97 Glucose 107 H Calcium 9.5 Total Bilirubin 1.0 AST 19 ALT 18 Alkaline Phosphatase 260 H Total Protein 8.0 Albumin 4.7 Globulin 3.3 Albumin/Globulin Ratio 1.4 Lipase 32 PD MEDICAL DECISION MAKING - ED course Complexity details: reviewed results, considered differential, d/w patient ED course: 30-year-old male presents again to the emergency department with a chief complaint that he is having a panic attack. This follows using nitrous canisters or whippets for sensorium alteration. He was seen by me for similar recently and was to go into treatment but failed to do so. He denies that he has thoughts of self-harm or harm to others but he is very fearful right now and would like some medication to calm down. 1930: Patient received 5 mg of Haldol. At this time he is alert calm and cooperative. He reports using 4-6 [place] canisters a day. At this time his laboratory work-up is essentially unremarkable without any concerning findings. He contracts easily for safety and does not wish himself further harm. He is trying to get into outpatient treatment. I encouraged him to continue to follow-up with that. Advise very close follow-up with primary care doctor as well. Departure - Departure Disposition: 01 Home, Self Care Clinical Impression: Panic attack Nitrous oxide overdose Qualifiers: Encounter type: initial encounter Injury intent: undetermined intent Qualified Code(s): T41.0X4A - Poisoning by inhaled anesthetics, undetermined, initial encounter Condition: Stable Record reviewed to determine appropriate education?: Yes Instructions: ED Panic Attack Comments: Wesley if you can please stop using nitrous containers. Over the long-term you will cause irreversible damage to your brain or other organs. 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 Please return to the emergency department for uncontrolled panic attacks, difficulty breathing, coughing bloody sputum, or any other emergent concerns
[2020-03-09 18:16] LABS: BASOPHILS # (AUTO) 0.1 10^3/uL (0.0-0.1); BASOPHILS % (AUTO) 0.4 %; EOSINOPHILS # (AUTO) 0.1 10^3/uL (0.0-0.7); EOSINOPHILS % (AUTO) 0.9 %; HGB - HEMOGLOBIN 14.2 g/dL (14.0-18.0); LYMPHOCYTES # (AUTO) 3.4 10^3/uL (1.5-3.5); LYMPHOCYTES % (AUTO) 25.1 %; MEAN CORPUSCULAR HEMOGLOBIN 27.3 pg (27.0-31.0); MEAN CORPUSCULAR HGB CONC 36.4 g/dL (32.0-36.0); MONOCYTES # (AUTO) 0.8 10^3/uL (0.0-1.0); MONOCYTES % (AUTO) 5.5 %; NEUTROPHILS # (AUTO) 9.3 10^3/uL (1.5-6.6); NEUTROPHILS % (AUTO) 67.7 %; PLT - PLATELET COUNT 493 10^3/uL (130-450); RED CELL DISTRIBUTION WIDTH 14.3 % (12.0-15.0); WHITE BLOOD COUNT 13.7 x10^3/uL (4.8-10.8)
[2020-03-09] MEDS: HALOPERIDOL 5 MG/ML VIAL IVP ONE (18:18)
[2020-03-09] MEDS: SODIUM CHLORIDE 0.9% 1,000 ML IV STA (18:20)
[2020-03-09 18:31] LABS: ALBUMIN 4.7 g/dL (3.2-5.5); ALBUMIN/GLOBULIN RATIO 1.4 (1.0-2.2); CALCIUM 9.5 mg/dL (8.5-10.3); CREATININE 1.1 mg/dL (0.6-1.2)
[2020-03-09 19:41] LABS: BILIRUBIN,URINE NEGATIVE (NEGATIVE); GLUCOSE, URINE (UA) NEGATIVE (NEGATIVE); KETONES,URINE (UA) NEGATIVE (NEGATIVE); LEUKOCYTE ESTERASE, URINE NEGATIVE (NEGATIVE); NITRITE,URINE NEGATIVE (NEGATIVE); OCCULT BLOOD,URINE NEGATIVE (NEGATIVE); PH,URINE 7.5 PH (5.0-7.5); PROTEIN,URINE NEGATIVE (NEGATIVE); UROBILINOGEN,URINE 0.2 (NORMAL) E.U./dL (NORMAL)
[2020-03-09 19:42] LABS: CLARITY,URINE CLEAR (CLEAR)
[2020-03-09 20:36] LABS: MUDS CUTOFF CONCENTRATIONS CUTOFF CONC BELOW:
[2020-03-09 20:56] LABS: AMPHETAMINE SCREEN,URINE NEGATIVE (NEGATIVE); BENZODIAZEPINES SCREEN, URINE NEGATIVE (NEGATIVE); COCAINE SCREEN URINE NEGATIVE (NEGATIVE); METHADONE SCREEN, URINE NEGATIVE (NEGATIVE); METHAMPHETAMINES SCREEN, URINE NEGATIVE (NEGATIVE); OPIATE SCREEN, URINE NEGATIVE (NEGATIVE); OXYCODONE SCREEN, URINE NEGATIVE (NEGATIVE); PROPOXYPHENE SCREEN, URINE NEGATIVE (NEGATIVE); TRICYCLIC ANTIDEPRESSANT,URINE NEGATIVE (NEGATIVE)
--- NOTE | 2020-03-10 05:55 | ED Physician Documentation ---
ED Addendum - Addendum Addendum: 03/10/20 05:54 [facility] and the patient has been to them previously. He had required a little bit higher level of care with them previously so the personnel there stated they needed to talk with their director who comes in at 7:30 in the morning. They will contact us at that time after reviewing it and see if they will accept the patient. Otherwise he is comfortable here in the ER and has not required any medications or interventions.
[2020-03-10] MEDS: hydrOXYzine PAMOATE 25 MG CAPSULE PO STA (12:50)
[2020-03-10 13:33] VITALS: BP 149/91
== END 2020-03-10 14:37 | disposition home or self-care (01) ==
LOC: EDUNIT# → ED 17:57
DX: T41.0X1A Poisoning by inhaled anesthetics, accidental (unintentional), initial encounter (principal); R41.82 Altered mental status, unspecified; F18.10 Inhalant abuse, uncomplicated; F41.0 Panic disorder [episodic paroxysmal anxiety]; Z86.711 Personal history of pulmonary embolism; Z79.01 Long term (current) use of anticoagulants
CPT/HCPCS: 36415; 80053; 80306; 81003; 83690; 85025; 96361; 96374; 99283; 99284; A9270; 81001; 87086

== ENCOUNTER 2021-06-06 10:56 | Emergency (ER) | payer MEDICAID ==
[2021-06-06] MEDS ORDERED: KETOROLAC 30 MG/ML VIAL IVP STA (12:13)
[2021-06-06] MEDS ORDERED: ONDANSETRON 4 MG/2 ML VIAL IVP STA (12:13)
[2021-06-06] MEDS ORDERED: LORazepam 2 MG/ML VIAL IVP STA (12:14)
--- NOTE | 2021-06-06 12:15 | ED Physician Documentation ---
PD HPI ABD PAIN - Stated complaint Stated Complaint: VOMMITING, ANXIETY - Chief complaint Chief Complaint: Abd Pain - History obtained from History obtained from: Patient - Additional information Additional information: 31-year-old gentleman with recurrent cyclic vomiting syndrome presents with apparent exacerbation of same. He became acutely ill this morning around 2 AM with vomiting and upper abdominal pain. There is no blood in the vomit. Last episode of this was under 2 weeks ago. He does have a history of substance abuse including marijuana, cocaine, and inhalants. Review of Systems Constitutional: denies: Fever, Chills Nose: denies: Rhinorrhea / runny nose, Congestion Throat: denies: Sore throat Cardiac: denies: Chest pain / pressure, Palpitations Respiratory: denies: Dyspnea, Cough PD PAST MEDICAL HISTORY - Past Medical History Past Medical History: Yes Cardiovascular: Pulmonary embolism Respiratory: Asthma Neuro: None Endocrine/Autoimmune: None GI: GERD, Other : None HEENT: None Psych: Depression, Anxiety, Panic attacks Musculoskeletal: Other Derm: None - Past Surgical History Past Surgical History: Yes General: Colonoscopy, EGD Ortho: Shoulder arthroplasty, Other - Present Medications Home Medications: Ambulatory Orders Medication Instructions Recorded Confirmed Omeprazole [PriLOSEC] 20 mg PO DAILY 05/01/17 03/09/20 Albuterol Sulfate [Proventil Hfa 1 - 2 puffs INH Q4H PRN #1 inhaler 01/15/18 03/09/20 Inhaler] busPIRone [Buspar] 30 mg PO DAILY 07/24/18 03/09/20 traZODone [Desyrel] 100 mg PO DAILY PM 07/24/18 03/09/20 Rivaroxaban [Xarelto] 20 mg PO DAILY 11/17/19 03/09/20 LORazepam [Ativan] 1 mg PO BID PRN #10 tablet 02/24/20 03/09/20 chlorproMAZINE [Thorazine] 25 mg PO TID 03/09/20 03/09/20 hydrOXYzine HCL [Hydroxyzine HCl] 25 mg PO BID PRN #15 tablet 03/10/20 - Allergies Allergies/Adverse Reactions: Allergies Allergy/AdvReac Type Severity Reaction Status Date / Time methylphenidate Allergy Unknown Unknown Verified 06/06/21 11:06 [From Ritalin] - Social History Does the pt smoke?: Yes Smoking Status: Current every day smoker Does the pt drink ETOH?: Yes Does the pt have substance abuse?: Yes Substance Use and Type: Marijuana - Immunizations Immunizations are current?: Yes Immunizations: TDAP >10years/unknown - POLST Patient has POLST: No PD ED PE NORMAL - Vitals Vital signs reviewed: Yes - General General: Alert and oriented X 3, Other (Appears uncomfortable and retching, no vomit in the bag) - Cardiac Cardiac: RRR, No murmur - Respiratory Respiratory: No respiratory distress, Clear bilaterally - Abdomen Abdomen: Normal bowel sounds, Soft, Non tender - Back Back: No CVA TTP, No spinal TTP - Derm Derm: Normal color, Warm and dry - Extremities Extremities: No edema, No calf tenderness / cord - Neuro Neuro: Alert and oriented X 3, Normal speech - Psych Psych: Other (Anxious appearing) Results - Vitals Vitals: Vital Signs - 24 hr 06/06/21 06/06/21 06/06/21 11:07 13:09 13:56 Temperature 36.4 C L 37.0 C Heart Rate 103 H 80 77 Respiratory 24 18 16 Rate Blood Pressure 153/90 H 159/104 H 153/90 H O2 Saturation 94 99 86 L 06/06/21 15:00 Temperature Heart Rate 70 Respiratory 16 Rate Blood Pressure 166/103 H O2 Saturation 98 Oxygen O2 Source Nasal cannula - Labs Labs: Laboratory Tests 06/06/21 12:30 Sodium 139 Potassium 3.4 L Chloride 102 Carbon Dioxide 21 Anion Gap 16.0 H BUN 12 Creatinine 1.3 H Estimated GFR (MDRD) 79 L Glucose 126 H Calcium 10.1 PD MEDICAL DECISION MAKING - ED course ED course: 31-year-old gentleman with cyclic vomiting versus cannabinoid hyperemesis. Benign examination. Recurrent issue. Feeling better after divided doses of medications here and passed a p.o. challenge. Departure - Departure Disposition: 01 Home, Self Care Clinical Impression: Cyclical vomiting, Cannabinoid hyperemesis syndrome Condition: Good Record reviewed to determine appropriate education?: Yes Instructions: ED Nausea Vomiting Comments: As discussed on previous visits it is important to abstain from marijuana that is as that is likely contributing to these exacerbations. Continue current medications. Return for worsening symptoms. Follow-up with your primary care physician. Discharge Date/Time: 06/06/21 16:19
[2021-06-06 12:44] LABS: CALCIUM 10.1 mg/dL (8.5-10.3); CREATININE 1.3 mg/dL (0.6-1.2); POTASSIUM 3.4 mmol/L (3.5-5.0)
[2021-06-06] MEDS ORDERED: HALOPERIDOL 5 MG/ML VIAL IVP ONE (13:19)
[2021-06-06] MEDS ORDERED: SODIUM CHLORIDE 0.9% 1,000 ML IV STA (13:58)
[2021-06-06] MEDS ORDERED: PROMETHAZINE INJ 25 MG in SODIUM CHLORIDE 0.9% 50 ML IV STA (13:59)
[2021-06-06 15:13] VITALS: BP 166/103
== END 2021-06-06 16:19 | disposition home or self-care (01) ==
LOC: ED 10:56
DX: R11.11 Vomiting without nausea (principal); R11.15 Cyclical vomiting syndrome unrelated to migraine; F17.200 Nicotine dependence, unspecified, uncomplicated
CPT/HCPCS: 36415; 80048; 96361; 96365; 96375; 99283

== ENCOUNTER 2021-06-06 17:30 | Emergency (ER) | payer MEDICAID ==
[2021-06-06] MEDS ORDERED: LORazepam 2 MG/ML VIAL IVP STA (19:43)
[2021-06-06] MEDS ORDERED: SODIUM CHLORIDE 0.9% 1,000 ML IV STA (19:43)
[2021-06-06] MEDS ORDERED: ONDANSETRON 4 MG/2 ML VIAL IVP STA (19:43)
[2021-06-06] MEDS ORDERED: KETOROLAC 30 MG/ML VIAL IVP STA (19:43)
--- NOTE | 2021-06-06 19:44 | ED Physician Documentation ---
PD HPI ABD PAIN - Stated complaint Stated Complaint: NAUSEA, VOMITING - Chief complaint Chief Complaint: Abd Pain - History obtained from History obtained from: Patient (-year-old gentleman with cyclic vomiting/cannabinoid hyperemesis was seen earlier in the day. He was doing well on discharge but relapsed a few hours after discharge with upper abdominal pain and severe vomiting as well as anxiety. This is similar to prior episodes of hi s recurrent illness.) Review of Systems Ten Systems: 10 systems reviewed and negative Constitutional: reports: Reviewed and negative Ears: reports: Reviewed and negative Nose: reports: Reviewed and negative Cardiac: reports: Reviewed and negative PD PAST MEDICAL HISTORY - Past Medical History Cardiovascular: Pulmonary embolism Respiratory: Asthma Neuro: None Endocrine/Autoimmune: None GI: GERD, Other : None HEENT: None Psych: Depression, Anxiety, Panic attacks Musculoskeletal: Other Derm: None - Past Surgical History Past Surgical History: Yes General: Colonoscopy, EGD Ortho: Shoulder arthroplasty, Other - Present Medications Home Medications: Ambulatory Orders Medication Instructions Recorded Confirmed Omeprazole [PriLOSEC] 20 mg PO DAILY 05/01/17 03/09/20 Albuterol Sulfate [Proventil Hfa 1 - 2 puffs INH Q4H PRN #1 inhaler 01/15/18 03/09/20 Inhaler] busPIRone [Buspar] 30 mg PO DAILY 07/24/18 03/09/20 traZODone [Desyrel] 100 mg PO DAILY PM 07/24/18 03/09/20 Rivaroxaban [Xarelto] 20 mg PO DAILY 11/17/19 03/09/20 LORazepam [Ativan] 1 mg PO BID PRN #10 tablet 02/24/20 03/09/20 chlorproMAZINE [Thorazine] 25 mg PO TID 03/09/20 03/09/20 hydrOXYzine HCL [Hydroxyzine HCl] 25 mg PO BID PRN #15 tablet 03/10/20 - Allergies Allergies/Adverse Reactions: Allergies Allergy/AdvReac Type Severity Reaction Status Date / Time methylphenidate Allergy Unknown Unknown Verified 06/06/21 17:34 [From Ritalin] - Social History Does the pt smoke?: Yes Smoking Status: Current every day smoker Does the pt drink ETOH?: Yes Does the pt have substance abuse?: Yes - Immunizations Immunizations are current?: Yes Immunizations: TDAP >10years/unknown - POLST Patient has POLST: No PD ED PE NORMAL - Vitals Vital signs reviewed: Yes - General General: Alert and oriented X 3, Other (He is retching and anxious no vomit in the bag.) - Abdomen Abdomen: Normal bowel sounds, Soft, Non tender - Derm Derm: Normal color, Warm and dry - Neuro Neuro: Alert and oriented X 3, Normal speech Results - Vitals Vitals: Vital Signs - 24 hr 06/06/21 06/06/21 17:34 20:33 Temperature 36.5 C 37.9 C Heart Rate 82 86 Respiratory 16 19 Rate Blood Pressure 160/90 H 154/76 H O2 Saturation 98 95 Oxygen O2 Source Room air PD MEDICAL DECISION MAKING - ED course ED course: 31-year-old gentleman with recurrent cyclic vomiting versus cannabinoid hyperemesis syndrome or he presents twice in the same day for similar complaints. Seemed easier to fix this time with just a single round of meds making him feel much better and requesting discharge. Departure - Departure Disposition: 01 Home, Self Care Clinical Impression: Cannabinoid hyperemesis syndrome, Cyclical vomiting Condition: Good Record reviewed to determine appropriate education?: Yes Instructions: ED Nausea Vomiting Comments: As discussed earlier recommend abstention from marijuana, continue current medications and follow-up with your doctor. Return anytime if worse.
[2021-06-06 20:34] VITALS: BP 154/76
== END 2021-06-06 21:52 | disposition home or self-care (01) ==
LOC: ED 17:30
DX: R11.15 Cyclical vomiting syndrome unrelated to migraine (principal); F17.200 Nicotine dependence, unspecified, uncomplicated
CPT/HCPCS: 36415; 80048; 96361; 96365; 96374; 96375; 99283; 99284; J2060; J7040

== ENCOUNTER 2021-06-08 11:37 | Emergency (ER) | payer MEDICAID ==
[2021-06-08 11:59] LABS: BASOPHILS # (AUTO) 0.1 10^3/uL (0.0-0.1); BASOPHILS % (AUTO) 0.6 %; EOSINOPHILS # (AUTO) 0.6 10^3/uL (0.0-0.7); EOSINOPHILS % (AUTO) 3.6 %; HCT - HEMATOCRIT 39.9 % (42.0-52.0); HGB - HEMOGLOBIN 14.5 g/dL (14.0-18.0); LYMPHOCYTES # (AUTO) 3.5 10^3/uL (1.5-3.5); LYMPHOCYTES % (AUTO) 22.2 %; MEAN CORPUSCULAR HEMOGLOBIN 27.1 pg (27.0-31.0); MEAN CORPUSCULAR HGB CONC 36.3 g/dL (32.0-36.0); MEAN CORPUSCULAR VOLUME 74.4 fL (80.0-94.0); MONOCYTES # (AUTO) 1.2 10^3/uL (0.0-1.0); MONOCYTES % (AUTO) 7.5 %; NEUTROPHILS # (AUTO) 10.4 10^3/uL (1.5-6.6); NEUTROPHILS % (AUTO) 65.8 %; PLT - PLATELET COUNT 425 10^3/uL (130-450); RED BLOOD COUNT 5.36 10^6/uL (4.70-6.10); RED CELL DISTRIBUTION WIDTH 13.6 % (12.0-15.0); WHITE BLOOD COUNT 15.8 x10^3/uL (4.8-10.8)
[2021-06-08] MEDS ORDERED: DROPERIDOL 5 MG/2 ML VIAL IVP STA (12:07)
[2021-06-08] MEDS ORDERED: SODIUM CHLORIDE 0.9% 1,000 ML IV STA (12:07)
--- NOTE | 2021-06-08 12:07 | ED Physician Documentation ---
History of Present Illness - Stated complaint Stated Complaint: N/V/ANXIETY - Chief complaint Chief Complaint: Abd Pain - History obtained from History obtained from: Patient - History of Present Illness Timing: Today Pain level max: 8 Pain level now: 8 - Additonal information Additional information: 31-year-old male presents to the emergency department stating he has a longstanding history of anxiety. He states that when he becomes anxious his "cyclical vomiting syndrome" flares up. He states that he is afraid his girlfriend is going to break up with him and that has increased his anxiety. He states that this started off as a panic attack and now he cannot stop vomiting. He states this happens 1-2 times per month. He has a psychiatrist and therapist that he sees. He is not suicidal or homicidal. No fevers. No chills. Review of Systems Constitutional: denies: Fever, Chills GI: reports: Abdominal Pain (crampy, diffuse), Nausea, Vomiting. denies: Diarrhea, Hematemesis, Bloody / black stool Skin: denies: Rash Musculoskeletal: denies: Neck pain, Back pain Neurologic: denies: Headache PD PAST MEDICAL HISTORY - Past Medical History Past Medical History: Yes Cardiovascular: Pulmonary embolism Respiratory: Asthma Neuro: None Endocrine/Autoimmune: None GI: GERD, Other : None HEENT: None Psych: Depression, Anxiety, Panic attacks Musculoskeletal: Other Derm: None - Past Surgical History Past Surgical History: Yes General: Colonoscopy, EGD Ortho: Shoulder arthroplasty, Other - Present Medications Home Medications: Ambulatory Orders Medication Instructions Recorded Confirmed Omeprazole [PriLOSEC] 20 mg PO DAILY 05/01/17 03/09/20 Albuterol Sulfate [Proventil Hfa 1 - 2 puffs INH Q4H PRN #1 inhaler 01/15/18 03/09/20 Inhaler] busPIRone [Buspar] 30 mg PO DAILY 07/24/18 03/09/20 traZODone [Desyrel] 100 mg PO DAILY PM 07/24/18 03/09/20 Rivaroxaban [Xarelto] 20 mg PO DAILY 11/17/19 03/09/20 LORazepam [Ativan] 1 mg PO BID PRN #10 tablet 02/24/20 03/09/20 chlorproMAZINE [Thorazine] 25 mg PO TID 03/09/20 03/09/20 hydrOXYzine HCL [Hydroxyzine HCl] 25 mg PO BID PRN #15 tablet 03/10/20 Alprazolam [Xanax] 0.25 mg PO BID #10 tablet 06/08/21 Ondansetron Odt [Zofran] 4 mg TL Q6H PRN #10 tablet 06/08/21 Promethazine Supp [Phenergan Supp] 25 mg PA Q8H PRN #10 supp 06/08/21 - Allergies Allergies/Adverse Reactions: Allergies Allergy/AdvReac Type Severity Reaction Status Date / Time methylphenidate Allergy Unknown Unknown Verified 06/08/21 11:45 [From Ritalin] - Social History Does the pt smoke?: Yes Smoking Status: Current every day smoker Does the pt drink ETOH?: Yes Does the pt have substance abuse?: Yes - Immunizations Immunizations are current?: Yes Immunizations: TDAP >10years/unknown - POLST Patient has POLST: No PD ED PE NORMAL - Vitals Vital signs reviewed: Yes - General General: Alert and oriented X 3, No acute distress - HEENT HEENT: Moist mucous membranes - Neck Neck: Supple, no meningeal sign - Cardiac Cardiac: RRR, Strong equal pulses - Respiratory Respiratory: No respiratory distress, Clear bilaterally - Abdomen Abdomen: Soft, Non tender, Non distended - Derm Derm: Warm and dry - Extremities Extremities: No edema - Neuro Neuro: Alert and oriented X 3 - Psych Psych: Normal mood, Normal affect Results - Vitals Vitals: Vital Signs - 24 hr 06/08/21 06/08/21 06/08/21 11:45 15:30 16:01 Temperature 37.0 C Heart Rate 102 H 70 Respiratory 18 Rate Blood Pressure 173/108 H 182/116 H 172/113 H O2 Saturation 99 96 06/08/21 16:02 Temperature Heart Rate Respiratory Rate Blood Pressure 170/113 H O2 Saturation Oxygen O2 Source Room air - Labs Labs: Laboratory Tests 06/08/21 06/08/21 06/08/21 11:51 11:51 12:06 WBC 15.8 H RBC 5.36 Hgb 14.5 Hct 39.9 L MCV 74.4 L MCH 27.1 MCHC 36.3 H RDW 13.6 Plt Count 425 MPV 9.0 Neut # (Auto) 10.4 H Lymph # (Auto) 3.5 [place] # (Auto) 1.2 H Eos # (Auto) 0.6 Baso # (Auto) 0.1 Absolute Nucleated RBC 0.00 Nucleated RBC % 0.0 Sodium 138 Potassium 3.4 L Chloride 101 Carbon Dioxide 24 Anion Gap 13.0 BUN 16 Creatinine 1.3 H Estimated GFR (MDRD) 79 L Glucose 111 H Calcium 9.7 Total Bilirubin 1.8 H AST 20 ALT 17 Alkaline Phosphatase 72 Total Protein 8.1 Albumin 4.7 Globulin 3.4 Albumin/Globulin Ratio 1.4 Lipase 32 Urine Color YELLOW Urine Clarity CLEAR Urine pH 6.0 Ur Specific [place] >=1.030 H Urine Protein NEGATIVE Urine Glucose (UA) NEGATIVE Urine Ketones NEGATIVE Urine Occult Blood NEGATIVE Urine Nitrite NEGATIVE Urine Bilirubin NEGATIVE Urine Urobilinogen 0.2 (NORMAL) Ur Leukocyte Esterase NEGATIVE Ur Microscopic Review NOT INDICATED Urine Culture Comments NOT INDICATED PD MEDICAL DECISION MAKING - ED course Complexity details: reviewed old records, reviewed results, re-evaluated patient, considered differential, d/w patient ED course: Patient was given antiemetics and anxiety medications. Gradually improved and is tolerating p.o. without difficulty. Request to go home at this time. He would like anxiety and antiemetics for home. Patient is well-appearing, nontoxic. Afebrile. Abdomen is soft, nontender nondistended. Patient counseled regarding signs and symptoms for which I believe and urgent re- evaluation would be necessary. Patient with good understanding of and agreement to plan and is comfortable going home at this time This document was made in part using voice recognition software. While efforts are made to proofread this document, sound alike and grammatical errors may occur. Departure - Departure Disposition: 01 Home, Self Care Clinical Impression: Anxiety Vomiting Qualifiers: Vomiting type: unspecified Vomiting Intractability: unspecified Nausea presence: with nausea Qualified Code(s): R11.2 - Nausea with vomiting, unspecified Condition: Good Instructions: ED Panic Attack, ED Nausea Vomiting Follow-Up: your,doctor in 1week [Other] Prescriptions: Promethazine Supp [Phenergan Supp] 25 mg PA Q8H PRN #10 supp PRN Reason: nausea and vomiting Alprazolam [Xanax] 0.25 mg PO BID #10 tablet Ondansetron Odt [Zofran] 4 mg TL Q6H PRN #10 tablet PRN Reason: Nausea / Vomiting Comments: Please follow-up with your doctor for further care. Drink plenty of fluids and rest. Return if you worsen. Your prescriptions were sent to [facility] in [place]. Discharge Date/Time: 06/08/21 19:18
[2021-06-08] MEDS ORDERED: LORazepam 2 MG/ML VIAL IVP STA ×2 (12:14→15:33)
[2021-06-08 12:15] LABS: ALBUMIN 4.7 g/dL (3.2-5.5); ALBUMIN/GLOBULIN RATIO 1.4 (1.0-2.2); BILIRUBIN,TOTAL 1.8 mg/dL (0.2-1.0); CALCIUM 9.7 mg/dL (8.5-10.3); CREATININE 1.3 mg/dL (0.6-1.2); POTASSIUM 3.4 mmol/L (3.5-5.0); TOTAL PROTEIN 8.1 g/dL (6.7-8.2)
[2021-06-08 12:30] LABS: BILIRUBIN,URINE NEGATIVE (NEGATIVE); GLUCOSE, URINE (UA) NEGATIVE (NEGATIVE); KETONES,URINE (UA) NEGATIVE (NEGATIVE); LEUKOCYTE ESTERASE, URINE NEGATIVE (NEGATIVE); NITRITE,URINE NEGATIVE (NEGATIVE); OCCULT BLOOD,URINE NEGATIVE (NEGATIVE); PROTEIN,URINE NEGATIVE (NEGATIVE); UROBILINOGEN,URINE 0.2 (NORMAL) E.U./dL (NORMAL)
[2021-06-08 12:31] LABS: CLARITY,URINE CLEAR (CLEAR)
[2021-06-08] MEDS ORDERED: ONDANSETRON 4 MG/2 ML VIAL IVP STA (13:46)
[2021-06-08] MEDS ORDERED: HALOPERIDOL 5 MG/ML VIAL IVP STA (14:21)
[2021-06-08 16:03] VITALS: BP 170/113
== END 2021-06-08 19:18 | disposition home or self-care (01) ==
LOC: ED 11:37
DX: F41.9 Anxiety disorder, unspecified (principal); R11.2 Nausea with vomiting, unspecified; Z86.711 Personal history of pulmonary embolism; Z79.01 Long term (current) use of anticoagulants; F17.200 Nicotine dependence, unspecified, uncomplicated
CPT/HCPCS: 36415; 80053; 81003; 83690; 85025; 96361; 96374; 96375; 96376; 99283; 99285; J2060; 81001; 87086

== ENCOUNTER 2021-06-24 15:54 | Outpatient (CLI) | payer MEDICAID | END 2021-06-24 15:55 | disposition critical access hospital (66) | LOC: EMS 15:54 | DX: R11.10 Vomiting, unspecified (principal); R10.9 Unspecified abdominal pain | CPT/HCPCS: A0425; A0427; A0999 ==

== ENCOUNTER 2021-06-24 16:18 | Emergency (ER) | payer MEDICAID ==
[2021-06-24] MEDS ORDERED: SODIUM CHLORIDE 0.9% 1,000 ML IV STA (16:31)
[2021-06-24] MEDS ORDERED: DROPERIDOL 5 MG/2 ML VIAL IVP STA (16:31)
[2021-06-24] MEDS ORDERED: LORazepam 2 MG/ML VIAL IVP STA (16:39)
--- NOTE | 2021-06-24 16:41 | ED Physician Documentation ---
History of Present Illness - Stated complaint Stated Complaint: VOMITING - Chief complaint Chief Complaint: Abd Pain - Additonal information Additional information: 31-year-old male comes to the emergency department for evaluation of uncontr olled nausea and vomiting. He was seen here earlier this morning for similar. He did achieve symptom control following Benadryl Haldol and Ativan. However since being discharged she has persistent vomiting. No fevers. He states that he last used cannabis about a week ago. He also reports he has been seen by [facility] gastroenterology for evaluation of his cyclic vomiting syndrome and no true etiology was seen. He states that when he vomits he gets exceedingly anxious which only contributes to the symptoms. Review of Systems Constitutional: denies: Fever Nose: reports: Reviewed and negative Throat: reports: Reviewed and negative Cardiac: reports: Reviewed and negative Respiratory: reports: Reviewed and negative GI: reports: Nausea, Vomiting. denies: Abdominal Pain, Constipation, Diarrhea : denies: Dysuria, Frequency, Hesitancy Skin: reports: Reviewed and negative PD PAST MEDICAL HISTORY - Past Medical History Cardiovascular: Pulmonary embolism Respiratory: Asthma Neuro: None Endocrine/Autoimmune: None GI: GERD, Other : None HEENT: None Psych: Depression, Anxiety, Panic attacks Musculoskeletal: Other Derm: None - Past Surgical History Past Surgical History: Yes General: Colonoscopy, EGD Ortho: Shoulder arthroplasty, Other - Present Medications Home Medications: Ambulatory Orders Medication Instructions Recorded Confirmed Omeprazole [PriLOSEC] 20 mg PO DAILY 05/01/17 03/09/20 Albuterol Sulfate [Proventil Hfa 1 - 2 puffs INH Q4H PRN #1 inhaler 01/15/18 03/09/20 Inhaler] busPIRone [Buspar] 30 mg PO DAILY 07/24/18 03/09/20 traZODone [Desyrel] 100 mg PO DAILY PM 07/24/18 03/09/20 Rivaroxaban [Xarelto] 20 mg PO DAILY 11/17/19 03/09/20 LORazepam [Ativan] 1 mg PO BID PRN #10 tablet 02/24/20 03/09/20 chlorproMAZINE [Thorazine] 25 mg PO TID 03/09/20 03/09/20 hydrOXYzine HCL [Hydroxyzine HCl] 25 mg PO BID PRN #15 tablet 03/10/20 Alprazolam [Xanax] 0.25 mg PO BID #10 tablet 06/08/21 Ondansetron Odt [Zofran] 4 mg TL Q6H PRN #10 tablet 06/08/21 Promethazine Supp [Phenergan Supp] 25 mg MT Q8H PRN #10 supp 06/08/21 LORazepam [Ativan] 1 mg PO Q8HR PRN #14 tablet 06/24/21 Ondansetron Odt [Zofran] 4 mg TL Q6H PRN #10 tablet 06/24/21 Prochlorperazine Supp [Compazine 25 mg MT BID #10 supp 06/24/21 Supp] - Allergies Allergies/Adverse Reactions: Allergies Allergy/AdvReac Type Severity Reaction Status Date / Time methylphenidate Allergy Unknown Unknown Verified 06/24/21 16:30 [From Ritalin] - Social History Does the pt smoke?: Yes Smoking Status: Current every day smoker Does the pt drink ETOH?: Yes Does the pt have substance abuse?: Yes - Immunizations Immunizations are current?: Yes Immunizations: TDAP >10years/unknown - POLST Patient has POLST: No PD ED PE EXPANDED - General General: Alert, Anxious - Cardiac Cardiac: Regular Rate, Radial strong equal, Pedal strong equal, Cap refill < 2 sec - Respiratory Respiratory: Clear to ausultation dejan. No: Distress, Labored - Abdomen Abdomen: Normal Bowel sounds. No: Tender to palpation (Very mild tenderness generally. No focal pain nonperitoneal. No guarding or rebound.) - Derm Derm: Normal color, Warm and dry. No: Rash - Extremities Extremities: Normal. No: Deformity, Tenderness - Neuro Neuro: Alert and Oriented X 3, CNII-XII intact - GCS Eye Opening: Spontaneous Motor: Obeys Commands Verbal: Oriented Total: 15 Results - Vitals Vitals: Vital Signs - 24 hr 06/24/21 06/24/21 16:20 16:30 Temperature 36.6 C 36.5 C Heart Rate 108 H 100 Respiratory 16 16 Rate Blood Pressure 142/99 H 143/93 H O2 Saturation 93 98 Oxygen O2 Source Room air PD MEDICAL DECISION MAKING - ED course Complexity details: reviewed results, re-evaluated patient, considered differential, d/w patient ED course: 31-year-old male return to the emergency department for evaluation of uncontrolled nausea and vomiting. History suggests cyclic vomiting syndrome versus hyperemesis cannabis. He has been evaluated by GI at [facility] with no definitive etiology found. Seen much earlier this morning for similar. He was given symptom control after receiving Ativan and Haldol and Compazine in the emergency department. He reports that when he went home he began vomiting again. However he did not fill his prescriptions for the Zofran or the Ativan. Previous He is nauseated I did notVisit was reviewed. Do note a moderate leuk ocytosis. However this is consistent with almost every other ED admission. Elicit any focal abdominal tenderness. I gave him a liter of fluid followed by 2.5 mg of droperidol and Zofran. He reported that the nausea was better. I asked him to sip clear liquids and he got nauseated again. I then gave him 10 mg of Compazine with full relief of symptoms and he has tolerated a full soda. I will send a prescription for Compazine rectally to the [facility] in [place]. He is advised to also fill the The van and Zofran ordered given by my colleague earlier in the day. Emergent return precautions were discussed. Departure - Departure Disposition: 01 Home, Self Care Clinical Impression: Nausea and vomiting Qualifiers: Vomiting type: unspecified Qualified Code(s): R11.2 - Nausea with vomiting, unspecified Condition: Stable Record reviewed to determine appropriate education?: Yes Prescriptions: Prochlorperazine Supp [Compazine Supp] 25 mg MT BID #10 supp Comments: Wesley pryor are seen in the emergency department today for nausea and vomiting. At the [facility] in [place] you will find that you have prescriptions waiting for you. This includes Zofran, Ativan as well as rectal Compazine. I encourage you to abstain from any further cannabis use. Over the next 24 to 48 hours frequent sips of clear liquids should be helpful. If at any point you have worsening symptoms and please return immediately to the ER.
[2021-06-24] MEDS ORDERED: PROCHLORPERAZINE 10 MG/2 ML VIAL IVP STA (17:35)
[2021-06-24 18:03] VITALS: BP 143/93
== END 2021-06-24 19:07 | disposition home or self-care (01) ==
LOC: EDUNIT# → ED 16:18
DX: F41.9 Anxiety disorder, unspecified (principal); R11.2 Nausea with vomiting, unspecified; F17.200 Nicotine dependence, unspecified, uncomplicated; R10.9 Unspecified abdominal pain; R55 Syncope and collapse; R11.15 Cyclical vomiting syndrome unrelated to migraine
CPT/HCPCS: 36415; 80053; 83690; 85025; 96374; 96375; 99284; 99285; J1200; J2060

== ENCOUNTER 2021-07-17 14:56 | Outpatient (CLI) | payer MEDICAID | END 2021-07-17 14:57 | disposition critical access hospital (66) | LOC: EMS 14:56 | DX: R10.9 Unspecified abdominal pain (principal); R11.2 Nausea with vomiting, unspecified | CPT/HCPCS: A0425; A0427; A0999 ==

== ENCOUNTER 2021-07-17 15:15 | Emergency (ER) | payer MEDICAID ==
[2021-07-17] MEDS ORDERED: KETOROLAC 15 MG/ML VIAL IVP STA (15:31)
[2021-07-17] MEDS ORDERED: LORazepam 2 MG/ML VIAL IVP STA (15:31)
[2021-07-17] MEDS ORDERED: SODIUM CHLORIDE 0.9% 1,000 ML IV STA (15:31)
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
[2021-07-17 16:01] LABS: ALBUMIN 4.3 g/dL (3.2-5.5); ALBUMIN/GLOBULIN RATIO 1.2 (1.0-2.2); BILIRUBIN,TOTAL 1.4 mg/dL (0.2-1.0); CALCIUM 9.6 mg/dL (8.5-10.3); POTASSIUM 3.5 mmol/L (3.5-5.0); TOTAL PROTEIN 7.8 g/dL (6.7-8.2)
[2021-07-17] MEDS ORDERED: HALOPERIDOL 5 MG/ML VIAL IVP ONE (16:42)
[2021-07-17 16:49] LABS: MUDS CUTOFF CONCENTRATIONS CUTOFF CONC BELOW:
[2021-07-17 16:54] LABS: BILIRUBIN,URINE NEGATIVE (NEGATIVE); GLUCOSE, URINE (UA) NEGATIVE (NEGATIVE); KETONES,URINE (UA) NEGATIVE (NEGATIVE); LEUKOCYTE ESTERASE, URINE NEGATIVE (NEGATIVE); NITRITE,URINE NEGATIVE (NEGATIVE); OCCULT BLOOD,URINE NEGATIVE (NEGATIVE); PH,URINE >=9.0 PH (5.0-7.5); PROTEIN,URINE TRACE mg/dL (NEGATIVE); UROBILINOGEN,URINE 0.2 (NORMAL) E.U./dL (NORMAL)
[2021-07-17 16:56] LABS: CLARITY,URINE CLEAR (CLEAR)
[2021-07-17 17:07] LABS: COCAINE SCREEN URINE POSITIVE (NEGATIVE); THC CANNABINOID SCREEN, URINE POSITIVE (NEGATIVE)
[2021-07-17 17:08] LABS: AMPHETAMINE SCREEN,URINE NEGATIVE (NEGATIVE); BARBITURATE SCREEN,UR NEGATIVE (NEGATIVE); BENZODIAZEPINES SCREEN, URINE NEGATIVE (NEGATIVE); METHADONE SCREEN, URINE NEGATIVE (NEGATIVE); METHAMPHETAMINES SCREEN, URINE NEGATIVE (NEGATIVE); OPIATE SCREEN, URINE NEGATIVE (NEGATIVE); OXYCODONE SCREEN, URINE NEGATIVE (NEGATIVE); PROPOXYPHENE SCREEN, URINE NEGATIVE (NEGATIVE); TRICYCLIC ANTIDEPRESSANT,URINE NEGATIVE (NEGATIVE)
[2021-07-17 17:26] VITALS: BP 142/91
== END 2021-07-17 17:42 | disposition home or self-care (01) ==
LOC: EDUNIT# → ED 15:15
DX: R11.2 Nausea with vomiting, unspecified (principal); F12.188 Cannabis abuse with other cannabis-induced disorder; F14.10 Cocaine abuse, uncomplicated; F41.9 Anxiety disorder, unspecified; F17.200 Nicotine dependence, unspecified, uncomplicated; Z86.711 Personal history of pulmonary embolism; Z79.01 Long term (current) use of anticoagulants
CPT/HCPCS: 36415; 80053; 80306; 81003; 83690; 96361; 96374; 96375; 99282; 99285; J2060; 81001; 85025; 87086

== ENCOUNTER 2021-09-11 16:48 | Outpatient (CLI) | payer MEDICAID | END 2021-09-11 16:49 | disposition critical access hospital (66) | LOC: EMS 16:48 | DX: M25.512 Pain in left shoulder (principal); S91.012A Laceration without foreign body, left ankle, initial encounter; V49.40XA Driver injured in collision with unspecified motor vehicles in traffic accident, initial encounter; Y92.413 State road as the place of occurrence of the external cause | CPT/HCPCS: A0425; A0429; A0999 ==

== ENCOUNTER 2021-09-11 17:00 | Emergency (ER) | payer MEDICAID ==
[2021-09-11] MEDS ORDERED: oxyCODONE 5 MG TABLET PO STA (17:06)
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
--- NOTE | 2021-09-11 17:59 | XRAY Report ---
PROCEDURE: Scapula 2 View LT INDICATIONS: back inj TECHNIQUE: 3 views of the scapula were acquired. COMPARISON: None FINDINGS: Bones: No fractures or dislocations. No suspicious bony lesions. Visualized ribs appear intact. Soft tissues: Overlying soft tissues appear normal. IMPRESSION: No evidence acute bony abnormality of the left scapula. If clinical suspicion and/or symptoms persist, further assessment with repeat plain films or advanced imaging (e.g., CT, MRI, or bone scan) may be helpful for further assessment. Reviewed by: Wisam Lyon MD on 09/11/2021 4:58 PM [facility] Approved by: Wisam Lyon MD on 09/11/2021 4:58 PM [facility] Station ID: [id number]
--- NOTE | 2021-09-11 17:59 | XRAY Report ---
PROCEDURE: Ankle 3 View LT INDICATIONS: ankle inj TECHNIQUE: 3 views of the ankle were acquired. COMPARISON: None FINDINGS: Bones: There is a tiny bony fragment cephalad to the anterior talus, possibly representing a bony avu lsion. No other fractures or dislocations. Ankle mortise is normally aligned. No suspicious bony les ions. Soft tissues: Positive tibiotalar joint effusion. Achilles tendon appears normal. IMPRESSION: Probable anterior talar avulsion with associated ankle joint effusion. Comment: Consider ankle MRI on a nonemergent basis to evaluate the tendinous and ligamentous structur es. Reviewed by: Wisam Lyon MD on 09/11/2021 4:57 PM [facility] Approved by: Wisam Lyon MD on 09/11/2021 4:57 PM [facility] Station ID: [id number]
[2021-09-11] MEDS ORDERED: oxyCODONE/ACET 5/325 Prepack 4 PO STA (18:09)
[2021-09-11 18:19] VITALS: BP 155/90
[2021-09-11] MEDS ORDERED: IBUPROFEN 800 MG TABLET PO STA (18:45)
== END 2021-09-11 18:49 | disposition home or self-care (01) ==
LOC: EDUNIT# → ED 17:00
DX: S82.832A Other fracture of upper and lower end of left fibula, initial encounter for closed fracture (principal); S92.155A Nondisplaced avulsion fracture (chip fracture) of left talus, initial encounter for closed fracture; S20.222A Contusion of left back wall of thorax, initial encounter; V89.2XXA Person injured in unspecified motor-vehicle accident, traffic, initial encounter; Y93.89 Activity, other specified; F17.200 Nicotine dependence, unspecified, uncomplicated
CPT/HCPCS: 73010; 73610; 99284; A9270

== ENCOUNTER 2021-09-18 15:00 | Emergency (ER) | payer MEDICAID, OTHER ==
[2021-09-18] MEDS ORDERED: cephALEXin 250 MG CAPSULE PO STA (17:54)
[2021-09-18] MEDS ORDERED: SULFAMETH/TRIMETH DS 800/160 MG TABLET PO STA (17:54)
[2021-09-18] MEDS ORDERED: oxyCODONE 5 MG TABLET PO STA (17:54)
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
[2021-09-18 18:45] VITALS: BP 151/112
== END 2021-09-18 18:28 | disposition home or self-care (01) ==
LOC: ED 15:00
DX: S92.155A Nondisplaced avulsion fracture (chip fracture) of left talus, initial encounter for closed fracture (principal); L03.312 Cellulitis of back [any part except buttock and flank]; V89.2XXA Person injured in unspecified motor-vehicle accident, traffic, initial encounter; F17.200 Nicotine dependence, unspecified, uncomplicated
CPT/HCPCS: 99282; 99283; A9270

== ENCOUNTER 2021-10-14 21:51 | Outpatient (CLI) | payer OTHER, MEDICAID | END 2021-10-14 21:52 | disposition critical access hospital (66) | LOC: EMS 21:51 | DX: R11.2 Nausea with vomiting, unspecified (principal); F41.9 Anxiety disorder, unspecified | CPT/HCPCS: A0425; A0429 ==

== ENCOUNTER 2021-10-14 22:09 | Emergency (ER) | payer MEDICAID, OTHER ==
[2021-10-14 22:34] LABS: BASOPHILS # (AUTO) 0.1 10^3/uL (0.0-0.1); BASOPHILS % (AUTO) 0.4 %; EOSINOPHILS # (AUTO) 0.2 10^3/uL (0.0-0.7); EOSINOPHILS % (AUTO) 0.8 %; HCT - HEMATOCRIT 42.7 % (42.0-52.0); HGB - HEMOGLOBIN 15.3 g/dL (14.0-18.0); LYMPHOCYTES # (AUTO) 2.1 10^3/uL (1.5-3.5); LYMPHOCYTES % (AUTO) 10.7 %; MEAN CORPUSCULAR HEMOGLOBIN 26.4 pg (27.0-31.0); MEAN CORPUSCULAR HGB CONC 35.8 g/dL (32.0-36.0); MEAN CORPUSCULAR VOLUME 73.6 fL (80.0-94.0); MEAN PLATELET VOLUME 9.2 fL (7.4-11.4); MONOCYTES # (AUTO) 0.8 10^3/uL (0.0-1.0); NEUTROPHILS # (AUTO) 16.1 10^3/uL (1.5-6.6); NEUTROPHILS % (AUTO) 83.7 %; PLT - PLATELET COUNT 494 10^3/uL (130-450); RED CELL DISTRIBUTION WIDTH 13.2 % (12.0-15.0); WHITE BLOOD COUNT 19.2 x10^3/uL (4.8-10.8)
[2021-10-14 22:47] LABS: ALBUMIN 4.5 g/dL (3.2-5.5); BILIRUBIN,TOTAL 1.3 mg/dL (0.2-1.0); CALCIUM 10.1 mg/dL (8.5-10.3); CREATININE 1.2 mg/dL (0.6-1.2); POTASSIUM 3.3 mmol/L (3.5-5.0); TOTAL PROTEIN 8.8 g/dL (6.7-8.2)
[2021-10-14] MEDS ORDERED: SODIUM CHLORIDE 0.9% 1,000 ML IV STA ×2 (22:52→22:59)
[2021-10-14] MEDS ORDERED: KETOROLAC 30 MG/ML VIAL IVP STA (22:59)
[2021-10-14] MEDS ORDERED: LORazepam 2 MG/ML VIAL IVP STA (22:59)
[2021-10-14] MEDS ORDERED: HALOPERIDOL 5 MG/ML VIAL IVP ONE (22:59)
--- NOTE | 2021-10-15 02:00 | ED Physician Documentation ---
PD HPI ABD PAIN - Stated complaint Stated Complaint: ANXIETY/VOMITING - Chief complaint Chief Complaint: Abd Pain - History obtained from History obtained from: Patient - Additional information Additional information: Patient is a 31-year-old male with a history of cannabis abuse and cyclical vomiting syndrome presenting for evaluation of nausea, vomiting and abdominal pain that started around 6 PM. Patient ate something with avocado and earlier today and states he has an allergy to avocado. He last used marijuana 2 days ago. His emesis has been nonbilious, nonbloody. His pain is generalized to the abdomen. Nothing makes it better or worse. He has not tried anything at home for it. He reports this feels similar to previous episodes For which she has come to the emergency department. Review of Systems Constitutional: denies: Fever Nose: denies: Congestion Cardiac: denies: Chest pain / pressure, Palpitations Respiratory: denies: Dyspnea, Cough GI: reports: Abdominal Pain, Nausea, Vomiting. denies: Diarrhea : denies: Dysuria Skin: denies: Rash Musculoskeletal: denies: Back pain Neurologic: denies: Headache PD PAST MEDICAL HISTORY - Past Medical History Past Medical History: Yes Cardiovascular: Pulmonary embolism Respiratory: Asthma Neuro: None Endocrine/Autoimmune: None GI: GERD, Other : None HEENT: None Psych: Depression, Anxiety, Panic attacks, Other Musculoskeletal: Other Derm: None Other Past Medical History: Insomnia - Past Surgical History Past Surgical History: Yes General: Colonoscopy, EGD Ortho: Shoulder arthroplasty, Other - Present Medications Home Medications: Ambulatory Orders Medication Instructions Recorded Confirmed Albuterol Sulfate [Proventil Hfa 1 - 2 puffs INH Q4H PRN #1 inhaler 01/15/18 10/14/21 Inhaler] busPIRone [Buspar] 30 mg PO DAILY 07/24/18 10/14/21 traZODone [Desyrel] 100 mg PO DAILY PM 07/24/18 10/14/21 chlorproMAZINE [Thorazine] 25 mg PO TID 03/09/20 10/14/21 Alprazolam [Xanax] 0.25 mg PO BID #10 tablet 06/08/21 10/14/21 Prochlorperazine Supp [Compazine 25 mg VA BID #10 supp 06/24/21 10/14/21 Supp] Ondansetron Odt [Zofran] 4 mg TL Q6H PRN #10 tablet 10/15/21 - Allergies Allergies/Adverse Reactions: Allergies Allergy/AdvReac Type Severity Reaction Status Date / Time methylphenidate Allergy Unknown Unknown Verified 10/14/21 22:22 [From Ritalin] - Social History Does the pt smoke?: Yes Smoking Status: Current every day smoker Does the pt drink ETOH?: Yes Does the pt have substance abuse?: Yes - Immunizations Immunizations are current?: Yes Immunizations: TDAP >10years/unknown - POLST Patient has POLST: No PD ED PE NORMAL - General General: Alert and oriented X 3, Well developed/nourished, Other (Dry heaving into emesis bag) - HEENT HEENT: Atraumatic, Moist mucous membranes - Cardiac Cardiac: RRR, No murmur, Strong equal pulses - Respiratory Respiratory: No respiratory distress, Clear bilaterally - Abdomen Abdomen: Normal bowel sounds, Soft, Non distended, Other (Mild generalized tenderness with no rebound or guarding) - Derm Derm: Normal color - Extremities Extremities: No edema, Other (Splint to left lower leg, distal pulses intact) - Neuro Neuro: Alert and oriented X 3, No motor deficit, No sensory deficit, Normal speech - Psych Psych: Normal mood, Normal affect Results - Vitals Vitals: Vital Signs - 24 hr 10/14/21 10/14/21 10/15/21 22:10 23:25 00:00 Temperature 35.9 C L Heart Rate 112 H 101 H 74 Respiratory 22 18 18 Rate Blood Pressure 145/90 H 162/104 H 184/98 H O2 Saturation 100 100 88 L 10/15/21 10/15/21 10/15/21 00:30 01:08 01:44 Temperature 36.3 C L Heart Rate 95 83 92 Respiratory 12 12 12 Rate Blood Pressure 168/98 H 144/91 H 158/110 H O2 Saturation 94 96 96 10/15/21 02:50 Temperature 2.9 C L Heart Rate 86 Respiratory 12 Rate Blood Pressure 144/91 H O2 Saturation 95 Oxygen O2 Source Room air Oxygen Flow Rate 3 - EKG (time done) 2310 Rate: Rate (enter#) (94) Rhythm: NSR Intervals: Other (QTC 478) Ischemia: No: ST elevation c/w ischemia - Labs Labs: Laboratory Tests 10/14/21 10/14/21 22:31 22:31 WBC 19.2 H RBC 5.80 Hgb 15.3 Hct 42.7 MCV 73.6 L MCH 26.4 L MCHC 35.8 RDW 13.2 Plt Count 494 H MPV 9.2 Neut # (Auto) 16.1 H Lymph # (Auto) 2.1 [place] # (Auto) 0.8 Eos # (Auto) 0.2 Baso # (Auto) 0.1 Absolute Nucleated RBC 0.00 Nucleated RBC % 0.0 Sodium 136 Potassium 3.3 L Chloride 100 L Carbon Dioxide 20 L Anion Gap 16.0 H BUN 15 Creatinine 1.2 Estimated GFR (MDRD) 87 L Glucose 119 H Calcium 10.1 Total Bilirubin 1.3 H AST 19 ALT 12 Alkaline Phosphatase 70 Total Protein 8.8 H Albumin 4.5 Globulin 4.3 H Albumin/Globulin Ratio 1.0 Lipase 58 H PD MEDICAL DECISION MAKING - ED course Complexity details: reviewed results, d/w patient ED course: Patient presenting for evaluation of nausea and vomiting with abdominal pain. He has multiple ED visits for similar episodes.LAbs reviewed and demonstrate leukocytosis which patient has consistently had in the past.Patient had symptom relief with IV fluids and medications. Repeat abdominal exam is benign. Patient is ambulatory at discharge. He was counseled on avoiding triggers such as marijuana.Prescription for Zofran was also provided. Patient has Phenergan suppositories at home which she was also encouraged to try for future episodes. Departure - Departure Disposition: 01 Home, Self Care Clinical Impression: Cyclical vomiting Leukocytosis Qualifiers: Leukocytosis type: unspecified Qualified Code(s): D72.829 - Elevated white blood cell count, unspecified Condition: Stable Instructions: ED Diet Vomiting Diarrhea Prescriptions: Ondansetron Odt [Zofran] 4 mg TL Q6H PRN #10 tablet PRN Reason: Nausea / Vomiting Comments: You were seen for vomiting and abdominal pain. This appears similar to your cyclical vomiting syndrome episodes. Please refrain fromAnything that may trigger the symptoms such as marijuana use. I have prescribed Zofran and sent i t to the [facility] pharmacy in [place]. Please try this medication or the Phenergan suppositories that you already have at home as needed for your symptoms. Please continue to try and stay hydrated. Discharge Date/Time: 10/15/21 02:55
[2021-10-15] MEDS ORDERED: ONDANSETRON 4 MG/2 ML VIAL IVP STA (02:12)
[2021-10-15] MEDS ORDERED: HALOPERIDOL 5 MG/ML VIAL IVP ONE (02:22)
[2021-10-15] MEDS ORDERED: SODIUM CHLORIDE 0.9% 1,000 ML IV STA (02:23)
[2021-10-15 03:03] VITALS: BP 144/91
== END 2021-10-15 02:55 | disposition home or self-care (01) ==
LOC: EDUNIT# → ED 22:09 → SUPCPDRO 22:09 → ED 10-15 02:55
DX: R11.15 Cyclical vomiting syndrome unrelated to migraine (principal); D72.829 Elevated white blood cell count, unspecified; F17.200 Nicotine dependence, unspecified, uncomplicated
CPT/HCPCS: 36415; 80053; 83690; 85025; 93005; 96361; 96374; 96375; 96376; 99282; 99285; J2060

== ENCOUNTER 2021-10-24 11:41 | Emergency (ER) | payer MEDICAID, OTHER ==
[2021-10-24 12:38] LABS: BASOPHILS # (AUTO) 0.1 10^3/uL (0.0-0.1); BASOPHILS % (AUTO) 0.5 %; EOSINOPHILS # (AUTO) 0.9 10^3/uL (0.0-0.7); EOSINOPHILS % (AUTO) 5.4 %; HCT - HEMATOCRIT 43.4 % (42.0-52.0); HGB - HEMOGLOBIN 15.2 g/dL (14.0-18.0); LYMPHOCYTES # (AUTO) 2.5 10^3/uL (1.5-3.5); LYMPHOCYTES % (AUTO) 14.6 %; MEAN CORPUSCULAR VOLUME 74.2 fL (80.0-94.0); MEAN PLATELET VOLUME 9.3 fL (7.4-11.4); MONOCYTES # (AUTO) 0.6 10^3/uL (0.0-1.0); MONOCYTES % (AUTO) 3.5 %; NEUTROPHILS # (AUTO) 12.9 10^3/uL (1.5-6.6); NEUTROPHILS % (AUTO) 75.6 %; PLT - PLATELET COUNT 440 10^3/uL (130-450); RED BLOOD COUNT 5.85 10^6/uL (4.70-6.10); RED CELL DISTRIBUTION WIDTH 13.3 % (12.0-15.0); WHITE BLOOD COUNT 17.1 x10^3/uL (4.8-10.8)
[2021-10-24 12:55] LABS: ALBUMIN 4.5 g/dL (3.2-5.5); ALBUMIN/GLOBULIN RATIO 1.1 (1.0-2.2); BILIRUBIN,TOTAL 1.1 mg/dL (0.2-1.0); CALCIUM 9.7 mg/dL (8.5-10.3); CREATININE 1.2 mg/dL (0.6-1.2); POTASSIUM 4.2 mmol/L (3.5-5.0); TOTAL PROTEIN 8.5 g/dL (6.7-8.2)
[2021-10-24 13:24] LABS: BILIRUBIN,URINE NEGATIVE (NEGATIVE); GLUCOSE, URINE (UA) NEGATIVE (NEGATIVE); KETONES,URINE (UA) 15 mg/dL (NEGATIVE); LEUKOCYTE ESTERASE, URINE NEGATIVE (NEGATIVE); NITRITE,URINE NEGATIVE (NEGATIVE); OCCULT BLOOD,URINE NEGATIVE (NEGATIVE); PH,URINE 8.5 PH (5.0-7.5); PROTEIN,URINE 30 mg/dL (NEGATIVE); UROBILINOGEN,URINE 2 E.U./dL (NORMAL)
[2021-10-24 13:25] LABS: CLARITY,URINE CLEAR (CLEAR)
[2021-10-24 13:35] LABS: BACTERIA,URINE Few /HPF (None Seen); RBC,URINE 0-5 /HPF (0-5); SQUAMOUS EPITHELIAL CELL,UR RARE Squamous (<= Few); WBC,URINE 0-3 /HPF (0-3)
[2021-10-24] MEDS ORDERED: LORazepam 2 MG/ML VIAL IVP STA (14:24)
[2021-10-24] MEDS ORDERED: ONDANSETRON 4 MG/2 ML VIAL IVP STA (14:24)
[2021-10-24] MEDS ORDERED: HALOPERIDOL 5 MG/ML VIAL IVP STA (14:24)
[2021-10-24] MEDS ORDERED: KETOROLAC 30 MG/ML VIAL IVP STA (14:24)
[2021-10-24] MEDS ORDERED: SODIUM CHLORIDE 0.9% 1,000 ML IV STA (14:25)
[2021-10-24] MEDS ORDERED: DROPERIDOL 5 MG/2 ML VIAL IM STA (17:02)
[2021-10-24] MEDS ORDERED: HYDROmorphone 1 MG/ML CARPUJECT IM STA (17:02)
[2021-10-24] MEDS ORDERED: HYDROmorphone 1 MG/ML CARPUJECT IVP STA (17:02)
--- NOTE | 2021-10-24 17:03 | ED Physician Documentation ---
History of Present Illness - Stated complaint Stated Complaint: N/V/STOMACH PAIN - Chief complaint Chief Complaint: Abd Pain - History obtained from History obtained from: Patient - History of Present Illness Timing: Today Pain level max: 8 Pain level now: 8 - Additonal information Additional information: Patient is a 31-year-old male with chronic abdominal pain and vomiting. Thought to be possibly secondary to cyclical vomiting syndrome versus cannabinoid induced hyperemesis. This is his usual chronic symptoms. No change from his usual symptoms. No fevers. No chills. No diarrhea. Attempted to take his home medications without relief. Review of Systems Ten Systems: 10 systems reviewed and negative Constitutional: denies: Fever, Chills Respiratory: denies: Dyspnea, Cough GI: reports: Abdominal Pain, Nausea, Vomiting. denies: Constipation, Diarrhea, Hematemesis, Bloody / black stool : denies: Dysuria Skin: denies: Rash Musculoskeletal: denies: Neck pain, Back pain Neurologic: denies: Headache PD PAST MEDICAL HISTORY - Past Medical History Past Medical History: Yes Cardiovascular: Pulmonary embolism Respiratory: Asthma Neuro: None Endocrine/Autoimmune: None GI: GERD, Other : None HEENT: None Psych: Depression, Anxiety, Panic attacks, Other Musculoskeletal: Other Derm: None - Past Surgical History Past Surgical History: Yes General: Colonoscopy, EGD Ortho: Shoulder arthroplasty, Other - Present Medications Home Medications: Ambulatory Orders Medication Instructions Recorded Confirmed Albuterol Sulfate [Proventil Hfa 1 - 2 puffs INH Q4H PRN #1 inhaler 01/15/18 10/14/21 Inhaler] busPIRone [Buspar] 30 mg PO DAILY 07/24/18 10/14/21 traZODone [Desyrel] 100 mg PO DAILY PM 07/24/18 10/14/21 chlorproMAZINE [Thorazine] 25 mg PO TID 03/09/20 10/14/21 Alprazolam [Xanax] 0.25 mg PO BID #10 tablet 06/08/21 10/14/21 Prochlorperazine Supp [Compazine 25 mg RI BID #10 supp 06/24/21 10/14/21 Supp] Ondansetron Odt [Zofran] 4 mg TL Q6H PRN #10 tablet 10/15/21 - Allergies Allergies/Adverse Reactions: Allergies Allergy/AdvReac Type Severity Reaction Status Date / Time methylphenidate Allergy Unknown Unknown Verified 10/24/21 12:07 [From Ritalin] - Social History Does the pt smoke?: Yes Smoking Status: Current every day smoker Does the pt drink ETOH?: Yes Does the pt have substance abuse?: Yes - Immunizations Immunizations are current?: Yes Immunizations: TDAP >10years/unknown - POLST Patient has POLST: No PD ED PE NORMAL - Vitals Vital signs reviewed: Yes - General General: Alert and oriented X 3, No acute distress, Well developed/nourished - HEENT HEENT: Moist mucous membranes, Pharynx benign - Neck Neck: Supple, no meningeal sign - Cardiac Cardiac: RRR, Strong equal pulses - Respiratory Respiratory: No respiratory distress, Clear bilaterally - Abdomen Abdomen: Soft, Non tender, Non distended - Derm Derm: Warm and dry - Extremities Extremities: No edema - Neuro Neuro: Alert and oriented X 3 - Psych Psych: Normal mood, Normal affect Results - Vitals Vitals: Vital Signs - 24 hr 10/24/21 10/24/21 10/24/21 12:07 14:22 15:09 Temperature 36.6 C 36.8 C Heart Rate 95 82 Respiratory 24 16 Rate Blood Pressure 136/95 H 128/86 H O2 Saturation 99 100 85 L 10/24/21 10/24/21 16:43 18:00 Temperature 36.7 C Heart Rate 111 H 77 Respiratory 14 12 Rate Blood Pressure 145/78 H 116/90 H O2 Saturation 98 99 Oxygen O2 Source Room air - Labs Labs: Laboratory Tests 10/24/21 10/24/21 10/24/21 12:31 12:31 12:40 WBC 17.1 H RBC 5.85 Hgb 15.2 Hct 43.4 MCV 74.2 L MCH 26.0 L MCHC 35.0 RDW 13.3 Plt Count 440 MPV 9.3 Neut # (Auto) 12.9 H Lymph # (Auto) 2.5 [place] # (Auto) 0.6 Eos # (Auto) 0.9 H Baso # (Auto) 0.1 Absolute Nucleated RBC 0.00 Nucleated RBC % 0.0 Sodium 135 Potassium 4.2 Chloride 98 L Carbon Dioxide 25 Anion Gap 12.0 BUN 13 Creatinine 1.2 Estimated GFR (MDRD) 87 L Glucose 124 H Calcium 9.7 Total Bilirubin 1.1 H AST 18 ALT 11 Alkaline Phosphatase 68 Total Protein 8.5 H Albumin 4.5 Globulin 4.0 Albumin/Globulin Ratio 1.1 Lipase 88 H Urine Color DARK YELLOW Urine Clarity CLEAR Urine pH 8.5 H Ur Specific [place] 1.015 Urine Protein 30 H Urine Glucose (UA) NEGATIVE Urine Ketones 15 H Urine Occult Blood NEGATIVE Urine Nitrite NEGATIVE Urine Bilirubin NEGATIVE Urine Urobilinogen 2 H Ur Leukocyte Esterase NEGATIVE Urine RBC 0-5 Urine WBC 0-3 Ur Squamous Epith Cells RARE Squamous Urine Bacteria Few Ur Microscopic Review INDICATED Urine Culture Comments NOT INDICATED PD MEDICAL DECISION MAKING - ED course Complexity details: reviewed results, re-evaluated patient, considered differential, d/w patient ED course: 31-year-old male with chronic abdominal pain and vomiting. Symptoms resolved in the emergency department with IV fluids, Toradol, Ativan, Dilaudid, droperidol. Tolerating p.o. without difficulty. Feels much better. Request to go home at this time. No indication for imaging or further work-up. Patient counseled regarding signs and symptoms for which I believe and urgent re-evaluation would be necessary. Patient with good understanding of and agreement to plan and is comfortable going home at this time This document was made in part using voice recognition software. While efforts are made to proofread this document, sound alike and grammatical errors may occur. Departure - Departure Disposition: 01 Home, Self Care Clinical Impression: Cyclical vomiting Condition: Good Instructions: ED Nausea Vomiting Follow-Up: Di Kang MD [Primary Care Provider] - Within 1 week Comments: Go home and rest today. Follow-up with your doctor for further care. Continue your current medications at home. Return if you worsen. Discharge Date/Time: 10/24/21 18:15
[2021-10-24 18:01] VITALS: BP 116/90
== END 2021-10-24 18:15 | disposition home or self-care (01) ==
LOC: ED 11:41
DX: R11.15 Cyclical vomiting syndrome unrelated to migraine (principal); F17.200 Nicotine dependence, unspecified, uncomplicated
CPT/HCPCS: 36415; 80053; 81001; 83690; 85025; 96361; 96374; 96375; 99282; 99284; J1170; J2060; 81003; 87086

== ENCOUNTER 2021-10-27 14:21 | Outpatient (CLI) | payer OTHER, MEDICAID | END 2021-10-27 14:22 | disposition critical access hospital (66) | LOC: EMS 14:21 | DX: R11.15 Cyclical vomiting syndrome unrelated to migraine (principal); R10.817 Generalized abdominal tenderness | CPT/HCPCS: A0425; A0427 ==

== ENCOUNTER 2021-10-27 14:42 | Emergency (ER) | payer OTHER ==
[2021-10-27] MEDS ORDERED: ONDANSETRON 4 MG/2 ML VIAL IVP STA (14:47)
[2021-10-27] MEDS ORDERED: DROPERIDOL 5 MG/2 ML VIAL IVP STA ×2 (14:47→15:57)
[2021-10-27] MEDS ORDERED: PANTOPRAZOLE 40 MG VIAL IVP STA (14:47)
[2021-10-27] MEDS ORDERED: SODIUM CHLORIDE 0.9% 1,000 ML IV STA ×2 (14:50→16:36)
--- NOTE | 2021-10-27 14:50 | ED Physician Documentation ---
History of Present Illness - Stated complaint Stated Complaint: VOMITING - Additonal information Additional information: 31-year-old male return to the emergency department for evaluation of uncontrolled nausea and vomiting. He had this cycle of vomiting began about 4 days ago after ingesting some cannabis. He does have a history of cyclic vomiting syndrome thought to be secondary to cannabis use though the patient denies. Seen on the for similar. Improved with droperidol Ativan and Toradol. Patient presents actively vomiting. No fevers. He does have epigastric abdominal pain. He states that he is having a panic attack in addition to vomiting. Review of Systems Constitutional: denies: Fever, Chills Ears: reports: Reviewed and negative Nose: reports: Reviewed and negative Cardiac: reports: Chest pain / pressure GI: reports: Abdominal Pain, Nausea, Vomiting : reports: Reviewed and negative Skin: reports: Reviewed and negative PD PAST MEDICAL HISTORY - Past Medical History Cardiovascular: Pulmonary embolism Respiratory: Asthma Neuro: None Endocrine/Autoimmune: None GI: GERD, Other : None HEENT: None Psych: Depression, Anxiety, Panic attacks, Other Musculoskeletal: Other Derm: None - Past Surgical History Past Surgical History: Yes General: Colonoscopy, EGD Ortho: Shoulder arthroplasty, Other - Present Medications Home Medications: Ambulatory Orders Medication Instructions Recorded Confirmed Albuterol Sulfate [Proventil Hfa 1 - 2 puffs INH Q4H PRN #1 inhaler 01/15/18 10/14/21 Inhaler] busPIRone [Buspar] 30 mg PO DAILY 07/24/18 10/14/21 traZODone [Desyrel] 100 mg PO DAILY PM 07/24/18 10/14/21 chlorproMAZINE [Thorazine] 25 mg PO TID 03/09/20 10/14/21 Alprazolam [Xanax] 0.25 mg PO BID #10 tablet 06/08/21 10/14/21 Prochlorperazine Supp [Compazine 25 mg VA BID #10 supp 06/24/21 10/14/21 Supp] Ondansetron Odt [Zofran] 4 mg TL Q6H PRN #10 tablet 10/15/21 Prochlorperazine [Compazine] 5 mg PO Q6H #10 tablet 10/27/21 - Allergies Allergies/Adverse Reactions: Allergies Allergy/AdvReac Type Severity Reaction Status Date / Time methylphenidate Allergy Unknown Unknown Verified 10/24/21 12:07 [From Ritalin] - Social History Does the pt smoke?: Yes Smoking Status: Current every day smoker Does the pt drink ETOH?: Yes Does the pt have substance abuse?: Yes - Immunizations Immunizations are current?: Yes Immunizations: TDAP >10years/unknown - POLST Patient has POLST: No PD ED PE EXPANDED - General General: Alert, In distress - Cardiac Cardiac: Tachy, Radial strong equal, Pedal strong equal, Cap refill < 2 sec. No: Murmur Present - Respiratory Respiratory: Clear to ausultation dejan. No: Distress, Labored - Abdomen Abdomen: Normal Bowel sounds, Tender to palpation (Epigastric tenderness. No flank or lower abdominal tenderness elicited.). No: Rebound, Guarding - Back Back: Normal exam - Neuro Neuro: Alert and Oriented X 3, CNII-XII intact - GCS Eye Opening: Spontaneous Motor: Obeys Commands Verbal: Oriented Total: 15 Results - Vitals Vitals: Vital Signs - 24 hr 10/27/21 10/27/21 10/27/21 14:42 15:10 17:00 Temperature 36.9 C Heart Rate 114 H 104 H 98 Respiratory 18 20 16 Rate Blood Pressure 166/110 H 163/109 H 137/85 H O2 Saturation 98 98 99 10/27/21 17:14 Temperature 37.1 C Heart Rate 84 Respiratory 14 Rate Blood Pressure 114/71 O2 Saturation 95 Oxygen O2 Source Room air - Labs Labs: Laboratory Tests 10/27/21 10/27/21 10/27/21 15:10 15:10 15:52 WBC 11.2 H RBC 6.14 H Hgb 16.1 Hct 45.2 MCV 73.6 L MCH 26.2 L MCHC 35.6 RDW 13.7 Plt Count 469 H MPV 9.2 Neut # (Auto) 7.5 H Lymph # (Auto) 3.0 [place] # (Auto) 0.6 Eos # (Auto) 0.1 Baso # (Auto) 0.1 Absolute Nucleated RBC 0.00 Nucleated RBC % 0.0 Sodium 136 Potassium 3.9 Chloride 96 L Carbon Dioxide 25 Anion Gap 15.0 H BUN 14 Creatinine 1.2 Estimated GFR (MDRD) 87 L Glucose 115 H Calcium 9.6 Total Bilirubin 2.2 H AST 16 ALT 12 Alkaline Phosphatase 72 Total Protein 8.5 H Albumin 4.6 Globulin 3.9 Albumin/Globulin Ratio 1.2 Lipase 42 Urine Color DARK YELLOW Urine Clarity CLEAR Urine pH 7.0 Ur Specific [place] 1.020 Urine Protein NEGATIVE Urine Glucose (UA) NEGATIVE Urine Ketones 40 H Urine Occult Blood NEGATIVE Urine Nitrite NEGATIVE Urine Bilirubin NEGATIVE Urine Urobilinogen 1 (NORMAL) Ur Leukocyte Esterase NEGATIVE Ur Microscopic Review NOT INDICATED Urine Culture Comments NOT INDICATED Urine Opiates Screen Ur Oxycodone Screen Urine Methadone Screen Ur Propoxyphene Screen Ur Barbiturates Screen Ur Tricyclics Screen Ur Phencyclidine Scrn Ur Amphetamine Screen U Methamphetamines Scrn U Benzodiazepines Scrn Urine Cocaine Screen U Cannabinoids Screen 10/27/21 15:52 WBC RBC Hgb Hct MCV MCH MCHC RDW Plt Count MPV Neut # (Auto) Lymph # (Auto) [place] # (Auto) Eos # (Auto) Baso # (Auto) Absolute Nucleated RBC Nucleated RBC % Sodium Potassium Chloride Carbon Dioxide Anion Gap BUN Creatinine Estimated GFR (MDRD) Glucose Calcium Total Bilirubin AST ALT Alkaline Phosphatase Total Protein Albumin Globulin Albumin/Globulin Ratio Lipase Urine Color Urine Clarity Urine pH Ur Specific [place] Urine Protein Urine Glucose (UA) Urine Ketones Urine Occult Blood Urine Nitrite Urine Bilirubin Urine Urobilinogen Ur Leukocyte Esterase Ur Microscopic Review Urine Culture Comments Urine Opiates Screen NEGATIVE Ur Oxycodone Screen NEGATIVE Urine Methadone Screen NEGATIVE Ur Propoxyphene Screen NEGATIVE Ur Barbiturates Screen NEGATIVE Ur Tricyclics Screen NEGATIVE Ur Phencyclidine Scrn NEGATIVE Ur Amphetamine Screen NEGATIVE U Methamphetamines Scrn NEGATIVE U Benzodiazepines Scrn POSITIVE H Urine Cocaine Screen POSITIVE H U Cannabinoids Screen POSITIVE H - Rads (name of study) CT abd Radiology: Final report received (Generalized wall thickening can be seen involving the colon which is overall worse involving the cecum. The appearance is nonspecific.) PD MEDICAL DECISION MAKING - ED course Complexity details: reviewed results, re-evaluated patient, considered differential, d/w patient ED course: 31-year-old male presents emergency department with 4 days of cyclic vomiting. Multiple presentations in the past for similar. Patient does admit to cannabis use about 4 days ago and was seen here 3 days ago and had improvement in symptoms using droperidol, Toradol and Ativan. On presentation the patient was actively retching. He also had some mild epi gastric tenderness. We initially tried symptom control with droperidol and Zofran. We also given a liter of fluids on repeat evaluation he stated that his nausea was better thus I recommended a p.o. trial. He began to vomit shortly after we then gave Compazine. Following Compazine he again continued to vomit and we redosed him with droperidol. 1630: Given difficulty getting control of symptoms we will at this point proceed to do a CT of the abdomen. He has not had one for nearly 2 years. Given the history of hyperemesis cannabis will obtain a urine drug screen. 25 of Benadryl is also ordered in order to help control the nausea and vomiting 1710: CT scan has been completed. While I am waiting for the results the patient is adamant that he be discharged home right now. States he feels better and his right is on the way. He will not wait for the results of the CtT scan. Seemingly his nausea has improved 1745: CT results do show some thickening of the colon involving the cecum. However the patient has no complaints of diarrhea. Given lack of fevers significant leukocytosis or any significant belly pain will defer any treatment. Patient has been discharged and prescription for Compazine sent to the pharmacy. 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 This followed use of cannabis. Your history is most consistent with hyperemesis cannabis. You should avoid any and all cannabis use in the future. You are requesting to be discharged before the results of your CAT scan are completed. We will notify you if there are any worrisome results. Discharge Date/Time: 10/27/21 17:16
[2021-10-27] MEDS ORDERED: KETOROLAC 30 MG/ML VIAL IVP STA (14:53)
[2021-10-27 15:15] LABS: BASOPHILS # (AUTO) 0.1 10^3/uL (0.0-0.1); BASOPHILS % (AUTO) 0.4 %; EOSINOPHILS # (AUTO) 0.1 10^3/uL (0.0-0.7); EOSINOPHILS % (AUTO) 0.5 %; HCT - HEMATOCRIT 45.2 % (42.0-52.0); HGB - HEMOGLOBIN 16.1 g/dL (14.0-18.0); LYMPHOCYTES % (AUTO) 26.5 %; MEAN CORPUSCULAR HEMOGLOBIN 26.2 pg (27.0-31.0); MEAN CORPUSCULAR HGB CONC 35.6 g/dL (32.0-36.0); MEAN CORPUSCULAR VOLUME 73.6 fL (80.0-94.0); MEAN PLATELET VOLUME 9.2 fL (7.4-11.4); MONOCYTES # (AUTO) 0.6 10^3/uL (0.0-1.0); MONOCYTES % (AUTO) 5.2 %; NEUTROPHILS # (AUTO) 7.5 10^3/uL (1.5-6.6); NEUTROPHILS % (AUTO) 67.1 %; PLT - PLATELET COUNT 469 10^3/uL (130-450); RED BLOOD COUNT 6.14 10^6/uL (4.70-6.10); RED CELL DISTRIBUTION WIDTH 13.7 % (12.0-15.0); WHITE BLOOD COUNT 11.2 x10^3/uL (4.8-10.8)
[2021-10-27 15:26] LABS: ALBUMIN 4.6 g/dL (3.2-5.5); ALBUMIN/GLOBULIN RATIO 1.2 (1.0-2.2); BILIRUBIN,TOTAL 2.2 mg/dL (0.2-1.0); CALCIUM 9.6 mg/dL (8.5-10.3); CREATININE 1.2 mg/dL (0.6-1.2); POTASSIUM 3.9 mmol/L (3.5-5.0); TOTAL PROTEIN 8.5 g/dL (6.7-8.2)
[2021-10-27] MEDS ORDERED: PROCHLORPERAZINE 10 MG/2 ML VIAL IVP STA (15:28)
[2021-10-27 16:08] LABS: BILIRUBIN,URINE NEGATIVE (NEGATIVE); GLUCOSE, URINE (UA) NEGATIVE (NEGATIVE); KETONES,URINE (UA) 40 mg/dL (NEGATIVE); LEUKOCYTE ESTERASE, URINE NEGATIVE (NEGATIVE); NITRITE,URINE NEGATIVE (NEGATIVE); OCCULT BLOOD,URINE NEGATIVE (NEGATIVE); PROTEIN,URINE NEGATIVE (NEGATIVE); UROBILINOGEN,URINE 1 (NORMAL) E.U./dL (NORMAL)
[2021-10-27 16:10] LABS: CLARITY,URINE CLEAR (CLEAR)
[2021-10-27] MEDS ORDERED: IOVERSOL 320 100 ML VIAL IVP ONE ×2 (16:28→17:24)
[2021-10-27] MEDS ORDERED: diphenhydrAMINE INJ 50 MG/ML VIAL IVP STA (16:34)
[2021-10-27 16:53] LABS: AMPHETAMINE SCREEN,URINE NEGATIVE (NEGATIVE); BARBITURATE SCREEN,UR NEGATIVE (NEGATIVE); BENZODIAZEPINES SCREEN, URINE POSITIVE (NEGATIVE); COCAINE SCREEN URINE POSITIVE (NEGATIVE); METHADONE SCREEN, URINE NEGATIVE (NEGATIVE); METHAMPHETAMINES SCREEN, URINE NEGATIVE (NEGATIVE); MUDS CUTOFF CONCENTRATIONS CUTOFF CONC BELOW:; OPIATE SCREEN, URINE NEGATIVE (NEGATIVE); OXYCODONE SCREEN, URINE NEGATIVE (NEGATIVE); PROPOXYPHENE SCREEN, URINE NEGATIVE (NEGATIVE); THC CANNABINOID SCREEN, URINE POSITIVE (NEGATIVE); TRICYCLIC ANTIDEPRESSANT,URINE NEGATIVE (NEGATIVE)
[2021-10-27 17:16] VITALS: BP 114/71
--- NOTE | 2021-10-27 17:46 | CT Report ---
PROCEDURE: Abdomen/Pelvis W INDICATIONS: n/v CONTRAST: IV CONTRAST: Optiray 320 ml: 100 PO CONTRAST: *NO PO CONTRAST TECHNIQUE: After the administration of IV contrast, 5 mm thick sections acquired from the diaphragms to the symp hysis. 5 mm thick coronal and sagittal reformats were acquired. For radiation dose reduction, the f ollowing was used: automated exposure control, adjustment of mA and/or kV according to patient size. COMPARISON: 11/30/2019, 07/24/2018 FINDINGS: Image quality: Excellent. ABDOMEN: Lung bases: Lung bases are clear. Heart size is normal. A small hiatal hernia is incidentally note d. Solid organs: Liver and spleen are normal in size and enhancement. An accessory splenule is incide ntally noted along the posterior inferior aspect of the primary spleen. Gallbladder wall does not a ppear thickened. Biliary system is non dilated. Pancreas enhances normally. No adrenal nodules. Kidneys demonstrate normal size and enhancement, without hydronephrosis. Peritoneum and bowel: There is generalized wall thickening seen involving the entire colon, which is overall worst involving the cecum. No abscess is detected. No definite small bowel abnormality can be seen. The terminal ileum is unremarkable. No free fluid or air. A normal appendix is incidentally noted. Nodes and vessels: No retroperitoneal or mesenteric adenopathy by size criteria. Aorta and inferior vena cava are normal in size. Miscellaneous: No ventral hernias. PELVIS: Genitourinary: Bladder wall thickness is normal. Miscellaneous: No inguinal hernias or adenopathy. Bones: No suspicious bony lesions. No vertebral body compression fractures. IMPRESSION: Generalized wall thickening can be seen involving the colon, which is overall worst invo lving the cecum. The appearance is nonspecific. Please consider potential infectious and inflammatory causes, including C. difficile colitis. No findings of perforation or abscess can be seen. Normal appendix. Incidental note is made of: Small hiatal hernia Accessory splenule Reviewed by: Aron Seo MD on 10/27/2021 4:45 PM [facility] Approved by: Aron Seo MD on 10/27/2021 4:45 PM AKDT Station ID: [id number]
== END 2021-10-27 17:16 | disposition home or self-care (01) ==
LOC: EDUNIT# → ED 14:42
DX: R11.2 Nausea with vomiting, unspecified (principal); F12.288 Cannabis dependence with other cannabis-induced disorder; F17.200 Nicotine dependence, unspecified, uncomplicated
CPT/HCPCS: 36415; 74177; 80053; 80306; 81003; 83690; 85025; 96374; 96375; 96376; 99282; 99285; J1200; Q9967; 81001; 87086

== ENCOUNTER 2022-01-31 14:03 | Outpatient (CLI) | payer OTHER | END 2022-01-31 14:04 | disposition critical access hospital (66) | LOC: EMS 14:03 | DX: R10.33 Periumbilical pain (principal); R11.2 Nausea with vomiting, unspecified | CPT/HCPCS: A0425; A0427 ==

== ENCOUNTER 2022-01-31 14:24 | Emergency (ER) | payer OTHER ==
--- NOTE | 2022-01-31 14:30 | ED Physician Documentation ---
PD HPI ABD PAIN - Stated complaint Stated Complaint: ABD PX - Additional information Additional information: Patient is 31 yo M presenting with nausea, vomitting, and anxiety. Presents to the emergency department with report of numerous episodes of nonbloody nonbilious vomiting. States symptoms began shortly after leaving the emergency department 36 hours ago. Reports is actively using marijuana. Denied other substance abuse.States that he believes anxiety triggers his symptoms and he had a job interview today which is what he attributes this episode of nausea and vomiting. Review of Systems Ten Systems: 10 systems reviewed and negative Constitutional: denies: Fever Eyes: denies: Loss of vision Ears: denies: Loss of hearing Nose: denies: Rhinorrhea / runny nose Throat: denies: Dental pain / toothache Cardiac: denies: Chest pain / pressure GI: reports: Abdominal Pain, Nausea, Vomiting, Diarrhea PD PAST MEDICAL HISTORY - Past Medical History Cardiovascular: Pulmonary embolism Respiratory: Asthma Neuro: None Endocrine/Autoimmune: None GI: GERD, Other : None HEENT: None Psych: Depression, Anxiety, Panic attacks, Other Musculoskeletal: Other Derm: None - Past Surgical History Past Surgical History: Yes General: Colonoscopy, EGD Ortho: Shoulder arthroplasty, Other - Present Medications Home Medications: Ambulatory Orders Medication Instructions Recorded Confirmed Albuterol Sulfate [Proventil Hfa 1 - 2 puffs INH Q4H PRN #1 inhaler 01/15/18 10/14/21 Inhaler] busPIRone [Buspar] 30 mg PO DAILY 07/24/18 10/14/21 traZODone [Desyrel] 100 mg PO DAILY PM 07/24/18 10/14/21 chlorproMAZINE [Thorazine] 25 mg PO TID 03/09/20 10/14/21 Alprazolam [Xanax] 0.25 mg PO BID #10 tablet 06/08/21 10/14/21 Prochlorperazine Supp [Compazine 25 mg TN BID #10 supp 06/24/21 10/14/21 Supp] Ondansetron Odt [Zofran] 4 mg TL Q6H PRN #10 tablet 10/15/21 Prochlorperazine [Compazine] 5 mg PO Q6H #10 tablet 10/27/21 Metoclopramide [Reglan] 10 mg PO Q6H PRN #20 tablet 01/20/22 Ondansetron Odt [Zofran Odt] 4 mg TL Q6H PRN #10 tablet 02/02/22 Prochlorperazine Supp [Compazine 25 mg TN ONCE #5 supp 02/02/22 Supp] Promethazine [Phenergan] 25 mg PO Q6H PRN #10 tab 02/02/22 - Allergies Allergies/Adverse Reactions: Allergies Allergy/AdvReac Type Severity Reaction Status Date / Time methylphenidate Allergy Unknown Unknown Verified 01/31/22 14:31 [From Ritalin] - Social History Does the pt smoke?: Yes Smoking Status: Current every day smoker Does the pt drink ETOH?: Yes Does the pt have substance abuse?: Yes - Immunizations Immunizations are current?: Yes Immunizations: TDAP >10years/unknown - POLST Patient has POLST: No PD ED PE NORMAL - Vitals Vital signs reviewed: Yes - General General: Alert and oriented X 3, Other (Patient actively retching into emesis basin.). No: No acute distress - HEENT HEENT: Atraumatic - Neck Neck: Supple, no meningeal sign - Cardiac Cardiac: RRR - Respiratory Respiratory: No respiratory distress - Abdomen Abdomen: Normal bowel sounds, Soft, Non tender - Male Male : Deferred - Rectal Rectal: Deferred Results - Vitals Vitals: Oxygen O2 Source Room air - EKG (time done) 1527 Rate: Rate (enter#) (68) Rhythm: NSR [place]: Normal Intervals: Normal TN QRS: Normal Computer interpretation: Agree with computer - Labs Labs: Laboratory Tests 01/31/22 01/31/22 01/31/22 14:41 14:41 17:20 WBC 14.2 H RBC 5.34 Hgb 14.0 Hct 39.3 L MCV 73.6 L MCH 26.2 L MCHC 35.6 RDW 14.1 Plt Count 484 H MPV 8.9 Neut # (Auto) 12.0 H Lymph # (Auto) 1.6 [place] # (Auto) 0.3 Eos # (Auto) 0.1 Baso # (Auto) 0.0 Absolute Nucleated RBC 0.00 Nucleated RBC % 0.0 Sodium 136 Potassium 3.8 Chloride 101 Carbon Dioxide 26 Anion Gap 9.0 BUN 8 Creatinine 0.9 Estimated GFR (MDRD) 121 Glucose 111 H Calcium 9.5 Total Bilirubin 1.0 AST 17 ALT 18 Alkaline Phosphatase 62 Total Protein 7.8 Albumin 4.3 Globulin 3.5 Albumin/Globulin Ratio 1.2 Lipase 118 H Urine Color YELLOW Urine Clarity CLEAR Urine pH 7.0 Ur Specific [place] 1.020 Urine Protein NEGATIVE Urine Glucose (UA) NEGATIVE Urine Ketones TRACE Urine Occult Blood NEGATIVE Urine Nitrite NEGATIVE Urine Bilirubin NEGATIVE Urine Urobilinogen 0.2 (NORMAL) Ur Leukocyte Esterase NEGATIVE Ur Microscopic Review NOT INDICATED Urine Culture Comments NOT INDICATED Urine Opiates Screen NEGATIVE Ur Oxycodone Screen NEGATIVE Urine Methadone Screen NEGATIVE Ur Propoxyphene Screen NEGATIVE Ur Barbiturates Screen NEGATIVE Ur Tricyclics Screen NEGATIVE Ur Phencyclidine Scrn NEGATIVE Ur Amphetamine Screen NEGATIVE U Methamphetamines Scrn NEGATIVE U Benzodiazepines Scrn NEGATIVE Urine Cocaine Screen POSITIVE H U Cannabinoids Screen POSITIVE H PD MEDICAL DECISION MAKING - ED course Complexity details: reviewed results, re-evaluated patient, d/w patient ED course: Patient 31-year-old male presenting to the emergency department with nausea, vomiting and anxiety. Multiple similar ER evaluations for the same in the past. Daily marijuana user. Abdominal exam benign. Given Haldol, Benadryl and Ativan for symptomatic man agement. Reevaluated on multiple occasions and found to be resting comfortably and in no acute distress. Discharged home with strong encouragement to discontinue use of tetrahydrocannabinol-containing products. Subsequently also identified to have cocaine metabolites in his urine and was strongly encouraged to discontinue use of this illicit substance as well. Encourage careful follow-up with primary care and to return to the emergency department as needed. Departure - Departure Disposition: 01 Home, Self Care Clinical Impression: Cannabinoid hyperemesis syndrome, Cocaine abuse Comments: Thank you for allowing us to care for you today at [facility]. Extremely important that you discontinue use of both marijuana and cocaine. I believe that the frequent use of marijuana has been contributing to your multiple episodes of nausea, vomiting and chronic abdominal pain. You will continue to have the symptoms for as long as you continue to use marijuana or tetrahydrocannabinol-containing products. Cocaine is extremely dangerous, addictive and damaging to your body. Please follow-up with your primary care doctor soon as possible. Please take your previously prescribed medications on your last visit for ongoing symptoms. Please stay well-hydrated at home. If it anytime he have any new or worsening symptoms please not hesitate to return. Discharge Date/Time: 01/31/22 19:46
[2022-01-31 14:45] LABS: BASOPHILS % (AUTO) 0.3 %; EOSINOPHILS # (AUTO) 0.1 10^3/uL (0.0-0.7); EOSINOPHILS % (AUTO) 0.7 %; HCT - HEMATOCRIT 39.3 % (42.0-52.0); LYMPHOCYTES # (AUTO) 1.6 10^3/uL (1.5-3.5); LYMPHOCYTES % (AUTO) 11.2 %; MEAN CORPUSCULAR HEMOGLOBIN 26.2 pg (27.0-31.0); MEAN CORPUSCULAR HGB CONC 35.6 g/dL (32.0-36.0); MEAN CORPUSCULAR VOLUME 73.6 fL (80.0-94.0); MEAN PLATELET VOLUME 8.9 fL (7.4-11.4); MONOCYTES # (AUTO) 0.3 10^3/uL (0.0-1.0); MONOCYTES % (AUTO) 2.4 %; PLT - PLATELET COUNT 484 10^3/uL (130-450); RED BLOOD COUNT 5.34 10^6/uL (4.70-6.10); RED CELL DISTRIBUTION WIDTH 14.1 % (12.0-15.0); WHITE BLOOD COUNT 14.2 x10^3/uL (4.8-10.8)
[2022-01-31 14:58] LABS: ALBUMIN 4.3 g/dL (3.2-5.5); ALBUMIN/GLOBULIN RATIO 1.2 (1.0-2.2); CALCIUM 9.5 mg/dL (8.5-10.3); CREATININE 0.9 mg/dL (0.6-1.2); POTASSIUM 3.8 mmol/L (3.5-5.0); TOTAL PROTEIN 7.8 g/dL (6.7-8.2)
[2022-01-31] MEDS ORDERED: SODIUM CHLORIDE 0.9% 2,000 ML IV STA (15:06)
[2022-01-31] MEDS ORDERED: HALOPERIDOL 5 MG/ML VIAL IVP STA (15:06)
[2022-01-31] MEDS ORDERED: diphenhydrAMINE INJ 50 MG/ML VIAL IVP STA (15:07)
[2022-01-31] MEDS ORDERED: LORazepam 2 MG/ML VIAL IVP STA (17:21)
[2022-01-31 17:25] LABS: MUDS CUTOFF CONCENTRATIONS CUTOFF CONC BELOW:
[2022-01-31 17:29] LABS: BILIRUBIN,URINE NEGATIVE (NEGATIVE); GLUCOSE, URINE (UA) NEGATIVE (NEGATIVE); KETONES,URINE (UA) TRACE mg/dL (NEGATIVE); LEUKOCYTE ESTERASE, URINE NEGATIVE (NEGATIVE); NITRITE,URINE NEGATIVE (NEGATIVE); OCCULT BLOOD,URINE NEGATIVE (NEGATIVE); PROTEIN,URINE NEGATIVE (NEGATIVE); UROBILINOGEN,URINE 0.2 (NORMAL) E.U./dL (NORMAL)
[2022-01-31 17:40] LABS: CLARITY,URINE CLEAR (CLEAR); COCAINE SCREEN URINE POSITIVE (NEGATIVE); METHAMPHETAMINES SCREEN, URINE NEGATIVE (NEGATIVE); OPIATE SCREEN, URINE NEGATIVE (NEGATIVE); THC CANNABINOID SCREEN, URINE POSITIVE (NEGATIVE)
[2022-01-31 17:41] LABS: AMPHETAMINE SCREEN,URINE NEGATIVE (NEGATIVE); BARBITURATE SCREEN,UR NEGATIVE (NEGATIVE); BENZODIAZEPINES SCREEN, URINE NEGATIVE (NEGATIVE); METHADONE SCREEN, URINE NEGATIVE (NEGATIVE); OXYCODONE SCREEN, URINE NEGATIVE (NEGATIVE); PROPOXYPHENE SCREEN, URINE NEGATIVE (NEGATIVE); TRICYCLIC ANTIDEPRESSANT,URINE NEGATIVE (NEGATIVE)
[2022-01-31] MEDS ORDERED: oxyCODONE 5 MG TABLET PO STA (18:22)
[2022-01-31 19:26] VITALS: BP 126/76
== END 2022-01-31 19:46 | disposition home or self-care (01) ==
LOC: EDUNIT# → ED 14:24
DX: F14.10 Cocaine abuse, uncomplicated (principal); R11.2 Nausea with vomiting, unspecified; F17.200 Nicotine dependence, unspecified, uncomplicated
CPT/HCPCS: 36415; 80053; 80306; 81003; 83690; 85025; 93005; 96374; 96375; 99283; 99284; J1200; J2060; 81001; 87086

== ENCOUNTER 2022-02-02 18:18 | Outpatient (CLI) | payer OTHER | END 2022-02-02 18:19 | disposition critical access hospital (66) | LOC: EMS 18:18 | DX: R11.2 Nausea with vomiting, unspecified (principal); F41.0 Panic disorder [episodic paroxysmal anxiety] | CPT/HCPCS: A0425; A0427 ==

== ENCOUNTER 2022-02-02 18:37 | Emergency (ER) | payer OTHER ==
[2022-02-02 19:01] VITALS: BP 146/85
[2022-02-02] MEDS ORDERED: HALOPERIDOL 5 MG/ML VIAL IVP STA ×2 (19:18→22:31)
[2022-02-02 19:37] LABS: BASOPHILS # (AUTO) 0.1 10^3/uL (0.0-0.1); BASOPHILS % (AUTO) 0.6 %; EOSINOPHILS # (AUTO) 0.1 10^3/uL (0.0-0.7); LYMPHOCYTES # (AUTO) 1.8 10^3/uL (1.5-3.5); LYMPHOCYTES % (AUTO) 14.3 %; MEAN CORPUSCULAR HEMOGLOBIN 26.2 pg (27.0-31.0); MEAN CORPUSCULAR HGB CONC 35.9 g/dL (32.0-36.0); MEAN CORPUSCULAR VOLUME 72.9 fL (80.0-94.0); MEAN PLATELET VOLUME 9.1 fL (7.4-11.4); MONOCYTES # (AUTO) 0.4 10^3/uL (0.0-1.0); MONOCYTES % (AUTO) 3.1 %; NEUTROPHILS # (AUTO) 10.3 10^3/uL (1.5-6.6); NEUTROPHILS % (AUTO) 80.8 %; PLT - PLATELET COUNT 448 10^3/uL (130-450); RED BLOOD COUNT 5.35 10^6/uL (4.70-6.10); RED CELL DISTRIBUTION WIDTH 14.1 % (12.0-15.0); WHITE BLOOD COUNT 12.7 x10^3/uL (4.8-10.8)
[2022-02-02 19:45] LABS: ALBUMIN/GLOBULIN RATIO 1.2 (1.0-2.2); BILIRUBIN,TOTAL 1.3 mg/dL (0.2-1.0); CALCIUM 9.4 mg/dL (8.5-10.3); POTASSIUM 3.9 mmol/L (3.5-5.0); TOTAL PROTEIN 7.4 g/dL (6.7-8.2)
[2022-02-02] MEDS ORDERED: SODIUM CHLORIDE 0.9% 1,000 ML IV STA (19:45)
[2022-02-02] MEDS ORDERED: DICYCLOMINE 10 MG CAPSULE PO STA (19:46)
[2022-02-02] MEDS ORDERED: HALOPERIDOL 5 MG/ML VIAL IM STA (21:33)
--- NOTE | 2022-02-02 23:07 | ED Physician Documentation ---
History of Present Illness - Stated complaint Stated Complaint: ANXIETY, MED REFILL - Chief complaint Chief Complaint: MHE - History obtained from History obtained from: Patient - History of Present Illness Timing: How many weeks ago (2) - Additonal information Additional information: 31-year-old male with history of cyclic vomiting, anxiety presents for anxiety and vomiting. Symptoms have been present for the last 2 weeks, worse today. Patient has been out of his medications and does not remember the name of his medications because they have been lost. Patient endorses marijuana use, denies recent marijuana use, however does state that this is similar to his cyclic vomiting. Endorses midepigastric abdominal cramping. Denies fevers, chills, diarrhea, alcohol use, other complaints at this time. Review of Systems Ten Systems: 10 systems reviewed and negative Constitutional: denies: Fever, Chills GI: reports: Abdominal Pain, Nausea, Vomiting. denies: Abdominal Swelling, Constipation, Diarrhea : denies: Dysuria, Frequency PD PAST MEDICAL HISTORY - Past Medical History Past Medical History: Yes Cardiovascular: Pulmonary embolism Respiratory: Asthma Neuro: None Endocrine/Autoimmune: None GI: GERD, Other : None HEENT: None Psych: Depression, Anxiety, Panic attacks, Other Musculoskeletal: Other Derm: None - Past Surgical History Past Surgical History: Yes General: Colonoscopy, EGD Ortho: Shoulder arthroplasty, Other - Present Medications Home Medications: Ambulatory Orders Medication Instructions Recorded Confirmed Albuterol Sulfate [Proventil Hfa 1 - 2 puffs INH Q4H PRN #1 inhaler 01/15/18 10/14/21 Inhaler] busPIRone [Buspar] 30 mg PO DAILY 07/24/18 10/14/21 traZODone [Desyrel] 100 mg PO DAILY PM 07/24/18 10/14/21 chlorproMAZINE [Thorazine] 25 mg PO TID 03/09/20 10/14/21 Alprazolam [Xanax] 0.25 mg PO BID #10 tablet 06/08/21 10/14/21 Prochlorperazine Supp [Compazine 25 mg PA BID #10 supp 06/24/21 10/14/21 Supp] Ondansetron Odt [Zofran] 4 mg TL Q6H PRN #10 tablet 10/15/21 Prochlorperazine [Compazine] 5 mg PO Q6H #10 tablet 10/27/21 Metoclopramide [Reglan] 10 mg PO Q6H PRN #20 tablet 01/20/22 Ondansetron Odt [Zofran Odt] 4 mg TL Q6H PRN #10 tablet 02/02/22 Prochlorperazine Supp [Compazine 25 mg PA ONCE #5 supp 02/02/22 Supp] Promethazine [Phenergan] 25 mg PO Q6H PRN #10 tab 02/02/22 - Allergies Allergies/Adverse Reactions: Allergies Allergy/AdvReac Type Severity Reaction Status Date / Time methylphenidate Allergy Unknown Unknown Verified 01/31/22 14:31 [From Ritalin] - Social History Does the pt smoke?: Yes Smoking Status: Current every day smoker Does the pt drink ETOH?: Yes Does the pt have substance abuse?: Yes - Immunizations Immunizations are current?: Yes Immunizations: TDAP >10years/unknown - POLST Patient has POLST: No PD ED PE NORMAL - Vitals Vital signs reviewed: Yes - General General: Alert and oriented X 3, Well developed/nourished, Other (uncomfortable, tearful) - HEENT HEENT: Atraumatic, PERRL, EOMI, Ears normal - Neck Neck: Supple, no meningeal sign, No bony TTP, C-Spine cleared by NEXUS criteria - Cardiac Cardiac: RRR, No murmur, Strong equal pulses - Respiratory Respiratory: No respiratory distress, Clear bilaterally - Abdomen Abdomen: Soft, Non distended, No organomegaly, Other (midepigastric TTP without rebound or guarding) - Back Back: No CVA TTP, No spinal TTP - Derm Derm: Normal color, Warm and dry, No rash - Extremities Extremities: No deformity, No tenderness to palpate, Normal ROM s pain, No edema - Neuro Neuro: Alert and oriented X 3, roll plugger 2-12 intact, No motor deficit, No sensory deficit, Normal speech - Psych Psych: Normal affect Results - Vitals Vitals: Vital Signs - 24 hr 02/02/22 02/02/22 02/02/22 18:55 18:58 20:58 Temperature 37.5 C 37.5 C Heart Rate 79 79 86 Respiratory 16 16 20 Rate Blood Pressure 146/85 H 146/85 H O2 Saturation 96 96 100 02/02/22 23:27 Temperature 37.5 C Heart Rate 86 Respiratory 20 Rate Blood Pressure 146/85 H O2 Saturation 100 Oxygen O2 Source Room air - Labs Labs: Laboratory Tests 02/02/22 02/02/22 19:27 19:27 WBC 12.7 H RBC 5.35 Hgb 14.0 Hct 39.0 L MCV 72.9 L MCH 26.2 L MCHC 35.9 RDW 14.1 Plt Count 448 MPV 9.1 Neut # (Auto) 10.3 H Lymph # (Auto) 1.8 [place] # (Auto) 0.4 Eos # (Auto) 0.1 Baso # (Auto) 0.1 Absolute Nucleated RBC 0.00 Nucleated RBC % 0.0 Sodium 137 Potassium 3.9 Chloride 103 Carbon Dioxide 27 Anion Gap 7.0 BUN 7 Creatinine 1.0 Estimated GFR (MDRD) 107 Glucose 104 H Calcium 9.4 Total Bilirubin 1.3 H AST 14 ALT 14 Alkaline Phosphatase 64 Total Protein 7.4 Albumin 4.0 Globulin 3.4 Albumin/Globulin Ratio 1.2 Lipase 81 H PD MEDICAL DECISION MAKING - ED course Complexity details: reviewed results, re-evaluated patient ED course: Patient presenting for flareup of his cyclic vomiting, denies recent marijuana use. Abdomen soft. Vital signs stable. Symptoms have been ongoing for several weeks, worse today. Will give Haldol, IV fluids and will reassess Labs are unremarkable. Patient will be sleeping in exam room, however when woken to attempt p.o. challenge he begins to retch and vomit noisily. We will give additional Haldol and will reassess. Patient was finally able to tolerate fluids and crackers after second dose of Haldol. Patient was counseled on the importance of marijuana cessation to avoid worsening his cyclic vomiting. Nausea medication sent to pharmacy. Departure - Departure Disposition: 01 Home, Self Care Clinical Impression: Cyclical vomiting Condition: Stable Instructions: Diet Clear Liquid Dc, ED Diet Vomiting Diarrhea Prescriptions: Prochlorperazine Supp [Compazine Supp] 25 mg PA ONCE #5 supp Promethazine [Phenergan] 25 mg PO Q6H PRN #10 tab PRN Reason: Nausea / Vomiting Ondansetron Odt [Zofran Odt] 4 mg TL Q6H PRN #10 tablet PRN Reason: Nausea / Vomiting Discharge Date/Time: 02/02/22 23:37
== END 2022-02-02 23:37 | disposition home or self-care (01) ==
LOC: ED 18:37
DX: R11.15 Cyclical vomiting syndrome unrelated to migraine (principal); F17.200 Nicotine dependence, unspecified, uncomplicated
CPT/HCPCS: 36415; 80053; 83690; 85025; 96374; 96376; 99284; A9270

== ENCOUNTER 2022-03-24 12:26 | Outpatient (CLI) | payer OTHER | END 2022-03-24 12:27 | disposition critical access hospital (66) | LOC: EMS 12:26 | DX: R11.10 Vomiting, unspecified (principal); R10.9 Unspecified abdominal pain | CPT/HCPCS: A0425; A0429 ==

== ENCOUNTER 2022-04-05 06:25 | Emergency (ER) | payer OTHER ==
[2022-04-05] MEDS ORDERED: SODIUM CHLORIDE 0.9% 1,000 ML IV STA (06:52)
--- NOTE | 2022-04-05 06:59 | ED Physician Documentation ---
PD HPI NVD - Stated complaint Stated Complaint: ABD PX/VOMITING - Chief complaint Chief Complaint: Abd Pain - History obtained from History obtained from: Patient - History of Present Illness Timing - onset: Today, Last night Timing - duration: Hours (12) Timing - details: Abrupt onset, Still present Associated symptoms: Abdominal pain (upper abd), Loss of appetite, Other (nausea and vomiting without diarrhea.). No: Fever, Chest pain Contributing factors: Alcohol use, Other (regular cannibis use.). No: Sick contact, Bad food, Recent antibiotics Improved by: No: Laying still, Vomiting Worsened by: Eating, Palpation. No: Breathing Similar symptoms before: Diagnosis (cyclic vomiting, presumed cannibis mediated.) Recently seen: Emergency Dept, Admitted Review of Systems Constitutional: denies: Fever, Chills Nose: denies: Rhinorrhea / runny nose, Congestion Throat: denies: Sore throat Cardiac: denies: Chest pain / pressure Respiratory: denies: Cough GI: reports: Abdominal Pain, Nausea, Vomiting. denies: Diarrhea, Hematemesis : denies: Dysuria, Frequency Skin: denies: Rash, Lesions Neurologic: reports: Generalized weakness, Headache. denies: Focal weakness, Numbness, Near syncope, Altered mental status PD PAST MEDICAL HISTORY - Past Medical History Cardiovascular: Pulmonary embolism Respiratory: Asthma Neuro: None Endocrine/Autoimmune: None GI: GERD, Other : None HEENT: None Psych: Depression, Anxiety, Panic attacks, Other Musculoskeletal: Other Derm: None - Past Surgical History Past Surgical History: Yes General: Colonoscopy, EGD Ortho: Shoulder arthroplasty, Other - Present Medications Home Medications: Ambulatory Orders Medication Instructions Recorded Confirmed busPIRone [Buspar] 30 mg PO DAILY 07/24/18 03/25/22 traZODone [Desyrel] 100 mg PO DAILY PM 07/24/18 03/25/22 Alprazolam [Xanax] 0.25 mg PO BID PRN 03/25/22 03/25/22 Gabapentin [Neurontin] 100 mg PO TID 03/25/22 03/25/22 Omeprazole Magnesium 20 mg PO DAILY 03/25/22 03/25/22 Propranolol [Inderal] 10 mg PO BID 03/25/22 03/25/22 Promethazine Supp [Phenergan Supp] 25 mg [place] Q6H PRN #15 supp 04/05/22 Promethazine [Phenergan] 25 mg PO Q6H PRN #25 tab 04/05/22 haloperidoL [Haloperidol] 5 mg PO QPM #20 tablet 04/05/22 - Allergies Allergies/Adverse Reactions: Allergies Allergy/AdvReac Type Severity Reaction Status Date / Time methylphenidate Allergy Unknown Unknown Verified 04/05/22 06:48 [From Ritalin] - Social History Does the pt smoke?: Yes Smoking Status: Current every day smoker Does the pt drink ETOH?: Yes Does the pt have substance abuse?: Yes - Immunizations Immunizations are current?: Yes Immunizations: TDAP >10years/unknown - POLST Patient has POLST: No PD ED PE NORMAL - Vitals Vital signs reviewed: Yes - General General: Alert and oriented X 3, Well developed/nourished, Other (appears very uncomfortable due to abd pain and nausea, holding emesis bag with dry heaving. ) - HEENT HEENT: PERRL, EOMI (nonicteric). No: Moist mucous membranes - Neck Neck: Supple, no meningeal sign, No adenopathy - Cardiac Cardiac: No murmur. No: RRR (regular but tachycardic) - Respiratory Respiratory: Clear bilaterally - Abdomen Abdomen: Soft, Non distended, No organomegaly, Other (very tender with guarding but no percussion tenderness in mid to upper/epigastric abdomen. ). No: Normal bowel sounds (increased) - Male Male : Deferred - Rectal Rectal: Deferred - Back Back: No CVA TTP - Derm Derm: Normal color, Warm and dry - Extremities Extremities: No edema, No calf tenderness / cord - Neuro Neuro: Alert and oriented X 3, No motor deficit, Normal speech Results - Vitals Vitals: Vital Signs - 24 hr 04/05/22 04/05/22 06:34 08:42 Temperature 37.3 C Heart Rate 111 H 87 Respiratory 24 17 Rate Blood Pressure 154/114 H 152/90 H O2 Saturation 98 99 Oxygen O2 Source Room air - Labs Labs: Laboratory Tests 04/05/22 04/05/22 04/05/22 07:00 07:00 07:03 WBC 11.6 H RBC 5.85 Hgb 15.6 Hct 42.0 MCV 71.8 L MCH 26.7 L MCHC 37.1 H RDW 14.6 Plt Count 456 H MPV 9.8 Neut # (Auto) 7.2 H Lymph # (Auto) 3.6 H [place] # (Auto) 0.8 Eos # (Auto) 0.0 Baso # (Auto) 0.0 Absolute Nucleated RBC 0.00 Nucleated RBC % 0.0 Sodium 134 L Potassium 3.6 Chloride 101 Carbon Dioxide 17 L Anion Gap 16.0 H BUN 14 Creatinine 0.9 Estimated GFR (MDRD) 120 Glucose 120 H Calcium 9.8 Magnesium 1.9 Total Bilirubin 2.6 H AST 20 ALT 14 Alkaline Phosphatase 66 Total Protein 8.4 H Albumin 4.7 Globulin 3.7 Albumin/Globulin Ratio 1.3 Lipase 60 H PD MEDICAL DECISION MAKING - ED course Complexity details: reviewed old records, re-evaluated patient (He is feeling well improved and able to take sips of fluids. He requests discharge. He does seem to have reasonable improvement with droperidol today and in the past. We discussed oral haloperidol as an antiemetic daily and he is willing to try it.), considered differential (similar to many prior episodes, presumed cannibis hyperemesis. He denies desire to quit cannibis. ), d/w patient Departure - Departure Disposition: 01 Home, Self Care Clinical Impression: Cyclical vomiting Condition: Stable Record reviewed to determine appropriate education?: Yes Instructions: ED Nausea Vomiting Follow-Up: Di Kang MD [Primary Care Provider] - Prescriptions: haloperidoL [Haloperidol] 5 mg PO QPM #20 tablet Promethazine [Phenergan] 25 mg PO Q6H PRN #25 tab PRN Reason: Nausea / Vomiting Promethazine Supp [Phenergan Supp] 25 mg [place] Q6H PRN #15 supp PRN Reason: Nausea / Vomiting Comments: Small frequent fluids. Avoid cannabis. Regular diet. Use promethazine orally every 6-8 hours if needed for nausea or suppository version if needed for nausea and vomiting. You do seem to get improvement with a nausea medicine here called droperidol. Its not available in a pill version but is similar to oh another medication called haloperidol that is available orally. This can act as a antiemetic (treating vomiting). You could try taking that orally daily for the next 2 to 3 weeks and just see if you have less symptoms and less episodes in that timeframe. I sent your prescriptions to [facility] pharmacy in [place]. Discharge Date/Time: 04/05/22 08:53
[2022-04-05] MEDS ORDERED: DROPERIDOL 5 MG/2 ML VIAL IVP STA (07:02)
[2022-04-05] MEDS ORDERED: KETOROLAC 15 MG/ML VIAL IVP STA (07:02)
[2022-04-05] MEDS ORDERED: LORazepam 2 MG/ML VIAL IVP STA (07:03)
[2022-04-05 07:16] LABS: BASOPHILS % (AUTO) 0.3 %; EOSINOPHILS % (AUTO) 0.1 %; HGB - HEMOGLOBIN 15.6 g/dL (14.0-18.0); LYMPHOCYTES # (AUTO) 3.6 10^3/uL (1.5-3.5); LYMPHOCYTES % (AUTO) 30.6 %; MEAN CORPUSCULAR HEMOGLOBIN 26.7 pg (27.0-31.0); MEAN CORPUSCULAR HGB CONC 37.1 g/dL (32.0-36.0); MEAN CORPUSCULAR VOLUME 71.8 fL (80.0-94.0); MEAN PLATELET VOLUME 9.8 fL (7.4-11.4); MONOCYTES # (AUTO) 0.8 10^3/uL (0.0-1.0); MONOCYTES % (AUTO) 6.6 %; NEUTROPHILS # (AUTO) 7.2 10^3/uL (1.5-6.6); NEUTROPHILS % (AUTO) 62.1 %; PLT - PLATELET COUNT 456 10^3/uL (130-450); RED BLOOD COUNT 5.85 10^6/uL (4.70-6.10); RED CELL DISTRIBUTION WIDTH 14.6 % (12.0-15.0); WHITE BLOOD COUNT 11.6 x10^3/uL (4.8-10.8)
[2022-04-05 07:18] LABS: ALBUMIN 4.7 g/dL (3.2-5.5); ALBUMIN/GLOBULIN RATIO 1.3 (1.0-2.2); BILIRUBIN,TOTAL 2.6 mg/dL (0.2-1.0); CALCIUM 9.8 mg/dL (8.5-10.3); CREATININE 0.9 mg/dL (0.6-1.2); POTASSIUM 3.6 mmol/L (3.5-5.0); TOTAL PROTEIN 8.4 g/dL (6.7-8.2)
[2022-04-05 08:42] VITALS: BP 152/90
== END 2022-04-05 08:53 | disposition home or self-care (01) ==
LOC: ED 06:25
DX: R11.15 Cyclical vomiting syndrome unrelated to migraine (principal); F17.200 Nicotine dependence, unspecified, uncomplicated
CPT/HCPCS: 36415; 80053; 83690; 83735; 85025; 96374; 96375; 99283; 99284; J2060

== ENCOUNTER 2022-04-25 12:30 | Outpatient (CLI) | payer OTHER | END 2022-04-25 12:31 | disposition critical access hospital (66) | LOC: EMS 12:30 | DX: R11.15 Cyclical vomiting syndrome unrelated to migraine (principal); R10.817 Generalized abdominal tenderness | CPT/HCPCS: A0425; A0427 ==

== ENCOUNTER 2022-04-25 12:50 | Emergency (ER) | payer OTHER ==
--- NOTE | 2022-04-25 13:20 | ED Physician Documentation ---
PD HPI NVD - Stated complaint Stated Complaint: VOMITTING - Chief complaint Chief Complaint: Abd Pain - History obtained from History obtained from: Patient - History of Present Illness Timing - onset: Yesterday (onset last evening of nausea and vomitnig with abd cramps, unrelieved with phenergan suppository. he states somewhat less symptoms and frequency with recent daily haldol po dosing. But still having similar episodes presumed cannibis related hyperemesis.) Timing - details: Abrupt onset, Still present Associated symptoms: Abdominal pain (cramping, mostly upper.), Loss of appetite. No: Fever, Near syncope / syncope Contributing factors: Other (cannibis use). No: Sick contact, Bad food, Travel Improved by: No: Vomiting Worsened by: Eating, Palpation Similar symptoms before: Diagnosis (hyperemeisis with frequent er visits.) Recently seen: Emergency Dept Review of Systems Constitutional: denies: Fever, Chills Ears: reports: Ear pain (left for few days) Nose: reports: Rhinorrhea / runny nose, Congestion Throat: denies: Sore throat Respiratory: denies: Cough : denies: Dysuria, Frequency Skin: denies: Rash, Lesions PD PAST MEDICAL HISTORY - Past Medical History Past Medical History: Yes Cardiovascular: Pulmonary embolism Respiratory: Asthma Neuro: None Endocrine/Autoimmune: None GI: GERD, Other : None HEENT: None Psych: Depression, Anxiety, Panic attacks, Other Musculoskeletal: Other Derm: None - Past Surgical History Past Surgical History: Yes General: Colonoscopy, EGD Ortho: Shoulder arthroplasty, Other - Present Medications Home Medications: Ambulatory Orders Medication Instructions Recorded Confirmed busPIRone [Buspar] 30 mg PO DAILY 07/24/18 03/25/22 traZODone [Desyrel] 100 mg PO DAILY PM 07/24/18 03/25/22 Alprazolam [Xanax] 0.25 mg PO BID PRN 03/25/22 03/25/22 Gabapentin [Neurontin] 100 mg PO TID 03/25/22 03/25/22 Omeprazole Magnesium 20 mg PO DAILY 03/25/22 03/25/22 Propranolol [Inderal] 10 mg PO BID 03/25/22 03/25/22 Promethazine Supp [Phenergan Supp] 25 mg OR Q6H PRN #15 supp 04/05/22 Promethazine [Phenergan] 25 mg PO Q6H PRN #25 tab 04/05/22 haloperidoL [Haloperidol] 5 mg PO QPM #20 tablet 04/05/22 Amoxicillin 500 mg PO TID #20 cap 04/25/22 Cetirizine [ZyrTEC] 10 mg PO DAILY #15 tablet 04/25/22 Promethazine Supp [Phenergan Supp] 25 mg OR Q6H PRN #10 supp 04/25/22 - Allergies Allergies/Adverse Reactions: Allergies Allergy/AdvReac Type Severity Reaction Status Date / Time methylphenidate Allergy Unknown Unknown Verified 04/25/22 12:56 [From Ritalin] - Social History Does the pt smoke?: Yes Smoking Status: Current every day smoker Does the pt drink ETOH?: Yes Does the pt have substance abuse?: Yes - Immunizations Immunizations are current?: Yes Immunizations: TDAP >10years/unknown - POLST Patient has POLST: No PD ED PE NORMAL - Vitals Vital signs reviewed: Yes - General General: Alert and oriented X 3, Well developed/nourished, Other (appears in distress due to nausea and having dry heaving at time of exam. ) - HEENT HEENT: Pharynx benign. No: Ears normal (right is okay. left tm with redness and fluid bulging. No perforation. canal is normal. ), Moist mucous membranes - Neck Neck: Supple, no meningeal sign, No adenopathy - Cardiac Cardiac: RRR, No murmur - Respiratory Respiratory: Clear bilaterally - Abdomen Abdomen: Soft, Non distended, No organomegaly, Other (tender upper abd with some guarding. ) - Back Back: No CVA TTP - Derm Derm: Normal color, Warm and dry, No rash - Neuro Neuro: Alert and oriented X 3, No motor deficit, Normal speech Results - Vitals Vitals: Oxygen O2 Source Room air PD MEDICAL DECISION MAKING - ED course Complexity details: re-evaluated patient (The patient seems to improve well on the combination of IV fluids with droperidol, Toradol, lorazepam. He had good relief with this combination again today and is feeling able to be discharged.), considered differential (Symptoms typical of his hyperemesis episodes, presume from cannabis. Recent head cold and has apparent left otitis media today as well.), d/w patient Departure - Departure Disposition: 01 Home, Self Care Clinical Impression: Cannabinoid hyperemesis syndrome Otitis media Qualifiers: Otitis media type: suppurative Chronicity: acute Laterality: left Recurrence: non-recurrent Spontaneous tympanic membrane rupture: without spontaneous rupture Qualified Code(s): H66.002 - Acute suppurative otitis media without spontaneous rupture of ear drum, left ear Condition: Stable Record reviewed to determine appropriate education?: Yes Instructions: ED Otitis Media Acute Adult Follow-Up: Di Kang MD [Primary Care Provider] - Prescriptions: Amoxicillin 500 mg PO TID #20 cap Promethazine Supp [Phenergan Supp] 25 mg OR Q6H PRN #10 supp PRN Reason: Nausea / Vomiting Cetirizine [ZyrTEC] 10 mg PO DAILY #15 tablet Comments: Continue with your usual medications at home. Regular diet as tolerated. I wrote a prescription for more Phenergan suppositories if needed. You also have an apparent ear infection on the left. We will treat this with antihistamine and antibiotic to help with the fluid collection and infection. Tylenol every 4-6 hours if needed for pain. I sent your prescriptions to [facility] in [place]. Discharge Date/Time: 04/25/22 15:48
[2022-04-25] MEDS ORDERED: LORazepam 2 MG/ML VIAL IVP STA (13:44)
[2022-04-25] MEDS ORDERED: DROPERIDOL 5 MG/2 ML VIAL IVP STA (13:44)
[2022-04-25] MEDS ORDERED: SODIUM CHLORIDE 0.9% 1,000 ML IV STA (13:44)
[2022-04-25] MEDS ORDERED: KETOROLAC 15 MG/ML VIAL IVP STA (13:45)
[2022-04-25 15:07] VITALS: BP 145/99
[2022-04-25] MEDS ORDERED: AMOXICILLIN 250 MG CAPSULE PO STA (15:38)
== END 2022-04-25 15:48 | disposition home or self-care (01) ==
LOC: EDUNIT# → ED 12:50
DX: H66.002 Acute suppurative otitis media without spontaneous rupture of ear drum, left ear (principal); R11.2 Nausea with vomiting, unspecified; F12.988 Cannabis use, unspecified with other cannabis-induced disorder; F17.200 Nicotine dependence, unspecified, uncomplicated
CPT/HCPCS: 99283; 99284; A9270; J2060

== ENCOUNTER 2022-05-02 22:58 | Emergency (ER) | payer OTHER ==
[2022-05-02] MEDS ORDERED: LORazepam 2 MG/ML VIAL IVP STA (23:28)
[2022-05-02] MEDS ORDERED: SODIUM CHLORIDE 0.9% 1,000 ML IV STA (23:28)
[2022-05-02] MEDS ORDERED: DROPERIDOL 5 MG/2 ML VIAL IVP STA (23:29)
[2022-05-02] MEDS ORDERED: KETOROLAC 15 MG/ML VIAL IVP STA (23:29)
[2022-05-03 00:03] LABS: ALBUMIN 4.5 g/dL (3.2-5.5); ALBUMIN/GLOBULIN RATIO 1.1 (1.0-2.2); BILIRUBIN,TOTAL 1.1 mg/dL (0.2-1.0); CALCIUM 9.8 mg/dL (8.5-10.3); CREATININE 1.1 mg/dL (0.6-1.2); POTASSIUM 3.4 mmol/L (3.5-5.0); TOTAL PROTEIN 8.7 g/dL (6.7-8.2)
--- NOTE | 2022-05-03 00:30 | ED Physician Documentation ---
PD HPI NVD - Stated complaint Stated Complaint: VOMIT/ANXIETY - Chief complaint Chief Complaint: Abd Pain - History obtained from History obtained from: Patient - History of Present Illness Timing - onset: Enter time (09:00), Today Timing - details: Abrupt onset Associated symptoms: No: Fever, Abdominal pain Worsened by: Eating (PO intake worsens symptoms) Recently seen: Emergency Dept (earlier this month for same) - Additonal information Additional information: c/o nausea, vomiting since 9 AM with anxiety. Denies fever, denies abdominal pain aside from mild epigastric discomfort which he says is due to recurrent vomiting. This is his twentieth [facility] ED visit over past 12 months for these symptoms. He has many previous visits (beyond 12 months ago), often for similar / same symptoms. No specific etiology found , some records suspect [facility] PAST MEDICAL HISTORY - Past Medical History Past Medical History: Yes Cardiovascular: Pulmonary embolism Respiratory: Asthma Neuro: None Endocrine/Autoimmune: None GI: GERD, Other : None HEENT: None Psych: Depression, Anxiety, Panic attacks, Other Musculoskeletal: Other Derm: None - Past Surgical History Past Surgical History: Yes General: Colonoscopy, EGD Ortho: Shoulder arthroplasty, Other - Present Medications Home Medications: Ambulatory Orders Medication Instructions Recorded Confirmed Propranolol [Inderal] 10 mg PO BID 03/25/22 03/25/22 Promethazine Supp [Phenergan Supp] 25 mg AK Q6H PRN #15 supp 04/05/22 Promethazine [Phenergan] 25 mg PO Q6H PRN #25 tab 04/05/22 haloperidoL [Haloperidol] 5 mg PO QPM #20 tablet 04/05/22 Amoxicillin 500 mg PO TID #20 cap 04/25/22 Cetirizine [ZyrTEC] 10 mg PO DAILY #15 tablet 04/25/22 Promethazine Supp [Phenergan Supp] 25 mg AK Q6HR PRN #8 supp 05/03/22 Promethazine [Phenergan] 25 mg PO Q6H PRN #10 tab 05/03/22 haloperidoL [Haloperidol] 5 mg PO QPM #14 tablet 05/03/22 - Allergies Allergies/Adverse Reactions: Allergies Allergy/AdvReac Type Severity Reaction Status Date / Time methylphenidate Allergy Unknown Unknown Verified 05/02/22 23:02 [From Ritalin] - Social History Does the pt smoke?: Yes Smoking Status: Current every day smoker Does the pt drink ETOH?: Yes Does the pt have substance abuse?: Yes - Immunizations Immunizations are current?: Yes Immunizations: TDAP >10years/unknown - POLST Patient has POLST: No PD ED PE NORMAL - Vitals Vital signs reviewed: Yes - General General: Alert and oriented X 3, Well developed/nourished, Other (appears uncomfortable during H+P, wretching/"dry heaving" at times during evaluation) - HEENT HEENT: Other (tacky/pasty mucous membranes) - Cardiac Cardiac: RRR, No murmur - Respiratory Respiratory: No respiratory distress, Clear bilaterally - Abdomen Abdomen: Soft, Non tender Results - Vitals Vitals: Oxygen O2 Source Room air - Labs Labs: Laboratory Tests 05/02/22 23:40 Sodium 137 Potassium 3.4 L Chloride 99 L Carbon Dioxide 21 Anion Gap 17.0 H BUN 10 Creatinine 1.1 Estimated GFR (MDRD) 95 Glucose 112 H Calcium 9.8 Total Bilirubin 1.1 H AST 18 ALT 15 Alkaline Phosphatase 66 Total Protein 8.7 H Albumin 4.5 Globulin 4.2 Albumin/Globulin Ratio 1.1 Lipase 47 PD MEDICAL DECISION MAKING - ED course Complexity details: reviewed old records, reviewed results, re-evaluated patient, considered differential, d/w patient ED course: Given IV NS x 1 liter as well as IV ativan, droperidol, toradol, phenergan. Given the recurrent nature of his symptoms, only an ER abdominal panel was undertaken (CBC unlikely to have diagnostic/contributory value). There are no concerning findings on the ER abdominal panel. Reevaluated after these interventions (fluids, medications), and he is asleep, awakens to voice, reports excellent relief of symptoms. He is comfortable with d/c home. He says he is out of phenergan as well as haloperidol, and I provided prescriptions for these medications (phenergan rx for both AK and PO forms). Departure - Departure Disposition: Home, Self Care Clinical Impression: Nausea and vomiting Qualifiers: Vomiting type: unspecified Qualified Code(s): R11.2 - Nausea with vomiting, unspecified Condition: Good Instructions: ED Nausea Vomiting Prescriptions: Promethazine Supp [Phenergan Supp] 25 mg AK Q6HR PRN #8 supp PRN Reason: Nausea / Vomiting haloperidoL [Haloperidol] 5 mg PO QPM #14 tablet Promethazine [Phenergan] 25 mg PO Q6H PRN #10 tab PRN Reason: Nausea / Vomiting Comments: Prescriptions for antinausea medication (phenergan) as well as haloperidol have been electronically submitted to [facility] pharmacy in [place]. I have prescribed both the oral form of phenergan as well as the suppository form. You can use the suppository form if you are unable to tolerate the oral phenergan Discharge Date/Time: 05/03/22 01:54
[2022-05-03 00:38] VITALS: BP 145/96
== END 2022-05-03 01:54 | disposition home or self-care (01) ==
LOC: ED 22:58
DX: R11.2 Nausea with vomiting, unspecified (principal); F17.200 Nicotine dependence, unspecified, uncomplicated
CPT/HCPCS: 36415; 80053; 83690; 96374; 96375; 99283; 99284; J2060

== ENCOUNTER 2022-05-30 13:05 | Emergency (ER) | payer OTHER ==
[2022-05-30 13:12] VITALS: BP 145/87
[2022-05-30] MEDS ORDERED: KETOROLAC 15 MG/ML VIAL IVP STA (13:18)
[2022-05-30] MEDS ORDERED: DROPERIDOL 5 MG/2 ML VIAL IVP STA (13:18)
[2022-05-30] MEDS ORDERED: SODIUM CHLORIDE 0.9% 1,000 ML IV STA (13:19)
[2022-05-30 13:50] LABS: ALBUMIN 4.4 g/dL (3.2-5.5); BILIRUBIN,TOTAL 1.6 mg/dL (0.2-1.0); CALCIUM 9.9 mg/dL (8.5-10.3); POTASSIUM 3.6 mmol/L (3.5-5.0); TOTAL PROTEIN 8.6 g/dL (6.7-8.2)
== END 2022-05-30 14:09 | disposition left against medical advice (07) ==
LOC: ED 13:05
DX: R10.9 Unspecified abdominal pain (principal); R11.2 Nausea with vomiting, unspecified; Z53.21 Procedure and treatment not carried out due to patient leaving prior to being seen by health care provider
CPT/HCPCS: 36415; 80053; 83690; 85025

== ENCOUNTER 2022-07-04 09:14 | Emergency (ER) | payer OTHER ==
[2022-07-04 11:57] LABS: BASOPHILS # (AUTO) 0.1 10^3/uL (0.0-0.1); BASOPHILS % (AUTO) 0.3 %; EOSINOPHILS # (AUTO) 0.1 10^3/uL (0.0-0.7); EOSINOPHILS % (AUTO) 0.6 %; HCT - HEMATOCRIT 45.2 % (42.0-52.0); HGB - HEMOGLOBIN 15.8 g/dL (14.0-18.0); LYMPHOCYTES # (AUTO) 1.7 10^3/uL (1.5-3.5); LYMPHOCYTES % (AUTO) 11.5 %; MEAN CORPUSCULAR HEMOGLOBIN 25.7 pg (27.0-31.0); MEAN CORPUSCULAR VOLUME 73.6 fL (80.0-94.0); MEAN PLATELET VOLUME 8.8 fL (7.4-11.4); MONOCYTES # (AUTO) 0.5 10^3/uL (0.0-1.0); MONOCYTES % (AUTO) 3.1 %; NEUTROPHILS # (AUTO) 12.4 10^3/uL (1.5-6.6); NEUTROPHILS % (AUTO) 84.2 %; PLT - PLATELET COUNT 484 10^3/uL (130-450); RED BLOOD COUNT 6.14 10^6/uL (4.70-6.10); RED CELL DISTRIBUTION WIDTH 15.4 % (12.0-15.0); WHITE BLOOD COUNT 14.7 x10^3/uL (4.8-10.8)
[2022-07-04 12:11] LABS: ALBUMIN 4.8 g/dL (3.2-5.5); ALBUMIN/GLOBULIN RATIO 1.3 (1.0-2.2); BILIRUBIN,TOTAL 1.9 mg/dL (0.2-1.0); CALCIUM 10.1 mg/dL (8.5-10.3); CREATININE 1.2 mg/dL (0.6-1.2); POTASSIUM 4.1 mmol/L (3.5-5.0); TOTAL PROTEIN 8.6 g/dL (6.7-8.2)
[2022-07-04] MEDS ORDERED: DROPERIDOL 5 MG/2 ML VIAL IVP STA (13:03)
[2022-07-04] MEDS ORDERED: PROMETHAZINE INJ 25 MG in SODIUM CHLORIDE 0.9% 50 ML IV STA (13:04)
[2022-07-04] MEDS ORDERED: SODIUM CHLORIDE 0.9% 1,000 ML IV STA (13:04)
--- NOTE | 2022-07-04 13:24 | ED Physician Documentation ---
History of Present Illness - Stated complaint Stated Complaint: N/V ABD PX - Chief complaint Chief Complaint: Abd Pain - History obtained from History obtained from: Patient - History of Present Illness Timing: Today Pain level max: 0 Pain level now: 0 - Additonal information Additional information: 32-year-old male well-known to this emergency department for nausea and vomiting states that he ran out of his medications today at home and has had nausea and vomiting today. Nothing makes it better or worse. No fevers. No chills. No diarrhea. This is his usual presentation. He denies any abdominal pain other than mild cramping. Review of Systems Ten Systems: 10 systems reviewed and negative Constitutional: denies: Fever, Chills Nose: denies: Rhinorrhea / runny nose, Congestion Throat: denies: Sore throat Respiratory: denies: Cough GI: denies: Nausea, Vomiting, Diarrhea Skin: denies: Rash Musculoskeletal: denies: Neck pain, Back pain Neurologic: denies: Headache PD PAST MEDICAL HISTORY - Past Medical History Past Medical History: Yes Cardiovascular: Pulmonary embolism Respiratory: Asthma Neuro: None Endocrine/Autoimmune: None GI: GERD, Other : None HEENT: None Psych: Depression, Anxiety, Panic attacks, Other Musculoskeletal: Other Derm: None Other Past Medical History: Cannabinoid Hyperemesis - Past Surgical History Past Surgical History: Yes General: Colonoscopy, EGD Ortho: Shoulder arthroplasty, Other - Present Medications Home Medications: Ambulatory Orders Medication Instructions Recorded Confirmed Promethazine [Phenergan] 25 mg PO Q6H PRN #10 tab 07/04/22 haloperidoL [Haloperidol] 5 mg PO Q6H PRN #15 tablet 07/04/22 - Allergies Allergies/Adverse Reactions: Allergies Allergy/AdvReac Type Severity Reaction Status Date / Time methylphenidate Allergy Unknown Unknown Verified 05/30/22 13:12 [From Ritalin] - Social History Does the pt smoke?: Yes Smoking Status: Current every day smoker Does the pt drink ETOH?: Yes Does the pt have substance abuse?: Yes Substance Use and Type: Marijuana - Immunizations Immunizations are current?: Yes Immunizations: TDAP >10years/unknown - POLST Patient has POLST: No PD ED PE NORMAL - Vitals Vital signs reviewed: Yes - General General: Alert and oriented X 3, No acute distress, Well developed/nourished - HEENT HEENT: PERRL, Moist mucous membranes - Neck Neck: Supple, no meningeal sign - Cardiac Cardiac: RRR, Strong equal pulses - Respiratory Respiratory: No respiratory distress, Clear bilaterally - Abdomen Abdomen: Soft, Non tender, Non distended - Derm Derm: Warm and dry - Extremities Extremities: No edema - Neuro Neuro: Alert and oriented X 3 - Psych Psych: Normal mood, Normal affect Results - Vitals Vitals: Vital Signs - 24 hr 07/04/22 07/04/22 07/04/22 09:27 09:29 12:52 Temperature 36.8 C 36.8 C 36.5 C Heart Rate 103 H 103 H 98 Respiratory 18 18 16 Rate Blood Pressure 148/83 H 148/83 H 140/80 H O2 Saturation 98 98 98 07/04/22 14:00 Temperature 36.5 C Heart Rate 90 Respiratory 16 Rate Blood Pressure 130/80 O2 Saturation 98 Oxygen O2 Source Room air - Labs Labs: Laboratory Tests 07/04/22 07/04/22 11:51 11:51 WBC 14.7 H RBC 6.14 H Hgb 15.8 Hct 45.2 MCV 73.6 L MCH 25.7 L MCHC 35.0 RDW 15.4 H Plt Count 484 H MPV 8.8 Neut # (Auto) 12.4 H Lymph # (Auto) 1.7 [place] # (Auto) 0.5 Eos # (Auto) 0.1 Baso # (Auto) 0.1 Absolute Nucleated RBC 0.00 Nucleated RBC % 0.0 Sodium 134 L Potassium 4.1 Chloride 97 L Carbon Dioxide 24 Anion Gap 13.0 BUN 15 Creatinine 1.2 Estimated GFR (MDRD) 86 L Glucose 102 H Calcium 10.1 Total Bilirubin 1.9 H AST 24 ALT 16 Alkaline Phosphatase 77 Total Protein 8.6 H Albumin 4.8 Globulin 3.8 Albumin/Globulin Ratio 1.3 Lipase 135 H PD Medical Decision Making - ED course Complexity details: reviewed results, re-evaluated patient, considered myahe will, d/w patient ED course: Patient received Phenergan and droperidol. Also received IV fluids. Slept in the emergency department. Symptoms resolved. Tolerating p.o. without difficulty. No significant lab abnormalities on CBC or chemistry other than a mildly elevated white blood cell count mild hyponatremia and a mildly elevated lipase. Abdomen is soft, nontender nondistended on serial exam. Patient counseled regarding signs and symptoms for which I believe and urgent re- evaluation would be necessary. Patient with good understanding of and agreement to plan and is comfortable going home at this time This document was made in part using voice recognition software. While efforts are made to proofread this document, sound alike and grammatical errors may occur. Departure - Departure Disposition: 01 Home, Self Care Clinical Impression: Nausea and vomiting Qualifiers: Vomiting type: unspecified Qualified Code(s): R11.2 - Nausea with vomiting, unspecified Condition: Good Instructions: ED Nausea Vomiting Follow-Up: Di Kang MD [Primary Care Provider] - Within 1 week Prescriptions: haloperidoL [Haloperidol] 5 mg PO Q6H PRN #15 tablet PRN Reason: Nausea / Vomiting Promethazine [Phenergan] 25 mg PO Q6H PRN #10 tab PRN Reason: Nausea / Vomiting Comments: Your prescriptions were sent to [facility]. Please follow-up with your doctor for further care. Return if you worsen. Discharge Date/Time: 07/04/22 15:12
[2022-07-04 15:12] VITALS: BP 130/80
== END 2022-07-04 15:12 | disposition home or self-care (01) ==
LOC: ED 09:14
DX: R11.2 Nausea with vomiting, unspecified (principal); F17.200 Nicotine dependence, unspecified, uncomplicated
CPT/HCPCS: 36415; 80053; 83690; 85025; 96365; 96375; 99282; 99284; J7040

== ENCOUNTER 2022-07-06 01:48 | Outpatient (CLI) | payer OTHER | END 2022-07-06 01:49 | disposition critical access hospital (66) | LOC: EMS 01:48 | DX: R10.9 Unspecified abdominal pain (principal); R11.10 Vomiting, unspecified | CPT/HCPCS: A0425; A0429 ==

== ENCOUNTER 2022-07-06 01:58 | Emergency (ER) | payer OTHER ==
[2022-07-06] MEDS ORDERED: SODIUM CHLORIDE 0.9% 1,000 ML IV STA ×2 (02:04→04:27)
[2022-07-06] MEDS ORDERED: PROMETHAZINE INJ 25 MG in SODIUM CHLORIDE 0.9% 50 ML IV STA (02:05)
[2022-07-06] MEDS ORDERED: DROPERIDOL 5 MG/2 ML VIAL IVP STA (02:05)
[2022-07-06] MEDS ORDERED: KETOROLAC 15 MG/ML VIAL IVP STA (02:05)
--- NOTE | 2022-07-06 02:23 | ED Physician Documentation ---
PD HPI NVD - Stated complaint Stated Complaint: abd pain/v/n - Chief complaint Chief Complaint: Abd Pain - History obtained from History obtained from: Patient - History of Present Illness Timing - onset: How many days ago (2) Timing - details: Abrupt onset Associated symptoms: Abdominal pain. No: Fever Improved by: Other (no ameliorating factors) Worsened by: Eating, Palpation Recently seen: Emergency Dept - Additonal information Additional information: HPI provided by patient. Patient is brought in by ambulance. Patient complains of 2 days of nausea, vomiting, and generalized abdominal pain. He says the symptoms started 2 days ago at approximately 9 PM. Patient is well-known to this emergency department; he has many visits to this ER for same symptoms. This visit is his 19th [facility] ED visit over past 12 months. Prior to tonight, his most recent visit was 2 days ago (07/04) for same. He is requesting that I give him something for nausea, something for pain, and something for anxiety. He says "last time I was here, they only gave me 1 medication and it only lasted for few hours". Review of Systems Constitutional: denies: Fever, Chills, Sweats Cardiac: reports: Reviewed and negative Respiratory: reports: Reviewed and negative GI: reports: Abdominal Pain, Nausea, Vomiting. denies: Abdominal Swelling, Constipation, Diarrhea : denies: Dysuria PD PAST MEDICAL HISTORY - Past Medical History Cardiovascular: Pulmonary embolism Respiratory: Asthma Neuro: None Endocrine/Autoimmune: None GI: GERD, Other : None HEENT: None Psych: Depression, Anxiety, Panic attacks, Other Musculoskeletal: Other Derm: None - Past Surgical History Past Surgical History: Yes General: Colonoscopy, EGD Ortho: Shoulder arthroplasty, Other - Present Medications Home Medications: Ambulatory Orders Medication Instructions Recorded Confirmed Promethazine [Phenergan] 25 mg PO Q6H PRN #10 tab 07/04/22 07/06/22 haloperidoL [Haloperidol] 5 mg PO Q6H PRN #15 tablet 07/04/22 07/06/22 LORazepam [Ativan] 1 mg PO TID PRN #10 tablet 07/06/22 - Allergies Allergies/Adverse Reactions: Allergies Allergy/AdvReac Type Severity Reaction Status Date / Time methylphenidate Allergy Unknown Unknown Verified 07/06/22 02:03 [From Ritalin] - Social History Does the pt smoke?: Yes Smoking Status: Current every day smoker Does the pt drink ETOH?: Yes Does the pt have substance abuse?: Yes - Immunizations Immunizations are current?: Yes Immunizations: TDAP >10years/unknown - POLST Patient has POLST: No PD ED PE NORMAL - Vitals Vital signs reviewed: Yes - General General: Alert and oriented X 3, Well developed/nourished, Other (appears anxious, mildly diaphoretic) - HEENT HEENT: Moist mucous membranes - Neck Neck: Supple, no meningeal sign - Cardiac Cardiac: RRR, No murmur - Respiratory Respiratory: No respiratory distress, Clear bilaterally - Abdomen Abdomen: Normal bowel sounds, Soft, Non tender, Non distended Results - Vitals Vitals: Vital Signs - 24 hr 07/06/22 07/06/22 07/06/22 02:01 02:53 03:08 Temperature 37.4 C Heart Rate 101 H 88 85 Respiratory 21 15 16 Rate Blood Pressure 151/106 H 159/106 H O2 Saturation 100 95 98 07/06/22 07/06/22 07/06/22 03:35 04:18 04:33 Temperature Heart Rate 86 97 107 H Respiratory 18 16 18 Rate Blood Pressure 167/101 H 146/95 H 131/84 H O2 Saturation 98 98 97 Oxygen O2 Source Room air - Labs Labs: Laboratory Tests 07/06/22 07/06/22 02:13 02:13 WBC 16.0 H RBC 5.91 Hgb 15.8 Hct 43.9 MCV 74.3 L MCH 26.7 L MCHC 36.0 RDW 15.4 H Plt Count 491 H MPV 9.1 Neut # (Auto) 13.3 H Lymph # (Auto) 1.7 [place] # (Auto) 0.8 Eos # (Auto) 0.0 Baso # (Auto) 0.1 Absolute Nucleated RBC 0.00 Nucleated RBC % 0.0 Sodium 139 Potassium 4.0 Chloride 99 L Carbon Dioxide 24 Anion Gap 16.0 H BUN 17 Creatinine 1.1 Estimated GFR (MDRD) 95 Glucose 121 H Calcium 10.2 Total Bilirubin 2.4 H AST 27 ALT 24 Alkaline Phosphatase 76 Total Protein 9.0 H Albumin 4.9 Globulin 4.1 Albumin/Globulin Ratio 1.2 Lipase 45 PD Medical Decision Making - ED course Complexity details: reviewed old records, reviewed results, re-evaluated patient, considered differential, d/w patient ED course: Given total of 2 liters NS IV, as well as lorazepam IV, droperidol IV, phenergan IV, and toradol IV. Abnormal blood tests include leukocytosis (wbc 16) and hyperbilirubinemia, although he has had comparable results on many previous ED results (over two-dozen previous results to compare to due to his frequency of [facility] ED visits). On reevaluation, he is asleep, awakens to voice with gentle tactile (tapping shoulder), reports resolution of symptoms. He is provided rx for lorazepam and encouraged to follow up with his primary care provider. Given his extensive history of frequent ED visits, I suggested to him that he make regular appointments with his PMD to discuss options for on-hand rescue medications for these episodes rather than waiting until he has these episodes and then coming to ED to be medicated. Departure - Departure Disposition: 01 Home, Self Care Clinical Impression: Nausea and vomiting Qualifiers: Vomiting type: unspecified Qualified Code(s): R11.2 - Nausea with vomiting, unspecified Condition: Good Instructions: ED Nausea Vomiting Prescriptions: LORazepam [Ativan] 1 mg PO TID PRN #10 tablet PRN Reason: Anxiety Comments: There were no concerning findings on the tests performed tonight. Your white blood cell count was elevated, but this is a nonspecific finding and I note that on most of your previous visits, your white blood cell count is similarly elevated. The discomfort that you have in your abdomen, as well as the nausea and vomiting, could account for the elevation of white blood cell count alone. Similarly you had some other abnormality such as an elevated bilirubin (which is generally considered a liver function test) but this is also been elevated to a similar extent on many previous visits. Thus, the abnormal blood tests are not diagnostic nor particularly different from previous results you've had Discharge Date/Time: 07/06/22 07:04
[2022-07-06 02:26] LABS: BASOPHILS # (AUTO) 0.1 10^3/uL (0.0-0.1); BASOPHILS % (AUTO) 0.4 %; EOSINOPHILS % (AUTO) 0.1 %; HCT - HEMATOCRIT 43.9 % (42.0-52.0); HGB - HEMOGLOBIN 15.8 g/dL (14.0-18.0); LYMPHOCYTES # (AUTO) 1.7 10^3/uL (1.5-3.5); LYMPHOCYTES % (AUTO) 10.8 %; MEAN CORPUSCULAR HEMOGLOBIN 26.7 pg (27.0-31.0); MEAN CORPUSCULAR VOLUME 74.3 fL (80.0-94.0); MEAN PLATELET VOLUME 9.1 fL (7.4-11.4); MONOCYTES # (AUTO) 0.8 10^3/uL (0.0-1.0); MONOCYTES % (AUTO) 5.2 %; NEUTROPHILS # (AUTO) 13.3 10^3/uL (1.5-6.6); NEUTROPHILS % (AUTO) 83.2 %; PLT - PLATELET COUNT 491 10^3/uL (130-450); RED BLOOD COUNT 5.91 10^6/uL (4.70-6.10); RED CELL DISTRIBUTION WIDTH 15.4 % (12.0-15.0)
[2022-07-06] MEDS ORDERED: PROMETHAZINE 25 MG/1 ML VIAL ONE (02:28)
[2022-07-06] MEDS ORDERED: LORazepam 2 MG/ML VIAL IVP STA ×2 (02:31→04:27)
[2022-07-06 02:41] LABS: ALBUMIN 4.9 g/dL (3.2-5.5); ALBUMIN/GLOBULIN RATIO 1.2 (1.0-2.2); BILIRUBIN,TOTAL 2.4 mg/dL (0.2-1.0); CALCIUM 10.2 mg/dL (8.5-10.3); CREATININE 1.1 mg/dL (0.6-1.2)
[2022-07-06 04:33] VITALS: BP 131/84
== END 2022-07-06 07:04 | disposition home or self-care (01) ==
LOC: EDUNIT# → ED 01:58
DX: R11.2 Nausea with vomiting, unspecified (principal); F41.9 Anxiety disorder, unspecified; F17.200 Nicotine dependence, unspecified, uncomplicated
CPT/HCPCS: 36415; 80053; 83690; 85025; 96361; 96365; 96375; 96376; 99284; 99285; J2060; J7040

== ENCOUNTER 2022-08-13 05:27 | Outpatient (CLI) | payer OTHER | END 2022-08-13 05:28 | disposition critical access hospital (66) | LOC: EMS 05:27 | DX: M79.605 Pain in left leg (principal) | CPT/HCPCS: A0425; A0429 ==

== ENCOUNTER 2022-08-13 07:55 | Emergency (ER) | payer OTHER ==
--- NOTE | 2022-08-13 07:59 | ED Physician Documentation ---
PD HPI LOWER EXT INJURY - Stated complaint Stated Complaint: L HIP PX - History obtained from History obtained from: Patient - History of Present Illness PD HPI LOW EXT INJURY LOCATION: Left, Hip Type of injury: No: Fall, Blunt / blow Timing - onset: How many days ago (4) Timing - duration: Days (4) Timing - details: Gradual onset, Still present Improved by: Rest Worsened by: Moving, Palpating (lateral hip at trochanter area) Associated symptoms: No: Weakness, Numbness, Swelling, Discolored Similar symptoms before: Has not had sx before Recently seen: Not recently seen Review of Systems Constitutional: reports: Myalgias. denies: Fever, Chills Nose: reports: Rhinorrhea / runny nose, Congestion Throat: denies: Sore throat Respiratory: denies: Cough GI: denies: Vomiting, Diarrhea Skin: denies: Rash, Lesions Neurologic: denies: Focal weakness, Numbness PD PAST MEDICAL HISTORY - Past Medical History Cardiovascular: Pulmonary embolism Respiratory: Asthma Neuro: None Endocrine/Autoimmune: None GI: GERD, Other : None HEENT: None Psych: Depression, Anxiety, Panic attacks, Other Musculoskeletal: Other Derm: None - Past Surgical History Past Surgical History: Yes General: Colonoscopy, EGD Ortho: Shoulder arthroplasty, Other - Present Medications Home Medications: Ambulatory Orders Medication Instructions Recorded Confirmed Promethazine [Phenergan] 25 mg PO Q6H PRN #10 tab 07/04/22 07/06/22 haloperidoL [Haloperidol] 5 mg PO Q6H PRN #15 tablet 07/04/22 07/06/22 LORazepam [Ativan] 1 mg PO TID PRN #10 tablet 07/06/22 Meloxicam [Mobic] 7.5 mg PO BID PRN #20 tablet 08/13/22 - Allergies Allergies/Adverse Reactions: Allergies Allergy/AdvReac Type Severity Reaction Status Date / Time methylphenidate Allergy Unknown Unknown Verified 07/06/22 02:03 [From Ritalin] - Living Situation Living Arrangement: reports: At home - Social History Does the pt smoke?: Yes Smoking Status: Current every day smoker Does the pt drink ETOH?: Yes Does the pt have substance abuse?: Yes Substance Use and Type: Marijuana - Immunizations Immunizations are current?: Yes Immunizations: TDAP >10years/unknown - POLST Patient has POLST: No PD ED PE NORMAL - Vitals Vital signs reviewed: Yes - General General: Well developed/nourished, Other (somnolent but rousable. Answers questions appropriately. Denies current nausea/vomtiing. ) - Abdomen Abdomen: Soft, Non tender - Derm Derm: Normal color, Warm and dry - Extremities Extremities: Other (The left hip does not have any pain at the joint itself with impaction or distraction or rotation. There is some tenderness along the lateral trochanter. No redness warmth nor sores. Pain with abduction against resistance.) - Neuro Neuro: No motor deficit, No sensory deficit Results - Vitals Vitals: Vital Signs - 24 hr 08/13/22 09:25 Heart Rate 63 Respiratory 12 Rate Blood Pressure 115/76 O2 Saturation 97 Oxygen O2 Source Room air - Labs Labs: Laboratory Tests 08/13/22 08/13/22 08:26 08:26 WBC 11.9 H RBC 4.85 Hgb 12.9 L Hct 37.2 L MCV 76.7 L MCH 26.6 L MCHC 34.7 RDW 14.4 Plt Count 330 MPV 9.0 Neut # (Auto) 6.6 Lymph # (Auto) 3.3 [place] # (Auto) 1.3 H Eos # (Auto) 0.7 Baso # (Auto) 0.0 Absolute Nucleated RBC 0.00 Nucleated RBC % 0.0 Sodium 137 Potassium 3.9 Chloride 103 Carbon Dioxide 25 Anion Gap 9.0 BUN 9 Creatinine 1.0 Estimated GFR (MDRD) 106 Glucose 106 H Calcium 8.9 C-Reactive Protein 2.2 H - Rads (name of study) left hip Radiology: Prelim report reviewed, EMP read indepedently (normal bony appearance.), See rad report PD Medical Decision Making - ED course Complexity details: reviewed results (His white count and CRP are just minimally elevated. He does relate having some mild upper respiratory symptoms recently. I do not appreciate a effusion redness or warmth in the area. I think this can be just watched and I have a lower clinical suspicion for infectious cause.), re-evaluated patient (He states he is feeling a bit better with the ibuprofen and Tylenol. He is still somnolent but arousable. He states he had been up most of the night and is just tired.), considered differential (Clinically on exam the patient relates the pain more to the trochanter and ileal tibial band area. It is not in the hip joint itself. There is no redness or swelling. However I believe the patient does have history of drug use in the past so get a CBC and CRP for gestalt of infection.), d/w patient Departure - Departure Disposition: 01 Home, Self Care Clinical Impression: Left hip pain, Trochanteric bursitis Condition: Stable Record reviewed to determine appropriate education?: Yes Follow-Up: [facility] [Provider Group] Prescriptions: Meloxicam [Mobic] 7.5 mg PO BID PRN #20 tablet PRN Reason: Pain Comments: Your x-ray appears normal without any obvious bone abnormality in the joint space appears normal. On exam I do not evaluate any fluid in the joint, redness, warmth to suggest infection. Your white blood cell count is slightly elevated but is nonspecific. At this point we are treated as an inflammation of the bursa or muscle like a muscle strain. We can use along acting anti-inflammatory so can be a just twice a day. I prescribed meloxicam 7.5 mg twice a day for the next 7 to 10 days. Sent to [facility] in [place]. To that add Tylenol every 4-6 hours if needed. Follow-up with your primary care or the orthopedic office if this has not improved over the next week or so and I would anticipate it actually being quite better over the first few days. Return to the ER if it has significant worsening or you notice any swelling, redness, sores in the area.
[2022-08-13] MEDS ORDERED: IBUPROFEN 600 MG TABLET PO STA (08:14)
[2022-08-13] MEDS ORDERED: ACETAMINOPHEN 325 MG TABLET PO STA (08:14)
[2022-08-13 08:32] LABS: BASOPHILS % (AUTO) 0.3 %; EOSINOPHILS # (AUTO) 0.7 10^3/uL (0.0-0.7); EOSINOPHILS % (AUTO) 5.6 %; HCT - HEMATOCRIT 37.2 % (42.0-52.0); HGB - HEMOGLOBIN 12.9 g/dL (14.0-18.0); LYMPHOCYTES # (AUTO) 3.3 10^3/uL (1.5-3.5); LYMPHOCYTES % (AUTO) 27.4 %; MEAN CORPUSCULAR HEMOGLOBIN 26.6 pg (27.0-31.0); MEAN CORPUSCULAR HGB CONC 34.7 g/dL (32.0-36.0); MEAN CORPUSCULAR VOLUME 76.7 fL (80.0-94.0); MONOCYTES # (AUTO) 1.3 10^3/uL (0.0-1.0); MONOCYTES % (AUTO) 11.1 %; NEUTROPHILS # (AUTO) 6.6 10^3/uL (1.5-6.6); NEUTROPHILS % (AUTO) 55.4 %; PLT - PLATELET COUNT 330 10^3/uL (130-450); RED BLOOD COUNT 4.85 10^6/uL (4.70-6.10); RED CELL DISTRIBUTION WIDTH 14.4 % (12.0-15.0); WHITE BLOOD COUNT 11.9 x10^3/uL (4.8-10.8)
[2022-08-13 08:50] LABS: CALCIUM 8.9 mg/dL (8.5-10.3); CRP - C-REACTIVE PROTEIN 2.2 mg/dL (0-1.0); POTASSIUM 3.9 mmol/L (3.5-5.0)
[2022-08-13 09:26] VITALS: BP 115/76
--- NOTE | 2022-08-13 09:59 | XRAY Report ---
PROCEDURE: Hip w/Pelvis 2-3V LT INDICATIONS: several days left hip pain TECHNIQUE: AP pelvis with lateral view(s) of the left hip(s). COMPARISON: None. FINDINGS: Bones: No fractures or dislocations. Pelvic ring appears intact. No suspicious bony lesions. Soft tissues: The visualized bowel gas pattern is normal. No suspicious soft tissue calcifications. IMPRESSION: Unremarkable left hip and pelvis radiographs Reviewed by: Marko Hennessy MD on 08/13/2022 8:[address] [facility] Approved by: Marko Hennessy MD on 08/13/2022 8:[address] [facility] Station ID: [id number]
== END 2022-08-13 10:15 | disposition home or self-care (01) ==
LOC: ED 07:55
DX: M70.62 Trochanteric bursitis, left hip (principal); D72.829 Elevated white blood cell count, unspecified; F17.200 Nicotine dependence, unspecified, uncomplicated; F41.9 Anxiety disorder, unspecified
CPT/HCPCS: 36415; 73502; 80048; 85025; 86140; 99284; A9270

== ENCOUNTER 2023-09-18 09:43 | Outpatient (CLI) | payer OTHER | END 2023-09-18 09:44 | disposition critical access hospital (66) | LOC: EMS 09:43 | DX: R10.10 Upper abdominal pain, unspecified (principal); R10.812 Left upper quadrant abdominal tenderness; R10.813 Right lower quadrant abdominal tenderness; R11.10 Vomiting, unspecified; F17.210 Nicotine dependence, cigarettes, uncomplicated | CPT/HCPCS: A0425; A0427 ==

== ENCOUNTER 2023-09-18 10:00 | Emergency (ER) | payer OTHER ==
[2023-09-18] MEDS: SODIUM CHLORIDE 0.9% 1,000 ML IV STA (10:32)
[2023-09-18] MEDS: DROPERIDOL 5 MG/2 ML VIAL IVP STA (10:32)
[2023-09-18 10:35] LABS: BASOPHILS # (AUTO) 0.1 10^3/uL (0.0-0.1); BASOPHILS % (AUTO) 0.6 %; EOSINOPHILS # (AUTO) 0.6 10^3/uL (0.0-0.7); EOSINOPHILS % (AUTO) 3.7 %; HCT - HEMATOCRIT 41.2 % (42.0-52.0); HGB - HEMOGLOBIN 14.2 g/dL (14.0-18.0); LYMPHOCYTES # (AUTO) 3.9 10^3/uL (1.5-3.5); LYMPHOCYTES % (AUTO) 24.9 %; MEAN CORPUSCULAR HEMOGLOBIN 25.7 pg (27.0-31.0); MEAN CORPUSCULAR HGB CONC 34.5 g/dL (32.0-36.0); MEAN CORPUSCULAR VOLUME 74.6 fL (80.0-94.0); MEAN PLATELET VOLUME 8.8 fL (7.4-11.4); MONOCYTES # (AUTO) 0.9 10^3/uL (0.0-1.0); MONOCYTES % (AUTO) 5.9 %; NEUTROPHILS # (AUTO) 10.1 10^3/uL (1.5-6.6); NEUTROPHILS % (AUTO) 64.6 %; PLT - PLATELET COUNT 409 10^3/uL (130-450); RED BLOOD COUNT 5.52 10^6/uL (4.70-6.10); RED CELL DISTRIBUTION WIDTH 14.4 % (12.0-15.0); WHITE BLOOD COUNT 15.6 x10^3/uL (4.8-10.8)
[2023-09-18 10:50] LABS: ALBUMIN 4.2 g/dL (3.2-5.5); ALBUMIN/GLOBULIN RATIO 1.2 (1.0-2.2); BILIRUBIN,TOTAL 0.7 mg/dL (0.2-1.0); CALCIUM 9.8 mg/dL (8.5-10.3); CREATININE 1.1 mg/dL (0.6-1.3); POTASSIUM 4.1 mmol/L (3.5-4.5); TOTAL PROTEIN 7.6 g/dL (6.4-8.9)
[2023-09-18] MEDS: LORazepam 2 MG/ML VIAL IVP STA (11:32)
[2023-09-18] MEDS: KETOROLAC 15 MG/ML VIAL IVP STA (11:32)
[2023-09-18 11:50] VITALS: BP 147/90; O2SAT 96
--- NOTE | 2023-09-18 12:01 | ED Physician Documentation ---
PD HPI NVD - Stated complaint Stated Complaint: NAUSEA/VOMITING - Chief complaint Chief Complaint: Abd Pain - History obtained from History obtained from: Patient - Additonal information Additional information: Patient is a 33-year-old male with a history of cyclical vomiting and cannabis hyperemesis presenting for evaluation of nausea and vomiting starting at 715 this morning. Patient reports having multiple episodes of vomiting and now dry heaving. Denies blood in emesis. Denies diarrhea. Reports generalized abdominal pain. Reports this feels similar to prior episodes he has had.Denies alcohol use. No fever, chest pain, shortness of air, back pain or dysuria. Review of Systems Constitutional: denies: Fever Cardiac: denies: Chest pain / pressure Respiratory: denies: Dyspnea GI: reports: Abdominal Pain, Nausea, Vomiting : denies: Dysuria PD PAST MEDICAL HISTORY - Past Medical History Cardiovascular: Pulmonary embolism Respiratory: Asthma Neuro: None Endocrine/Autoimmune: None GI: GERD, Other : None HEENT: None Psych: Depression, Anxiety, Panic attacks, Other Musculoskeletal: Other Derm: None - Past Surgical History Past Surgical History: Yes General: Colonoscopy, EGD Ortho: Shoulder arthroplasty, Other - Present Medications Home Medications: Ambulatory Orders Medication Instructions Recorded Confirmed Promethazine [Phenergan] 25 mg PO Q6H PRN #10 tab 07/04/22 07/06/22 haloperidoL [Haloperidol] 5 mg PO Q6H PRN #15 tablet 07/04/22 07/06/22 LORazepam [Ativan] 1 mg PO TID PRN #10 tablet 07/06/22 Meloxicam [Mobic] 7.5 mg PO BID PRN #20 tablet 08/13/22 - Allergies Allergies/Adverse Reactions: Allergies Allergy/AdvReac Type Severity Reaction Status Date / Time methylphenidate Allergy Unknown Unknown Verified 09/18/23 10:09 [From Ritalin] - Social History Does the pt smoke?: Yes Smoking Status: Current every day smoker Does the pt drink ETOH?: Yes Does the pt have substance abuse?: Yes - Immunizations Immunizations are current?: Yes Immunizations: TDAP >10years/unknown - POLST Patient has POLST: No PD ED PE NORMAL - General General: Alert and oriented X 3, Well developed/nourished, Other (Retching, dry heaving) - HEENT HEENT: Atraumatic, Moist mucous membranes, Pharynx benign - Neck Neck: Supple, no meningeal sign - Cardiac Cardiac: RRR, Strong equal pulses - Respiratory Respiratory: No respiratory distress, Clear bilaterally - Abdomen Abdomen: Normal bowel sounds, Soft, Non distended, Other (Mild generalized tenderness with no rebound or guarding) - Derm Derm: Warm and dry - Neuro Neuro: Normal speech Results - Vitals Vitals: Vital Signs - 24 hr 09/18/23 09/18/23 10:05 11:48 Temperature 36.6 C Heart Rate 77 68 Respiratory 22 12 Rate Blood Pressure 146/117 H 147/90 H O2 Saturation 100 96 Oxygen O2 Source Room air - Labs Labs: Laboratory Tests 09/18/23 09/18/23 10:28 10:28 WBC 15.6 H RBC 5.52 Hgb 14.2 Hct 41.2 L MCV 74.6 L MCH 25.7 L MCHC 34.5 RDW 14.4 Plt Count 409 MPV 8.8 Neut # (Auto) 10.1 H Lymph # (Auto) 3.9 H Branch # (Auto) 0.9 Eos # (Auto) 0.6 Baso # (Auto) 0.1 Absolute Nucleated RBC 0.00 Nucleated RBC % 0.0 Sodium 135 Potassium 4.1 Chloride 104 Carbon Dioxide 22 Anion Gap 9.0 BUN 14 Creatinine 1.1 Estimated GFR (MDRD) 95 Glucose 93 Calcium 9.8 Total Bilirubin 0.7 AST 29 ALT 22 Alkaline Phosphatase 67 Total Protein 7.6 Albumin 4.2 Globulin 3.4 Albumin/Globulin Ratio 1.2 Lipase 35 PD Medical Decision Making - ED course Complexity details: reviewed results, d/w patient ED course: Patient is a 33-year-old male presenting for evaluation of a priapism. He was recently started on a number of medications including prazosin. He has had 1 prior episode of this. He has been able to urinate. He does not have any significant pain. Patient responded well in the past to injection of phenylephrine and is agreeable to this again today. Declines dorsal block. After skin preparation with chlorhexidine, 500 mcg (in 1ml) of diluted phenylephrine (which was prepared by pharmacy) Was injected into bilateral corpus cavernosum at 3 and 9:00 positions. There was immediate improvement in the priapism. Patient was reevaluated and this was repeated 1 more time appro ximately 10 to 15 minutes later. Ice pack was also applied. Patient had complete resolution in his symptoms. Chaperones were present during each of the evaluations of the priapism. We discussed his medications and have recommended stopping processing. Also reviewed that there are reports of venlafaxine as the cause of priapism but he states he has been on this medication longer than the prazosin and has been taking it for depression and would like to continue to try and stay on this medication. Therefore he will stop the prazosin at this time but understands that it could recur if it is related to another one of his medications. Instructed on need for close follow-up at the [facility] and also advised on strict return precautions for any worsening symptoms. Departure - Departure Disposition: 01 Home, Self Care Clinical Impression: Cannabinoid hyperemesis syndrome, Nausea & vomiting Condition: Stable Instructions: ED Nausea Vomiting Comments: Please try to abstain from cannabis use as this may be exacerbating your symptoms. Please use your prescription medications as directed. Return to the ER with any worsening symptoms. Forms: PCP List Discharge Date/Time: 09/18/23 12:07
== END 2023-09-18 12:07 | disposition home or self-care (01) ==
LOC: EDBD → EDUNIT# → ED 10:00
DX: R11.2 Nausea with vomiting, unspecified (principal); F12.90 Cannabis use, unspecified, uncomplicated; F17.200 Nicotine dependence, unspecified, uncomplicated; Z79.899 Other long term (current) drug therapy
CPT/HCPCS: 36415; 80053; 83690; 85025; 96374; 96375; 99283; 99284; J2060

== ENCOUNTER 2023-09-19 05:36 | Outpatient (CLI) | payer OTHER | END 2023-09-19 05:37 | disposition critical access hospital (66) | LOC: EMS 05:36 | DX: R11.2 Nausea with vomiting, unspecified (principal) | CPT/HCPCS: A0425; A0427 ==

== ENCOUNTER 2023-09-19 05:52 | Emergency (ER) | payer OTHER ==
[2023-09-19] MEDS ORDERED: DROPERIDOL 5 MG/2 ML VIAL IVP STA (05:58)
[2023-09-19] MEDS ORDERED: LORazepam 2 MG/ML VIAL IVP STA (05:58)
[2023-09-19] MEDS ORDERED: KETOROLAC 15 MG/ML VIAL IVP STA (05:58)
--- NOTE | 2023-09-19 06:01 | ED Physician Documentation ---
PD HPI NVD - Stated complaint Stated Complaint: N/V - History obtained from History obtained from: Patient, EMS - History of Present Illness Timing - onset: Last night (History of episodic cyclic vomiting likely related to cannabis use. Multiple prior ER visits for same. Was here yesterday and improved with IV medicines. He states symptoms back again overnight into this morning.) Timing - details: Abrupt onset, Still present Similar symptoms before: Diagnosis (Presumed cannabis hyperemesis without other positive causes or findings and prior workups.) PD PAST MEDICAL HISTORY - Past Medical History Cardiovascular: Pulmonary embolism Respiratory: Asthma Neuro: None Endocrine/Autoimmune: None GI: GERD, Other : None HEENT: None Psych: Depression, Anxiety, Panic attacks, Other Musculoskeletal: Other Derm: None - Past Surgical History Past Surgical History: Yes General: Colonoscopy, EGD Ortho: Shoulder arthroplasty, Other - Present Medications Home Medications: Ambulatory Orders Medication Instructions Recorded Confirmed Promethazine [Phenergan] 25 mg PO Q6H PRN #10 tab 07/04/22 09/19/23 haloperidoL [Haloperidol] 5 mg PO Q6H PRN #15 tablet 07/04/22 09/19/23 LORazepam [Ativan] 1 mg PO TID PRN #10 tablet 07/06/22 09/19/23 Meloxicam [Mobic] 7.5 mg PO BID PRN #20 tablet 08/13/22 09/19/23 Buspirone HCl 1 tab PO BID 09/19/23 09/19/23 Chlorpromazine HCl 1 tab PO DAILY 09/19/23 09/19/23 Gabapentin [Neurontin] 1 cap PO BID 09/19/23 09/19/23 - Allergies Allergies/Adverse Reactions: Allergies Allergy/AdvReac Type Severity Reaction Status Date / Time methylphenidate Allergy Unknown Unknown Verified 09/19/23 06:04 [From Ritalin] - Social History Does the pt smoke?: Yes Smoking Status: Current every day smoker Does the pt drink ETOH?: Yes Does the pt have substance abuse?: Yes - Immunizations Immunizations are current?: Yes Immunizations: TDAP >10years/unknown - POLST Patient has POLST: No PD ED PE NORMAL - Vitals Vital signs reviewed: Yes - General General: Well developed/nourished, Other (Very anxious and agitated with forceful loud vomiting of small amounts of gastric fluid. No noted blood. Appears very uncomfortable and anxious.) - Cardiac Cardiac: RRR, No murmur - Respiratory Respiratory: No respiratory distress, Clear bilaterally - Abdomen Abdomen: Non distended, Other (Tender in the mid to upper abdomen with guarding and tenderness to even light palpation.). No: Normal bowel sounds (decreased) Results - Vitals Vitals: Vital Signs - 24 hr 09/19/23 09/19/23 09/19/23 05:59 07:40 09:22 Temperature 35 C L 36.2 C L Heart Rate 94 85 87 Respiratory 24 22 18 Rate Blood Pressure 169/106 H 160/99 H O2 Saturation 100 100 100 Oxygen O2 Source Room air - Labs Labs: Laboratory Tests 09/19/23 06:25 Sodium 138 Potassium 3.7 Chloride 103 Carbon Dioxide 19 L Anion Gap 16.0 H BUN 14 Creatinine 1.1 Estimated GFR (MDRD) 95 Glucose 144 H Calcium 10.0 Magnesium 1.3 L Total Bilirubin 1.4 H AST 30 ALT 25 Alkaline Phosphatase 64 Total Protein 7.7 Albumin 4.5 Globulin 3.2 Albumin/Globulin Ratio 1.4 Lipase 60 PD Medical Decision Making - ED course Complexity details: reviewed results, re-evaluated patient (He arrived via EMS with an IV in place. It got pulled out by accident with his restlessness in bed. Nurses are working on a repeat IV. He has not gotten medicines as yet on recheck. Care will be given over to the oncoming ER physician.), considered differential (Patient with presentation similar to multiple prior ones consistent with cannabis hyperemesis. Very anxious and in pain with forceful dry heaving or minimal gastric contents. No hematemesis. He was here yesterday with similar. Combination of Toradol, fluids, Inapsine and Ativan work well for him), d/w patient Departure - Departure Disposition: 01 Home, Self Care Clinical Impression: Vomiting Condition: Stable Instructions: ED Nausea Vomiting Comments: Please go to the pharmacy and crab picker the meds you were prescribed yesterday. Forms: PCP List Discharge Date/Time: 09/19/23 09:23
[2023-09-19 06:10] VITALS: O2SAT 100
[2023-09-19] MEDS ORDERED: DEXAMETHASONE 10 MG/ML VIAL IVP STA (06:57)
[2023-09-19 06:58] LABS: MAGNESIUM 1.3 mg/dL (1.7-2.3)
[2023-09-19 07:06] LABS: ALBUMIN 4.5 g/dL (3.2-5.5); ALBUMIN/GLOBULIN RATIO 1.4 (1.0-2.2); BILIRUBIN,TOTAL 1.4 mg/dL (0.2-1.0); CREATININE 1.1 mg/dL (0.6-1.3); POTASSIUM 3.7 mmol/L (3.5-4.5); TOTAL PROTEIN 7.7 g/dL (6.4-8.9)
[2023-09-19] MEDS: KETOROLAC 15 MG/ML VIAL IVP STA (07:52)
[2023-09-19] MEDS: LORazepam 2 MG/ML VIAL IVP STA (07:53)
[2023-09-19] MEDS: DROPERIDOL 5 MG/2 ML VIAL IVP STA (07:54)
[2023-09-19] MEDS: DEXAMETHASONE 10 MG/ML VIAL IVP STA (07:55)
[2023-09-19] MEDS: SODIUM CHLORIDE 0.9% 1,000 ML IV STA (08:03)
[2023-09-19] MEDS: ONDANSETRON 4 MG/2 ML VIAL IVP STA (09:13)
[2023-09-19 09:24] VITALS: BP 160/99
== END 2023-09-19 09:23 | disposition home or self-care (01) ==
LOC: EDUNIT# → ED 05:52
DX: R11.2 Nausea with vomiting, unspecified (principal); J45.909 Unspecified asthma, uncomplicated; Z79.899 Other long term (current) drug therapy; Z86.711 Personal history of pulmonary embolism; F17.200 Nicotine dependence, unspecified, uncomplicated
CPT/HCPCS: 36415; 80053; 83690; 83735; 96374; 96375; 99283; 99285; J2060

== ENCOUNTER 2023-10-02 07:11 | Outpatient (CLI) | payer OTHER ==
--- NOTE | 2023-10-02 15:40 | Ultrasound Report ---
PROCEDURE: Soft tissue ultrasound INDICATIONS: 33-year-old male with history of swelling at the base of the penis on the left, current ly resolved. TECHNIQUE: Real-time scanning was performed of the penis COMPARISON: None. FINDINGS: At the site of concern at the base of the penis on the left side, no mass lesion was performed. Leatha l soft tissues present. Normal vascularity. In the distal aspect of the penis, there is focal skin thickening on the right measuring up to 1 cm. Skin thickness on the left is 0.5 cm. Again, no mass lesion or abnormal vascularity. IMPRESSION: No evidence of mass lesion at the site of concern. Incidental skin thickening the right distal penis Reviewed by: Marko Hennessy MD on 10/02/2023 2:39 PM [facility] Approved by: Marko Hennessy MD on 10/02/2023 2:39 PM [facility] Station ID: [id number]
== END 2023-10-02 07:12 | disposition home or self-care (01) ==
LOC: DI 07:11
PROVIDERS: ATTEND Internal Medicine
DX: N48.89 Other specified disorders of penis (principal)

== ENCOUNTER 2023-12-30 12:24 | Outpatient (CLI) | payer OTHER | END 2023-12-30 23:59 | disposition critical access hospital (66) | LOC: EMS 12:24 | DX: R11.15 Cyclical vomiting syndrome unrelated to migraine (principal); F41.9 Anxiety disorder, unspecified | CPT/HCPCS: A0425; A0429 ==

== ENCOUNTER 2023-12-30 12:42 | Emergency (ER) | payer OTHER ==
[2023-12-30 13:02] VITALS: O2SAT 98
[2023-12-30 13:04] LABS: BASOPHILS # (AUTO) 0.1 10^3/uL (0.0-0.1); BASOPHILS % (AUTO) 0.5 %; EOSINOPHILS # (AUTO) 0.1 10^3/uL (0.0-0.7); EOSINOPHILS % (AUTO) 0.9 %; HCT - HEMATOCRIT 42.2 % (42.0-52.0); HGB - HEMOGLOBIN 14.5 g/dL (14.0-18.0); LYMPHOCYTES # (AUTO) 2.9 10^3/uL (1.5-3.5); LYMPHOCYTES % (AUTO) 22.9 %; MEAN CORPUSCULAR HEMOGLOBIN 25.8 pg (27.0-31.0); MEAN CORPUSCULAR HGB CONC 34.4 g/dL (32.0-36.0); MEAN CORPUSCULAR VOLUME 75.1 fL (80.0-94.0); MEAN PLATELET VOLUME 9.3 fL (7.4-11.4); MONOCYTES # (AUTO) 0.8 10^3/uL (0.0-1.0); MONOCYTES % (AUTO) 6.3 %; NEUTROPHILS # (AUTO) 8.8 10^3/uL (1.5-6.6); NEUTROPHILS % (AUTO) 69.2 %; PLT - PLATELET COUNT 373 10^3/uL (130-450); RED BLOOD COUNT 5.62 10^6/uL (4.70-6.10); RED CELL DISTRIBUTION WIDTH 13.8 % (12.0-15.0); WHITE BLOOD COUNT 12.8 x10^3/uL (4.8-10.8)
[2023-12-30] MEDS: DROPERIDOL 5 MG/2 ML VIAL IVP STA (13:19)
[2023-12-30] MEDS: diphenhydrAMINE INJ 50 MG/ML VIAL IVP STA (13:19)
[2023-12-30 13:21] LABS: ALBUMIN 4.3 g/dL (3.2-5.5); ALBUMIN/GLOBULIN RATIO 1.7 (1.0-2.2); BILIRUBIN,TOTAL 1.1 mg/dL (0.2-1.0); CALCIUM 9.7 mg/dL (8.5-10.3); POTASSIUM 3.8 mmol/L (3.5-4.5); TOTAL PROTEIN 6.9 g/dL (6.4-8.9)
[2023-12-30 14:23] VITALS: BP 126/82
[2023-12-30 14:42] LABS: THC CANNABINOID SCREEN, URINE POSITIVE (NEGATIVE)
[2023-12-30 14:43] LABS: AMPHETAMINE SCREEN,URINE POSITIVE (NEGATIVE); BENZODIAZEPINES SCREEN, URINE POSITIVE (NEGATIVE); COCAINE SCREEN URINE NEGATIVE (NEGATIVE); METHAMPHETAMINES SCREEN, URINE NEGATIVE (NEGATIVE); OPIATE SCREEN, URINE NEGATIVE (NEGATIVE); TRICYCLIC ANTIDEPRESSANT,URINE NEGATIVE (NEGATIVE)
[2023-12-30 14:44] LABS: BARBITURATE SCREEN,UR NEGATIVE (NEGATIVE); BUPRENORPHINE SCREEN, URINE NEGATIVE (NEGATIVE); METHADONE SCREEN, URINE NEGATIVE (NEGATIVE); OXYCODONE SCREEN, URINE NEGATIVE (NEGATIVE)
--- NOTE | 2023-12-30 14:45 | ED Physician Documentation ---
PD HPI ABD PAIN - Stated complaint Stated Complaint: VOMITING - Chief complaint Chief Complaint: Abd Pain - History obtained from History obtained from: Patient, EMS - Additional information Additional information: The patient comes to the emergency department chief complaint of nausea, vomiting, and abdominal cramping. He states that he has been feeling very anxious recently. He has a history of anxiety, cyclical vomiting, and cannabis hyperemesis syndrome.He has not been coming in as much for his vomiting and anxiety because he has learned many techniques to manage his anxiety at home including meditation, music therapy, aromatherapy, and "plant medicine" which he clarifies to be cannabis use. The patient states he just cannot get his symptoms under control today so he decided to come in. He had tried taking his meds at home but he vomited them up. He states that when the medics arrived, they were able to calm him and he feels better than he did. However, he still bit nauseated and anxious. Nothing different this time than his usual episodes. PD PAST MEDICAL HISTORY - Past Medical History Past Medical History: Yes Cardiovascular: Pulmonary embolism Respiratory: Asthma Neuro: None Endocrine/Autoimmune: None GI: GERD, Other : None HEENT: None Psych: Depression, Anxiety, Panic attacks, Post traumatic stress disorder, Other Musculoskeletal: Other Derm: None - Past Surgical History Past Surgical History: Yes General: Colonoscopy, EGD Ortho: Shoulder arthroplasty, Other - Present Medications Home Medications: Ambulatory Orders Medication Instructions Recorded Confirmed Promethazine [Phenergan] 25 mg PO Q6H PRN #10 tab 07/04/22 09/19/23 haloperidoL [Haloperidol] 5 mg PO Q6H PRN #15 tablet 07/04/22 09/19/23 LORazepam [Ativan] 1 mg PO TID PRN #10 tablet 07/06/22 09/19/23 Meloxicam [Mobic] 7.5 mg PO BID PRN #20 tablet 08/13/22 09/19/23 Buspirone HCl 1 tab PO BID 09/19/23 09/19/23 Chlorpromazine HCl 1 tab PO DAILY 09/19/23 09/19/23 Gabapentin [Neurontin] 1 cap PO BID 09/19/23 09/19/23 - Allergies Allergies/Adverse Reactions: Allergies Allergy/AdvReac Type Severity Reaction Status Date / Time methylphenidate Allergy Unknown Unknown Verified 12/30/23 12:46 [From Ritalin] - Social History Does the pt smoke?: Yes Smoking Status: Current every day smoker Does the pt drink ETOH?: Yes Does the pt have substance abuse?: Yes Substance Use and Type: Marijuana - Immunizations Immunizations are current?: Yes Immunizations: TDAP >10years/unknown - POLST Patient has POLST: No PD ED PE NORMAL - Vitals Vital signs reviewed: Yes - General General: Alert and oriented X 3, Well developed/nourished, Other (No distress but appears slightly anxious.) - HEENT HEENT: Atraumatic, EOMI, Moist mucous membranes - Neck Neck: Supple, no meningeal sign - Cardiac Cardiac: RRR, No murmur - Respiratory Respiratory: No respiratory distress, Clear bilaterally - Abdomen Abdomen: Soft, Non tender, Non distended - Derm Derm: Normal color, Warm and dry, No rash - Extremities Extremities: No deformity, No edema - Neuro Neuro: Alert and oriented X 3 - Psych Psych: Normal mood, Normal affect Results - Vitals Vitals: Vital Signs - 24 hr 12/30/23 12/30/23 12:46 14:22 Temperature 37.0 C Heart Rate 69 60 Respiratory 18 18 Rate Blood Pressure 100/67 126/82 H O2 Saturation 98 98 Oxygen O2 Source Room air - Labs Labs: Laboratory Tests 12/30/23 12/30/23 13:00 13:00 WBC 12.8 H RBC 5.62 Hgb 14.5 Hct 42.2 MCV 75.1 L MCH 25.8 L MCHC 34.4 RDW 13.8 Plt Count 373 MPV 9.3 Neut # (Auto) 8.8 H Lymph # (Auto) 2.9 Lucas # (Auto) 0.8 Eos # (Auto) 0.1 Baso # (Auto) 0.1 Absolute Nucleated RBC 0.00 Nucleated RBC % 0.0 Sodium 135 Potassium 3.8 Chloride 105 Carbon Dioxide 22 Anion Gap 8.0 BUN 9 Creatinine 1.0 Estimated GFR (MDRD) 106 Glucose 115 H Calcium 9.7 Total Bilirubin 1.1 H AST 21 ALT 18 Alkaline Phosphatase 68 Total Protein 6.9 Albumin 4.3 Globulin 2.6 Albumin/Globulin Ratio 1.7 Lipase 25 PD Medical Decision Making - ED course Complexity details: reviewed results, re-evaluated patient, considered differential, d/w patient ED course: The patient was given droperidol and Benadryl after which he felt much better. He requested that his drug screen be done so that he can show that there is nothing else in his system. Patient is stable for discharge home. We have discussed home management of symptoms as well as usual indications for return. Departure - Departure Disposition: 01 Home, Self Care Clinical Impression: Cyclical vomiting, Anxiety attack Condition: Stable Instructions: ED Nausea Vomiting, ED Panic Attack Comments: Your labs look good today. Please follow-up with your primary doctor for any further concerns. You have been treated with sedating medication so please do not drive for the next 6 hours.
== END 2023-12-30 14:59 | disposition home or self-care (01) ==
LOC: EDUNIT# → EDBD → ED 12:42
DX: R11.15 Cyclical vomiting syndrome unrelated to migraine (principal); F41.0 Panic disorder [episodic paroxysmal anxiety]; Z86.711 Personal history of pulmonary embolism; F17.200 Nicotine dependence, unspecified, uncomplicated
CPT/HCPCS: 36415; 80053; 80306; 83690; 85025; 96374; 99283; J1200

== ENCOUNTER 2023-12-31 08:38 | Outpatient (CLI) | payer OTHER | END 2023-12-31 23:59 | disposition critical access hospital (66) | LOC: EMS 08:38 | DX: R11.2 Nausea with vomiting, unspecified (principal); R10.817 Generalized abdominal tenderness | CPT/HCPCS: A0425; A0427 ==

== ENCOUNTER 2023-12-31 08:56 | Emergency (ER) | payer OTHER ==
--- NOTE | 2023-12-31 09:47 | ED Physician Documentation ---
PD HPI NVD - Stated complaint Stated Complaint: N/V - Chief complaint Chief Complaint: General - History obtained from History obtained from: Patient, EMS - History of Present Illness Timing - onset: How many days ago (has had persistent nausea and vomiting for several days, improved briefly with IV meds and fluids in ER on visits yesterday and couple days prior. has had similar often in the past, but had been not to ED for couple of months. Claims increased social streses recently leading to increased anxiety.) Timing - duration: Days Timing - details: Abrupt onset, Still present, Waxing and waning (with ED treatments, but then ill again within 4-6 hours.) Associated symptoms: Abdominal pain. No: Fever Contributing factors: Other (regular cannibis use and increased use the past 2week or two due to social stresses.). No: Sick contact, Bad food Similar symptoms before: No diagnosis (cyclic vomiting presumed cannibis hyperemesis.) PD PAST MEDICAL HISTORY - Past Medical History Cardiovascular: Pulmonary embolism Respiratory: Asthma Neuro: None Endocrine/Autoimmune: None GI: GERD, Other : None HEENT: None Psych: Depression, Anxiety, Panic attacks, Post traumatic stress disorder, Other Musculoskeletal: Other Derm: None - Past Surgical History Past Surgical History: Yes General: Colonoscopy, EGD Ortho: Shoulder arthroplasty, Other - Present Medications Home Medications: Ambulatory Orders Medication Instructions Recorded Confirmed Promethazine [Phenergan] 25 mg PO Q6H PRN #10 tab 07/04/22 01/01/24 haloperidoL [Haloperidol] 5 mg PO Q6H PRN #15 tablet 07/04/22 01/01/24 LORazepam [Ativan] 1 mg PO TID PRN #10 tablet 07/06/22 01/01/24 Meloxicam [Mobic] 7.5 mg PO BID PRN #20 tablet 08/13/22 01/01/24 Buspirone HCl 1 tab PO BID 09/19/23 01/01/24 Chlorpromazine HCl 1 tab PO DAILY 09/19/23 01/01/24 Gabapentin [Neurontin] 1 cap PO BID 09/19/23 01/01/24 Ondansetron Odt [Zofran] 4 mg TL Q6H PRN #20 tablet 12/31/23 01/01/24 Promethazine Supp [Phenergan Supp] 25 mg UT Q6H PRN #10 supp 12/31/23 01/01/24 Promethazine [Phenergan] 25 mg PO Q6H PRN #10 tab 12/31/23 01/01/24 Metoclopramide [Reglan] 10 mg PO Q6H PRN #20 tablet 01/01/24 - Allergies Allergies/Adverse Reactions: Allergies Allergy/AdvReac Type Severity Reaction Status Date / Time methylphenidate Allergy Unknown Unknown Verified 01/01/24 14:00 [From Ritalin] - Social History Does the pt smoke?: Yes Smoking Status: Current every day smoker Does the pt drink ETOH?: Yes Does the pt have substance abuse?: Yes - Immunizations Immunizations are current?: Yes Immunizations: TDAP >10years/unknown - POLST Patient has POLST: No PD ED PE NORMAL - Vitals Vital signs reviewed: Yes - General General: Alert and oriented X 3, Well developed/nourished, Other (appears very anxious and is very uncomfortable due to nausea and urrently nonproductive vomiting. ) - HEENT HEENT: No: Moist mucous membranes - Neck Neck: Supple, no meningeal sign - Cardiac Cardiac: RRR, No murmur - Respiratory Respiratory: No respiratory distress, Clear bilaterally - Abdomen Abdomen: Normal bowel sounds, Soft, Non distended, No organomegaly, Other (tender mid abd to epigastric area without guarding but no percussion nor rebound tenderness. ) Results - Vitals Vitals: Oxygen O2 Source Room air - Labs Labs: Laboratory Tests 12/31/23 09:55 Sodium 136 Potassium 3.2 L Chloride 104 Carbon Dioxide 25 Anion Gap 7.0 BUN 12 Creatinine 1.1 Estimated GFR (MDRD) 95 Glucose 102 Calcium 9.4 Magnesium 1.7 Total Bilirubin 1.8 H AST 16 ALT 17 Alkaline Phosphatase 71 Total Protein 6.9 Albumin 4.3 Globulin 2.6 Albumin/Globulin Ratio 1.7 Lipase 33 PD Medical Decision Making - ED course Complexity details: reviewed old records (prior ED vistis and also [facility] form. ), re-evaluated patient (he is feeling much improved with IV fluids, Inapsine, Toradol, Ativan. I did give Decadron IV as well due to continue N/V over days. ), considered differential, d/w patient Departure - Departure Disposition: 01 Home, Self Care Clinical Impression: Cyclical vomiting Nausea and vomiting Qualifiers: Vomiting type: unspecified Qualified Code(s): R11.2 - Nausea with vomiting, unspecified Condition: Stable Instructions: ED Nausea Vomiting Prescriptions: Promethazine [Phenergan] 25 mg PO Q6H PRN #10 tab PRN Reason: Nausea / Vomiting Promethazine Supp [Phenergan Supp] 25 mg UT Q6H PRN #10 supp PRN Reason: Nausea / Vomiting Ondansetron Odt [Zofran] 4 mg TL Q6H PRN #20 tablet PRN Reason: Nausea / Vomiting Comments: Small frequent fluids. Surprise food initially. Use antiemetic medication if needed for nausea. I wrote prescriptions for several versions, the O dancer trial/Zofran orally dissolving, Phenergan/promethazine tablet and promethazine suppositories. Continue your other usual medications. Return as needed. Forms: PCP List Discharge Date/Time: 12/31/23 12:18
[2023-12-31] MEDS: KETOROLAC 15 MG/ML VIAL IVP STA (10:03)
[2023-12-31] MEDS: LORazepam 2 MG/ML VIAL IVP STA (10:04)
[2023-12-31] MEDS: DROPERIDOL 5 MG/2 ML VIAL IVP STA (10:04)
[2023-12-31] MEDS: LACTATED RINGERS 1,000 ML IV STA (10:04)
[2023-12-31 10:13] LABS: ALBUMIN 4.3 g/dL (3.2-5.5); ALBUMIN/GLOBULIN RATIO 1.7 (1.0-2.2); BILIRUBIN,TOTAL 1.8 mg/dL (0.2-1.0); CALCIUM 9.4 mg/dL (8.5-10.3); CREATININE 1.1 mg/dL (0.6-1.3); MAGNESIUM 1.7 mg/dL (1.7-2.3); POTASSIUM 3.2 mmol/L (3.5-4.5); TOTAL PROTEIN 6.9 g/dL (6.4-8.9)
[2023-12-31 12:20] VITALS: BP 142/82; O2SAT 98
== END 2023-12-31 12:18 | disposition home or self-care (01) ==
LOC: EDUNIT# → ED 08:56
DX: R11.15 Cyclical vomiting syndrome unrelated to migraine (principal); F17.200 Nicotine dependence, unspecified, uncomplicated
CPT/HCPCS: 36415; 80053; 83690; 83735; 96374; 96375; 99283; 99284; J2060; J7120

== ENCOUNTER 2024-01-01 13:37 | Outpatient (CLI) | payer OTHER | END 2024-01-01 13:38 | disposition critical access hospital (66) | LOC: EMS 13:37 | DX: R11.10 Vomiting, unspecified (principal); F41.9 Anxiety disorder, unspecified | CPT/HCPCS: A0425; A0427 ==

== ENCOUNTER 2024-01-01 13:56 | Emergency (ER) | payer OTHER ==
--- NOTE | 2024-01-01 14:12 | ED Physician Documentation ---
PD HPI ABD PAIN - Stated complaint Stated Complaint: N/V - Chief complaint Chief Complaint: Abd Pain - History obtained from History obtained from: Patient - Additional information Additional information: He has a history of cyclic vomiting/CHS and has had his current exacerbation for the last 2 days. He was here the last 2 days when treated with medications with improvement. Started vomiting again at home despite promethazine both orally and per rectum. PD PAST MEDICAL HISTORY - Past Medical History Past Medical History: Yes Cardiovascular: Pulmonary embolism Respiratory: Asthma Neuro: None Endocrine/Autoimmune: None GI: GERD, Other : None HEENT: None Psych: Depression, Anxiety, Panic attacks, Post traumatic stress disorder, Other Musculoskeletal: Other Derm: None - Past Surgical History Past Surgical History: Yes General: Colonoscopy, EGD Ortho: Shoulder arthroplasty, Other - Present Medications Home Medications: Ambulatory Orders Medication Instructions Recorded Confirmed Promethazine [Phenergan] 25 mg PO Q6H PRN #10 tab 07/04/22 01/01/24 haloperidoL [Haloperidol] 5 mg PO Q6H PRN #15 tablet 07/04/22 01/01/24 LORazepam [Ativan] 1 mg PO TID PRN #10 tablet 07/06/22 01/01/24 Meloxicam [Mobic] 7.5 mg PO BID PRN #20 tablet 08/13/22 01/01/24 Buspirone HCl 1 tab PO BID 09/19/23 01/01/24 Chlorpromazine HCl 1 tab PO DAILY 09/19/23 01/01/24 Gabapentin [Neurontin] 1 cap PO BID 09/19/23 01/01/24 Ondansetron Odt [Zofran] 4 mg TL Q6H PRN #20 tablet 12/31/23 01/01/24 Promethazine Supp [Phenergan Supp] 25 mg ND Q6H PRN #10 supp 12/31/23 01/01/24 Promethazine [Phenergan] 25 mg PO Q6H PRN #10 tab 12/31/23 01/01/24 Metoclopramide [Reglan] 10 mg PO Q6H PRN #20 tablet 01/01/24 - Allergies Allergies/Adverse Reactions: Allergies Allergy/AdvReac Type Severity Reaction Status Date / Time methylphenidate Allergy Unknown Unknown Verified 01/01/24 14:00 [From Ritalin] - Social History Does the pt smoke?: Yes Smoking Status: Current every day smoker Does the pt drink ETOH?: Yes Does the pt have substance abuse?: Yes - Immunizations Immunizations are current?: Yes Immunizations: TDAP >10years/unknown - POLST Patient has POLST: No PD ED PE NORMAL - Vitals Vital signs reviewed: Yes - General General: Alert and oriented X 3, Other (He is somewhat agitated but cooperative, and loudly yelling into the vomit bag.) - Abdomen Abdomen: Normal bowel sounds, Non tender - Neuro Neuro: Alert and oriented X 3 Results - Vitals Vitals: Vital Signs - 24 hr 01/01/24 01/01/24 01/01/24 14:00 16:03 17:58 Temperature 36.9 C Heart Rate 88 78 68 Respiratory 24 18 18 Rate Blood Pressure 133/48 H 122/84 H 118/80 O2 Saturation 99 100 100 Oxygen O2 Source Room air - Labs Labs: Laboratory Tests 01/01/24 14:21 Sodium 137 Potassium 3.3 L Chloride 100 L Carbon Dioxide 22 Anion Gap 15.0 H BUN 15 Creatinine 1.1 Estimated GFR (MDRD) 95 Glucose 96 Calcium 10.4 H Total Bilirubin 1.9 H AST 19 ALT 17 Alkaline Phosphatase 75 Total Protein 8.3 Albumin 4.9 Globulin 3.4 Albumin/Globulin Ratio 1.4 PD Medical Decision Making - ED course ED course: 33-year-old gentleman with recurrent cannabinoid hyperemesis/cyclic vomiting. Benign exam. CMP notable for mild elevation in bilirubin which is chronic and mild hypokalemia. He was treated initially with droperidol and Benadryl with modest relief followed by haloperidol and ketorolac after which she was feeling much better but was panicky. After a shot of Ativan his symptoms had resolved and he passed a p.o. challenge. Nontender on examination prior to discharge. Departure - Departure Disposition: 01 Home, Self Care Clinical Impression: Cannabinoid hyperemesis syndrome, Cyclical vomiting Condition: Good Record reviewed to determine appropriate education?: Yes Instructions: ED Nausea Vomiting Prescriptions: Metoclopramide [Reglan] 10 mg PO Q6H PRN #20 tablet PRN Reason: nausea or headache Comments: Call your doctor to arrange a follow-up appointment, make the next available appointment. In the interim, return anytime if worse or if new symptoms develop. Forms: PCP List Discharge Date/Time: 01/01/24 17:58
[2024-01-01] MEDS: DROPERIDOL 5 MG/2 ML VIAL IVP STA (14:28)
[2024-01-01] MEDS: diphenhydrAMINE INJ 50 MG/ML VIAL IVP STA (14:28)
[2024-01-01] MEDS: SODIUM CHLORIDE 0.9% 1,000 ML IV STA (14:33)
[2024-01-01 14:40] LABS: ALBUMIN 4.9 g/dL (3.2-5.5); ALBUMIN/GLOBULIN RATIO 1.4 (1.0-2.2); BILIRUBIN,TOTAL 1.9 mg/dL (0.2-1.0); CALCIUM 10.4 mg/dL (8.5-10.3); CREATININE 1.1 mg/dL (0.6-1.3); POTASSIUM 3.3 mmol/L (3.5-4.5); TOTAL PROTEIN 8.3 g/dL (6.4-8.9)
[2024-01-01] MEDS: KETOROLAC 15 MG/ML VIAL IVP STA (15:27)
[2024-01-01] MEDS: HALOPERIDOL 5 MG/ML VIAL IVP STA (15:28)
[2024-01-01] MEDS: MAG HYDROX/AL HYDROX/SIMETH 30 ML UDC PO STA (16:25)
[2024-01-01] MEDS: LORazepam 2 MG/ML VIAL IVP STA (16:25)
[2024-01-01 17:59] VITALS: O2SAT 100
[2024-01-01 18:09] VITALS: BP 118/80
== END 2024-01-01 17:58 | disposition home or self-care (01) ==
LOC: EDUNIT# → ED 13:56
DX: R11.15 Cyclical vomiting syndrome unrelated to migraine (principal); F41.0 Panic disorder [episodic paroxysmal anxiety]; F17.200 Nicotine dependence, unspecified, uncomplicated
CPT/HCPCS: 36415; 80053; 96361; 96374; 96375; 99283; 99285; A9270; J1200; J2060

== ENCOUNTER 2024-02-29 12:31 | Outpatient (CLI) | payer OTHER | END 2024-02-29 23:59 | disposition critical access hospital (66) | LOC: EMS 12:31 | DX: R11.2 Nausea with vomiting, unspecified (principal); R25.2 Cramp and spasm | CPT/HCPCS: A0425; A0429 ==

== ENCOUNTER 2024-02-29 12:49 | Emergency (ER) | payer OTHER ==
--- NOTE | 2024-02-29 13:07 | ED Physician Documentation ---
History of Present Illness - Stated complaint Stated Complaint: N/V - Additonal information Additional information: 34-year-old male with history of COPD and cyclic vomiting syndrome as well as PTSD panic attack depression anxiety presents emergency department for nausea vomiting. Patient says it started about 2 days ago he was starting to experience emotional distress and says this is normally what triggers it. He does endorse an marijuana use and says this is not related to his cyclic vomiting. No fevers or chills no abdominal pain no diarrhea. PD PAST MEDICAL HISTORY - Past Medical History Cardiovascular: Pulmonary embolism Respiratory: Asthma Neuro: None Endocrine/Autoimmune: None GI: GERD, Other : None HEENT: None Psych: Depression, Anxiety, Panic attacks, Post traumatic stress disorder, Other Musculoskeletal: Other Derm: None - Past Surgical History Past Surgical History: Yes General: Colonoscopy, EGD Ortho: Shoulder arthroplasty, Other - Present Medications Home Medications: Ambulatory Orders Medication Instructions Recorded Confirmed Promethazine [Phenergan] 25 mg PO Q6H PRN #10 tab 07/04/22 01/01/24 haloperidoL [Haloperidol] 5 mg PO Q6H PRN #15 tablet 07/04/22 01/01/24 LORazepam [Ativan] 1 mg PO TID PRN #10 tablet 07/06/22 01/01/24 Meloxicam [Mobic] 7.5 mg PO BID PRN #20 tablet 08/13/22 01/01/24 Buspirone HCl 1 tab PO BID 09/19/23 01/01/24 Chlorpromazine HCl 1 tab PO DAILY 09/19/23 01/01/24 Gabapentin [Neurontin] 1 cap PO BID 09/19/23 01/01/24 Ondansetron Odt [Zofran] 4 mg TL Q6H PRN #20 tablet 12/31/23 01/01/24 Promethazine Supp [Phenergan Supp] 25 mg GA Q6H PRN #10 supp 12/31/23 01/01/24 Promethazine [Phenergan] 25 mg PO Q6H PRN #10 tab 12/31/23 01/01/24 Metoclopramide [Reglan] 10 mg PO Q6H PRN #20 tablet 01/01/24 - Allergies Allergies/Adverse Reactions: Allergies Allergy/AdvReac Type Severity Reaction Status Date / Time methylphenidate Allergy Unknown Unknown Verified 02/29/24 13:15 [From Ritalin] - Social History Does the pt smoke?: Yes Smoking Status: Current every day smoker Does the pt drink ETOH?: Yes Does the pt have substance abuse?: Yes - Immunizations Immunizations are current?: Yes Immunizations: TDAP >10years/unknown - POLST Patient has POLST: No PD ED PE NORMAL - Vitals Vital signs reviewed: Yes - General General: Alert and oriented X 3, No acute distress, Well developed/nourished - HEENT HEENT: Atraumatic, PERRL - Cardiac Cardiac: RRR - Respiratory Respiratory: No respiratory distress - Abdomen Abdomen: Normal bowel sounds, Soft, Non tender, Non distended, No organomegaly - Back Back: No CVA TTP - Derm Derm: Normal color, Warm and dry, No rash - Extremities Extremities: No edema, No calf tenderness / cord PD ED PE EXPANDED - Psych Psych: Anxious. No: Depressed, Suicidal, Homicidal, Tearful, Withdrawn Results - Vitals Vitals: Vital Signs - 24 hr 02/29/24 02/29/24 13:09 15:27 Temperature 37.3 C Heart Rate 101 H 87 Respiratory 21 18 Rate Blood Pressure 119/86 H 136/89 H O2 Saturation 98 98 Oxygen O2 Source Room air - EKG (time done) 1333 EKG releavant findings:: EKG personally interpreted by author of this note. Relevant findings are: Rate: Rate (enter#) (104) Rhythm: NSR [place]: Normal Intervals: Normal GA, Prolonged QT (424) QRS: Normal Ischemia: Normal ST segments Compare to prior EKG: Unchanged from prior EKG Computer interpretation: Agree with computer - Labs Labs: Laboratory Tests 02/29/24 02/29/24 13:00 13:00 WBC 24.6 H RBC 6.51 H Hgb 16.8 Hct 46.7 MCV 71.7 L MCH 25.8 L MCHC 36.0 RDW 14.4 Plt Count 532 H MPV 9.3 Neut # (Auto) 20.1 H Lymph # (Auto) 2.5 [place] # (Auto) 1.8 H Eos # (Auto) 0.0 Baso # (Auto) 0.0 Absolute Nucleated RBC 0.00 Band Neuts % (Manual) Not Reportable Abnorm Lymph % (Manual) Not Reportable Nucleated RBC % 0.0 Neutrophils # (Manual) Not Reportable Lymphocytes # (Manual) Not Reportable Monocytes # (Manual) Not Reportable Eosinophils # (Manual) Not Reportable Basophils # (Manual) Not Reportable Differential Comment MANUAL=AUTO DIFF Manual Slide Review Indicated WBC Morphology NORMAL APPEARANCE Platelet Estimate INCREASED (>450,000) Platelet Morphology NORMAL APPEARANCE RBC Morph Micro Appear 1+ TARGET Sodium 135 Potassium 3.4 L Chloride 95 L Carbon Dioxide 26 Anion Gap 14.0 H BUN 27 H Creatinine 1.2 Estimated GFR (MDRD) 85 L Glucose 118 H Calcium 10.7 H Magnesium 1.9 Total Bilirubin 1.8 H AST 25 ALT 19 Alkaline Phosphatase 108 Total Protein 8.8 Albumin 5.0 Globulin 3.8 Albumin/Globulin Ratio 1.3 Lipase 65 PD Medical Decision Making - ED course ED course: 34-year-old male presents emergency department for cyclic vomiting. He received 1 L of IV fluids here in the emergency department as well as a dose of IV droperidol and GI cocktail. He did have significant leukocytosis, 24.6 which is most likely due to his cyclic vomiting as he has been experiencing the symptoms now for about 2 days. No other significant electrolyte abnormalities mild GRAZYNA, BUN 27 most likely due to dehydration. EKG was complete which did show mild prolongation of QTc, 424, he was monitored for couple hours here in the emergency department patient asked to be discharged says that he is feeling better and will follow-up with a primary care provider he was told to stop consuming marijuana return precautions given all questions answered patient safe for discharge. Departure - Departure Disposition: 01 Home, Self Care Clinical Impression: Cyclical vomiting Instructions: ED Nausea Vomiting Comments: Thank you for trusting us with your care. We have given you droperidol and Zofran as well as IV fluids here in the emergency department to help with your cyclic vomiting. I would strongly encourage you to quit using marijuana with her smoking or eating it as this definitely contributes to cyclic vomiting. Please follow-up with your primary care provider About today's ER visit. Forms: PCP List Discharge Date/Time: 02/29/24 15:33
[2024-02-29 13:20] LABS: BASOPHILS % (AUTO) 0.2 %; HCT - HEMATOCRIT 46.7 % (42.0-52.0); HGB - HEMOGLOBIN 16.8 g/dL (14.0-18.0); LYMPHOCYTES # (AUTO) 2.5 10^3/uL (1.5-3.5); LYMPHOCYTES % (AUTO) 10.1 %; MEAN CORPUSCULAR HEMOGLOBIN 25.8 pg (27.0-31.0); MEAN CORPUSCULAR VOLUME 71.7 fL (80.0-94.0); MEAN PLATELET VOLUME 9.3 fL (7.4-11.4); MONOCYTES # (AUTO) 1.8 10^3/uL (0.0-1.0); MONOCYTES % (AUTO) 7.5 %; NEUTROPHILS # (AUTO) 20.1 10^3/uL (1.5-6.6); NEUTROPHILS % (AUTO) 81.8 %; PLT - PLATELET COUNT 532 10^3/uL (130-450); RED BLOOD COUNT 6.51 10^6/uL (4.70-6.10); RED CELL DISTRIBUTION WIDTH 14.4 % (12.0-15.0); WHITE BLOOD COUNT 24.6 x10^3/uL (4.8-10.8)
[2024-02-29] MEDS: SODIUM CHLORIDE 0.9% 1,000 ML IV ONE (13:21)
[2024-02-29 13:22] LABS: SLIDE REVIEW? Indicated
[2024-02-29 13:25] VITALS: O2SAT 98
[2024-02-29] MEDS: DROPERIDOL 5 MG/2 ML VIAL IVP STA (13:25)
[2024-02-29] MEDS: ONDANSETRON 4 MG/2 ML VIAL IVP STA (13:27)
[2024-02-29] MEDS: PANTOPRAZOLE 40 MG VIAL IV STA (13:27)
[2024-02-29 13:34] LABS: ALBUMIN/GLOBULIN RATIO 1.3 (1.0-2.2); BILIRUBIN,TOTAL 1.8 mg/dL (0.2-1.0); CALCIUM 10.7 mg/dL (8.5-10.3); CREATININE 1.2 mg/dL (0.6-1.3); MAGNESIUM 1.9 mg/dL (1.7-2.3); POTASSIUM 3.4 mmol/L (3.5-4.5); TOTAL PROTEIN 8.8 g/dL (6.4-8.9)
[2024-02-29 13:41] LABS: PLATELET ESTIMATE, MANUAL INCREASED (>450,000) (NORMAL); PLATELET MORPHOLOGY NORMAL APPEARANCE (NORMAL); RBC MORPHOLOGY (MULTIPLE) 1+ TARGET (NORMAL)
[2024-02-29 13:42] LABS: DIFFERENTIAL COMMENT MANUAL=AUTO DIFF; WBC MORPHOLOGY (MULTIPLE) NORMAL APPEARANCE (NORMAL)
[2024-02-29] MEDS: GI COCKTAIL 120 ML BOTTLE PO STA (14:40)
[2024-02-29 15:36] VITALS: BP 136/89
== END 2024-02-29 15:33 | disposition home or self-care (01) ==
LOC: EDUNIT# → ED 12:49
DX: R11.15 Cyclical vomiting syndrome unrelated to migraine (principal); J45.909 Unspecified asthma, uncomplicated; Z86.711 Personal history of pulmonary embolism; Z79.01 Long term (current) use of anticoagulants; Z79.899 Other long term (current) drug therapy; F17.200 Nicotine dependence, unspecified, uncomplicated
CPT/HCPCS: 36415; 80053; 83690; 83735; 85025; 93005; 96361; 96374; 96375; 99283; 99284; A9270